=== PATIENT | female | born 1940 | race Caucasian/White ===

== ENCOUNTER 2019-12-18 20:40 | Emergency (ER) | payer MEDICARE, OTHER, SELFPAY ==
[2019-12-18 21:01] VITALS: BP 142/72; PULSE 66; RESP 22; TEMP 36.7; O2SAT 97; BMI 31.3
--- NOTE | 2019-12-18 21:05 | XR_ITS ---
WS: [id number] XR chest 2V* [id number] REASON FOR EXAM: cough, shortness of breath FINDINGS: The heart and mediastinum are normal. 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 The lung cavanaugh are well aerated. No pneumonia, pleural effusion, pulmonary edema, no mass effect. The hilum and apices normal. There is arteriosclerotic changes in the arch of the aorta. No osseous abnormalities. XR/XR chest 2V* [id number] IMPRESSION: Negative chest for active pathology. 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 Arteriosclerotic changes.
[2019-12-18 21:30] LABS: Influenza A by IFA Negative (Negative); Influenza B by IFA Negative (Negative)
[2019-12-18 21:40] LABS: Basophils % 0.2 %; Eosinophils # 0.2 10^3/uL (0.0-0.8); Eosinophils % 5.4 %; Hematocrit 39.5 % (37.0-47.0); Hemoglobin 12.4 g/dL (11.5-15.3); Lymphocytes # 1.5 10^3/uL (0.8-4.8); Lymphocytes % 34.4 %; Mean Corpuscular HGB Conc 31.4 g/dL (30.0-36.0); Mean Corpuscular Hemoglobin 27.1 pg (28.0-34.0); Mean Corpuscular Volume 86.4 fL (81-99); Mean Platelet Volume 10.9 fL (7.4-10.4); Monocytes # 0.7 10^3/uL (0.2-0.9); Monocytes % 16.5 %; Neutrophils # 1.8 10^3/uL (1.8-7.7); Neutrophils % 43.3 %; Nucleated Red Blood Cells % 0 %; Platelet Count 223 10^3/cmm (130-400); Red Blood Count 4.57 10^6/uL (4.1-5.3); Red Cell Distribution Width 14.2 % (12.1-15.1); White Blood Count 4.2 10^3/uL (4.0-10.0)
[2019-12-18 21:54] LABS: Alanine Aminotransferase 10 U/L (0-33); Albumin Level 4.3 g/dL (3.5-5.2); Alkaline Phosphatase 95 IU/L (35-105); Anion Gap 18.8 (5-19); Aspartate Amino Transferase 17 U/L (0-32); Blood Urea Nitrogen 12 mg/dL (8-23); Calcium 9.1 mg/dL (8.5-10.5); Carbon Dioxide 23 mmol/L (22-29); Chloride 94 mmol/L (98-107); Globulin 3.3 g/dL (1.3-4.6); Glucose 123 mg/dL (65-115); Potassium 3.8 mmol/L (3.5-5.1); Sodium 132 mmol/L (136-145); Total Bilirubin 0.2 mg/dL (0.15-1.2); Total Protein 7.6 g/dL (6.6-8.7)
--- NOTE | 2019-12-18 22:58 | ED_ITS ---
Entered by Louise Panchal, acting as scribe for Mason Diana DO Dec 18, 2019 20:40 HPI - URI/Sore Throat General: Chief Complaint: Upper Respiratory Infection Stated Complaint: COUGH/SOB Time Seen by Provider: 12/18/19 23:00 Source: patient Mode of arrival: ambulatory History of Present Illness: HPI Narrative: 79 y/o female presents to the ED with complaint of SOB and cough for 3-4 days. Pt states she has had chills and thick, green sputum. She reports back and chest pain from her coughing fits. She was seen at Urgent Care on 11/24/19 and was put on 10 days of abx for sinus infection. She seemed to get better while she was on the abx but her symptoms worsened after that. MD elicited complaint: cough and other (SOB) Onset (ago): day(s) (3-4) Consistency: progressively worsening Severity: moderate Description of mucous: green Associated symptoms: Reports chills, chest pain (with cough), cough, fever(s) and short of breath; Deny abdominal pain, epistaxis, headache(s), nausea or vomiting Review of Systems Const: Reports: fever and chills Eyes: Denies: change in vision or blurry vision ENMT: Denies: painful swallowing, swelling of lips/tongue, bleeding gums, dental pain, Change in hearing, nose bleeds or post nasal drip Card: Reports: chest pain (with cough) and shortness of breath on exertion; Denies: palpitations, irregular heart rhythm, edema or swelling of feet/ankles Resp: Reports: shortness of breath and productive cough; Denies: non-productive cough or wheezing GI: Denies: abdominal pain, nausea or vomiting : Denies: painful urination, urinary frequency, urinary urgency or blood in urine Musc: Denies: neck pain, back pain, redness or joint warmth Skin/Breast: Denies: rash, itching or redness Neuro: Denies: headache, dizziness, vertigo or confusion Psych: Denies: anxiety PFSH ED PFSH: Social History (Updated 11/22/19 @ 18:05 by Elsi Yen LPN) Smoking and tobacco status: former smoker Alcohol intake: current Physical Exam Const: COMMON NORMALS: alert GENERAL APPEARANCE: well developed ORIENTATION/CONSCIOUSNESS: Yes awake, Yes oriented to person, Yes oriented to place and Yes oriented to time HENMT: COMMON NORMALS: normocephalic, external ears normal, external nose normal and moist oral mucous membranes HEAD & SCALP: normocephalic; no scalp tenderness FACE & SINUS: normal facial exam NOSE: external nose normal and no nasal discharge EXTERNAL EAR: Yes external ears normal MOUTH: tongue normal TEETH & GINGIVA: no abnormal tooth and associated gingiva THROAT: posterior oropharynx normal; no peritonsillar mass Eye: COMMON NORMALS: PERRL, EOMs intact bilaterally and conjunctivae normal EYELID: eyelids normal CONJUNCTIVA: Yes conjunctivae normal PUPIL: Yes PERRL Chest: COMMONS NORMALS: inspection of chest normal CHEST: Yes symmetrical chest wall rise and No tenderness Resp: COMMON NORMALS: clear to auscultation bilaterally EFFORT & INSPECTION: No tachypneic, No respiratory distress, No retractions, No uses accessory muscles and No tracheal deviation AUSCULTATION: clear to auscultation bilaterally, no rhonchi, no wheezes and lung sounds not diminished Cardio: COMMON NORMALS: regular rate and regular rhythm RATE: regular rate RHYTHM: regular rhythm HEART SOUNDS: no murmurs PERIPHERAL PULSES: radial pulses present GI: INSPECTION: No abdominal distension AUSCULTATION: No hyperactive bowel sounds and No hypoactive bowel sounds PALPATION: No tender, No guarding and No rigid PERCUSSION: no dullness to percussion and no tympanic to percussion : COMMON NORMALS: Yes no CVA tenderness BLADDER/KIDNEY EXAM: Yes no CVA tenderness Back/Pelvis: COMMON NORMALS: no CVA tenderness Neuro: SENSORIUM/ORIENTATION: Yes alert, Yes oriented to person, Yes oriented to place and Yes oriented to time Psych: COMMON NORMALS: mental status grossly normal and speech normal SPEECH: Yes normal speech Skin: COMMON NORMALS: no rashes or lesions noted GENERAL SKIN EXAM: no rashes or lesions noted Course Vital Signs: Vital signs: Vital Signs Temperature 98.1 F 12/18/19 21:01 Pulse Rate 58 L 12/19/19 00:05 Respiratory Rate 16 12/19/19 00:05 Blood Pressure 131/64 12/19/19 00:05 Pulse Oximetry 97 12/19/19 00:05 MDM - URI/Sore Throat Lab Data: Labs: Lab Results 12/18/19 12/18/19 12/18/19 Range/Units 21:06 21:23 21:23 WBC 4.2 (4.0-10.0) 10^3/ uL RBC 4.57 (4.1-5.3) 10^6/u L Hgb 12.4 (11.5-15.3) g/dL Hct 39.5 (37.0-47.0) % MCV 86.4 (81-99) fL MCH 27.1 L (28.0-34.0) pg MCHC 31.4 (30.0-36.0) g/dL RDW 14.2 (12.1-15.1) % Plt Count 223 (130-400) 10^3/c mm MPV 10.9 H (7.4-10.4) fL Neut % (Auto) 43.3 % Lymph % (Auto) 34.4 % Deuel % (Auto) 16.5 % Eos % (Auto) 5.4 % Baso % (Auto) 0.2 % Neut # (Auto) 1.8 (1.8-7.7) 10^3/u L Lymph # (Auto) 1.5 (0.8-4.8) 10^3/u L Deuel # (Auto) 0.7 (0.2-0.9) 10^3/u L Eos # (Auto) 0.2 (0.0-0.8) 10^3/u L Baso # (Auto) 0.0 (0.0-0.1) 10^3/u L Nucleated RBC % (a uto) 0 % Nucleated RBCs # 0.0 /100WBC Sodium 132 L (136-145) mmol/L Potassium 3.8 (3.5-5.1) mmol/L Chloride 94 L (98-107) mmol/L Carbon Dioxide 23 (22-29) mmol/L Anion Gap 18.8 (5-19) BUN 12 (8-23) mg/dL Creatinine 1.0 H (0.5-0.9) mg/dL Glucose 123 H (65-115) mg/dL Calcium 9.1 (8.5-10.5) mg/dL Total Bilirubin 0.2 (0.15-1.2) mg/dL AST 17 (0-32) U/L ALT 10 (0-33) U/L Alkaline Phosphata se 95 (35-105) IU/L Total Protein 7.6 (6.6-8.7) g/dL Albumin 4.3 (3.5-5.2) g/dL Globulin 3.3 (1.3-4.6) g/dL Influenza Type A A g Negative (Negative) POC Influenza B Ag Negative (Negative) Discharge Plan Discharge Patient Disposition: Home, Self-Care Clinical Impression: Bronchitis Asthma exacerbation Qualifiers: Asthma severity: moderate Asthma persistence: persistent Qualified Code(s): J45.41 - Moderate persistent asthma with (acute) exacerbation Condition: Stable Prescriptions: New prednisone 10 mg tablet 40 mg PO DAILY Qty: 20 RF: 0 benzonatate 200 mg capsule 200 mg PO TID PRN (Reason: cough) Qty: 30 RF: 0 No Action Zyrtec 10 mg capsule PO ONCE RF: 0 pantoprazole [Protonix] 40 mg tablet,delayed release (DR/EC) 40 mg PO QDAY RF: 0 valsartan 80 mg tablet 80 mg PO QDAY RF: 0 spironolactone 25 mg tablet 25 mg PO QDAY RF: 0 trazodone 50 mg tablet 25 mg PO QDAY RF: 0 hydrocodone-acetaminophen 10-325 mg/15 mL(15 mL) solution 15 ml PO Q6H PRNRF: 0 albuterol sulfate 90 mcg/actuation HFA aerosol inhaler 1 inh INHALATION ONCE RF: 0 fluticasone propionate [Flonase Allergy Relief] 50 mcg/actuation spray ,suspension 1 spray INTRANASAL QDAY PRNRF: 0 fluticasone propion-salmeterol [Advair Diskus] 250-50 mcg/dose blister with device 1 inh INHALATION ONCE RF: 0 PreserVision AREDS [id number] capsule 1 cap PO BID RF: 0 alendronate 10 mg tablet 10 mg PO .weekly RF: 0 gabapentin 300 mg capsule 300 mg PO QDAY RF: 0 Xarelto 10 mg tablet 10 mg PO QDAY RF: 0 Discharge Orders: Discharge Order (Routine); Ordered 12/18/19 Ordered By: Mason Diana Referrals: Pb Nam MD [Family Provider] - 4-7 days Discharge Diet: Advance as tolerated Discharge Activity: Increase activity as tolerated Patient Instructions: Acute Bronchitis (ED) Activity Restrictions/Additional Instructions: Return for worsening cough, shortness of breath, other concerning symptoms despite treatment. Discharge Date/Time: 12/19/19 00:15 Coding Level of Care Code ED Medical Director/Head Team Physician for Chg Fwd Exam Comprehensive The documentation recorded by the Abdulkadir schwarz Ashley, accurately reflects the service I personally performed and the decisions made by Lebron price Jeremy John, DO Dec 18, 2019 20:40
[2019-12-19 00:03] VITALS: RESP 16
[2019-12-19] MEDS: doxycycline 100 mg Tablet PO (00:03)
[2019-12-19] MEDS: oxyCODONE-APAP 5-325 mg Tablet 2 TAB PO (00:03)
[2019-12-19] MEDS: benzonatate 100 mg Capsule PO (00:04)
[2019-12-19] MEDS: predniSONE 20 mg Tablet 60 MG PO (00:04)
[2019-12-19 00:05] VITALS: BP 131/64; PULSE 58; RESP 16; O2SAT 97
== END 2019-12-19 00:15 | disposition home or self-care (01) ==
PROVIDERS: Emergency Provider Emergency Medicine; Family Provider Family Medicine
DX: J40 Bronchitis, not specified as acute or chronic (principal); J45.901 Unspecified asthma with (acute) exacerbation; Z79.51 Long term (current) use of inhaled steroids; Z87.891 Personal history of nicotine dependence
CPT/HCPCS: 71046; 80053; 85025; 87804; 99282; 99283; J7512

== ENCOUNTER 2020-02-15 12:56 | Outpatient (CLI) | payer MEDICARE, OTHER, SELFPAY ==
--- NOTE | 2020-02-15 13:05 | XR_ITS ---
WS: [id number] KNEE LEFT TECHNIQUE: 3 views of the left knee CLINICAL INFORMATION: S/P TKA COMPARISON: None. FINDINGS: Postoperative left TKA. Hardware appears in good position. No evidence of hardware loosening. Mild so ft tissue edema. XR/XR knee LT 3V* [id number] IMPRESSION: Mild soft tissue edema. Otherwise normal left TKA.
== END 2020-02-15 12:57 | disposition home or self-care (01) ==
LOC: RAD 12:58
PROVIDERS: Family Provider Family Medicine; PCP Family Medicine; Visit Provider Orthopaedic Surgery
DX: Z48.89 Encounter for other specified surgical aftercare (principal); Z96.652 Presence of left artificial knee joint
CPT/HCPCS: 73562

== ENCOUNTER → 2020-05-17 14:19 | Outpatient (BNVA) | payer MEDICARE, OTHER, SELFPAY | PROVIDERS: Family Provider Family Medicine; PCP Family Medicine; Referring Provider Dermatology; Visit Provider Dermatology | DX: L71.9 Rosacea, unspecified (principal); L70.8 Other acne; L57.0 Actinic keratosis; L85.3 Xerosis cutis; L73.8 Other specified follicular disorders; Z85.820 Personal history of malignant melanoma of skin | CPT/HCPCS: 99203; 99204 ==

== ENCOUNTER 2020-09-11 11:43 | Outpatient (CLI) | payer MEDICARE, OTHER, SELFPAY ==
--- NOTE | 2020-09-11 11:50 | MM_ITS ---
WS: [id number] BILATERAL SCREENING DIGITAL MAMMOGRAM WITH CAD HISTORY: SCREENING COMPARISON: 08/05/2019 and 07/03/2018 Bilateral CC and MLO views submitted. Computer aided detection analyzed. Breast composition: There are scattered areas of fibroglandular density. No suspicious masses, microc alcifications or architectural distortion. Benign calcifications in each breast. MM/[place] [id number] IMPRESSION: BI-RADS: 2-Benign FOLLOW UP: 1 Year Follow-up
== END 2020-09-11 11:44 | disposition home or self-care (01) ==
LOC: RADSHAW 11:48
PROVIDERS: PCP Family Medicine; Visit Provider Family Medicine
DX: Z12.31 Encounter for screening mammogram for malignant neoplasm of breast (principal)
CPT/HCPCS: 77067

== ENCOUNTER 2020-09-13 06:00 | Outpatient (RCR) | payer MEDICARE, OTHER, SELFPAY | END 2020-09-25 23:59 | disposition home or self-care (01) | LOC: SPT 06:00 | PROVIDERS: PCP Family Medicine; Referring Provider Family Medicine; Visit Provider Family Medicine | DX: M19.071 Primary osteoarthritis, right ankle and foot (principal) | CPT/HCPCS: 97161 ==

== ENCOUNTER 2020-09-26 06:00 | Outpatient (RCR) | payer MEDICARE, OTHER, SELFPAY | END 2020-10-26 23:59 | disposition home or self-care (01) | LOC: SPT 06:00 | PROVIDERS: PCP Family Medicine; Referring Provider Family Medicine; Visit Provider Family Medicine | DX: M19.071 Primary osteoarthritis, right ankle and foot (principal) | CPT/HCPCS: 97113 ==

== ENCOUNTER 2020-10-18 15:16 | Outpatient (CLI) | payer MEDICARE, OTHER, SELFPAY ==
--- NOTE | 2020-10-18 15:28 | XR_ITS ---
WS: [id number] SCREENING DEXA SCAN [facility] CLINICAL INFORMATION: POST MENOPAUSAL OSTEOPOROSIS, OSTEOARTHRITIS, RIGHT ANKL/[place] COMPARISON: 3 018 FINDINGS: The L1-L4 bone mineral density measures 1.095 g/cm2. This corresponds to a T score score of -0.7 and Z score of 0.2. Left femoral neck bone mineral density measures 0.876 g/cm2. This corresponds to a T score of -1.0 an d Z score of 0.4. Right femoral neck bone mineral density measures 0.866 g/cm2. This corresponds to a T score -1.1of an d Z score of 0.3. Mean femoral neck bone mineral density measures 0.871 g/cm2. This corresponds to a T score of -1.1 an d Z score of 0.3. XR/XR DEXA axial skeleton* [id number] IMPRESSION: Osteopenia at the lower end of the range. Patient's FRAX calculated 10 year probability for major osteoporotic fracture i s 25.1 % and osteoporotic hip fracture is 8.1%.
== END 2020-10-18 15:17 | disposition home or self-care (01) ==
LOC: RADWPI 15:19
PROVIDERS: PCP Family Medicine; Visit Provider Family Medicine
DX: M81.0 Age-related osteoporosis without current pathological fracture (principal); M85.88 Other specified disorders of bone density and structure, other site
CPT/HCPCS: 77080

== ENCOUNTER 2020-10-27 06:00 | Outpatient (RCR) | payer MEDICARE, OTHER, SELFPAY | END 2020-11-26 23:59 | disposition home or self-care (01) | LOC: SPT 06:00 | PROVIDERS: PCP Family Medicine; Referring Provider Family Medicine; Visit Provider Family Medicine | DX: M19.071 Primary osteoarthritis, right ankle and foot (principal) | CPT/HCPCS: 97113; 97161; 97164 ==

== ENCOUNTER 2020-11-27 06:00 | Outpatient (RCR) | payer MEDICARE, OTHER, SELFPAY | END 2020-12-24 23:59 | disposition home or self-care (01) | LOC: SPT 06:00 | PROVIDERS: PCP Family Medicine; Referring Provider Family Medicine; Visit Provider Family Medicine | DX: M19.071 Primary osteoarthritis, right ankle and foot (principal) | CPT/HCPCS: 97113 ==

== ENCOUNTER 2020-12-25 06:00 | Outpatient (RCR) | payer MEDICARE, OTHER, SELFPAY | END 2021-01-24 23:59 | disposition home or self-care (01) | LOC: SPT 06:00 | PROVIDERS: PCP Family Medicine; Referring Provider Family Medicine; Visit Provider Family Medicine | DX: Z47.1 Aftercare following joint replacement surgery (principal); Z96.652 Presence of left artificial knee joint | CPT/HCPCS: 97113 ==

== ENCOUNTER 2020-12-27 06:00 | Outpatient (RCR) | payer MEDICARE, OTHER, SELFPAY | END 2021-01-24 23:59 | disposition home or self-care (01) | LOC: SPT 06:00 | PROVIDERS: PCP Family Medicine; Referring Provider Orthopaedic Surgery; Visit Provider Orthopaedic Surgery | DX: Z47.1 Aftercare following joint replacement surgery (principal); Z96.652 Presence of left artificial knee joint | CPT/HCPCS: 97110; 97161 ==

== ENCOUNTER 2021-01-18 14:53 | Outpatient (CLI) | payer MEDICARE, OTHER, SELFPAY ==
--- NOTE | 2021-01-18 14:58 | USCV_ITS ---
Vi Ruffin Age: 80 Gender: F : 1940 Exam Date: 01/18/2021 15:16 Ordering Phys: Pb Nam MD Technologist: Lesley De La Cruz Exam Location: [facility] [place] Indication: LVH BP: / HR: 56 Rhythm: Sinus Technical Quality: Adequate MEASUREMENTS (Male / Female) Normal Values 2D ECHO LV Diastolic Diameter PLAX 3.9 cm 4.2 - 5.9 / 3.9 - 5.3 cm LV Systolic Diameter PLAX 2.4 cm LV Chamber Size 3.1 cm IVS Diastolic Thickness 1.3 cm 0.6 - 1.0 / 0.6 - 0.9 cm IVS Systolic Thickness 1.6 cm LVPW Diastolic Thickness 2.0 cm 0.6 - 1.0 / 0.6 - 0.9 cm LVPW Systolic Thickness 2.2 cm RV Chamber Size 2.8 cm LVOT Diameter 2.0 cm LV Ejection Fraction 2D Teich 69.5 % LV Ejection Fraction MOD 2C 75.8 % LV Ejection Fraction 2C AL 75.4 % LA Diameter 3.7 cm LA Width 3.0 cm LA Height 4.4 cm RA Width 2.9 cm RA Height 3.6 cm Aorta at Sinotubular Diameter 2.6 cm M-MODE LV Diastolic Diameter MM 4.7 cm 4.2 - 5.9 / 3.9 - 5.3 cm LV Systolic Diameter MM 2.6 cm LV Ejection Fraction MM Teich 75.4 % IVS Diastolic Thickness MM 1.5 cm 0.6 - 1.0 / 0.6 - 0.9 cm IVS Systolic Thickness MM 1.7 cm LVPW Diastolic Thickness MM 1.7 cm 0.6 - 1.0 / 0.6 - 0.9 cm LVPW Systolic Thickness MM 1.7 cm Aortic Annulus Diameter 3.0 cm LA Ao Ratio MM 1.3 MV E Point Septal Separation 0.3 cm DOPPLER AV Peak Velocity 204.0 cm/s LVOT Peak Velocity 141.3 cm/s AV Area Cont Eq vti 2.6 cm squared AV Area Cont Eq pk 2.3 cm squared MV Area PHT 2.2 cm squared Mitral E to A Ratio 0.7 MV E' Velocity 48.5 cm/s Mitral E to MV E' Ratio 11.4 Mitral E to LV E' Lateral Ratio 11.6 Mitral E to LV E' Septal Ratio 11.3 TR Peak Velocity 219.5 cm/s TR Peak Gradient 19.3 mmHg TV Peak E Velocity 62.0 cm/s Right Atrial Pressure 3.0 mmHg Pulmonary Artery Systolic Pressu 22.3 mmHg PV Peak Velocity 101.0 cm/s RV Acceleration Time 0.1 s RV Ejection Time 0.4 s RV AcT/ET 0.4 FINDINGS Left Ventricle Normal left ventricular size, systolic function and increased wall thickness, with no regional wall motion abnormalities. Left ventricular ejection fraction is estimated at 65%. Grade I diastolic dysfunction (abnormal relaxation filling pattern), normal to mildly elevated filling pressures. Right Ventricle Normal right ventricular size and systolic function. Right ventricular systolic pressure 22.3 mmHg. Right Atrium Normal right atrial size. Left Atrium Upper normal left atrial size. Mitral Valve Moderate mitral annular calcification. No mitral valve stenosis. No significant mitral valve regurgitation. Aortic Valve Thickened aortic valve. No aortic valve stenosis. No aortic valve regurgitation. Tricuspid Valve Structurally normal tricuspid valve. No tricuspid valve stenosis. Trace to mild tricuspid valve regurgitation. Pulmonic Valve Pulmonic valve not well visualized. Pericardium No pericardial effusion. Aorta Normal size aortic root and proximal ascending aorta. CONCLUSIONS 1. Normal left ventricular size, systolic function and increased wall thickness, with no regional wall motion abnormalities. Left ventricular ejection fraction is estimated at 65%. Grade I diastolic dysfunction (abnormal relaxation filling pattern), normal to mildly elevated filling pressures. 2. No significant valvular abnormality. 3. Normal pulmonary artery pressure. 4. When compared to previous echocardiogram dated 05/25/2019, there may not have been any significant change. Pham Rosales MD (Electronically Signed) Final Date: 21 January 2021 15:00 S
== END 2021-01-18 14:54 | disposition home or self-care (01) ==
LOC: US 14:56
PROVIDERS: PCP Family Medicine; Visit Provider Family Medicine
DX: I11.9 Hypertensive heart disease without heart failure (principal)
CPT/HCPCS: 93306

== ENCOUNTER 2021-01-25 06:00 | Outpatient (RCR) | payer MEDICARE, OTHER, SELFPAY | END 2021-02-23 23:59 | disposition home or self-care (01) | LOC: SPT 06:00 | PROVIDERS: PCP Family Medicine; Referring Provider Orthopaedic Surgery; Visit Provider Orthopaedic Surgery | DX: Z47.1 Aftercare following joint replacement surgery (principal); Z96.652 Presence of left artificial knee joint | CPT/HCPCS: 97110 ==

== ENCOUNTER 2021-09-13 10:56 | Outpatient (CLI) | payer MEDICARE, OTHER, SELFPAY ==
--- NOTE | 2021-09-13 11:02 | MM_ITS ---
WS: [id number] BILATERAL DIGITAL SCREENING MAMMOGRAPHY WITH CAD CLINICAL INFORMATION: SCREENING HISTORY: Screening mammogram. No current complaints. COMPARISON: September 11, 2020 TECHNIQUE: Bilateral CC and MLO views. FINDINGS: Scattered fibroglandular densities bilaterally. A few punctate and lucent centered calcifications. Va scular calcification. No suspicious focal mass, asymmetry, calcifications, or architectural distortio n. No evidence of malignancy. MM/[place] [id number] IMPRESSION: BI-RADS: 2-Benign FOLLOW UP: 1 Year Follow-up Recommend return to annual screening mammography.
== END 2021-09-13 10:57 | disposition home or self-care (01) ==
LOC: RADSHAW 11:01
PROVIDERS: PCP Family Medicine; Visit Provider Family Medicine
DX: Z12.31 Encounter for screening mammogram for malignant neoplasm of breast (principal)
CPT/HCPCS: 77067

== ENCOUNTER 2021-09-14 08:33 | Outpatient (CLI) | payer MEDICARE, OTHER, SELFPAY ==
--- NOTE | 2021-09-14 08:40 | USCV_ITS ---
Vi Ruffin Age: 80 Gender: F : 1940 Exam Date: 09/14/2021 09:33 Ordering Phys: Pb Nam MD Technologist: June Neff Exam Location: [facility] – [place] Indication: DIASTOLIC DYSFUNCTION BP: 140 / 65 HR: 47 Rhythm: Sinus Technical Quality: Adequate MEASUREMENTS (Male / Female) Normal Values 2D ECHO LV Diastolic Diameter PLAX 4.6 cm 4.2 - 5.9 / 3.9 - 5.3 cm LV Systolic Diameter PLAX 2.3 cm IVS Diastolic Thickness 1.3 cm 0.6 - 1.0 / 0.6 - 0.9 cm IVS Systolic Thickness 1.8 cm LVPW Diastolic Thickness 0.7 cm 0.6 - 1.0 / 0.6 - 0.9 cm LVPW Systolic Thickness 1.7 cm LVOT Diameter 2.1 cm LV Ejection Fraction 2D Teich 82.2 % LV Ejection Fraction MOD 2C 67.4 % LV Ejection Fraction 2C AL 68.1 % LA Diameter 3.8 cm LA Width 4.9 cm LA Height 5.2 cm RA Width 3.7 cm RA Height 4.7 cm Aorta at Sinotubular Diameter 2.8 cm DOPPLER AV Peak Velocity 232.3 cm/s LVOT Peak Velocity 111.0 cm/s AV Area Cont Eq vti 2.4 cm squared AV Area Cont Eq pk 1.6 cm squared MV Peak Velocity 124.0 cm/s MV Area PHT 2.3 cm squared Mitral E to A Ratio 0.9 MV E' Velocity 64.5 cm/s Mitral E to MV E' Ratio 12.4 Mitral E to LV E' Lateral Ratio 13.8 Mitral E to LV E' Septal Ratio 11.2 TR Peak Velocity 172.3 cm/s TR Peak Gradient 11.9 mmHg Right Atrial Pressure 3.0 mmHg Pulmonary Artery Systolic Pressu 14.9 mmHg PV Peak Velocity 80.0 cm/s RV Acceleration Time 0.2 s RV Ejection Time 0.4 s RV AcT/ET 0.6 FINDINGS Left Ventricle Normal left ventricular size and systolic function, EF 62 %. No regional wall motion abnormalities. Grade I/IV diastolic dysfunction (abnormal relaxation filling pattern), normal to mildly elevated filling pressures. Right Ventricle The right ventricle is normal in size and function. Right Atrium The right atrium is normal in size. Left Atrium Mildly increased left atrial size. Mitral Valve Moderate mitral annular calcification. Aortic Valve Thickened aortic valve. Tricuspid Valve Mild tricuspid valve regurgitation. Pulmonic Valve No gross abnormalities noted Pericardium Normal pericardium without effusion. Aorta Normal ascending aorta dimension. CONCLUSIONS Normal left ventricular size and systolic function, EF 62 %. No regional wall motion abnormalities. Grade I/IV diastolic dysfunction (abnormal relaxation filling pattern), normal to mildly elevated filling pressures. Mildly increased left atrial size. Moderate mitral annular calcification. Features of aortic valve sclerosis. Mild tricuspid valve regurgitation. Estimated pulmonary artery peak systolic pressure of 15 mmHg There is no pericardial effusion. There are no intracardiac masses. Compared to the study from 01/18/2021, there may not be a significant change Dr Don Mello MD FAC (Electronically Signed) Final Date: 14 September 2021 16:34 S
== END 2021-09-14 08:34 | disposition home or self-care (01) ==
LOC: RAD 08:38
PROVIDERS: PCP Family Medicine; Visit Provider Family Medicine
DX: I08.1 Rheumatic disorders of both mitral and tricuspid valves (principal)
CPT/HCPCS: 93306

== ENCOUNTER → 2022-01-16 11:17 | Outpatient (BNVA) | payer MEDICARE, OTHER, SELFPAY | PROVIDERS: PCP Family Medicine; Referring Provider Family Medicine; Visit Provider Specialist | DX: M25.562 Pain in left knee (principal); M17.12 Unilateral primary osteoarthritis, left knee; Z96.652 Presence of left artificial knee joint | CPT/HCPCS: 73560; 73565 ==

== ENCOUNTER → 2022-02-06 10:02 | Outpatient (BNVA) | payer MEDICARE, OTHER, SELFPAY | PROVIDERS: PCP Family Medicine; Referring Provider Family Medicine; Visit Provider Anesthesiology Pain Medicine | DX: M47.816 Spondylosis without myelopathy or radiculopathy, lumbar region (principal); M51.16 Intervertebral disc disorders with radiculopathy, lumbar region; Z79.891 Long term (current) use of opiate analgesic; Z87.891 Personal history of nicotine dependence; M54.16 Radiculopathy, lumbar region; M81.0 Age-related osteoporosis without current pathological fracture; M41.86 Other forms of scoliosis, lumbar region | CPT/HCPCS: 72110; 99203; 99204 ==

== ENCOUNTER 2022-02-06 12:15 | Outpatient (CLI) | payer MEDICARE, OTHER, SELFPAY ==
--- NOTE | 2022-02-06 12:36 | XR_ITS ---
WS: [id number] Lumbar spine, AP, lateral, L5-S1 spot, both obliques, 02/06/2022 Clinical Data: M54.16 - Radiculopathy, lumbar region Comparison: Lateral lumbar spine, 02/07/2010. Findings: There are no compression fractures. There is loss of normal disc height at L1-L2, L2-L3 and L3-L4. Th ere is a retrolisthesis of 0.3 cm of L2 on L3 and the same distance for L3 on L4. Osteoporosis is pre sent. On the oblique films there is no spondylolysis. The SI joints are not remarkable. There is a slight levoscoliosis. Osteoarthritis is severe L2-L3 and moderate above and below this disc space. XR/XR lumbar spine min 4V [id number] Impression: 1. Degenerative disc narrowing from L1-L2 through L3-L4 with a retrolisthesis o f L2 on L3 and L3 on L4. 2. Osteoarthritis of the upper lumbar vertebral bodies. 3. Osteoporosis and levoscoliosis.
== END 2022-02-06 12:16 | disposition home or self-care (01) ==
LOC: RAD 12:25
PROVIDERS: PCP Family Medicine; Visit Provider Anesthesiology Pain Medicine
DX: M54.16 Radiculopathy, lumbar region (principal); M47.816 Spondylosis without myelopathy or radiculopathy, lumbar region; M81.0 Age-related osteoporosis without current pathological fracture; M41.86 Other forms of scoliosis, lumbar region
CPT/HCPCS: 72110

== ENCOUNTER 2022-02-11 13:32 | Outpatient (CLI) | payer MEDICARE, OTHER, SELFPAY ==
--- NOTE | 2022-02-11 13:46 | CT_ITS ---
WS: [id number] CT LUMBAR SPINE, noncontrast. HISTORY: LUMBAGO W/SCIATICA-LEFT SIDE TECHNIQUE: Contiguous 2.5 mm axial imaging are performed. Sagittal and coronal reformats are submitte d and reviewed. All CT scans at [facility] use at least one of these dose optimization techni ques: automated exposure control; mA and/or kV adjustment per patient size (includes targeted exams w here dose is matched to clinical indication); or iterative reconstruction. IV contrast: None DLP: 2464.14 mGy.cm COMPARISON: 02/06/2022 Mild increase in lumbar lordosis. Advanced degenerative disc space narrowing at L2-3. L2 retrolisthes is by 3.7 mm and L3 retrolisthesis by 4.6 mm. No fractures. Mild degenerative changes in the facet enma ints. L1-2: Mild asymmetric disc bulging. Focal disc protrusion LEFT subarticular recess and extending into the foramen. Mild contact on the traversing LEFT L2 nerve root. No high-grade stenosis. Facet joint arthritis is mild. L2-3: Annular disc bulging with the retrolisthesis of L2. There is mild encroachment upon the ventral thecal sac by disc and osteophyte. Very mild central and subarticular recess narrowing. L3-4: Mild annular disc bulging with ligamentum flavum hypertrophy and facet arthritis. No high-grade stenosis. L4-5: Mild annular disc bulging with ligamentum flavum and facet joint arthritis. There is mild narro wing of the subarticular recesses, LEFT greater than RIGHT. Moderate facet joint arthritis. Moderate central with mild bilateral subarticular recess stenosis. L5-S1: Mild osteophytic ridging and disc bulge. There is a small LEFT foraminal disc protrusion which does not contact any nerve root. Facet joints are narrowed and sclerotic. Mild scattered atherosclerotic plaque within the abdominal aorta. 10 mm LEFT adrenal nodule consistent with a benign adenoma. Mild bilateral SI joint disease. CT/CT lumbar spine wo con* [id number] IMPRESSION: 1. Retrolisthesis of L2 and L3 by 3.7 mm and 4.6 mm, respectively. 2. Advanced degenerative disc disease at L2-3. 3. No fracture. 4. Moderate central with mild bilateral subarticular recess stenosis at L4-5 d ue to combination of factors as above. 5. Focal disc protrusion LEFT subarticular recess extending into the foramen a t L1-2. Mild contact on the traversing L2 nerve root. 6. Very mild central and bilateral subarticular recess narrowing at L2-3.
== END 2022-02-11 13:33 | disposition home or self-care (01) ==
LOC: RAD 13:34
PROVIDERS: PCP Family Medicine; Visit Provider Family Medicine
DX: M54.42 Lumbago with sciatica, left side (principal); M47.896 Other spondylosis, lumbar region; M48.061 Spinal stenosis, lumbar region without neurogenic claudication; M51.26 Other intervertebral disc displacement, lumbar region
CPT/HCPCS: 72131

== ENCOUNTER 2022-03-13 08:55 | Outpatient (CLI) | payer MEDICARE, OTHER, SELFPAY ==
--- NOTE | 2022-03-13 09:30 | MR_ITS ---
WS: [id number] MRI LUMBAR SPINE NONCONTRAST HISTORY: M54.16 - Radiculopathy, lumbar region COMPARISON: CT 02/11/2022, MRI lumbar spine 02/07/2010. TECHNIQUE: Sagittal and axial multisequence imaging is submitted. Moderate cervical spondylitic changes at multiple levels in the cervical spine. L2 retrolisthesis by 3.3 mm and L3 retrolisthesis by 2.3 mm. Disc spaces are narrowed throughout, most significant at L2-3. Conus terminates normally at L1-2 disc level. L1-L2: Mild annular disc bulging. Mild LEFT subarticular disc protrusion without significant stenosis . L2-L3: Diffuse osteophytic ridging and annular disc bulging. Mild ligamentum flavum hypertrophy. Very minimal encroachment upon the thecal sac and subarticular recesses. L3-L4: Mild annular disc bulging and osteophytic ridging. Moderate bilateral facet joint arthritis. M oderate ligamentum flavum hypertrophy. Fluid in the facet joints. Mild bilateral foraminal narrowing, RIGHT greater than LEFT. L4-L5: Mild disc bulging with moderate ligamentum flavum and facet arthritis. Fluid within and mild w idening of the facet joints. No high-grade stenosis. L5-S1: Mild ligamentum flavum hypertrophy and moderate facet arthritis. No high-grade stenosis. Paravertebral soft tissues are normal. MR/MR lumbar spine wo con* [id number] IMPRESSION: 1. No acute fracture or severe central or foraminal stenosis. 2. Mild retrolisthesis of L2 and L3. 3. Moderate degenerative disc disease at L2-3. 4. Very small LEFT subarticular disc protrusion at L1-2 without stenosis. 5. Mild bilateral foraminal stenosis at L2-3 and L3-4. 6. Moderate bilateral facet joint arthritis from L3-4 to L5-S1.
== END 2022-03-13 08:56 | disposition home or self-care (01) ==
LOC: RAD 08:57
PROVIDERS: PCP Family Medicine; Visit Provider Anesthesiology Pain Medicine
DX: M54.16 Radiculopathy, lumbar region (principal)
CPT/HCPCS: 72148

== ENCOUNTER → 2022-03-21 10:55 | Outpatient (BNVA) | payer MEDICARE, OTHER, SELFPAY | PROVIDERS: PCP Family Medicine; Visit Provider Anesthesiology Pain Medicine | DX: M47.816 Spondylosis without myelopathy or radiculopathy, lumbar region (principal); M51.16 Intervertebral disc disorders with radiculopathy, lumbar region; M79.606 Pain in leg, unspecified; Z79.891 Long term (current) use of opiate analgesic; Z87.891 Personal history of nicotine dependence | CPT/HCPCS: 99214 ==

== ENCOUNTER → 2022-04-09 12:02 | Outpatient (BNVA) | payer MEDICARE, OTHER, SELFPAY | PROVIDERS: PCP Family Medicine; Visit Provider Family Medicine | DX: I10 Essential (primary) hypertension (principal) | CPT/HCPCS: 80053; 80061; 85025 ==

== ENCOUNTER → 2022-04-22 13:18 | Outpatient (BNVA) | payer MEDICARE, OTHER, SELFPAY | PROVIDERS: PCP Family Medicine; Visit Provider Anesthesiology Pain Medicine | DX: M54.16 Radiculopathy, lumbar region (principal); Z79.891 Long term (current) use of opiate analgesic; Z87.891 Personal history of nicotine dependence; M47.816 Spondylosis without myelopathy or radiculopathy, lumbar region | CPT/HCPCS: 64493; 64494; 64495; J3490 ==

== ENCOUNTER → 2022-05-06 13:46 | Outpatient (BNVA) | payer MEDICARE, OTHER, SELFPAY | PROVIDERS: PCP Family Medicine | DX: R00.1 Bradycardia, unspecified (principal) | CPT/HCPCS: 93229 ==

== ENCOUNTER → 2022-05-21 14:19 | Outpatient (BNVA) | payer MEDICARE, OTHER, SELFPAY | PROVIDERS: PCP Family Medicine; Visit Provider Anesthesiology Pain Medicine | DX: Z79.891 Long term (current) use of opiate analgesic (principal); Z87.891 Personal history of nicotine dependence; M47.816 Spondylosis without myelopathy or radiculopathy, lumbar region | CPT/HCPCS: 64493; 64494; 64495 ==

== ENCOUNTER 2022-05-27 20:00 | Outpatient (CLI) | payer MEDICARE, OTHER, SELFPAY | END 2022-05-27 20:01 | disposition home or self-care (01) | LOC: SLEEP 05-28 07:56 | PROVIDERS: PCP Family Medicine; Visit Provider Specialist | DX: G47.33 Obstructive sleep apnea (adult) (pediatric) (principal) | CPT/HCPCS: 95810 ==

== ENCOUNTER 2022-05-28 13:53 | Outpatient (CLI) | payer MEDICARE, OTHER, SELFPAY ==
--- NOTE | 2022-05-28 14:04 | XR_ITS ---
WS: [id number] SCREENING DEXA SCAN 3TIER CLINICAL INFORMATION: LUMBAGO W/SCIATICA LEFT SIDE COMPARISON: 2019 FINDINGS: The L1-L4 bone mineral density measures 1.132 g/cm2. This corresponds to a T score score of -0.4 and Z score of 0.6. Left femoral neck bone mineral density measures 0.891 g/cm2. This corresponds to a T score of -0.9 an d Z score of 0.7. Right femoral neck bone mineral density measures 0.877 g/cm2. This corresponds to a T score -1.0of an d Z score of 0.5. Mean femoral neck bone mineral density measures 0.884 g/cm2. This corresponds to a T score of -1.0 an d Z score of 0.6. XR/XR DEXA axial skeleton* [id number] IMPRESSION: Osteopenia femoral necks in the lower end of the range. Normal bone mineralizat ion the lumbar spine. Patient's FRAX calculated 10 year probability for major osteoporotic fracture i s 34.7 % and osteoporotic hip fracture is 24.6%. Bone mineral density lumbar spine has increased 3.4% since 2021. Bone mineral density in the femoral necks has increased 1.5% since 2021.
== END 2022-05-28 13:54 | disposition home or self-care (01) ==
LOC: RAD 13:54
PROVIDERS: PCP Family Medicine; Visit Provider Family Medicine
DX: M54.42 Lumbago with sciatica, left side (principal); M85.80 Other specified disorders of bone density and structure, unspecified site
CPT/HCPCS: 77080

== ENCOUNTER → 2022-05-29 08:45 | Outpatient (BNVA) | payer MEDICARE, OTHER, SELFPAY | PROVIDERS: PCP Family Medicine; Visit Provider Anesthesiology Pain Medicine | DX: Z79.891 Long term (current) use of opiate analgesic (principal); Z87.891 Personal history of nicotine dependence; M47.816 Spondylosis without myelopathy or radiculopathy, lumbar region; M51.16 Intervertebral disc disorders with radiculopathy, lumbar region | CPT/HCPCS: 99214 ==

== ENCOUNTER → 2022-06-20 12:56 | Outpatient (BNVA) | payer MEDICARE, OTHER, SELFPAY | PROVIDERS: PCP Family Medicine; Visit Provider Anesthesiology Pain Medicine | DX: M47.816 Spondylosis without myelopathy or radiculopathy, lumbar region (principal) | CPT/HCPCS: 64635; 64636; J1030 ==

== ENCOUNTER → 2022-06-24 12:13 | Outpatient (BNVA) | payer MEDICARE, OTHER, SELFPAY | PROVIDERS: PCP Family Medicine; Visit Provider Internal Medicine | DX: R00.1 Bradycardia, unspecified (principal); E78.5 Hyperlipidemia, unspecified; G47.33 Obstructive sleep apnea (adult) (pediatric); I10 Essential (primary) hypertension; Z87.891 Personal history of nicotine dependence | CPT/HCPCS: 99204 ==

== ENCOUNTER → 2022-06-28 09:40 | Outpatient (BNVA) | payer MEDICARE, OTHER, SELFPAY | PROVIDERS: PCP Family Medicine; Referring Provider Dermatology; Visit Provider Student in an Organized Health Care Education/Training Program | DX: M18.12 Unilateral primary osteoarthritis of first carpometacarpal joint, left hand (principal) | CPT/HCPCS: 20600; 73130; 99203; 99204; J3301; J3490 ==

== ENCOUNTER → 2022-07-04 13:53 | Outpatient (BNVA) | payer MEDICARE, OTHER, SELFPAY | PROVIDERS: PCP Family Medicine; Visit Provider Anesthesiology Pain Medicine | DX: M47.816 Spondylosis without myelopathy or radiculopathy, lumbar region (principal); Z87.891 Personal history of nicotine dependence | CPT/HCPCS: 64635; 64636; J1030 ==

== ENCOUNTER → 2022-07-17 10:08 | Outpatient (BNVA) | payer MEDICARE, OTHER, SELFPAY | PROVIDERS: PCP Family Medicine; Visit Provider Anesthesiology Pain Medicine | DX: M25.571 Pain in right ankle and joints of right foot (principal); M47.816 Spondylosis without myelopathy or radiculopathy, lumbar region; M51.16 Intervertebral disc disorders with radiculopathy, lumbar region; Z87.891 Personal history of nicotine dependence | CPT/HCPCS: 73610; 99213; 99214 ==

== ENCOUNTER → 2022-08-01 13:39 | Outpatient (BNVA) | payer MEDICARE, OTHER, SELFPAY | PROVIDERS: PCP Family Medicine; Visit Provider Podiatrist Foot & Ankle Surgery | DX: M20.41 Other hammer toe(s) (acquired), right foot (principal); M20.42 Other hammer toe(s) (acquired), left foot; M19.171 Post-traumatic osteoarthritis, right ankle and foot | CPT/HCPCS: 20600; J1100; J3301; J3490 ==

== ENCOUNTER → 2022-08-09 09:06 | Outpatient (BNVA) | payer MEDICARE, OTHER, SELFPAY | PROVIDERS: PCP Family Medicine; Visit Provider Student in an Organized Health Care Education/Training Program | DX: M18.12 Unilateral primary osteoarthritis of first carpometacarpal joint, left hand (principal); Z71.89 Other specified counseling | CPT/HCPCS: 99213 ==

== ENCOUNTER → 2022-08-14 10:48 | Outpatient (BNVA) | payer MEDICARE, OTHER, SELFPAY | PROVIDERS: PCP Family Medicine; Visit Provider Anesthesiology Pain Medicine | DX: M79.18 Myalgia, other site (principal); M47.816 Spondylosis without myelopathy or radiculopathy, lumbar region; M19.171 Post-traumatic osteoarthritis, right ankle and foot; Z87.891 Personal history of nicotine dependence | CPT/HCPCS: 20553; 99214 ==

== ENCOUNTER 2022-08-26 09:16 | Outpatient (CLI) | payer MEDICARE, OTHER, SELFPAY ==
--- NOTE | 2022-08-26 08:45 | USCV_ITS ---
Vi Ruffin Age: 81 Gender: F : 1940 Exam Date: 08/26/2022 09:32 Ordering Phys: Peter Gutierrez M.D ([email or web address]) Technologist: June Neff [place] [facility] [place]: Murmur BP: 126 / 74 HR: 62 Rhythm: Sinus Technical Quality: Good MEASUREMENTS (Male / Female) Normal Values 2D ECHO LV Diastolic Diameter PLAX 2.9 cm 4.2 - 5.9 / 3.9 - 5.3 cm LV Systolic Diameter PLAX 1.3 cm IVS Diastolic Thickness 1.4 cm 0.6 - 1.0 / 0.6 - 0.9 cm IVS Systolic Thickness 1.7 cm LVPW Diastolic Thickness 3.1 cm 0.6 - 1.0 / 0.6 - 0.9 cm LVPW Systolic Thickness 2.5 cm LV Ejection Fraction 2D Teich 93.8 % LV Ejection Fraction MOD 2C 51.2 % LV Ejection Fraction 2C AL 49.6 % LA Diameter 3.9 cm LA Width 2.7 cm LA Height 6.6 cm RA Width 4.3 cm RA Height 5.0 cm Aorta at Sinotubular Diameter 2.8 cm IVC Diameter 0.7 cm DOPPLER AV Peak Velocity 169.0 cm/s LVOT Peak Velocity 176.0 cm/s MV Peak Velocity 140.0 cm/s MV Area PHT 2.4 cm squared Mitral E to A Ratio 0.7 MV E' Velocity 50.5 cm/s Mitral E to MV E' Ratio 12.3 Mitral E to LV E' Lateral Ratio 10.9 Mitral E to LV E' Septal Ratio 14.2 TR Peak Velocity 172.8 cm/s TR Peak Gradient 11.9 mmHg Right Atrial Pressure 3.0 mmHg Pulmonary Artery Systolic Pressu 14.9 mmHg PV Peak Velocity 87.0 cm/s RV Acceleration Time 0.1 s RV Ejection Time 0.3 s RV AcT/ET 0.4 FINDINGS Left Ventricle Normal left ventricular size, systolic function and wall thickness, with no regional wall motion abnormalities. Left ventricular ejection fraction is estimated at 60 %. Grade I diastolic dysfunction (abnormal relaxation filling pattern), normal to mildly elevated filling pressures. Right Ventricle Normal right ventricular size and systolic function. Right ventricular systolic pressure 29 mmHg. Right Atrium Normal right atrial size. Left Atrium Mildly increased left atrial size. Mitral Valve Mild mitral annular calcification. Structurally normal mitral valve. No mitral valve stenosis. No significant mitral valve regurgitation. Aortic Valve Aortic valve not well visualized. No aortic valve stenosis. No aortic valve regurgitation. Tricuspid Valve Structurally normal tricuspid valve. No tricuspid valve stenosis. Trace tricuspid valve regurgitation. Pulmonic Valve Pulmonic valve not well visualized. No pulmonary valve stenosis. No pulmonary valve regurgitation. Pericardium No pericardial effusion. Aorta Normal size aortic root and proximal ascending aorta. IVC Normal IVC dimension with >50% respiratory change of the inferior vena cava. CONCLUSIONS 1. Normal left ventricular size, systolic function and wall thickness, with no regional wall motion abnormalities. Left ventricular ejection fraction is estimated at 60 %. Grade I diastolic dysfunction (abnormal relaxation filling pattern), normal to mildly elevated filling pressures. 2. Normal right ventricular size and systolic function. 3. Trace tricuspid valve regurgitation. 4. When compared to study dated 09/14/2021, there has been no significant change. Pham Rosales MD (Electronically Signed) Final Date: 26 August 2022 17:15 S
== END 2022-08-26 09:17 | disposition home or self-care (01) ==
LOC: RAD 09:17
PROVIDERS: PCP Family Medicine; Visit Provider Internal Medicine
DX: R01.1 Cardiac murmur, unspecified (principal)
CPT/HCPCS: 93306

== ENCOUNTER → 2022-09-11 09:04 | Outpatient (BNVA) | payer MEDICARE, OTHER, SELFPAY | PROVIDERS: PCP Family Medicine; Visit Provider Anesthesiology Pain Medicine | DX: M47.816 Spondylosis without myelopathy or radiculopathy, lumbar region (principal); M51.16 Intervertebral disc disorders with radiculopathy, lumbar region; M19.171 Post-traumatic osteoarthritis, right ankle and foot; Z87.891 Personal history of nicotine dependence; M79.606 Pain in leg, unspecified | CPT/HCPCS: 99212 ==

== ENCOUNTER → 2022-11-18 14:29 | Outpatient (BNVA) | payer MEDICARE, OTHER, SELFPAY | PROVIDERS: PCP Family Medicine; Visit Provider Family Medicine | DX: R42 Dizziness and giddiness (principal); R32 Unspecified urinary incontinence; J30.2 Other seasonal allergic rhinitis | CPT/HCPCS: 81000; 87086 ==

== ENCOUNTER 2022-12-11 09:57 | Outpatient (CLI) | payer MEDICARE, OTHER, SELFPAY ==
--- NOTE | 2022-12-11 10:00 | USCV_ITS ---
AugustinPanchitoa Age: 82 Gender: F : 1940 Exam Date: 12/11/2022 10:17 Ordering Phys: Oxana Lee DO Technologist: CHARLOTTE Exam Location: [facility] – [place] Indication: lightheadedness Risk Factors: Previous Vascular Surgery: Right Brachial BP: / Left Brachial BP: / Right Left Velocity (cm/s) Spectral Plaque Velocity (cm/s) Spectral Plaque Syst/Diast Broadening Syst/Diast Broadening 87.00/ 18.30 Prox CCA 108.30/ 23.30 56.10/ 15.50 Mid CCA 80.00 / 21.30 61.40/ 17.10 Distal CCA 81.00 / 20.20 112.20/31.20 Prox ICA 54.50 / 10.50 96.90/ 30.40 Mid ICA 74.60 / 23.00 94.50/ 26.40 Distal ICA 71.20 / 22.40 55.70 ECA 43.50 1.73 ICA/CCA 0.93 Antegrade Vertebral Antegrade 68.10/ 15.20 cm/s 69.10/ 16.90 cm/s Tri Subclavian Tri 118.3 58.40 0 FINDINGS Comparison: none available. No significant elevation of systolic or diastolic velocities. Carotid arteries are tortuous with scattered plaque. Antegrade vertebral arteries. CONCLUSIONS Bilateral ICA stenosis less than 50%. Mild carotid athersclerosis. Dr. Jody Milian DO (Electronically Signed) Final Date: 11 December 2022 11:37 S
== END 2022-12-11 09:58 | disposition home or self-care (01) ==
LOC: RAD 10:03
PROVIDERS: PCP Family Medicine; Visit Provider Family Medicine
DX: R42 Dizziness and giddiness (principal); I65.23 Occlusion and stenosis of bilateral carotid arteries
CPT/HCPCS: 81000; 87086; 93880

== ENCOUNTER 2022-12-24 13:31 | Emergency (ER) | payer MEDICARE, OTHER, SELFPAY ==
[2022-12-24 13:33] VITALS: BP 134/79; PULSE 120; RESP 17; TEMP 36.5; O2SAT 97; BMI 30.7
[2022-12-24 14:22] LABS: Basophils % 0.5 %; Eosinophils % 0.6 %; Hematocrit 39.4 % (37.0-47.0); Hemoglobin 13.1 g/dL (11.5-15.3); Lymphocytes % 31.2 %; Mean Corpuscular HGB Conc 33.2 g/dL (30.0-36.0); Mean Corpuscular Hemoglobin 27.8 pg (28.0-34.0); Mean Corpuscular Volume 83.5 fl (81-99); Mean Platelet Volume 10.5 fL (7.4-10.4); Monocytes # 1.2 10^3/uL (0.2-0.9); Monocytes % 19.1 %; Neutrophils # 3.06 10^3/uL (1.8-7.7); Neutrophils % 48.4 %; Nucleated Red Blood Cells % 0 %; Platelet Count 274 10^3/cmm (130-400); Red Blood Count 4.72 10^6/uL (4.1-5.3); Red Cell Distribution Width 13.2 % (12.1-15.1); White Blood Count 6.3 10^3/uL (4.0-10.0)
[2022-12-24 14:41] LABS: Alanine Aminotransferase 15 U/L (0-33); Albumin Level 3.5 g/dL (3.5-5.2); Alkaline Phosphatase 64 U/L (35-105); Anion Gap 21.7 (5-19); Aspartate Amino Transferase 23 U/L (0-32); Blood Urea Nitrogen 22 mg/dL (8-23); Calcium 8.1 mg/dL (8.5-10.5); Carbon Dioxide 20 mmol/L (22-29); Chloride 95 mmol/L (98-107); Globulin 2.7 g/dL (1.3-4.6); Glucose 129 mg/dL (65-115); Lipase 50 U/L (13-60); Osmolality Calculated 281 mOsm/kg (285-295); Potassium 3.7 mmol/L (3.5-5.1); Sodium 133 mmol/L (136-145); Total Bilirubin 0.2 mg/dL (0.15-1.2); Total Protein 6.2 g/dL (6.6-8.7)
[2022-12-24] MEDS: sodium chloride 0.9% 1,000 ML 999 ML IV (15:04)
[2022-12-24 15:15] LABS: Urine Appearance Hazy (CLEAR); pH Urine 5 (5-7)
[2022-12-24 15:16] LABS: Add Urine Microscopic? YES; Bilirubin Urine 1+ (Negative); Blood Urine 2+ (Negative); Glucose Urine UA Norm (Normal); Ketones Urine 2+ (Negative); Leukocyte Esterase Urine Trace (Negative); Nitrate Urine Negative (Negative); Protein Urine Trace (Negative); RBC Urine 0-4 /hpf (0-2); Squamous Epithelial Cell Urine 0-4 /hpf (0-5); Urine Color Yellow (Yellow); Urobilinogen Urine 1 mg/dL (Negative); WBC Urine RARE /hpf (0-5)
[2022-12-24 15:17] LABS: Add Urine Culture? No; Amorphous Sediment Urine 2+ /hpf; Bacteria Urine TRACE /hpf; Mucus Urine 2+ /hpf
[2022-12-24] MEDS: ondansetron 2 mg/ML SDV 2 mL 4 MG IVP (15:18)
--- NOTE | 2022-12-24 15:27 | ED_ITS ---
Documented by User: NANY FarfanP-C 12/24/22 16:58 HPI - Nausea/Vomiting/Diarrhea General: Chief complaint: Nausea/Vomiting/Diarrhea Stated complaint: n/v/d Time Seen by Provider: 12/24/22 13:53 History of Present Illness: Patient reports nausea, vomiting, diarrhea since Friday. She reports that she was firing on Friday woke up Friday morning with significant vomiting and diarrhea. She reports as liquid stools and numerous emesis. She reports that her last diarrhea and emesis was this morning prior to coming in. She states that she feels like she is getting extremely dehydrated. She offers that she was unable to come in prior because she did not feel well enough to come in. She denies any recent change in diet or exposure to sick people. She states that she lives alone and does not get out. She denies fever or chills. Associated nausea: Yes Associated symtoms: Reports nausea; Denies change in vision, chest pain, dysuria, headache(s), palpitations or syncope Review of Systems Const: Denies: fever(s), chills or body aches Eyes: Denies: change in vision or blurry vision Card: Denies: chest pain, palpitations, irregular heart rhythm, lightheadedness or syncope Resp: Denies: dyspnea, productive cough or non-productive cough GI: Reports: nausea, vomiting and diarrhea; Denies: abdominal pain : Denies: flank pain, difficulty voiding, dysuria, urinary frequency, urinary urgency or urinary hesitancy Musc: Denies: neck pain or back pain Neuro: Denies: headache(s), numbness in extremities or weakness in extremities PFS ED PFSH: Medical History History of DVT (deep vein thrombosis) Recurrent History of malignant melanoma On right forearm Hypertension Osteoarthritis of carpometacarpal joint of left thumb Osteopenia Seasonal allergies Urinary incontinence Surgical History H/O tubal ligation Status post total left knee replacement using cement Family History Other CAD (coronary artery disease) Cancer Diabetes Social History Smoking and tobacco status: former smoker Alcohol intake: current Alcohol intake frequency: holidays/special occasions only Physical Exam Const: COMMON NORMALS: no acute distress, patient oriented x3 and alert OTHER: Patient appears tired Neck/C-Spine: COMMON NORMALS: no JVD Resp: COMMON NORMALS: normal respiratory effort, No use of accessory muscles and clear to auscultation bilaterally AUSCULTATION: clear to auscultation bilaterally Cardio: COMMON NORMALS: no JVD, regular rate, regular rhythm, S1 normal heart sound present and S2 normal heart sound present RATE: regular rate RHYTHM: regular rhythm HEART SOUNDS: S1 normal heart sound present and S2 normal heart sound present GI: COMMON NORMALS: Normal to inspection, nondistended, normoactive bowel sounds present, Soft to palpation and non-tender AUSCULTATION: Yes Hype ractive bowel sounds present PALPATION: Yes Soft to palpation : COMMON NORMALS: Yes no CVA tenderness BLADDER/KIDNEY EXAM: Yes no CVA tenderness Back/Pelvis: COMMON NORMALS: no CVA tenderness Neuro: COMMON NORMALS: patient oriented x3 SENSORIUM/ORIENTATION: Yes alert Skin: NARRATIVE SKIN EXAM: Tenting skin on the hands consistent with dehydration Course Vital Signs: Vital signs: Vital Signs Temperature 97.7 F 12/24/22 13:33 Pulse Rate 94 12/24/22 16:58 Respiratory Rate 16 12/24/22 16:10 Blood Pressure 134/79 12/24/22 16:58 Pulse Oximetry 97 12/24/22 16:58 Oxygen Delivery Me thod 12/24/22 13:33 MDM - Nausea/Vomiting/Diarrhea Medical Decision Making Patient reports 4-day history of nausea, vomiting, diarrhea. She states that that is actually improving however she is continuing to feel weak and very dehydrated. She offers that she would have been in here sooner however she did not feel well enough to come in. Patient has not been able to keep much down in the way of oral liquids. She was given IV fluids and Zofran and patient reported feeling significantly improved. She was able to keep down half a glass of water and she is requesting discharge to home at this time. Patient is sent home with Zofran to help with staying hydrated. We discussed red flags for worsening condition. Follow-up with your primary care provider. Return to the ER for new or worsening symptoms Lab Data 12/24/22 14:05 02/28/23 14:05 Laboratory Results WBC 6.3 10^3/uL (4.0-10.0) 12/24/22 14:05 RBC 4.72 10^6/uL (4.1-5.3) 12/24/22 14:05 Hgb 13.1 g/dL (11.5-15.3) 12/24/22 14:05 Hct 39.4 % (37.0-47.0) 12/24/22 14:05 MCV 83.5 fl (81-99) 12/24/22 14:05 MCH 27.8 pg (28.0-34.0) L 12/24/22 14:05 MCHC 33.2 g/dL (30.0-36.0) 12/24/22 14:05 RDW 13.2 % (12.1-15.1) 12/24/22 14:05 Plt Count 274 10^3/cmm (130-400) 12/24/22 14:05 MPV 10.5 fL (7.4-10.4) H 12/24/22 14:05 Neut % (Auto) 48.4 % 12/24/22 14:05 Lymph % (Auto) 31.2 % 12/24/22 14:05 Lane % (Auto) 19.1 % 12/24/22 14:05 Eos % (Auto) 0.6 % 12/24/22 14:05 Baso % (Auto) 0.5 % 12/24/22 14:05 Neut # (Auto) 3.06 10^3/uL (1.8-7.7) 12/24/22 14:05 Lymph # (Auto) 2.0 10^3/uL (0.8-4.8) 12/24/22 14:05 Lane # (Auto) 1.2 10^3/uL (0.2-0.9) H 12/24/22 14:05 Eos # (Auto) 0.0 10^3/uL (0.0-0.8) 12/24/22 14:05 Baso # (Auto) 0.0 10^3/uL (0.0-0.1) 12/24/22 14:05 Nucleated RBC % (auto) 0 % 12/24/22 14:05 Nucleated RBCs # 0.0 /100WBC 12/24/22 14:05 Sodium 133 mmol/L (136-145) L 12/24/22 14:05 Potassium 3.7 mmol/L (3.5-5.1) 12/24/22 14:05 Chloride 95 mmol/L (98-107) L 12/24/22 14:05 Carbon Dioxide 20 mmol/L (22-29) L 12/24/22 14:05 Anion Gap 21.7 (5-19) H 12/24/22 14:05 BUN 22 mg/dL (8-23) 12/24/22 14:05 Creatinine 1.0 mg/dL (0.5-0.9) H 12/24/22 14:05 GFR Calculation Not Reportable 12/24/22 14:05 Glucose 129 mg/dL (65-115) H 12/24/22 14:05 Calculated Osmolality 281 mOsm/kg (285-295) L 12/24/22 14:05 Calcium 8.1 mg/dL (8.5-10.5) L 12/24/22 14:05 Total Bilirubin 0.2 mg/dL (0.15-1.2) 12/24/22 14:05 AST 23 U/L (0-32) 12/24/22 14:05 ALT 15 U/L (0-33) 12/24/22 14:05 Alkaline Phosphatase 64 U/L (35-105) 12/24/22 14:05 Total Protein 6.2 g/dL (6.6-8.7) L 12/24/22 14:05 Albumin 3.5 g/dL (3.5-5.2) 12/24/22 14:05 Globulin 2.7 g/dL (1.3-4.6) 12/24/22 14:05 Lipase 50 U/L (13-60) 12/24/22 14:05 Urine Color Yellow (Yellow) 12/24/22 14:55 Urine Appearance Hazy (CLEAR) A 12/24/22 14:55 Urine pH 5 (5-7) 12/24/22 14:55 Ur Specific [place] 1.030 (1.005-1.030) 12/24/22 14:55 Urine Protein Trace (Negative) 12/24/22 14:55 Urine Glucose (UA) Norm (Normal) 12/24/22 14:55 Urine Ketones 2+ (Negative) H 12/24/22 14:55 Urine Blood 2+ (Negative) H 12/24/22 14:55 Urine Nitrate Negative (Negative) 12/24/22 14:55 Urine Bilirubin 1+ (Negative) H 12/24/22 14:55 Urine Urobilinogen 1 mg/dL (Negative) H 12/24/22 14:55 Ur Leukocyte Esterase Trace (Negative) H 12/24/22 14:55 Urine RBC 0-4 /hpf (0-2) H 12/24/22 14:55 Urine WBC Rare /hpf (0-5) 12/24/22 14:55 Ur Squamous Epith Cells 0-4 /hpf (0-5) H 12/24/22 14:55 Amorphous Sediment 2+ /hpf 12/24/22 14:55 Urine Bacteria Trace /hpf (NONE) 12/24/22 14:55 Hyaline Casts 5-10 /lpf H 12/24/22 14:55 Urine Mucus 2+ /hpf 12/24/22 14:55 Discharge Plan Discharge Patient Disposition: Home Clinical Impression: Gastroenteritis, Dehydration Condition: Stable Prescriptions: No Action Zyrtec 10 mg capsule PO ONCE spironolactone 25 mg tablet 25 mg PO QDAY albuterol sulfate 90 mcg/actuation HFA aerosol inhaler 1 inh INHALATION ONCE PreserVision AREDS [id number] capsule 1 cap PO BID alendronate 10 mg tablet 10 mg PO .weekly gabapentin 300 mg capsule 300 mg PO QDAY Xarelto 10 mg tablet 10 mg PO QDAY fluticasone propion-salmeterol [Advair Diskus] 250-50 mcg/dose blister with device 1 inh INHALATION ONCE PRN fluticasone propionate [Flonase Allergy Relief] 50 mcg/actuation spray,suspension 2 spray INTRANASAL QDAY PRN (Reason: allergy symptoms) 90 Days Qty: 16 1RF metronidazole 0.75 % gel 1 applic TOPICAL BID Qty: 45 3RF Rx Instructions: Apply thin film to entire face twice daily. Please dispense 90 day supply triamcinolone acetonide 0.1 % ointment 1 applic topical BID Qty: 80 1RF Rx Instructions: To Neck no more than 2 weeks/month as needed for flares triamcinolone acetonide 0.1 % ointment 1 applic topical BID Qty: 80 0RF Rx Instructions: apply to affected area no more than 2 weeks per month. not for face omeprazole 20 mg capsule,delayed release(DR/EC) 20 mg PO DAILY pravastatin 80 mg tablet 80 mg PO DAILY trazodone 50 mg tablet 50 mg PO DAILY oxybutynin chloride 5 mg tablet 5 mg PO BID montelukast [Singulair] 10 mg tablet 10 mg PO DAILY Qty: 90 3RF Rx Instructions: Please disregard prior rx bupivacaine (PF) 0.25 % (2.5 mg/mL) solution 1 ml intra-articular ONCE Qty: 1 0RF lidocaine (PF) 10 mg/mL (1 %) solution 1 ml Infiltration ONCE Qty: 1 0RF methylprednisolone acetate [Depo-Medrol] 40 mg/mL suspension 40 mg Infiltration ONCE Qty: 1 0RF methylprednisolone acetate [Depo-Medrol] 40 mg/mL suspension 40 mg Infiltration ONCE Qty: 1 0RF irbesartan 300 mg tablet 300 mg PO DAILY hydrocodone-acetaminophen 10-325 mg tablet 1 tab PO BID PRN (Reason: pain) 7 Days Qty: 14 0RF hydrocodone-acetaminophen 10-325 mg tablet 1 tab PO BID PRN (Reason: pain) 30 Days Qty: 60 0RF Rx Instructions: Do not fill until 07/23/2022 amlodipine 10 mg tablet 10 mg PO DAILY Qty: 90 3RF azelastine 137 mcg (0.1 %) aerosol,spray 1 spray INTRANASAL ONCE 90 Days Qty: 90 3RF Rx Instructions: administer into each nostril ondansetron HCl 4 mg tablet 4 mg PO Q8H PRN (Reason: nausea and vomiting) 4 Days Qty: 20 0RF Reglan 10 mg tablet 10 mg PO Q6H PRN (Reason: nausea and vomiting) Qty: 20 0RF Discharge Orders: Discharge ED (Routine); Ordered 12/24/22 Ordered By: Yohana Berman Referrals: Oxana Lee DO [Primary Care Provider] - Discharge Diet: Advance as tolerated Discharge Activity: Increase activity as tolerated Patient Instructions: Dehydration (ED), Gastroenteritis (DC) Activity Restrictions/Additional Instructions: Use Zofran as needed to help with nausea so that you are able to stay well-hydrated. I would recommend a clear liquid diet for the next 24 hours advance diet as tolerated. Follow-up with primary care provider. Return to the ER as needed for any new or worsening symptoms including, but not limited to, worsening vomiting, worsening diarrhea, inability to keep down oral liquids bill pite Zofran, development of fever. Coding Level of Care Code ED [employer]ary [employer] Operator for Chg Fwd Documented by User: Sarwat Arcos DO 12/30/22 06:57 HPI - Nausea/Vomiting/Diarrhea General: Chief complaint: Nausea/Vomiting/Diarrhea Stated complaint: n/v/d Time Seen by Provider: 12/24/22 13:53 PFSH ED PFSH: Medical History History of DVT (deep vein thrombosis) Recurrent History of malignant melanoma On right forearm Hypertension Osteoarthritis of carpometacarpal joint of left thumb Osteopenia Seasonal allergies Urinary incontinence Surgical History H/O tubal ligation Status post total left knee replacement using cement Family History Other CAD (coronary artery disease) Cancer Diabetes Social History Smoking and tobacco status: former smoker Alcohol intake: current Alcohol intake frequency: holidays/special occasions only Course Vital Signs: Vital signs: Vital Signs Temperature 97.7 F 12/24/22 13:33 Pulse Rate 94 12/24/22 16:58 Respiratory Rate 16 12/24/22 16:10 Blood Pressure 134/79 12/24/22 16:58 Pulse Oximetry 97 12/24/22 16:58 Oxygen Delivery Me thod 12/24/22 13:33 MDM - Nausea/Vomiting/Diarrhea Medical Decision Making Patient reports 4-day history of nausea, vomiting, diarrhea. She states that that is actually improving however she is continuing to feel weak and very dehydrated. She offers that she would have been in here sooner however she did not feel well enough to come in. Patient has not been able to keep much down in the way of oral liquids. She was given IV fluids and Zofran and patient reported feeling significantly improved. She was able to keep down half a glass of water and she is requesting discharge to home at this time. Patient is sent home with Zofran to help with staying hydrated. We discussed red flags for wors ening condition. Follow-up with your primary care provider. Return to the ER for new or worsening symptoms Chart reviewed and patient discussed with midlevel. Agree with assessment and plan. Lab Data 12/24/22 14:05 12/24/22 14:05 Laboratory Results WBC 6.3 10^3/uL (4.0-10.0) 12/24/22 14:05 RBC 4.72 10^6/uL (4.1-5.3) 12/24/22 14:05 Hgb 13.1 g/dL (11.5-15.3) 12/24/22 14:05 Hct 39.4 % (37.0-47.0) 12/24/22 14:05 MCV 83.5 fl (81-99) 12/24/22 14:05 MCH 27.8 pg (28.0-34.0) L 12/24/22 14:05 MCHC 33.2 g/dL (30.0-36.0) 12/24/22 14:05 RDW 13.2 % (12.1-15.1) 12/24/22 14:05 Plt Count 274 10^3/cmm (130-400) 12/24/22 14:05 MPV 10.5 fL (7.4-10.4) H 12/24/22 14:05 Neut % (Auto) 48.4 % 12/24/22 14:05 Lymph % (Auto) 31.2 % 12/24/22 14:05 Lane % (Auto) 19.1 % 12/24/22 14:05 Eos % (Auto) 0.6 % 12/24/22 14:05 Baso % (Auto) 0.5 % 12/24/22 14:05 Neut # (Auto) 3.06 10^3/uL (1.8-7.7) 12/24/22 14:05 Lymph # (Auto) 2.0 10^3/uL (0.8-4.8) 12/24/22 14:05 Lane # (Auto) 1.2 10^3/uL (0.2-0.9) H 12/24/22 14:05 Eos # (Auto) 0.0 10^3/uL (0.0-0.8) 12/24/22 14:05 Baso # (Auto) 0.0 10^3/uL (0.0-0.1) 12/24/22 14:05 Nucleated RBC % (auto) 0 % 12/24/22 14:05 Nucleated RBCs # 0.0 /100WBC 12/24/22 14:05 Sodium 133 mmol/L (136-145) L 12/24/22 14:05 Potassium 3.7 mmol/L (3.5-5.1) 12/24/22 14:05 Chloride 95 mmol/L (98-107) L 12/24/22 14:05 Carbon Dioxide 20 mmol/L (22-29) L 12/24/22 14:05 Anion Gap 21.7 (5-19) H 12/24/22 14:05 BUN 22 mg/dL (8-23) 12/24/22 14:05 Creatinine 1.0 mg/dL (0.5-0.9) H 12/24/22 14:05 GFR Calculation Not Reportable 12/24/22 14:05 Glucose 129 mg/dL (65-115) H 12/24/22 14:05 Calculated Osmolality 281 mOsm/kg (285-295) L 12/24/22 14:05 Calcium 8.1 mg/dL (8.5-10.5) L 12/24/22 14:05 Total Bilirubin 0.2 mg/dL (0.15-1.2) 12/24/22 14:05 AST 23 U/L (0-32) 12/24/22 14:05 ALT 15 U/L (0-33) 12/24/22 14:05 Alkaline Phosphatase 64 U/L (35-105) 12/24/22 14:05 Total Protein 6.2 g/dL (6.6-8.7) L 12/24/22 14:05 Albumin 3.5 g/dL (3.5-5.2) 12/24/22 14:05 Globulin 2.7 g/dL (1.3-4.6) 12/24/22 14:05 Lipase 50 U/L (13-60) 12/24/22 14:05 Urine Color Yellow (Yellow) 12/24/22 14:55 Urine Appearance Hazy (CLEAR) A 12/24/22 14:55 Urine pH 5 (5-7) 12/24/22 14:55 Ur Specific [place] 1.030 (1.005-1.030) 12/24/22 14:55 Urine Protein Trace (Negative) 12/24/22 14:55 Urine Glucose (UA) Norm (Normal) 12/24/22 14:55 Urine Ketones 2+ (Negative) H 12/24/22 14:55 Urine Blood 2+ (Negative) H 12/24/22 14:55 Urine Nitrate Negative (Negative) 12/24/22 14:55 Urine Bilirubin 1+ (Negative) H 12/24/22 14:55 Urine Urobilinogen 1 mg/dL (Negative) H 12/24/22 14:55 Ur Leukocyte Esterase Trace (Negative) H 12/24/22 14:55 Urine RBC 0-4 /hpf (0-2) H 12/24/22 14:55 Urine WBC Rare /hpf (0-5) 12/24/22 14:55 Ur Squamous Epith Cells 0-4 /hpf (0-5) H 12/24/22 14:55 Amorphous Sediment 2+ /hpf 12/24/22 14:55 Urine Bacteria Trace /hpf (NONE) 12/24/22 14:55 Hyaline Casts 5-10 /lpf H 12/24/22 14:55 Urine Mucus 2+ /hpf 12/24/22 14:55 Discharge Plan Discharge Patient Disposition: Home Clinical Impression: Gastroenteritis, Dehydration Condition: Stable Prescriptions: No Action Zyrtec 10 mg capsule PO ONCE spironolactone 25 mg tablet 25 mg PO QDAY albuterol sulfate 90 mcg/actuation HFA aerosol inhaler 1 inh INHALATION ONCE PreserVision AREDS [id number] capsule 1 cap PO BID alendronate 10 mg tablet 10 mg PO .weekly gabapentin 300 mg capsule 300 mg PO QDAY Xarelto 10 mg tablet 10 mg PO QDAY fluticasone propion-salmeterol [Advair Diskus] 250-50 mcg/dose blister with device 1 inh INHALATION ONCE PRN fluticasone propionate [Flonase Allergy Relief] 50 mcg/actuation spray,suspension 2 spray INTRANASAL QDAY PRN (Reason: allergy symptoms) 90 Days Qty: 16 1RF metronidazole 0.75 % gel 1 applic TOPICAL BID Qty: 45 3RF Rx Instructions: Apply thin film to entire face twice daily. Please dispense 90 day supply triamcinolone acetonide 0.1 % ointment 1 applic topical BID Qty: 80 1RF Rx Instructions: To Neck no more than 2 weeks/month as needed for flares triamcinolone acetonide 0.1 % ointment 1 applic topical BID Qty: 80 0RF Rx Instructions: apply to affected area no more than 2 weeks per month. not for face omeprazole 20 mg capsule,delayed release(DR/EC) 20 mg PO DAILY pravastatin 80 mg tablet 80 mg PO DAILY trazodone 50 mg tablet 50 mg PO DAILY oxybutynin chloride 5 mg tablet 5 mg PO BID montelukast [Singulair] 10 mg tablet 10 mg PO DAILY Qty: 90 3RF Rx Instructions: Please disregard prior rx bupivacaine (PF) 0.25 % (2.5 mg/mL) solution 1 ml intra-articular ONCE Qty: 1 0RF lidocaine (PF) 10 mg/mL (1 %) solution 1 ml Infiltration ONCE Qty: 1 0RF methylprednisolone acetate [Depo-Medrol] 40 mg/mL suspension 40 mg Infiltration ONCE Qty: 1 0RF methylprednisolone acetate [Depo-Medrol] 40 mg/mL suspension 40 mg Infiltration ONCE Qty: 1 0RF irbesartan 300 mg tablet 300 mg PO DAILY hydrocodone-acetaminophen 10-325 mg tablet 1 tab PO BID PRN (Reason: pain) 7 Days Qty: 14 0RF hydrocodone-acetaminophen 10-325 mg tablet 1 tab PO BID PRN (Reason: pain) 30 Days Qty: 60 0RF Rx Instructions: Do not fill until 07/23/2022 amlodipine 10 mg tablet 10 mg PO DAILY Qty: 90 3RF azelastine 137 mcg (0.1 %) aerosol,spray 1 spray INTRANASAL ONCE 90 Days Qty: 90 3RF Rx Instructions: administer into each nostril ondansetron HCl 4 mg tablet 4 mg PO Q8H PRN (Reason: nausea and vomiting) 4 Days Qty: 20 0RF Reglan 10 mg tablet 10 mg PO Q6H PRN (Reason: nausea and vomiting) Qty: 20 0RF Discharge Orders: Discharge ED (Routine); Ordered 12/24/22 Ordered By: Yohana Berman Referrals: Oxana Lee DO [Primary Care Provider] - Discharge Diet: Advance as tolerated Discharge Activity: Increase activity as tolerated Patient Instructions: Dehydration (ED), Gastroenteritis (DC) Activity Restrictions/Additional Instructions: Use Zofran as needed to help with nausea so that you are able to stay well-hydrated. I would recommend a clear liquid diet for the next 24 hours advance diet as tolerated. Follow-up with primary care provider. Return to the ER as needed for any new or worsening symptoms including, but not limited to, worsening vomiting, worsening diarrhea, inability to keep down oral liquids de spite Zofran, development of fever. Coding Level of Care Code ED [employer] for Nidia López
--- NOTE | 2022-12-24 15:35 | PC.NURSE ---
REPORT GIVEN TO TONY CHO AT [id number]
[2022-12-24 16:10] VITALS: PULSE 94; RESP 16; O2SAT 97
[2022-12-24 16:58] VITALS: BP 134/79; PULSE 94; O2SAT 97
== END 2022-12-24 17:00 | disposition home or self-care (01) ==
PROVIDERS: Emergency Provider Nurse Practitioner Family; PCP Family Medicine
DX: K52.9 Noninfective gastroenteritis and colitis, unspecified (principal); E86.0 Dehydration; I10 Essential (primary) hypertension
CPT/HCPCS: 80053; 81001; 83690; 85025; 96361; 96374; 99284; J2405; J7030

== ENCOUNTER 2022-12-27 12:30 | Emergency (ER) | payer MEDICARE, OTHER, SELFPAY ==
[2022-12-27 12:34] VITALS: BP 143/95; PULSE 74; RESP 18; TEMP 36.6; O2SAT 95
[2022-12-27 13:53] LABS: Basophils # 0.1 10^3/uL (0.0-0.1); Basophils % 0.8 %; Eosinophils % 0.3 %; Hematocrit 41.6 % (37.0-47.0); Hemoglobin 14.1 g/dL (11.5-15.3); Lymphocytes # 1.5 10^3/uL (0.8-4.8); Lymphocytes % 22.9 %; Mean Corpuscular HGB Conc 33.9 g/dL (30.0-36.0); Mean Corpuscular Hemoglobin 27.4 pg (28.0-34.0); Mean Corpuscular Volume 80.8 fl (81-99); Mean Platelet Volume 10.5 fL (7.4-10.4); Monocytes # 1.4 10^3/uL (0.2-0.9); Neutrophils # 3.37 10^3/uL (1.8-7.7); Neutrophils % 53.4 %; Nucleated Red Blood Cells % 0 %; Platelet Count 325 10^3/cmm (130-400); Red Blood Count 5.15 10^6/uL (4.1-5.3); Red Cell Distribution Width 13.2 % (12.1-15.1); White Blood Count 6.3 10^3/uL (4.0-10.0)
[2022-12-27 14:07] VITALS: BP 144/96; PULSE 86; RESP 18; O2SAT 99
[2022-12-27 14:11] LABS: Alanine Aminotransferase 13 U/L (0-33); Albumin Level 2.9 g/dL (3.5-5.2); Alkaline Phosphatase 59 U/L (35-105); Aspartate Amino Transferase 14 U/L (0-32); Blood Urea Nitrogen 17 mg/dL (8-23); Calcium 8.2 mg/dL (8.5-10.5); Carbon Dioxide 22 mmol/L (22-29); Chloride 94 mmol/L (98-107); Globulin 2.7 g/dL (1.3-4.6); Glucose 144 mg/dL (65-115); Osmolality Calculated 276 mOsm/kg (285-295); Sodium 131 mmol/L (136-145); Total Bilirubin 0.2 mg/dL (0.15-1.2); Total Protein 5.6 g/dL (6.6-8.7)
[2022-12-27 14:18] LABS: Anion Gap 18.7 (5-19); Potassium 3.7 mmol/L (3.5-5.1)
[2022-12-27 14:19] LABS: Slide Review Slide Review Perform
[2022-12-27 14:30] VITALS: BP 134/77; PULSE 90; RESP 18; O2SAT 98
--- NOTE | 2022-12-27 14:44 | ED_ITS ---
HPI - Nausea/Vomiting/Diarrhea General: Chief complaint: Nausea/Vomiting/Diarrhea Stated complaint: Throwing up Time Seen by Provider: 12/27/22 14:25 History of Present Illness: Patient is a 82-year-old female who comes to the ED with nausea and vomiting. Patient was seen here in the ED for same complaint back on December 24. She states that her symptoms first started approximately 7 days ago. She had diarrhea, nausea and vomiting at that time. Her diarrhea stopped after the first couple days. She still is having episodes of nausea and emesis. She felt a little better after discharge from the emergency department back on December 24 and was sent with a prescription for Zofran. She states that the Zofran at home has not helped. She has had 2 episodes of emesis today. She states that she is able to keep food and fluids down for just a little bit and then vomits them up an hour or 2 later. Denies any fevers, flank pain, abdominal pain, chest pain, shortness of breath, bladder or bowel symptoms. Associated nausea: Yes Associated symtoms: Reports nausea; Denies change in vision, chest pain, dysuria, fatigue, headache(s) or palpitations Review of Systems Const: Denies: fever(s), chills or fatigue Eyes: Denies: change in vision or eye discomfort ENMT: Denies: throat pain, odynophagia, nasal discharge or nasal congestion Card: Denies: chest pain, palpitations, edema, swelling of feet/ankles, dyspnea on exertion or orthopnea Resp: Denies: dyspnea, productive cough or non-productive cough GI: Reports: nausea and vomiting; Denies: abdominal pain, diarrhea, constipation or hematochezia : Denies: flank pain, dysuria or hematuria Musc: Denies: neck pain, back pain or extremity swelling Skin/Breast: Denies: rash or new lesions Neuro: Denies: headache(s), numbness in extremities or weakness in extremities PFSH ED PFSH: Medical History History of DVT (deep vein thrombosis) Recurrent History of malignant melanoma On right forearm Hypertension Osteoarthritis of carpometacarpal joint of left thumb Osteopenia Seasonal allergies Urinary incontinence Surgical History H/O tubal ligation Status post total left knee replacement using cement Family History Other CAD (coronary artery disease) Cancer Diabetes Social History Smoking and tobacco status: former smoker Alcohol intake: current Alcohol intake frequency: holidays/special occasions only Physical Exam Const: COMMON NORMALS: no acute distress, patient oriented x3 and alert GENERAL APPEARANCE: cooperative and comfortable HENMT: COMMON NORMALS: normocephalic HEAD & SCALP: normocephalic MOUTH: Normal oral and palatal mucosa present THROAT: posterior oropharynx normal and uvula midline Neck/C-Spine: COMMON NORMALS: supple GENERAL: Yes normal visual inspection Resp: COMMON NORMALS: normal respiratory effort, No retractions, No use of accessory muscles and clear to auscultation bilaterally AUSCULTATION: clear to auscultation bilaterally Cardio: COMMON NORMALS: regular rate, regular rhythm, S1 normal heart sound present, S2 normal heart sound present, No gallops present (Cardio), No clicks present (Cardio), No murmurs present (Cardio) and Peripheral pulses 2+ throughout RATE: regular rate RHYTHM: regular rhythm HEART SOUNDS: S1 normal heart sound present and S2 normal heart sound present PERIPHERAL PULSES: Peripheral pulses 2+ throughout GI: COMMON NORMALS: Normal to inspection, nondistended, normoactive bowel sounds present, Soft to palpation, non-tender and no masses PALPATION: Yes Soft to palpation : COMMON NORMALS: Yes no CVA tenderness BLADDER/KIDNEY EXAM: Yes no CVA tenderness Back/Pelvis: COMMON NORMALS: no CVA tenderness Extremity: COMMON NORMALS: normal to inspection Neuro: COMMON NORMALS: patient oriented x3 SENSORIUM/ORIENTATION: Yes alert GAIT: Yes Normal gait present Skin: GENERAL SKIN EXAM: dry skin Course Vital Signs: Vital signs: Vital Signs Temperature 97.9 F 12/27/22 12:34 Pulse Rate 70 12/27/22 16:52 Respiratory Rate 16 12/27/22 16:52 Blood Pressure 134/77 12/27/22 14:30 Pulse Oximetry 98 12/27/22 16:52 Oxygen Delivery Me thod 12/27/22 15:30 MDM - Nausea/Vomiting/Diarrhea Medical Decision Making Patient is a 82-year-old female who comes to the ED with nausea and vomiting. Patient was seen here in the ED for same complaint back on December 24. She states that her symptoms first started approximately 7 days ago. She had diarrhea, nausea and vomiting at that time. Her diarrhea stopped after the first couple days. She still is having episodes of nausea and emesis. She felt a little better after discharge from the emergency department back on December 24 and was sent with a prescription for Zofran. She states that the Zofran at home has not helped. She has had 2 episodes of emesis today. Denies any fever, abdominal pain, dysuria, hematuria. Vitals are stable. Patient is a healthy nontoxic-appearing 82-year-old female that is in no acute distress. CBC unremarkable, sodium of 131 and creatinine of 1 which is the same level as it was back on December 24. Given patient's symptoms still going on it is CT of the abdomen was not done at previous ED visit, CT of abdomen was ordered to rule out any acute abdominal findings. CT abdomen showed some left lower quadrant bowel wall thickening which may represent a very mild case of ileitis but rest of CT was unremarkable. Patient was given 1 L of IV fluids, Zofran and Reglan here in the ED and her symptoms improved. She was able to tolerate p.o. fluids. She seems to have a mild case of gastroenteritis and still having some episodes of nausea and vomiting which we will switch her to Reglan to see if that better controls her nausea. She was told to follow-up with her PCP in the next week for reevaluation. Return to ED precautions given. Patient understood and agreed with plan. Lab Data I reviewed the patient's lab results. 12/27/22 13:42 12/27/22 13:42 Radiology Impressions Abdomen/Pelvis CT 12/27/22 14:48 IMPRESSION: 1. Very minimal LEFT lower quadrant small bowel wall thickening with adjacent v asa recta prominence. May represent a very mild case of ileitis. 2. Normal appendix. 3. Numerous sigmoid diverticula without acute diverticulitis. 4. Small hiatal hernia. 5. No free air or ascites. 6. LEFT adrenal nodule. With no history of malignancy statistically this is benign. Laboratory Results WBC 6.3 10^3/uL (4.0-10.0) 12/27/22 13:42 RBC 5.15 10^6/uL (4.1-5.3) 12/27/22 13:42 Hgb 14.1 g/dL (11.5-15.3) 12/27/22 13:42 Hct 41.6 % (37.0-47.0) 12/27/22 13:42 MCV 80.8 fl (81-99) L 12/27/22 13:42 MCH 27.4 pg (28.0-34.0) L 12/27/22 13:42 MCHC 33.9 g/dL (30.0-36.0) 12/27/22 13:42 RDW 13.2 % (12.1-15.1) 12/27/22 13:42 Plt Count 325 10^3/cmm (130-400) 12/27/22 13:42 MPV 10.5 fL (7.4-10.4) H 12/27/22 13:42 Neut % (Auto) 53.4 % 12/27/22 13:42 Lymph % (Auto) 22.9 % 12/27/22 13:42 [place] % (Auto) 22.0 % 12/27/22 13:42 Eos % (Auto) 0.3 % 12/27/22 13:42 Baso % (Auto) 0.8 % 12/27/22 13:42 Neut # (Auto) 3.37 10^3/uL (1.8-7.7) 12/27/22 13:42 Lymph # (Auto) 1.5 10^3/uL (0.8-4.8) 12/27/22 13:42 [place] # (Auto) 1.4 10^3/uL (0.2-0.9) H 12/27/22 13:42 Eos # (Auto) 0.0 10^3/uL (0.0-0.8) 12/27/22 13:42 Baso # (Auto) 0.1 10^3/uL (0.0-0.1) 12/27/22 13:42 Nucleated RBC % (auto) 0 % 12/27/22 13:42 Nucleated RBCs # 0.0 /100WBC 12/27/22 13:42 Sodium 131 mmol/L (136-145) L 12/27/22 13:42 Potassium 3.7 mmol/L (3.5-5.1) 12/27/22 13:42 Chloride 94 mmol/L (98-107) L 12/27/22 13:42 Carbon Dioxide 22 mmol/L (22-29) 12/27/22 13:42 Anion Gap 18.7 (5-19) 12/27/22 13:42 BUN 17 mg/dL (8-23) 12/27/22 13:42 Creatinine 1.0 mg/dL (0.5-0.9) H 12/27/22 13:42 GFR Calculation Not Reportable 12/27/22 13:42 Glucose 144 mg/dL (65-115) H 12/27/22 13:42 Calculated Osmolality 276 mOsm/kg (285-295) L 12/27/22 13:42 Calcium 8.2 mg/dL (8.5-10.5) L 12/27/22 13:42 Total Bilirubin 0.2 mg/dL (0.15-1.2) 12/27/22 13:42 AST 14 U/L (0-32) 12/27/22 13:42 ALT 13 U/L (0-33) 12/27/22 13:42 Alkaline Phosphatase 59 U/L (35-105) 12/27/22 13:42 Total Protein 5.6 g/dL (6.6-8.7) L 12/27/22 13:42 Albumin 2.9 g/dL (3.5-5.2) L 12/27/22 13:42 Globulin 2.7 g/dL (1.3-4.6) 12/27/22 13:42 Discharge Plan Discharge Patient Disposition: Home Clinical Impression: Gastroenteritis Condition: Stable Prescriptions: New Reglan 10 mg tablet 10 mg PO Q6H PRN (Reason: nausea and vomiting) Qty: 20 0RF No Action Zyrtec 10 mg capsule PO ONCE spironolactone 25 mg tablet 25 mg PO QDAY albuterol sulfate 90 mcg/actuation HFA aerosol inhaler 1 inh INHALATION ONCE PreserVision AREDS [id number] capsule 1 cap PO BID alendronate 10 mg tablet 10 mg PO .weekly gabapentin 300 mg capsule 300 mg PO QDAY Xarelto 10 mg tablet 10 mg PO QDAY fluticasone propion-salmeterol [Advair Diskus] 250-50 mcg/dose blister with device 1 inh INHALATION ONCE PRN fluticasone propionate [Flonase Allergy Relief] 50 mcg/actuation spray,suspension 2 spray INTRANASAL QDAY PRN (Reason: allergy symptoms) 90 Days Qty: 16 1RF metronidazole 0.75 % gel 1 applic TOPICAL BID Qty: 45 3RF Rx Instructions: Apply thin film to entire face twice daily. Please dispense 90 day supply triamcinolone acetonide 0.1 % ointment 1 applic topical BID Qty: 80 1RF Rx Instructions: To Neck no more than 2 weeks/month as needed for flares triamcinolone acetonide 0.1 % ointment 1 applic topical BID Qty: 80 0RF Rx Instructions: apply to affected area no more than 2 weeks per month. not for face omeprazole 20 mg capsule,delayed release(DR/EC) 20 mg PO DAILY pravastatin 80 mg tablet 80 mg PO DAILY trazodone 50 mg tablet 50 mg PO DAILY oxybutynin chloride 5 mg tablet 5 mg PO BID montelukast [Singulair] 10 mg tablet 10 mg PO DAILY Qty: 90 3RF Rx Instructions: Please disregard prior rx bupivacaine (PF) 0.25 % (2.5 mg/mL) solution 1 ml intra-articular ONCE Qty: 1 0RF lidocaine (PF) 10 mg/mL (1 %) solution 1 ml Infiltration ONCE Qty: 1 0RF methylprednisolone acetate [Depo-Medrol] 40 mg/mL suspension 40 mg Infiltration ONCE Qty: 1 0RF methylprednisolone acetate [Depo-Medrol] 40 mg/mL suspension 40 mg Infiltration ONCE Qty: 1 0RF irbesartan 300 mg tablet 300 mg PO DAILY hydrocodone-acetaminophen 10-325 mg tablet 1 tab PO BID PRN (Reason: pain) 7 Days Qty: 14 0RF hydrocodone-acetaminophen 10-325 mg tablet 1 tab PO BID PRN (Reason: pain) 30 Days Qty: 60 0RF Rx Instructions: Do not fill until 07/23/2022 amlodipine 10 mg tablet 10 mg PO DAILY Qty: 90 3RF azelastine 137 mcg (0.1 %) aerosol,spray 1 spray INTRANASAL ONCE 90 Days Qty: 90 3RF Rx Instructions: administer into each nostril ondansetron HCl 4 mg tablet 4 mg PO Q8H PRN (Reason: nausea and vomiting) 4 Days Qty: 20 0RF Discharge Orders: Discharge ED (Routine); Ordered 12/27/22 Ordered By: Michael Earl Referrals: Oxana Lee DO [Primary Care Provider] - Discharge Diet: Advance as tolerated Discharge Activity: Resume usual activity Patient Instructions: Gastroenteritis (ED), Acute Nausea and Vomiting (ED) Activity Restrictions/Additional Instructions: Follow-up with medical provider as directed in the next 5 to 7 days for reevaluation. Take medications as prescribed. Return to the ER or your medical provider if condition worsens. Please read and understand discharge instructions. Thank you for choosing [facility] for your healthcare needs today. Please realize this is an emergency room and that we are providing you with a medical screening exam and this may not be complete and all inclusive of all the testing and or work up that you may need to determine your ailment or severity of your illness. It is very important that you follow up as instructed or that you return to the Emergency Department should you have concerns or if your condition changes or worsens in any way. Coding Level of Care Code ED Receptionist [employer] for Nidia López
--- NOTE | 2022-12-27 14:48 | CT_ITS ---
WS: [id number] CT ABDOMEN AND PELVIS WITH CONTRAST HISTORY: N/V TECHNIQUE: Imaging performed of the abdomen and pelvis with IV contrast. Single phase imaging of the abdomen. Coronal and sagittal reformats are submitted. All CT scans at [facility] use at [address] one of these dose optimization techniques: automated exposure control; mA and/or kV adjustment per patient size (includes targeted exams where dose is matched to clinical indication); or iterative re construction. IV CONTRAST: Omnipaque 350; 100 mL IV. Oral contrast: No DLP: 799.75 mGy.cm COMPARISON: None available. Lower thorax: Mild hyperexpansion of the lung bases. Heart is normal size. Small hiatal hernia. Liver/biliary system: Normal size with no intrahepatic dilatation. Gallbladder: Normal. No gallstones or wall thickening. No pericholecystic fluid. Pancreas: Normal size pancreas and pancreatic duct. No adjacent inflammation. Spleen: Normal size spleen. No mass or infarct. Adrenal glands: 13 x 9 mm LEFT adrenal nodule. Normal RIGHT adrenal gland. Right kidney: Normal size with no obstruction or solid mass. Cortical hypodensities are too small to characterize. Left kidney: Normal size with no obstruction or solid mass. Numerous cortical hypodensities are too s mall to characterize. Aorta: Mild atherosclerosis with no aneurysm. Mild stenosis involving the celiac axis. Lymphadenopathy: Small central mesenteric lymph nodes. Free fluid: None. GI tract: Nondistended stomach. No small bowel obstruction. There is very minimal small bowel wall th ickening and adjacent enhancement within the vasa recta LEFT lower abdomen. There is no obstruction. There are a few adjacent small mesenteric lymph nodes which may be reactive. No obstruction. The appe ndix is normal. Mild constipation. Numerous diverticula in the sigmoid colon. No acute diverticulitis . Abdominal wall: Unremarkable abdominal wall. No hernia. Pelvis: Atrophic uterus. No pelvic mass. No free fluid. Bones: 4 mm retrolisthesis of L2 and L3. CT/CT abdomen pelvis w con* [id number] IMPRESSION: 1. Very minimal LEFT lower quadrant small bowel wall thickening with adjacent vasa recta prominence. May represent a very mild case of ileitis. 2. Normal appendix. 3. Numerous sigmoid diverticula without acute diverticulitis. 4. Small hiatal hernia. 5. No free air or ascites. 6. LEFT adrenal nodule. With no history of malignancy statistically this is be nign.
[2022-12-27] MEDS: ondansetron 2 mg/ML SDV 2 mL 4 MG IVP (14:50)
[2022-12-27] MEDS: sodium chloride 0.9% 1,000 ML 999 ML IV (14:51)
[2022-12-27] MEDS: iohexol 350 mg/mL 500 mL Btl (per mL) IV (15:01)
[2022-12-27 15:30] VITALS: PULSE 70; RESP 16; O2SAT 98
[2022-12-27] MEDS: metoclopramide 5 mg/mL SDV 2 mL IVP (16:36)
[2022-12-27 16:52] VITALS: PULSE 70; RESP 16; O2SAT 98
== END 2022-12-27 16:53 | disposition home or self-care (01) ==
PROVIDERS: Emergency Medicine; Emergency Provider Physician Assistant; PCP Family Medicine
DX: K52.9 Noninfective gastroenteritis and colitis, unspecified (principal); K44.9 Diaphragmatic hernia without obstruction or gangrene
CPT/HCPCS: 36415; 74177; 80053; 85025; 96361; 96374; 96375; 99285; J2405; J2765; J7030; Q9967

== ENCOUNTER → 2023-01-07 15:35 | Outpatient (BNVA) | payer MEDICARE, OTHER, SELFPAY | PROVIDERS: PCP Family Medicine; Visit Provider Family Medicine | DX: D50.9 Iron deficiency anemia, unspecified (principal); R42 Dizziness and giddiness | CPT/HCPCS: 80053; 82728; 83550; 85025 ==

== ENCOUNTER 2023-01-20 14:59 | Emergency (ER) | payer MEDICARE, OTHER, SELFPAY ==
[2023-01-20 15:10] VITALS: BP 117/76; PULSE 116; RESP 16; TEMP 36.7; O2SAT 98
[2023-01-20 16:18] LABS: Basophils # 0.1 10^3/uL (0.0-0.1); Basophils % 0.6 %; Eosinophils # 0.1 10^3/uL (0.0-0.8); Eosinophils % 1.7 %; Hematocrit 36.5 % (37.0-47.0); Hemoglobin 11.9 g/dL (11.5-15.3); Lymphocytes # 1.5 10^3/uL (0.8-4.8); Lymphocytes % 19.6 %; Mean Corpuscular HGB Conc 32.6 g/dL (30.0-36.0); Mean Corpuscular Hemoglobin 27.9 pg (28.0-34.0); Mean Corpuscular Volume 85.7 fl (81-99); Mean Platelet Volume 9.7 fL (7.4-10.4); Monocytes # 0.7 10^3/uL (0.2-0.9); Monocytes % 9.3 %; Neutrophils # 5.29 10^3/uL (1.8-7.7); Neutrophils % 68.3 %; Nucleated Red Blood Cells % 0 %; Platelet Count 383 10^3/cmm (130-400); Red Blood Count 4.26 10^6/uL (4.1-5.3); White Blood Count 7.8 10^3/uL (4.0-10.0)
--- NOTE | 2023-01-20 16:46 | USR_ITS ---
PROCEDURE INFORMATION: Exam: US Duplex Left Lower Extremity Veins, Limited Exam date and time: 01/20/2023 5:39 PM Age: 82 years old Clinical indication: Pain; Leg, upper; Left; Additional info: Erythematous swollen lump left medial thigh, HX of dvt x 2 TECHNIQUE: Imaging protocol: Real-time duplex ultrasound of the left extremity with 2-D mar scale, color Doppler flow and spectral waveform analysis including responses to compression and other maneuvers (when performed) with image documentation. Limited exam focused on the left lower extremity veins. COMPARISON: CT abdomen pelvis w con* [id number] 12/27/2022 2:56 PM FINDINGS: Left deep veins: Hypoechoic, nonocclusive thrombus in the common femoral, proximal profunda femoral and femoral veins. The popliteal, posterior tibial and peroneal veins are patent without thrombus. Left superficial veins: Hypoechoic, nonocclusive thrombus in the greater saphenous vein. Soft tissues: Unremarkable. US/CV venous duplex [facility] [id number] IMPRESSION: Left lower extremity deep vein thrombosis, as described above.
--- NOTE | 2023-01-20 16:47 | ED_ITS ---
HPI - General Adult General: Chief complaint: General Medical Stated complaint: left leg pain Time Seen by Provider: 01/20/23 16:42 History of Present Illness: Patient presents to the ER with complaint of hard red not on the inside of the left thigh. Redness started approximately 4 days ago, swelling started today. Patient has a history of DVTs x2, should be on Eliquis, but only restarted Eliquis 2 days ago prior to being off it for the last month due to GI issues Onset (ago): day(s) (Redness 4 days ago swelling 1 day) Location: lower extremity (Left medial thigh) Radiation: non-radiation Severity: mild Quality: burning and aching Pain Consistency: constant Exacerbating factors: movement Associated symptoms: Reports no associated symptoms; Deny chest pain, dyspnea, headache(s), nausea, rash, palpitations or vomiting Treatments prior to arrival: none Review of Systems General: Reports: 10 or more systems reviewed and unremarkable except in HPI and below Const: Denies: fever(s) or chills Eyes: Denies: change in vision ENMT: Denies: throat pain Card: Denies: chest pain, palpitations or irregular heart rhythm Resp: Denies: dyspnea, productive cough or non-productive cough GI: Denies: abdominal pain, nausea or vomiting : Denies: flank pain or difficulty voiding Musc: Denies: neck pain or back pain Skin/Breast: Reports: erythema; Denies: rash or pruritus Neuro: Denies: headache(s) or numbness in extremities Psych: Denies: anxiety or depression Endo: Denies: polyuria or polydipsia PFSH ED PFSH: Medical History History of DVT (deep vein thrombosis) Recurrent History of malignant melanoma On right forearm Hypertension Osteoarthritis of carpometacarpal joint of left thumb Osteopenia Seasonal allergies Urinary incontinence Surgical History H/O tubal ligation Status post total left knee replacement using cement Family History Other CAD (coronary artery disease) Cancer Diabetes Social History Smoking and tobacco status: former smoker Alcohol intake: current Alcohol intake frequency: holidays/special occasions only Physical Exam Const: COMMON NORMALS: no acute distress, average body habitus, patient oriented x3, no limitations, healthy appearing, alert and well nourished Eye: COMMON NORMALS: Equal, round and reactive pupils present, EOMs intact bilaterally, conjunctivae normal and no scleral icterus CONJUNCTIVA: Yes conjunctivae normal PUPIL: Yes Equal, round and reactive pupils present Neck/C-Spine: COMMON NORMALS: no JVD Lymph: LYMPHATIC: no lymphadenopathy noted Chest: COMMONS NORMALS: normal inspection of the chest and normal palpation of entire chest wall Resp: COMMON NORMALS: normal respiratory effort, No retractions, No use of accessory muscles and clear to auscultation bilaterally AUSCULTATION: clear to auscultation bilaterally Cardio: COMMON NORMALS: no JVD, regular rate, regular rhythm, S1 normal heart sound present and S2 normal heart sound present RATE: regular rate RHYTHM: regular rhythm HEART SOUNDS: S1 normal heart sound present and S2 normal heart sound present GI: COMMON NORMALS: Normal to inspection, nondistended, normoactive bowel sounds present, Soft to palpation, non-tender, No hepatosplenomegaly present and no masses PALPATION: Yes Soft to palpation and Yes No hepatosplenomegaly present Extremity: NARRATIVE EXTREMITY EXAM: Erythematous swollen area on left medial thigh painful to touch Neuro: COMMON NORMALS: patient oriented x3 SENSORIUM/ORIENTATION: Yes alert Psych: COMMON NORMALS: mental status grossly normal, Normal thought process present, cooperative, normal affect, speech normal and activity/motor behavior normal SPEECH: Yes normal speech THOUGHT PROCESS: Normal thought process present Course Vital Signs: Vital signs: Vital Signs Temperature 98.0 F 01/20/23 15:10 Pulse Rate 106 H 01/20/23 17:44 Respiratory Rate 16 01/20/23 15:10 Blood Pressure 125/70 01/20/23 17:44 Pulse Oximetry 96 01/20/23 17:44 Oxygen Delivery Me thod 01/20/23 17:44 MDM - General Adult Medical Decision Making Patient presents to the ER with complaints of left medial thigh lump with redness that is tender to touch. Patient has history of DVTs. Patient has been off her Eliquis for approximately last month which is restarting for the last 2 days. Patient was fairly sure she had another blood clot. After review of lab work and ultrasound which showed new DVT and discussion with the patient it is felt that she can be discharged home on adequate dose of her Eliquis. Patient should follow-up with her primary care physician in approximately 1 week. Differential Diagnosis Cellulitis, DVT Medical Records I reviewed the patient's medical records. Lab Data I reviewed the patient's lab results. 01/20/23 16:04 01/20/23 16:04 Radiology Impressions Venous Duplex 01/20/23 16:46 IMPRESSION: Left lower extremity deep vein thrombosis, as described above. ADDENDUM: 01/20/23 [id number] ADDENDUM: THIS REPORT CONTAINS FINDINGS THAT MAY BE CRITICAL TO PATIENT CARE. As of 6:45 PM CDT on 01/20/2023, Jt Peters confirmed receipt of the exam report, is aware of the critical finding and indicated no conference call was necessary to discussed the exam findings. Laboratory Results WBC 7.8 10^3/uL (4.0-10.0) 01/20/23 16:04 RBC 4.26 10^6/uL (4.1-5.3) 01/20/23 16:04 Hgb 11.9 g/dL (11.5-15.3) 01/20/23 16:04 Hct 36.5 % (37.0-47.0) L 01/20/23 16:04 MCV 85.7 fl (81-99) 01/20/23 16:04 MCH 27.9 pg (28.0-34.0) L 01/20/23 16:04 MCHC 32.6 g/dL (30.0-36.0) 01/20/23 16:04 RDW 14.0 % (12.1-15.1) 01/20/23 16:04 Plt Count 383 10^3/cmm (130-400) 01/20/23 16:04 MPV 9.7 fL (7.4-10.4) 01/20/23 16:04 Neut % (Auto) 68.3 % 01/20/23 16:04 Lymph % (Auto) 19.6 % 01/20/23 16:04 [place] % (Auto) 9.3 % 01/20/23 16:04 Eos % (Auto) 1.7 % 01/20/23 16:04 Baso % (Auto) 0.6 % 01/20/23 16:04 Neut # (Auto) 5.29 10^3/uL (1.8-7.7) 01/20/23 16:04 Lymph # (Auto) 1.5 10^3/uL (0.8-4.8) 01/20/23 16:04 [place] # (Auto) 0.7 10^3/uL (0.2-0.9) 01/20/23 16:04 Eos # (Auto) 0.1 10^3/uL (0.0-0.8) 01/20/23 16:04 Baso # (Auto) 0.1 10^3/uL (0.0-0.1) 01/20/23 16:04 Nucleated RBC % (auto) 0 % 01/20/23 16:04 Nucleated RBCs # 0.0 /100WBC 01/20/23 16:04 Sodium 133 mmol/L (136-145) L 01/20/23 16:04 Potassium 3.8 mmol/L (3.5-5.1) 01/20/23 16:04 Chloride 95 mmol/L (98-107) L 01/20/23 16:04 Carbon Dioxide 25 mmol/L (22-29) 01/20/23 16:04 Anion Gap 16.8 (5-19) 01/20/23 16:04 BUN 10 mg/dL (8-23) 01/20/23 16:04 Creatinine 0.8 mg/dL (0.5-0.9) 01/20/23 16:04 GFR Calculation Not Reportable 01/20/23 16:04 Glucose 119 mg/dL (65-115) H 01/20/23 16:04 Calculated Osmolality 276 mOsm/kg (285-295) L 01/20/23 16:04 Calcium 8.5 mg/dL (8.5-10.5) 01/20/23 16:04 Total Bilirubin 0.3 mg/dL (0.15-1.2) 01/20/23 16:04 AST 13 U/L (0-32) 01/20/23 16:04 ALT 9 U/L (0-33) 01/20/23 16:04 Alkaline Phosphatase 80 U/L (35-105) 01/20/23 16:04 Total Protein 6.9 g/dL (6.6-8.7) 01/20/23 16:04 Albumin 3.3 g/dL (3.5-5.2) L 01/20/23 16:04 Globulin 3.6 g/dL (1.3-4.6) 01/20/23 16:04 Discharge Plan Discharge Patient Disposition: Home Clinical Impression: Left leg DVT Qualifiers: Affected thrombotic vein of extremity: unspecified lower extremity distal vein Chronicity: acute Qualified Code(s): I82.4Z2 - Acute embolism and thrombosis of unspecified deep veins of left distal lower extremity Condition: Stable Prescriptions: No Action Zyrtec 10 mg capsule PO ONCE spironolactone 25 mg tablet 25 mg PO QDAY albuterol sulfate 90 mcg/actuation HFA aerosol inhaler 1 inh INHALATION ONCE PreserVision AREDS [phone] [id number] capsule 1 cap PO BID alendronate 10 mg tablet 10 mg PO .weekly gabapentin 300 mg capsule 300 mg PO QDAY Xarelto 10 mg tablet 10 mg PO QDAY fluticasone propion-salmeterol [Advair Diskus] 250-50 mcg/dose blister with device 1 inh INHALATION ONCE PRN fluticasone propionate [Flonase Allergy Relief] 50 mcg/actuation spray,suspension 2 spray INTRANASAL QDAY PRN (Reason: allergy symptoms) 90 Days Qty: 16 1RF metronidazole 0.75 % gel 1 applic TOPICAL BID Qty: 45 3RF Rx Instructions: Apply thin film to entire face twice daily. Please dispense 90 day supply triamcinolone acetonide 0.1 % ointment 1 applic topical BID Qty: 80 1RF Rx Instructions: To Neck no more than 2 weeks/month as needed for flares triamcinolone acetonide 0.1 % ointment 1 applic topical BID Qty: 80 0RF Rx Instructions: apply to affected area no more than 2 weeks per month. not for face omeprazole 20 mg capsule,delayed release(DR/EC) 20 mg PO DAILY pravastatin 80 mg tablet 80 mg PO DAILY trazodone 50 mg tablet 50 mg PO DAILY oxybutynin chloride 5 mg tablet 5 mg PO BID montelukast [Singulair] 10 mg tablet 10 mg PO DAILY Qty: 90 3RF Rx Instructions: Please disregard prior rx bupivacaine (PF) 0.25 % (2.5 mg/mL) solution 1 ml intra-articular ONCE Qty: 1 0RF lidocaine (PF) 10 mg/mL (1 %) solution 1 ml Infiltration ONCE Qty: 1 0RF methylprednisolone acetate [Depo-Medrol] 40 mg/mL suspension 40 mg Infiltration ONCE Qty: 1 0RF methylprednisolone acetate [Depo-Medrol] 40 mg/mL suspension 40 mg Infiltration ONCE Qty: 1 0RF irbesartan 300 mg tablet 300 mg PO DAILY hydrocodone-acetaminophen 10-325 mg tablet 1 tab PO BID PRN (Reason: pain) 7 Days Qty: 14 0RF hydrocodone-acetaminophen 10-325 mg tablet 1 tab PO BID PRN (Reason: pain) 30 Days Qty: 60 0RF Rx Instructions: Do not fill until 07/23/2022 ondansetron HCl 4 mg tablet 4 mg PO Q8H PRN (Reason: nausea and vomiting) 4 Days Qty: 20 0RF amlodipine 10 mg tablet 10 mg PO DAILY Qty: 90 3RF azelastine 137 mcg (0.1 %) aerosol,spray 1 spray INTRANASAL ONCE 90 Days Qty: 90 3RF Rx Instructions: administer into each nostril Reglan 10 mg tablet 10 mg PO Q6H PRN (Reason: nausea and vomiting) Qty: 20 0RF Discharge Orders: Discharge ED (Routine); Ordered 01/20/23 Ordered By: Jt Peters Referrals: Oxana Lee DO [Primary Care Provider] - 1 week Discharge Activity: Resume usual activity Patient Instructions: Deep Vein Thrombosis (ED) Activity Restrictions/Additional Instructions: Please start your Eliquis at 10 mg twice a day for the next 7 days. Then you may reduce it to 5 mg twice a day. Please follow-up with your primary care physician within the next 1 week to discuss these changes along with your new DVT. Coding Level of Care Code ED [employer] Tech for Nidia López
[2023-01-20 16:52] LABS: Alanine Aminotransferase 9 U/L (0-33); Albumin Level 3.3 g/dL (3.5-5.2); Alkaline Phosphatase 80 U/L (35-105); Anion Gap 16.8 (5-19); Aspartate Amino Transferase 13 U/L (0-32); Blood Urea Nitrogen 10 mg/dL (8-23); Calcium 8.5 mg/dL (8.5-10.5); Carbon Dioxide 25 mmol/L (22-29); Chloride 95 mmol/L (98-107); Globulin 3.6 g/dL (1.3-4.6); Glucose 119 mg/dL (65-115); Osmolality Calculated 276 mOsm/kg (285-295); Potassium 3.8 mmol/L (3.5-5.1); Sodium 133 mmol/L (136-145); Total Bilirubin 0.3 mg/dL (0.15-1.2); Total Protein 6.9 g/dL (6.6-8.7)
[2023-01-20 17:44] VITALS: BP 125/70; PULSE 106; O2SAT 96
== END 2023-01-20 19:08 | disposition home or self-care (01) ==
PROVIDERS: Physician Assistant; Emergency Provider Emergency Medicine; PCP Family Medicine
DX: I82.4Z2 Acute embolism and thrombosis of unspecified deep veins of left distal lower extremity (principal); I10 Essential (primary) hypertension; Z87.891 Personal history of nicotine dependence
CPT/HCPCS: 36415; 80053; 85025; 93971; 99284

== ENCOUNTER → 2023-04-02 09:48 | Outpatient (BNVA) | payer MEDICARE, OTHER, SELFPAY | PROVIDERS: PCP Family Medicine; Visit Provider Anesthesiology Pain Medicine | DX: M47.816 Spondylosis without myelopathy or radiculopathy, lumbar region (principal); M51.16 Intervertebral disc disorders with radiculopathy, lumbar region; M19.171 Post-traumatic osteoarthritis, right ankle and foot | CPT/HCPCS: 99214 ==

== ENCOUNTER → 2023-04-21 14:46 | Outpatient (BNVA) | payer MEDICARE, OTHER, SELFPAY | PROVIDERS: PCP Family Medicine; Visit Provider Anesthesiology Pain Medicine | DX: M54.16 Radiculopathy, lumbar region (principal) | CPT/HCPCS: 64483; 64484; J1100; J3490 ==

== ENCOUNTER → 2023-05-05 12:54 | Outpatient (BNVA) | payer MEDICARE, OTHER, SELFPAY | PROVIDERS: PCP Family Medicine; Visit Provider Anesthesiology Pain Medicine | DX: M54.16 Radiculopathy, lumbar region (principal) | CPT/HCPCS: 64483; 64484; J1100; J3490 ==

== ENCOUNTER → 2023-05-19 14:26 | Outpatient (BNVA) | payer MEDICARE, OTHER, SELFPAY | PROVIDERS: PCP Family Medicine; Visit Provider Nurse Practitioner Family | DX: L85.3 Xerosis cutis (principal); D22.5 Melanocytic nevi of trunk; L81.4 Other melanin hyperpigmentation; L82.1 Other seborrheic keratosis; L57.8 Other skin changes due to chronic exposure to nonionizing radiation; S80.921A Unspecified superficial injury of right lower leg, initial encounter; X58.XXXA Exposure to other specified factors, initial encounter; L57.0 Actinic keratosis; L71.8 Other rosacea | CPT/HCPCS: 17000; 17003; 99214 ==

== ENCOUNTER → 2023-05-20 08:21 | Outpatient (BNVA) | payer MEDICARE, OTHER, SELFPAY | PROVIDERS: PCP Family Medicine; Visit Provider Anesthesiology Pain Medicine | DX: M47.816 Spondylosis without myelopathy or radiculopathy, lumbar region (principal); M51.16 Intervertebral disc disorders with radiculopathy, lumbar region; M19.171 Post-traumatic osteoarthritis, right ankle and foot | CPT/HCPCS: 99214 ==

== ENCOUNTER → 2023-06-09 13:10 | Outpatient (BNVA) | payer MEDICARE, OTHER, SELFPAY | PROVIDERS: PCP Family Medicine; Visit Provider Podiatrist Foot & Ankle Surgery | DX: M19.171 Post-traumatic osteoarthritis, right ankle and foot (principal); M20.41 Other hammer toe(s) (acquired), right foot; M20.42 Other hammer toe(s) (acquired), left foot | CPT/HCPCS: 20600; J1100; J3301 ==

== ENCOUNTER → 2023-08-20 08:50 | Outpatient (BNVA) | payer MEDICARE, OTHER, SELFPAY | PROVIDERS: PCP Family Medicine; Visit Provider Anesthesiology Pain Medicine | DX: M47.816 Spondylosis without myelopathy or radiculopathy, lumbar region; M51.16 Intervertebral disc disorders with radiculopathy, lumbar region; M19.171 Post-traumatic osteoarthritis, right ankle and foot | CPT/HCPCS: 99214 ==

== ENCOUNTER → 2023-08-26 07:37 | Outpatient (BNVA) | payer MEDICARE, OTHER, SELFPAY | PROVIDERS: PCP Family Medicine; Visit Provider Podiatrist Foot & Ankle Surgery | DX: M20.41 Other hammer toe(s) (acquired), right foot (principal); M20.42 Other hammer toe(s) (acquired), left foot; M19.171 Post-traumatic osteoarthritis, right ankle and foot | CPT/HCPCS: 20605; J1100; J3301; J3490 ==

== ENCOUNTER → 2023-09-04 14:16 | Outpatient (BNVA) | payer MEDICARE, OTHER, SELFPAY | PROVIDERS: PCP Family Medicine; Visit Provider Anesthesiology Pain Medicine | DX: M47.816 Spondylosis without myelopathy or radiculopathy, lumbar region (principal) | CPT/HCPCS: 64635; 64636; J1030 ==

== ENCOUNTER → 2023-09-25 12:51 | Outpatient (BNVA) | payer MEDICARE, OTHER, SELFPAY | PROVIDERS: PCP Family Medicine; Visit Provider Anesthesiology Pain Medicine | DX: M47.816 Spondylosis without myelopathy or radiculopathy, lumbar region (principal) | CPT/HCPCS: 64635; 64636; J1030 ==

== ENCOUNTER → 2023-10-02 09:13 | Outpatient (BNVA) | payer MEDICARE, OTHER, SELFPAY | PROVIDERS: PCP Family Medicine; Visit Provider Anesthesiology Pain Medicine | DX: M47.816 Spondylosis without myelopathy or radiculopathy, lumbar region; M51.16 Intervertebral disc disorders with radiculopathy, lumbar region; M19.171 Post-traumatic osteoarthritis, right ankle and foot | CPT/HCPCS: 99213 ==

== ENCOUNTER → 2023-11-24 13:30 | Outpatient (BNVA) | payer MEDICARE, OTHER, SELFPAY | PROVIDERS: PCP Family Medicine; Visit Provider Nurse Practitioner Family | DX: Z85.820 Personal history of malignant melanoma of skin (principal); D22.5 Melanocytic nevi of trunk; L81.4 Other melanin hyperpigmentation; L82.1 Other seborrheic keratosis; L57.8 Other skin changes due to chronic exposure to nonionizing radiation; L71.8 Other rosacea; L57.0 Actinic keratosis; L82.0 Inflamed seborrheic keratosis; L91.8 Other hypertrophic disorders of the skin; B00.1 Herpesviral vesicular dermatitis | CPT/HCPCS: 11200; 17000; 17110; 99213 ==

== ENCOUNTER → 2023-11-26 07:59 | Outpatient (BNVA) | payer MEDICARE, OTHER, SELFPAY | PROVIDERS: PCP Family Medicine; Visit Provider Podiatrist Foot & Ankle Surgery | DX: M19.171 Post-traumatic osteoarthritis, right ankle and foot (principal); M20.41 Other hammer toe(s) (acquired), right foot; M20.42 Other hammer toe(s) (acquired), left foot; M72.2 Plantar fascial fibromatosis | CPT/HCPCS: 20605; 99213; J1100; J3301; J3490 ==

== ENCOUNTER 2024-01-06 16:29 | Outpatient (CLI) | payer MEDICARE, OTHER, SELFPAY | END 2024-01-06 16:30 | disposition home or self-care (01) | LOC: SPT 16:30 | PROVIDERS: PCP Family Medicine; Visit Provider Podiatrist Foot & Ankle Surgery | DX: Z46.89 Encounter for fitting and adjustment of other specified devices (principal); M20.41 Other hammer toe(s) (acquired), right foot; M20.42 Other hammer toe(s) (acquired), left foot; M19.171 Post-traumatic osteoarthritis, right ankle and foot; M25.571 Pain in right ankle and joints of right foot; G89.29 Other chronic pain; M72.2 Plantar fascial fibromatosis | CPT/HCPCS: L3030 ==

== ENCOUNTER → 2024-01-16 12:18 | Outpatient (BNVA) | payer MEDICARE, OTHER, SELFPAY | PROVIDERS: PCP Family Medicine; Visit Provider Family Medicine | DX: Z13.6 Encounter for screening for cardiovascular disorders (principal); I10 Essential (primary) hypertension; R73.9 Hyperglycemia, unspecified | CPT/HCPCS: 80053; 80061; 83036; 85025 ==

== ENCOUNTER → 2024-01-27 15:10 | Outpatient (BNVA) | payer MEDICARE, OTHER, SELFPAY | PROVIDERS: PCP Family Medicine; Visit Provider Podiatrist Foot & Ankle Surgery | DX: M20.41 Other hammer toe(s) (acquired), right foot (principal); M20.42 Other hammer toe(s) (acquired), left foot; M19.171 Post-traumatic osteoarthritis, right ankle and foot; M72.2 Plantar fascial fibromatosis | CPT/HCPCS: 99213 ==

== ENCOUNTER → 2024-01-28 09:12 | Outpatient (BNVA) | payer MEDICARE, OTHER, SELFPAY | PROVIDERS: PCP Family Medicine; Referring Provider Family Medicine; Visit Provider Surgery | DX: R11.2 Nausea with vomiting, unspecified (principal) | CPT/HCPCS: 99203 ==

== ENCOUNTER 2024-02-16 09:39 | Inpatient (IN) | payer MEDICARE, OTHER, SELFPAY ==
[2024-02-16] VITALS (15 sets, daily range): BP systolic 120–178; BP diastolic 59–127; PULSE 78–125; RESP 15–21; TEMP 36.7–36.8; O2SAT 94–98; BMI 31.3
[2024-02-16] MEDS: dilTIAZem 5 mg/mL SDV 5 mL 20 MG IVP (10:17)
--- NOTE | 2024-02-16 10:19 | ECG_ITS ---
[facility] Test Date: 2024-02-16 Pat Name: Wandy Ruffin Department: Room: Gender: Female Patent Law Specialist: : 1940 Requested By: Sarwat Magallanes Order Number: [id number] Ankit MD: Israel Ward M.D. Measurements Intervals [place] Rate: 152 P: 0 [place]: 0 QRS: 65 QRSD: 80 T: 0 QT: 217 QTc: 346 Interpretive Statements ATRIAL FIBRILLATION WITH RAPID VENTRICULAR RESPONSE MARKED ST DEPRESSION, CONSIDER SUBENDOCARDIAL INJURY [0.2+ mV ST DEPRESSION] ACUTE UT INTERPRETATION BASED ON A DEFAULT AGE OF 40 YEARS Compared to ECG 09/10/2017 20:10:10 ST (T wave) deviation now present Sinus rhythm no longer present T-wave abnormality no longer present Electronically Signed On 02-16-2024 15:03:21 CDT by Israel Ward M.D. [id number]
--- NOTE | 2024-02-16 10:19 | XRR_ITS ---
PROCEDURE INFORMATION: Exam: XR Chest Exam date and time: 02/16/2024 10:36 AM Age: 83 years old Clinical indication: Cough and dyspnea; Additional info: Dyspnea/cough TECHNIQUE: Imaging protocol: Radiologic exam of the chest. Views: 1 view. COMPARISON: CR XR chest 2V* [id number] 12/18/2019 10:09 PM FINDINGS: Lungs: Unremarkable. No consolidation. Pleural spaces: Unremarkable. No pleural effusion. No pneumothorax. Heart/Mediastinum: Unremarkable. No cardiomegaly. Bones/joints: Unremarkable. XR/XR chest 1V portable [id number] IMPRESSION: No acute findings.
--- NOTE | 2024-02-16 10:23 | ED_ITS ---
HPI - Arrhythmia/Palpitations 2 General: Chief Complaint: Nausea/Vomiting/Diarrhea Stated Complaint: n,v, abd pain Time Seen by Provider: 02/16/24 09:58 Source: patient Mode of arrival: ambulatory History of Present Illness: 83-year-old female presents emergency ro om with rapid heart rate nausea vomiting diarrhea abdominal cramping has been going on for the last 2 days. She notices any activity she is extremely weak and somewhat short of breath. She has a history of DVTs she is on anticoagulants has not taken her anticoagulants for the last couple of days because she has not been feeling well. She does not have any known history of coronary artery disease or atrial fibrillation. MD complaint: rapid heart beat Duration: constant Associated symptoms: Deny anxiety, cough, diaphoresis, muscle cramps, nausea, paresthesias, pre-syncope, sense of impending doom, short of breath, syncope or vomiting Review of Systems 2 Const: Denies: fever(s), chills or diaphoresis Card: Reports: palpitations and irregular heart rhythm; Denies: chest pain, syncope or pre-syncope Resp: Reports: dyspnea GI: Denies: abdominal pain, nausea or vomiting : Denies: dysuria, urinary frequency or urinary urgency Musc: Denies: muscle cramps Skin/Breast: Denies: rash Psych: Denies: anxiety PFSH ED 2 PFSH: Medical History Osteoarthritis of carpometacarpal joint of left thumb Osteopenia Seasonal allergies History of DVT (deep vein thrombosis) Recurrent Urinary incontinence Hypertension History of malignant melanoma On right forearm Surgical History H/O tubal ligation Status post total left knee replacement using cement Family History Mother Cancer Breast Other CAD (coronary artery disease) Diabetes Social History Smoking and tobacco/nicotine status: former use of tobacco/nicotine Alcohol intake: current Alcohol intake frequency: holidays/special occasions only Substance/Drug Use: never Physical Exam 2 Const: GENERAL APPEARANCE: cooperative ORIENTATION/CONSCIOUSNESS: Yes awake, Yes oriented to person, Yes oriented to place and Yes oriented to time HENMT: COMMON NORMALS: normocephalic, atraumatic and hearing grossly normal bilaterally HEAD & SCALP: normocephalic and atraumatic Resp: COMMON NORMALS: normal respiratory effort, No retractions, No use of accessory muscles and clear to auscultation bilaterally AUSCULTATION: clear to auscultation bilaterally Cardio: COMMON NORMALS: No murmurs present (Cardio) RATE: tachycardic R HYTHM: abnormal rhythm irregularly irregular GI: COMMON NORMALS: Soft to palpation and No hepatosplenomegaly present A USCULTATION: Yes normoactive bowel sounds PALPATION: Yes Soft to palpation, No Tenderness to palpation present (GI), No Guarding due to palpation present (GI) and Yes No hepatosplenomegaly present Extremity: COMMON NORMALS: normal to inspection, capillary refill normal, no clubbing, cyanosis or edema, no calf tenderness and no pedal edema Neuro: SENSORIUM/ORIENTATION: Yes oriented to person, Yes oriented to place and Yes oriented to time Skin: COMMON NORMALS: no rashes or lesions noted GENERAL SKIN EXAM: no rashes or lesions noted Course 2 Vital Signs: Vital signs: Vital Signs Pulse Rate 88 02/16/24 13:39 Respiratory Rate 18 02/16/24 09:55 Blood Pressure 124/88 02/16/24 13:39 Pulse Oximetry 97 02/16/24 13:39 Oxygen Delivery Me thod Room Air 02/16/24 13:39 MDM - Arrhythmia/Palpitations Medical Decision Making New onset A-fib with RVR controlled with Cardizem. White count significantly elevated no direct findings of focus of infection. Did not give the sepsis bolus because it felt she was at very high risk for fluid overload with her A- fib with RVR. Her blood pressure has been adequate. Prophylactically started on vancomycin and Zosyn cultures done discussed with hospitalist orders written Medical Records I reviewed the patient's medical records. Lab Data I reviewed the patient's lab results. 02/16/24 10:20 02/16/24 10:20 Radiology Impressions Chest X-Ray 02/16/24 10:19 IMPRESSION: No acute findings. Laboratory Results WBC 34.87 10^3/uL (3.29-11.43) H* 02/16/24 10:20 RBC 5.41 10^6/uL (3.85-5.65) 02/16/24 10:20 Hgb 14.60 g/dL (11.27-16.99) 02/16/24 10:20 Hct 43.7 % (36-47) 02/16/24 10:20 MCV 80.8 fl (85-98) L 02/16/24 10:20 MCH 27.0 pg (27-33) 02/16/24 10:20 MCHC 33.4 g/dL (30-55) 02/16/24 10:20 RDW 14.2 % (12.1-15.1) 02/16/24 10:20 Plt Count 325 10^3/cmm (157-399) 02/16/24 10:20 MPV 11.2 fL (7.4-10.4) H 02/16/24 10:20 Neut % (Auto) 83.5 % 02/16/24 10:20 Lymph % (Auto) 5.6 % 02/16/24 10:20 [place] % (Auto) 8.5 % 02/16/24 10:20 Eos % (Auto) 0.0 % 02/16/24 10:20 Baso % (Auto) 0.3 % 02/16/24 10:20 Neut # (Auto) 29.11 10^3/uL (1.8-7.7) H 02/16/24 10:20 Lymph # (Auto) 2.0 10^3/uL (0.8-4.8) 02/16/24 10:20 [place] # (Auto) 3.0 10^3/uL (0.2-0.9) H 02/16/24 10:20 Eos # (Auto) 0.0 10^3/uL (0.0-0.8) 02/16/24 10:20 Baso # (Auto) 0.1 10^3/uL (0.0-0.1) 02/16/24 10:20 Nucleated RBC % (auto) 0 % 02/16/24 10:20 Nucleated RBCs # 0.0 /100WBC 02/16/24 10:20 Sodium 127 mmol/L (136-145) L 02/16/24 10:20 Potassium 3.7 mmol/L (3.5-5.1) 02/16/24 10:20 Chloride 89 mmol/L (98-107) L 02/16/24 10:20 Carbon Dioxide 16 mmol/L (22-29) L 02/16/24 10:20 Anion Gap 25.7 (5-19) H 02/16/24 10:20 BUN 17 mg/dL (8-23) 02/16/24 10:20 Creatinine 1.0 mg/dL (0.5-0.9) H 02/16/24 10:20 GFR Calculation Not Reportable 02/16/24 10:20 Glucose 246 mg/dL (65-115) H 02/16/24 10:20 Calculated Osmolality 274 mOsm/kg (285-295) L 02/16/24 10:20 Lactic Acid 5.0 mmol/L (0.5-2.2) H* 02/16/24 10:20 Calcium 8.9 mg/dL (8.5-10.5) 02/16/24 10:20 Magnesium 1.6 mg/dL (1.7-2.3) L 02/16/24 10:20 Total Bilirubin 0.5 mg/dL (0.15-1.2) 02/16/24 10:20 AST 22 U/L (0-32) 02/16/24 10:20 ALT 12 U/L (0-33) 02/16/24 10:20 Alkaline Phosphatase 112 U/L (35-105) H 02/16/24 10:20 Creatine Kinase 65 U/L (26-192) 02/16/24 10:30 Troponin T Baseline 60 ng/L (0-10) H 02/16/24 10:20 Troponin T 120 Minute 47.18 ng/L (0-10) H 02/16/24 12:38 Delta Troponin T -12.82 ABS# (0-10) L 02/16/24 12:38 C-Reactive Protein 291.7 mg/L (0.0-4.9) H 02/16/24 10:30 NT-Pro-B Natriuret Pep 36193 pg/mL (0-450) H 02/16/24 10:20 Total Protein 7.8 g/dL (6.6-8.7) 02/16/24 10:20 Albumin 3.6 g/dL (3.5-5.2) 02/16/24 10:20 Globulin 4.2 g/dL (1.3-4.6) 02/16/24 10:20 Lipase 22 U/L (13-60) 02/16/24 10:20 Procalcitonin Cancelled 02/16/24 10:30 TSH 1.08 uIU/mL (0.27-4.20) 02/16/24 10:20 All radiology interpretation(s) finalized by discharge Discharge Plan Discharge Patient Disposition: Admitted As Inpatient Admit Provider: Cristian Plascencia Clinical Impression: Atrial fibrillation with RVR, Acidosis, lactic, Leukocytosis, Sepsis Condition: Stable Discharge Diet: Usual diet Discharge Activity: Resume usual activity Coding Level of Care Code ED Design Studio Consultant for Nidia López
[2024-02-16] MEDS: dilTIAZem 100 MG in sodium chloride 0.9% (add-van) 100 ML IV (10:26)
[2024-02-16 10:31] LABS: Basophils # 0.1 10^3/uL (0.0-0.1); Basophils % 0.3 %; Hematocrit 43.7 % (36-47); Lymphocytes % 5.6 %; Mean Corpuscular HGB Conc 33.4 g/dL (30-55); Mean Corpuscular Volume 80.8 fl (85-98); Mean Platelet Volume 11.2 fL (7.4-10.4); Monocytes % 8.5 %; Neutrophils # 29.11 10^3/uL (1.8-7.7); Neutrophils % 83.5 %; Nucleated Red Blood Cells % 0 %; Platelet Count 325 10^3/cmm (157-399); Red Blood Count 5.41 10^6/uL (3.85-5.65); Red Cell Distribution Width 14.2 % (12.1-15.1)
[2024-02-16 10:40] LABS: White Blood Count 34.87 10^3/uL (3.29-11.43)
--- NOTE | 2024-02-16 10:42 | CT_ITS ---
WS: [id number] CT ABDOMEN AND PELVIS NONCONTRAST HISTORY: Abdominal pain TECHNIQUE: Imaging performed through the abdomen and pelvis. Coronal and sagittal reformats are submi tted. All CT scans at [facility] use at least one of these dose optimization techniques: auto mated exposure control; mA and/or kV adjustment per patient size (includes targeted exams where dose is matched to clinical indication); or iterative reconstruction. DLP: 809.73 mGy.cm COMPARISON: 12/27/2022 Lower thorax: Lung bases are clear. Mild pericardial thickening. Small hiatal hernia. Liver: Normal size liver. No mass or bile duct dilatation. Gallbladder: Normal gallbladder. No pericholecystic fluid or cholelithiasis. No gallbladder wall thic kening. Pancreas: Normal size and attenuation. Normal pancreatic duct. No pancreatitis or mass. Spleen: Normal. Adrenal glands: Normal RIGHT adrenal gland. Reidentified LEFT adrenal nodule measuring 13 x 9 mm. No increase in size. Right kidney: Normal size kidney. No hydronephrosis. Mild perinephric stranding along the lower pole is new. Left kidney: Very slight perinephric stranding. Previously described hypodensities in the cortex are not visualized. Aorta: Mild atherosclerosis abdominal aorta with no aneurysm. No free fluid, intraperitoneal air or significant lymphadenopathy. GI tract: Normal noncontrast imaging of the stomach, small bowel and colon. No obstruction or wall th ickening. Normal appendix. Moderate distal colon diverticula. No acute diverticulitis. Abdominal wall: Negative. No hernia. Pelvis: Mildly atrophic uterus. No pelvic mass. No free fluid or adenopathy. Osseous structures: Advanced degenerative disc disease at L2-3 with bone upon bone. There is also a s abhi stimulator noted with the electrodes terminating deep within the LEFT pelvis. IMPRESSION: 1. No GI tract obstruction. No submucosal thickening or significant pericolonic stranding. 2. No free air or ascites. 3. Mild increased stranding and haziness around the LEFT kidney. Similar findings to a lesser extent lower pole RIGHT kidney. Correlate for possible UTI. 4. Sigmoid diverticulosis without acute diverticulitis.
[2024-02-16 10:53] LABS: Troponin(5th) Baseline 60 ng/L (0-10)
[2024-02-16 11:03] LABS: Alanine Aminotransferase 12 U/L (0-33); Albumin Level 3.6 g/dL (3.5-5.2); Alkaline Phosphatase 112 U/L (35-105); Blood Urea Nitrogen 17 mg/dL (8-23); Calcium 8.9 mg/dL (8.5-10.5); Carbon Dioxide 16 mmol/L (22-29); Chloride 89 mmol/L (98-107); Creatinine Clr Calc Pharmacy 47.5598; Globulin 4.2 g/dL (1.3-4.6); Glucose 246 mg/dL (65-115); Lipase 22 U/L (13-60); Magnesium 1.6 mg/dL (1.7-2.3); Osmolality Calculated 274 mOsm/kg (285-295); Sodium 127 mmol/L (136-145); Total Bilirubin 0.5 mg/dL (0.15-1.2); Total Protein 7.8 g/dL (6.6-8.7)
[2024-02-16 11:06] LABS: Anion Gap 25.7 (5-19); Aspartate Amino Transferase 22 U/L (0-32); Potassium 3.7 mmol/L (3.5-5.1)
[2024-02-16 11:10] LABS: NT Pro B Type Natriuretic Pept 17881 pg/mL (0-450); Thyroid Stimulating Hormone 1.08 uIU/mL (0.27-4.20)
[2024-02-16 11:40] LABS: Procalcitonin 1.02 ng/mL (0-0.5)
--- NOTE | 2024-02-16 12:01 | PC.NURSE ---
PER VERBAL ORDER FROM DR HYDE. TITRATE CARDIZEM TO 10MG.
--- NOTE | 2024-02-16 12:19 | ECG_ITS ---
[facility] Test Date: 2024-02-16 Pat Name: Wandy Ruffin Department: Room: Gender: Female Self Pay Representative: : 1940 Requested By: Sarwat Magallanes Order Number: [id number] Ankit MD: Israel Ward M.D. Measurements Intervals [place] Rate: 94 P: 0 AR: 0 QRS: 40 QRSD: 86 T: -22 QT: 349 QTc: 438 Interpretive Statements ATRIAL FIBRILLATION WITH ABERRANT CONDUCTION OR VENTRICULAR PREMATURE COMPLEXES NONSPECIFIC ST & T-WAVE ABNORMALITY Compared to ECG 02/16/2024 10:03:31 Ventricular premature complex(es) now present Aberrant conduction of supraventricular beat(s) now present T-wave abnormality now present ST (T wave) deviation no longer present Electronically Signed On 02-16-2024 15:07:53 CDT by Israel Ward M.D. [id number]
[2024-02-16 12:36] LABS: Reflex Lactate Order REFLEX LACTIC ORDERD
[2024-02-16] MEDS: piperacillin-tazobactam 3.375 GM in sodium chloride 0.9% (plus) 50 ML IV ×2 (12:36→23:29)
[2024-02-16] MEDS: ondansetron 2 mg/ML SDV 2 mL 4 MG IVP (12:42)
--- NOTE | 2024-02-16 12:47 | PC.NURSE ---
PER DR HYDE VERBAL ORDER INCREASE CARDIZEM DOSE TO 12.5 MG
[2024-02-16 13:03] LABS: Troponin 5 2HR 47.18 ng/L (0-10)
[2024-02-16 13:05] LABS: Troponin 5 2HR Delta -12.82 ABS# (0-10)
[2024-02-16] MEDS: vancomycin 1,000 MG in sodium chloride 0.9% 250 ML 250 MG IV (13:07)
--- NOTE | 2024-02-16 13:30 | P.HP_ITS ---
Providers/Chief Complaint 2 Admitting Physician: Cristian Plascencia MD Primary Care Provider: Oxana Lee DO Chief Complaint: n,v, abd pain History of Present Illness T Francoise Ruffin is a 83 year old female with a past medical history of DVT on Xarelto, hyperlipidemia hypertension, who presents to [facility] due to abdominal pain, feeling nauseous, diarrhea. Patient tells me that on Friday night she either will be Friday, she had a steak, 6 a baked potato and sour cream, as soon as she got home she started having profuse diarrhea she had profuse diarrhea throughout the night, stopped at about 4 AM on Friday since then she has been in bed feeling unwell fatigue, malaise, chills, her nausea also started on Friday night stopped at about 4 AM on Friday, she has not had any diarrhea since then is passing gas, does report diffuse abdominal pain, still has her gallbladder, does report lightheadedness, does report chest palpitations does report shortness of breath intermittently, no documented fevers, no cough, no shortness of breath, denies any bloody or black stools, denies any hematemesis, denies any calf pain, denies any calf swelling, Review of Systems 2 Const: Reports: chills, fatigue and malaise; Denies: fever(s) Eyes: Denies: change in vision Card: Reports: palpitations and lightheadedness; Denies: chest pain Resp: Reports: dyspnea GI: Reports: abdominal pain : Denies: flank pain or dysuria Skin/Breast: Denies: rash Neuro: Denies: headache(s) Endo: Denies: polyuria Medications/Allergies Home Medications Medication Instructions Recorded Confirmed Last Taken Type albuterol sulfate 90 mcg/actuation 1 inh inhalation Q4H PRN Shortness 11/22/19 02/16/24 Unknown History aerosol inhaler Of Breath Or Wheezing alendronate 10 mg tablet 10 mg PO Q7D 11/22/19 02/16/24 02/08/24 History vitamins A,C,C-ypeg-emrdfo 4,296 1 cap PO BID 11/22/19 02/16/24 Unknown History mcg-226 mg-90 mg capsule (PreserVision AREDS) fluticasone 250 mcg-salmeterol 50 1 inh inhalation DAILY 05/17/20 02/16/24 Unknown History mcg/dose blistr powdr for inhalation (Advair Diskus) pravastatin 80 mg tablet 80 mg PO DAILY 03/21/22 02/16/24 Unknown History trazodone 50 mg tablet 50 mg PO QPM 03/21/22 02/16/24 Unknown History irbesartan 300 mg tablet 300 mg PO DAILY #90 tabs 02/17/23 02/16/24 Unknown Rx montelukast 10 mg tablet 10 mg PO DAILY #90 tabs 02/17/23 02/16/24 Unknown Rx (Singulair) spironolactone 25 mg tablet 25 mg PO QDAY #90 tabs 02/17/23 02/16/24 Unknown Rx ondansetron HCl 4 mg tablet 4 mg PO Q8H PRN nausea and 05/15/23 02/16/24 Unknown Rx vomiting 4 days #30 tabs fluticasone propionate 50 2 spray intranasal QDAY PRN 10/16/23 02/16/24 Unknown Rx mcg/actuation nasal allergy symptoms 90 days #16 grams spray,suspension (Flonase Allergy Relief) rivaroxaban 10 mg tablet 10 mg PO QDAY #90 tabs 10/16/23 02/16/24 Unknown Rx gabapentin 300 mg capsule 300 mg PO BID 90 days #180 caps 11/26/23 02/16/24 Unknown Rx hydrocodone 10 mg-acetaminophen 1 tab PO BID PRN pain 30 days #60 01/16/24 02/16/24 Unknown Rx 325 mg tablet tabs omeprazole 20 mg capsule,delayed 20 mg PO DAILY #90 caps 01/16/24 02/16/24 Unknown Rx release orlistat 120 mg capsule (Xenical) 120 mg PO TID #270 caps 01/16/24 02/16/24 Unknown Rx oxybutynin chloride 5 mg tablet 5 mg PO BID #180 tabs 01/16/24 02/16/24 Unknown Rx Custom molded Orthotics #1 ea 01/27/24 02/16/24 Unknown Rx azelastine 137 mcg (0.1 %) nasal 1 spray intranasal DAILY 02/16/24 02/16/24 Unknown History spray aerosol cetirizine 10 mg capsule (Zyrtec) 10 mg PO DAILY PRN Allergy Symptoms 02/16/24 02/16/24 Unknown History Allergies Allergy/AdvReac Type Severity Reaction Status Date / Time dog dander Allergy cough Verified 01/27/24 15:44 house dust Allergy ALGY-Sneezi Verified 01/27/24 15:44 ng Mold Allergy ALGY-Sneezi Uncoded 01/27/24 15:44 ng PFSH Acute 2 PFSH: Medical History Osteoarthritis of carpometacarpal joint of left thumb Osteopenia Seasonal allergies History of DVT (deep vein thrombosis) Recurrent Urinary incontinence Hypertension History of malignant melanoma On right forearm Surgical History H/O tubal ligation Status post total left knee replacement using cement Family History Mother Cancer Breast Other CAD (coronary artery disease) Diabetes Social History Smoking and tobacco/nicotine status: former use of tobacco/nicotine Alcohol intake: current Alcohol intake frequency: holidays/special occasions only Substance/Drug Use: never Vitals/I&O/Wt Last Vital Signs Pulse 92 02/16/24 12:50 Resp 18 02/16/24 09:55 BP 175/86 02/16/24 12:50 Pulse Ox 97 02/16/24 12:50 O2 Del Method Room Air 02/16/24 12:50 02/15/24 02/16/24 02/16/24 22:59 06:59 14:59 Intake Total 17.083 / 17.083 Balance 17.083 / 17.083 Weight last 48 hrs Weight 90.718 kg Physical Exam 2 Const: COMMON NORMALS: no acute distress and patient oriented x3 HENMT: COMMON NORMALS: normocephalic HEAD & SCALP: normocephalic Eye: COMMON NORMALS: Equal, round and reactive pupils present Neck/C-Spine: COMMON NORMALS: no JVD Lymph: LYMPHATIC: no lymphadenopathy noted Resp: COMMON NORMALS: normal respiratory effort, No retractions, No use of accessory muscles and clear to auscultation bilaterally AUSCULTATION: clear to auscultation bilaterally Cardio: COMMON NORMALS: regular rate, regular rhythm, S1 normal heart sound present and S2 normal heart sound present RATE: regular rate RHYTHM: a bnormal rhythm irregularly irregular HEART SOUNDS: S1 normal heart sound present and S2 normal heart sound present GI: INSPECTION: Yes abdominal distension AUSCULTATION: Yes normoactive bowel sounds PALPATION: Yes Soft to palpation, Yes Tenderness to palpation present (GI) Details: RLQ and RUQ, No Guarding due to palpation present (GI) and No Rigid due to palpation Extremity: COMMON NORMALS: no calf tenderness and no pedal edema Neuro: COMMON NORMALS: patient oriented x3, CN's II-XII intact bilaterally and moves all extremities Psych: COMMON NORMALS: mental status grossly normal Data 02/16/24 10:20 02/16/24 10:20 Micro: Microbiology 02/16/24 11:00 Blood Culture - Preliminary Blood SPECIMEN COLLECTED 02/16/24 10:54 Blood Culture - Preliminary Blood SPECIMEN COLLECTED A&P Assessment and plan (1) Atrial fibrillation with RVR: (2) History of DVT (deep vein thrombosis): (3) Hyperglycemia: (4) Obesity (BMI 30.0-34.9): (5) Nausea and vomiting: Qualifiers: Vomiting type: unspecified Qualified Code(s): R11.2 - Nausea with vomiting, unspecified (6) Leukocytosis: (7) Metabolic acidosis: (8) Elevated lactic acid level: (9) Hyponatremia: (10) Diarrhea: (11) Hypomagnesemia: (12) NSTEMI (non-ST elevated myocardial infarction): (13) Sepsis: (14) Food poisoning: (15) Pyelonephritis: (16) UTI (urinary tract infection): Plan A-fib with RVR ? New onset, ? Continue Cardizem drip ? Continue Xarelto ? Replace magnesium [place]onatremia, ? [place] [address] ? Gentle IV hydration ? Will continue to monitor Hypomagnesemia, replaced IV Sepsis Leukocytosis, elevated Pro-Nehemiah, CRP, elevated lactic acid Source, likely UTI, pyelonephritis, Monitor hemodynamics closely ? Monitor lactic acid UTI, pyelonephritis ? CT scan shows 3. Mild increased stranding and haziness around the LEFT kidney. Similar findings to a lesser extent lower pole RIGHT kidney. Correlate for possible UTI. ? Plan ? Obtain a UA, ? Continue vancomycin, Continue Zosyn Follow blood cultures Follow cultures Increased anion gap metabolic acidosis ? Likely secondary to dehydration ? Elevated lactic acid, 1 amp of bicarb Elevated lactic acid ? Secondary to sepsis, UTI, pyelonephritis NSTEMI ? No chest pain ? Type I versus type II ? Serial EKGs. Telemetry monitoring, ? Continue Xarelto Food poisoning ? Stool studies History of DVT, ? Continue Xarelto Right upper quadrant ultrasound ? Cardiac echo Full code Xarelto for DVT prophylaxis Attestations 2 Medical Necessity Statement*: Patient requires hospitalization, inpatient, greater than 2 minutes, for sepsis, elevated lactic acid metabolic acidosis, secondary UTI, pyelonephritis, food poisoning, A-fib with RVR, NSTEMI Coding Level of Care Code Acute Code for Chg Fwd Diagnoses Atrial fibrillation with RVR I48.91 History of DVT (deep vein thrombosis) Z86.718 Hyperglycemia R73.9 Obesity (BMI 30.0-34.9) E66.9 Nausea and vomiting, unspecified vomiting type R11.2 Vomiting type: unspecified Leukocytosis D72.829 Metabolic acidosis E87.20 Elevated lactic acid level R79.89 Hyponatremia E87.1 Diarrhea R19.7 Hypomagnesemia E83.42 NSTEMI (non-ST elevated myocardial infarction) I21.4 Sepsis A41.9 Food poisoning A05.9 Pyelonephritis N12 UTI (urinary tract infection) N39.0
[2024-02-16 13:38] LABS: C Reactive Protein 291.7 mg/L (0.0-4.9); Creatine Phosphokinase 65 U/L (26-192)
--- NOTE | 2024-02-16 13:38 | PC.NURSE ---
attempted report to CSU at [phone]
[2024-02-16 13:48] LABS: D Dimer 3.73 ug/mLFEU (0-0.59)
--- NOTE | 2024-02-16 13:53 | ECG_ITS ---
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 Measurements Intervals [place] Rate: 95 P: 0 [place]: 0 QRS: 39 QRSD: 81 T: 2 QT: 293 QTc: 369 Interpretive Statements ATRIAL FIBRILLATION WITH ABERRANT CONDUCTION OR VENTRICULAR PREMATURE COMPLEXES NONSPECIFIC ST & T-WAVE ABNORMALITY ABNORMAL RHYTHM ECG Compared to ECG 02/16/2024 12:19:03 No significant changes Electronically Signed On 02-16-2024 15:05:08 CDT by Israel Ward M.D. [id number]
[2024-02-16 13:55] LABS: Erythrocyte Sedimentation Rate 79 mm/hr (0-15)
[2024-02-16 14:24] LABS: Lactic Acid level (Lactate) 1.6 mmol/L (0.5-2.2)
--- NOTE | 2024-02-16 14:46 | US_ITS ---
WS: [id number] Complete ABDOMINAL ULTRASOUND HISTORY: RUQ abdominal pain and RLQ pain COMPARISON: CT 02/16/2024 Liver: 15.9 cm in length. Mild coarse echogenicity. No mass or bile duct dilatation. Portal Vein: Normal hepatopetal flow with monophasic waveform. Gallbladder: Normally distended gallbladder with no stones or wall thickening. CBD: 0.4 cm Pancreas: Limited visualization. Right kidney: 10.8 cm x 5.1 x 5.3 cm. Cortex:1.1 cm. Normal size kidney with mild cortical thinning. No mass or inflammation. No obstruction. Left kidney: 11.0 cm x 4.5 cm x 5.0 cm. Cortex: 1.2 cm. Normal size kidney with mild cortical thinning. No mass or inflammation. No obstruction. Spleen: 8.7 cm. Normal size and echogenicity. Aorta and IVC: Unremarkable abdominal aorta and IVC. Impression: 1. Negative gallbladder. 2. Mild coarse echogenicity throughout the liver. Consider hepatocellular disease/cirrhosis. 3. Mild renal cortical thinning. No obstruction.
--- NOTE | 2024-02-16 14:46 | USCV_ITS ---
Wandy Ruffin Age: 83 Gender: F : 1940 Exam Date: 02/16/2024 18:48 Ordering Phys: Cristian Plascencia MD Technologist: FATOU [place] [facility] [place] afib BP: 156 / 91 HR: 86 Rhythm: Atrial fibrillation Technical Quality: Adequate MEASUREMENTS (Male / Female) Normal Values 2D ECHO LV Diastolic Diameter PLAX 4.5 cm 4.2 - 5.9 / 3.9 - 5.3 cm IVS Diastolic Thickness 1.8 cm 0.6 - 1.0 / 0.6 - 0.9 cm IVS Systolic Thickness 2.2 cm LVPW Diastolic Thickness 1.8 cm 0.6 - 1.0 / 0.6 - 0.9 cm LVPW Systolic Thickness 3.0 cm LVOT Diameter 2.0 cm LV Ejection Fraction 2D Teich 64.7 % LV Ejection Fraction MOD 2C 57.3 % LV Ejection Fraction 2C AL 59.2 % LA Diameter 5.0 cm LA Sys Volume AL 76.1 cm cubed LA Sys Volume Index AL 27.9 cm cubed/m squared Aorta at Sinotubular Diameter 2.4 cm IVC Diameter 1.2 cm M-MODE LA Ao Ratio MM 1.6 AV Cusp Separation MM 1.7 cm DOPPLER AV Peak Velocity 198.0 cm/s LVOT Peak Velocity 110.0 cm/s AV Area Cont Eq vti 1.7 cm squared AV Area Cont Eq pk 1.7 cm squared MV Peak Velocity 133.0 cm/s MV Area PHT 2.4 cm squared Mitral E to A Ratio 121.0 TR Peak Velocity 286.0 cm/s TR Peak Gradient 32.7 mmHg TV Peak E Velocity 42.0 cm/s Right Atrial Pressure 10.0 mmHg Pulmonary Artery Systolic Pressu 42.7 mmHg PV Peak Velocity 113.0 cm/s FINDINGS Left Ventricle Normal left ventricular size and systolic function, EF 59%.mild left ventricular hypertrophy. Right Ventricle The right ventricle is normal in size and function. Right Atrium Mildly increased right atrial size. Left Atrium Mildly increased left atrial size. Mitral Valve Thickened mitral valve. Mild mitral annular calcification. Moderate mitral valve regurgitation. Aortic Valve Thickened aortic valve. Aortic valve sclerosis. Trace aortic valve regurgitation. Tricuspid Valve Trace to mild tricuspid valve regurgitation. Pulmonic Valve Notable abnormalities noted Pericardium Normal pericardium without effusion. Aorta Normal ascending aorta dimension. IVC Normal inferior vena cava. CONCLUSIONS Normal left ventricular size and systolic function, EF 59%. mild left ventricular hypertrophy. Mild biatrial enlargement. Thickened mitral valve. Mild mitral annular calcification. Moderate mitral valve regurgitation. Aortic valve sclerosis. Trace aortic valve regurgitation. Trace to mild tricuspid valve regurgitation. Compared to the study from 08/26/2022, there may not be a significant change Dr Don Mello MD [facility] (Electronically Signed) Final Date: 17 February 2024 10:09 S
[2024-02-16] MEDS: sodium bicarbonate 8.4% 1 mEq/mL 50mL Syr 50 MEQ IVP (15:53)
[2024-02-16] MEDS: magnesium sulfate premix 2 GM/50 ML PIGGYBACK IV (15:53)
[2024-02-16] MEDS: pantoprazole 40 mg SDV IVP (15:54)
--- NOTE | 2024-02-16 16:19 | ECG_ITS ---
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 Measurements Intervals [place] Rate: 82 P: 0 ID: 0 QRS: 35 QRSD: 82 T: 29 QT: 319 QTc: 374 Interpretive Statements ATRIAL FIBRILLATION WITH ABERRANT CONDUCTION OR VENTRICULAR PREMATURE COMPLEXES NONSPECIFIC ST & T-WAVE ABNORMALITY ABNORMAL RHYTHM ECG Compared to ECG 02/16/2024 13:53:49 No significant changes Electronically Signed On 02-17-2024 21:43:03 CDT by Don Mello M.D. [id number]
[2024-02-16] MEDS: HYDROcodone-acetaminophen 10-325 mg Tablet 1 TAB PO (16:44)
[2024-02-16] MEDS: gabapentin 300 mg Capsule PO (16:44)
[2024-02-16] MEDS: sodium chloride 0.9% 1,000 ML 30 ML IV (16:52)
[2024-02-16 17:52] LABS: Urine Color Yellow (Yellow)
[2024-02-16 17:53] LABS: Add Urine Culture? Yes; Add Urine Microscopic? YES; Bacteria Urine 2+ /hpf; Bilirubin Urine Neg (Negative); Blood Urine 2+ (Negative); Coarse Granular Casts Urine 15-25 /lpf; Glucose Urine UA Norm (Normal); Ketones Urine 1+ (Negative); Leukocyte Esterase Urine Trace (Negative); Mucus Urine TRACE /hpf; Nitrate Urine Positive (Negative); Protein Urine 3+ (Negative); Squamous Epithelial Cell Urine 0-4 /hpf (0-5); Urobilinogen Urine Norm (Negative); pH Urine 5 (5-7)
[2024-02-16 17:59] LABS: Glucose Point of Care 137 mg/dL (70-110)
[2024-02-16 18:15] LABS: Troponin 5 6HR 43.81 ng/L (0-10)
[2024-02-16 18:21] LABS: Troponin 5 6HR Delta -16.19 ng/L (0-12)
[2024-02-16] MEDS: dilTIAZem 100 MG in sodium chloride 0.9% (add-van) 100 ML 12.5 MG IV (19:47)
[2024-02-16] MEDS: trazodone 50 mg Tablet PO (20:34)
[2024-02-16 20:55] LABS: Glucose Point of Care 194 mg/dL (70-110)
[2024-02-17] VITALS (11 sets, daily range): BP systolic 104–140; BP diastolic 58–75; PULSE 68–105; RESP 17–20; TEMP 36.6–37.1; O2SAT 94–96
[2024-02-17] MEDS: pantoprazole 40 mg SDV IVP ×2 (02:59→13:29)
[2024-02-17] MEDS: dilTIAZem 100 MG in sodium chloride 0.9% (add-van) 100 ML 12.5 MG IV (03:00)
[2024-02-17 05:36] LABS: Basophils # 0.1 10^3/uL (0.0-0.1); Basophils % 0.4 %; Hematocrit 38.1 % (36-47); Lymphocytes # 1.2 10^3/uL (0.8-4.8); Lymphocytes % 3.8 %; Mean Corpuscular HGB Conc 33.9 g/dL (30-55); Mean Corpuscular Hemoglobin 27.3 pg (27-33); Mean Corpuscular Volume 80.5 fl (85-98); Mean Platelet Volume 10.1 fL (7.4-10.4); Monocytes # 2.7 10^3/uL (0.2-0.9); Neutrophils # 26.32 10^3/uL (1.8-7.7); Nucleated Red Blood Cells % 0 %; Platelet Count 303 10^3/cmm (157-399); Positive M 1; Red Blood Count 4.73 10^6/uL (3.85-5.65); Red Cell Distribution Width 14.3 % (12.1-15.1)
[2024-02-17 05:43] LABS: White Blood Count 30.56 10^3/uL (3.29-11.43)
[2024-02-17 05:49] LABS: Anion Gap 17.4 (5-19); Blood Urea Nitrogen 23 mg/dL (8-23); Calcium 8.1 mg/dL (8.5-10.5); Carbon Dioxide 22 mmol/L (22-29); Chloride 90 mmol/L (98-107); Creatinine Clr Calc Pharmacy 48.1709; Glucose 167 mg/dL (65-115); Lactic Sepsis W/Reflex 1.7 mmol/L (0.5-2.2); Osmolality Calculated 269 mOsm/kg (285-295); Potassium 3.4 mmol/L (3.5-5.1); Sodium 126 mmol/L (136-145)
[2024-02-17] MEDS: piperacillin-tazobactam 3.375 GM in sodium chloride 0.9% (plus) 50 ML IV ×3 (06:14→23:46)
[2024-02-17 06:38] LABS: Glucose Point of Care 158 mg/dL (70-110)
[2024-02-17] MEDS: insulin lispro 100 unit/1 mL SUBCUT ×2 (09:00→18:56)
[2024-02-17] MEDS: HYDROcodone-acetaminophen 10-325 mg Tablet 1 TAB PO (09:00)
[2024-02-17] MEDS: gabapentin 300 mg Capsule PO ×2 (09:05→18:57)
[2024-02-17] MEDS: rivaroxaban 10 mg Tablet PO (09:05)
[2024-02-17] MEDS: atorvastatin 40 mg Tablet 20 MG PO (09:05)
--- NOTE | 2024-02-17 09:56 | PC.CHAP ---
Pastoral Care Encounter/Spiritual Assessment Type of Contact [] Declined yield improvement engineer visit [] Patient/Family/Request visit [] Outpatient visit [] Follow-up visit [] Physician referral [] Code/Alert [X] Routine visit [] Staff referral [] Actively dying [] Patient sleeping [] Family support [] [] Out of room [] Palliative care [] [] Receiving care in room [] Pre-surgical visit [] Trauma [] Long length of stay [] ICU visit [] Other: Relational/Emotional Strength [X] Patient feels connected with others/family/visitors/staff [] Distress [] Loneliness/isolation [] Abandonment Spirituality of Patient [] Person of Shana [] Attends Orthodox of their Shana [] Believes in Prayer [] Reads Bible or Orthodox materials [X] There are Spiritual issues to be addressed 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 [] Prayer [X] Active listening [X] Non-anxious presence [] Spiritual/emotional support [] Crisis/trauma care [] Spiritual counseling [] Bereavement support [] Provided bereavement packet [] Provided Bible/devotional materials [] Provided toy/stuffed animal, coloring book to patient or family member [] Provided Communion [] Anointing/[place] [] Salvation [X] Completed spiritual assessment [] Other: Impact on Illness or Injury [] Angry [] Fearful [] Anxious [] Often cries [] Exhaustion [] Unable to work [] Unable to attend baptist [] Unable to walk/stand [] Unable to read [] Unable to drive [] Unable to eat/drink [] Unable to sleep [] Unable to be with family [] Patient intubated [] Other: Summary Time spent with patient 5 MIN
[2024-02-17 10:00] LABS: NT Pro B Type Natriuretic Pept 6839 pg/mL (0-450)
[2024-02-17] MEDS: potassium chloride ER 20 mEq Tablet PO (10:13)
[2024-02-17] MEDS: dilTIAZem 30 mg Tablet PO (10:13)
[2024-02-17] MEDS: FUROsemide 10 mg/mL SDV 4mL 40 MG IVP (10:13)
[2024-02-17] MEDS: lidocaine 1% 5 ML in potassium chloride premix 100 ML 52.5 ML IV (10:13)
[2024-02-17 11:10] LABS: Glucose Point of Care 150 mg/dL (70-110)
--- NOTE | 2024-02-17 12:38 | P.PN_ITS ---
Subjective 2 Subjective: Patient was seen this morning, currently she is alert oriented x 3, following all commands, on room air, currently in A-fib heart rates are well-controlled in the 80s, remains on Cardizem drip at 10, denies any fevers, no chills, no cough, Vitals/I&O/Wt Last Vital Signs Temp 97.8 F 02/17/24 11:49 Pulse 69 02/17/24 11:49 Resp 18 02/17/24 11:49 BP 104/58 02/17/24 11:49 Pulse Ox 95 02/17/24 11:49 O2 Del Method Room Air 02/17/24 11:49 02/16/24 02/17/24 02/17/24 22:59 06:59 14:59 Intake Total 166.459 / 483.542 105.833 / 589.375 150 / 150 Balance 166.459 / 483.542 105.833 / 589.375 150 / 150 Weight last 48 hrs Weight 93.071 kg Weight 90.718 kg Weight 90.718 kg Physical Exam 2 Const: COMMON NORMALS: no acute distress and patient oriented x3 Resp: COMMON NORMALS: normal respiratory effort, No retractions, No use of accessory muscles and clear to auscultation bilaterally AUSCULTATION: clear to auscultation bilaterally Cardio: COMMON NORMALS: regular rate, regular rhythm, S1 normal heart sound present and S2 normal heart sound present RATE: regular rate RHYTHM: r egular rhythm HEART SOUNDS: S1 normal heart sound present and S2 normal heart sound present GI: COMMON NORMALS: Normal to inspection, nondistended, normoactive bowel sounds present and non-tender Extremity: COMMON NORMALS: no pedal edema Neuro: COMMON NORMALS: patient oriented x3 Psych: COMMON NORMALS: mental status grossly normal Data 02/17/24 05:19 02/17/24 05:19 Micro: Microbiology 02/16/24 10:54 Blood Culture - Preliminary Blood NEGATIVE TO DATE 02/16/24 11:00 Blood Culture - Preliminary Blood Staphylococcus epidermidis A&P Assessment and plan (1) Atrial fibrillation with RVR: (2) History of DVT (deep vein thrombosis): (3) Hyperglycemia: (4) Obesity (BMI 30.0-34.9): (5) Nausea and vomiting: Qualifiers: Vomiting type: unspecified Qualified Code(s): R11.2 - Nausea with vomiting, unspecified (6) Leukocytosis: (7) Metabolic acidosis: (8) Elevated lactic acid level: (9) Hyponatremia: (10) Diarrhea: (11) Hypomagnesemia: (12) NSTEMI (non-ST elevated myocardial infarction): (13) Sepsis: (14) Food poisoning: (15) Pyelonephritis: (16) UTI (urinary tract infection): (17) Bacteremia due to Staphylococcus epidermidis: Plan A-fib with RVR ? New onset, ? Continue Cardizem drip, transition to p.o. Cardizem, 60 every 6 ? Continue Xarelto ? Replace magnesium Hyponatremia, 126 ? [place] [address] ? Potential related to CHF, 1 dose IV Lasix for fluid overload ? Will continue to monitor Hypomagnesemia, replaced IV Sepsis Leukocytosis, elevated Pro-Nehemiah, CRP, elevated lactic acid Source, likely UTI, pyelonephritis, Monitor hemodynamics closely ? Monitor lactic acid UTI, pyelonephritis ? CT scan shows 3. Mild increased stranding and haziness around the LEFT kidney. Similar findings to a lesser extent lower pole RIGHT kidney. Correlate for possible UTI. ? Plan ? UA with evidence of UTI ? Continue vancomycin, Continue Zosyn Follow blood cultures Follow cultures Staph epidermidis bacteremia ? 1 out of 4 blood cultures positive for Staph epidermidis ? Repeat blood cultures, ? Continue vancomycin Increased anion gap metabolic acidosis ? Likely secondary to dehydration ? Resolved Elevated lactic acid ? Secondary to sepsis, UTI, pyelonephritis NSTEMI ? No chest pain ? Type I versus type II ? Serial EKGs. Telemetry monitoring, ? Continue Xarelto Food poisoning ? Stool studies History of DVT, ? Continue Xarelto Full code Xarelto for DVT prophylaxis Plan for today monitor serum sodiums, currently 126 1 dose IV Lasix, Staph epidermidis bacteremia continue vancomycin, for UTI, and pyelonephritis continue Zosyn Attestations 2 Medical Necessity Statement*: Patient requires hospitalization for A-fib with RVR, sepsis secondary to UTI, pyelonephritis, Staph epidermidis bacteremia, hyponatremia Diagnoses Atrial fibrillation with RVR I48.91 History of DVT (deep vein thrombosis) Z86.718 Hyperglycemia R73.9 Obesity (BMI 30.0-34.9) E66.9 Nausea and vomiting, unspecified vomiting type R11.2 Vomiting type: unspecified Leukocytosis D72.829 Metabolic acidosis E87.20 Elevated lactic acid level R79.89 Hyponatremia E87.1 Diarrhea R19.7 Hypomagnesemia E83.42 NSTEMI (non-ST elevated myocardial infarction) I21.4 Sepsis A41.9 Food poisoning A05.9 Pyelonephritis N12 UTI (urinary tract infection) N39.0 Bacteremia due to Staphylococcus epidermidis R78.81; B95.7
[2024-02-17] MEDS: dilTIAZem 30 mg Tablet 60 MG PO ×2 (13:27→18:59)
[2024-02-17] MEDS: vancomycin 1,500 MG/300 ML PIGGYBACK 200 MG IV (13:27)
[2024-02-17 15:02] LABS: Anion Gap 16.9 (5-19); Blood Urea Nitrogen 27 mg/dL (8-23); Calcium 8.2 mg/dL (8.5-10.5); Carbon Dioxide 24 mmol/L (22-29); Chloride 89 mmol/L (98-107); Glucose 134 mg/dL (65-115); Osmolality Calculated 269 mOsm/kg (285-295); Potassium 3.9 mmol/L (3.5-5.1); Sodium 126 mmol/L (136-145)
[2024-02-17 17:23] LABS: Glucose Point of Care 160 mg/dL (70-110)
[2024-02-17] MEDS: trazodone 50 mg Tablet PO (18:57)
--- NOTE | 2024-02-17 19:01 | PC.NURSE ---
Gave report and transferred care to TONY Braun.
[2024-02-17 20:17] LABS: Glucose Point of Care 133 mg/dL (70-110)
[2024-02-17] MEDS: OLANZapine 10 mg VIAL IM (21:42)
[2024-02-17] MEDS: water for injection-sterile 10 ML (21:46)
--- NOTE | 2024-02-17 21:51 | PC.NURSE ---
pt recieve olanzapine mixed with sterile water and gave IM injection scan the order from 2132 for the olanzapine but with no place to scan the sterile water, sterile water was scanned with the 2136 order and non admin the second dose of olanzapine due to a double order
[2024-02-18] VITALS (8 sets, daily range): BP systolic 111–125; BP diastolic 54–70; PULSE 75–95; RESP 15–21; TEMP 36.4–37; O2SAT 94–99; BMI 32.1
[2024-02-18] MEDS: pantoprazole 40 mg SDV IVP ×2 (03:37→15:06)
[2024-02-18 03:40] LABS: Basophils # 0.1 10^3/uL (0.0-0.1); Basophils % 0.3 %; Eosinophils # 0.1 10^3/uL (0.0-0.8); Eosinophils % 0.3 %; Hematocrit 38.8 % (36-47); Lymphocytes # 1.5 10^3/uL (0.8-4.8); Lymphocytes % 4.7 %; Mean Corpuscular Hemoglobin 27.1 pg (27-33); Mean Corpuscular Volume 82.2 fl (85-98); Monocytes # 2.6 10^3/uL (0.2-0.9); Monocytes % 8.2 %; Neutrophils # 27.18 10^3/uL (1.8-7.7); Neutrophils % 85.5 %; Nucleated Red Blood Cells % 0 %; Platelet Count 273 10^3/cmm (157-399); Red Blood Count 4.72 10^6/uL (3.85-5.65); Red Cell Distribution Width 14.4 % (12.1-15.1)
[2024-02-18 04:19] LABS: Blood Urea Nitrogen 33 mg/dL (8-23); Carbon Dioxide 23 mmol/L (22-29); Chloride 86 mmol/L (98-107); Creatinine Clr Calc Pharmacy 26.7616; Glucose 125 mg/dL (65-115); NT Pro B Type Natriuretic Pept 2524 pg/mL (0-450); Osmolality Calculated 265 mOsm/kg (285-295); Slide Review Slide Review Perform; Sodium 123 mmol/L (136-145); White Blood Count 31.75 10^3/uL (3.29-11.43)
[2024-02-18] MEDS: piperacillin-tazobactam 3.375 GM in sodium chloride 0.9% (plus) 50 ML IV (06:04)
[2024-02-18 07:40] LABS: Glucose Point of Care 161 mg/dL (70-110)
[2024-02-18] MEDS: insulin lispro 100 unit/1 mL SUBCUT (08:10)
[2024-02-18] MEDS: heparin drip 25,000 UNIT/500 ML PREMIX 2422.07999999999993 UNIT IV (09:01)
[2024-02-18] MEDS: sodium chloride 0.9% 1,000 ML 50 ML IV (09:09)
[2024-02-18] MEDS: meropenem 1,000 MG in sodium chloride 0.9% (plus) 50 ML 100 MG IV ×2 (09:09→21:30)
--- NOTE | 2024-02-18 09:22 | CT_ITS ---
WS: [id number] CT HEAD TECHNIQUE: Noncontrast CT of the head obtained from the skullbase to the vertex. CLINICAL INFORMATION: ams COMPARISON: MRI 2008 DLP: 989.[address] scans at [facility] use at least one of these dose optimization techniques: automated e xposure control; mA and/or kV adjustment per patient size (includes targeted exams where dose is matc hed to clinical indication); or iterative reconstruction. FINDINGS: No evidence of intracranial hemorrhage or mass effect. Ventricular system and basal cisterns are penaloza nt. Mild small vessel changes with moderate parenchymal volume loss. No extra-axial fluid collections . No evidence of mass or mass effect. Mild mucosal thickening in the paranasal sinuses. Mastoid air cells are well aerated. Intracranial va scular calcification. IMPRESSION: 1. No evidence of intracranial hemorrhage or mass effect. 2. No acute intracranial findings.
[2024-02-18 10:08] LABS: ABG PCO2 31.8 mmHg (35-45); ABG PH Result 7.45 (7.35-7.45); Arterial Blood Gas Hematocrit 38.2 % (37-47); Base Excess ABG -1.1 mmol/L (-2.0-2.0); Blood Gas Allen Test Pos; Blood Gas Operator Identificat BROMA; Blood Gas Sample Site Radial, right; Blood Gas Sample Type Arterial; HCO3 ABG 22.1 mmol/L (22-26); PO2 ABG 60.9 mmHg (80.0-100.0); PO2 FiO2 Ratio Arterial Blood 0
[2024-02-18 10:51] LABS: Ammonia 40 umol/L (11-51); Sodium 124 mmol/L (136-145)
[2024-02-18 10:58] LABS: Erythrocyte Sedimentation Rate 64 mm/hr (0-15)
[2024-02-18 10:59] LABS: Procalcitonin 6.67 ng/mL (0-0.5)
[2024-02-18 11:03] LABS: C Reactive Protein 438.5 mg/L (0.0-4.9)
--- NOTE | 2024-02-18 12:02 | CT_ITS ---
[id number] HISTORY: ams TECHNIQUE: Contiguous 2.0 mm axial images are reviewed to thoracic spine. Images are reformatted in s agittal and coronal planes. All CT scans at [facility] use at least one of these dose optimiz ation techniques: automated exposure control; mA and/or kV adjustment per patient size (includes targ eted exams where dose is matched to clinical indication); or iterative reconstruction. DLP: 2349.36 mGy.cm COMPARISON: None available. Normal thoracic alignment. No destructive bone lesions. No lytic or sclerotic changes. No fracture. M ild osteopenia. Mild dependent changes at the lung bases. No paravertebral hematoma or abscess. IMPRESSION: Negative thoracic spine. No fractures. No destructive lesions.
--- NOTE | 2024-02-18 12:02 | CT_ITS ---
WS: [id number] CT LUMBAR SPINE, noncontrast. HISTORY: ams TECHNIQUE: Contiguous 2.0 mm axial imaging are performed. Sagittal and coronal reformats are submitte d and reviewed. All CT scans at [facility] use at least one of these dose optimization techni ques: automated exposure control; mA and/or kV adjustment per patient size (includes targeted exams w here dose is matched to clinical indication); or iterative reconstruction. IV contrast: None DLP: 2349.36 mGy.cm COMPARISON: 02/11/2022 Severe disc space narrowing at L2-3. Retrolisthesis of L2 by 3 mm. Vacuum disc phenomenon at L1-2. No fractures. L1-2: Mild disc bulging and facet arthritis. L2-3: Mild osteophytic ridging. Mild encroachment upon the ventral thecal sac by retrolisthesis of L2 . No stenosis. L3-4: Mild annular disc bulge and osteophytic ridging. Moderate size RIGHT foraminal disc protrusion. Mild central and bilateral subarticular recess encroachment. L4-5: Ligamentum flavum and facet arthritis. Mild central stenosis. L5-S1: Normal. Moderate atherosclerosis abdominal aorta. IMPRESSION: 1. No high-grade central or foraminal stenosis. 2. Severe degenerative disc disease at L2-3. Note: Small bowel dilatation up to 4.3 cm seen on the localizer image. The bowel dilatation has progr essed since 02/16/2024. Suspect developing moderate to high-grade small bowel obstruction.
--- NOTE | 2024-02-18 12:02 | CT_ITS ---
WS: [id number] CT chest wo con [id number] HISTORY: sepsis TECHNIQUE: Axial imaging performed through the thorax. Coronal and sagittal reformats are submitted. All CT scans at [facility] use at least one of these dose optimization techniques: automated exposure control; mA and/or kV adjustment per patient size (includes targeted exams where dose is mat ched to clinical indication); or iterative reconstruction. CONTRAST: None DLP: 2349.36 mGy.cm COMPARISON: None available. Lungs and central airway: Dependent changes at the lung bases. No pneumonia. Mild bilateral lower lob e bronchiectasis. Pleura: Normal. No pleural effusion. Heart and pericardium: Marked cardiac enlargement. Small pericardial effusion. Mediastinum and linda: No mediastinum or hilar adenopathy. Vessels: Markedly ectatic thoracic aorta and dilated pulmonary artery. Chest wall and lower neck: No soft tissue masses. Upper abdomen: Small hiatal hernia. Otherwise negative. Osseous structures: No destructive process. IMPRESSION: 1. No pneumonia. 2. No pleural effusion. 3. Enlarged heart and atherosclerosis aorta.
--- NOTE | 2024-02-18 12:02 | CT_ITS ---
WS: [id number] CT CERVICAL SPINE HISTORY: ams TECHNIQUE: Contiguous 2.0 mm axial imaging performed through the entire cervical spine. Sagittal and coronal reformats also performed. All CT scans at [facility] use at least one of these dose o ptimization techniques: automated exposure control; mA and/or kV adjustment per patient size (include s targeted exams where dose is matched to clinical indication); or iterative reconstruction. DLP: 177.46 mGy.cm COMPARISON: 02/07/2010 Severe degenerative disc disease and osteophytosis throughout the cervical spine Straightening of the normal cervical lordosis. Dextroscoliosis. Facet joints are all narrowed. No fra ctures are identified. Lateral masses of C1 and C2 are aligned. The odontoid is intact. C2-C3: Osteophytic ridging and facet arthritis. Mild LEFT foraminal narrowing. C3-C4: Osteophytic ridging with mild central and foraminal narrowing. C4-C5: Mild osteophytic ridging and facet arthritis. Mild central and foraminal stenosis. C5-C6: Osteophytic ridging and facet arthritis. Moderate central and RIGHT foraminal narrowing. Mild LEFT foraminal narrowing. C6-C7: Mild osteophytic ridging and facet arthritis. C7-T1: Normal. Soft tissues are normal. Lung apices are clear. IMPRESSION: 1. Advanced degenerative cervical spondylosis. Severe disc space narrowing throughout the cervical s pine. 2. No fractures. 3. No destructive bone lesion.
[2024-02-18] MEDS: gabapentin 300 mg Capsule PO ×2 (12:09→17:59)
[2024-02-18] MEDS: atorvastatin 40 mg Tablet 20 MG PO (12:09)
[2024-02-18] MEDS: sodium chloride 1 gm Tablet PO ×2 (12:10→17:59)
[2024-02-18] MEDS: dilTIAZem 30 mg Tablet 60 MG PO ×3 (12:10→21:26)
[2024-02-18 12:29] LABS: Glucose Point of Care 104 mg/dL (70-110)
[2024-02-18 12:38] LABS: Vancomycin Trough 14.3 ug/mL (10-15)
--- NOTE | 2024-02-18 12:42 | PC.SOCIAL ---
Pg 2 IMM Explained to pt Pg 2 IMM. No questions voiced. Provided pt a copy. Initialed, dated, & timed a copy & placed in chart.
[2024-02-18] MEDS: vancomycin 750 MG in sodium chloride 0.9% 250 ML 250 MG IV (13:02)
[2024-02-18 15:43] LABS: Anion Gap 18.4 (5-19); Blood Urea Nitrogen 34 mg/dL (8-23); Calcium 7.2 mg/dL (8.5-10.5); Carbon Dioxide 20 mmol/L (22-29); Chloride 91 mmol/L (98-107); Creatinine Clr Calc Pharmacy 30.1208; Glucose 104 mg/dL (65-115); Osmolality Calculated 270 mOsm/kg (285-295); Potassium 3.4 mmol/L (3.5-5.1); Sodium 126 mmol/L (136-145)
[2024-02-18 15:49] LABS: Partial Thromboplastin Time 90.5 SECONDS (23.9-36.7)
--- NOTE | 2024-02-18 16:13 | CTR_ITS ---
PROCEDURE INFORMATION: Exam: CT Abdomen And Pelvis Without Contrast Exam date and time: 02/18/2024 8:45 PM Age: 83 years old Clinical indication: Other: Sepsis, AMS; Additional info: Bowel obstruction TECHNIQUE: Imaging protocol: Computed tomography of the abdomen and pelvis without contrast. Radiation optimization: All CT scans at this facility use at least one of these dose optimization techniques: automated exposure control; mA and/or kV adjustment per patient size (includes targeted exams where dose is matched to clinical indication); or iterative reconstruction. COMPARISON: CT abdomen pelvis wo con [id number] 02/16/2024 11:31 AM RADIATION DOSE METRICS: Total DLP (mGy-cm): 955.26 FINDINGS: Lungs: Subsegmental bibasilar atelectasis. The visualized lung bases are otherwise clear. Diaphragm: No evidence of diaphragmatic defect. Liver: No evidence of focal hepatic lesion within limitation of a noncontrast exam. Gallbladder and bile ducts: Gallbladder is unremarkable. No evidence of intra-hepatic or extra-hepatic biliary dilatation. Pancreas: Mildly atrophic. Otherwise grossly unremarkable. Spleen: Grossly unremarkable. Adrenal glands: 1.4 cm lipid rich adenoma on the left. Adrenal glands are otherwise unremarkable. Kidneys and ureters: No gross renal parenchymal abnormality. No evidence of hydronephrosis or ureteral stone. Stomach and bowel: Multiple loops of dilated small bowel measuring up to 3.8 cm with air-fluid levels and relative nondistention of the distal ileum. There is gradual change in caliber in the right lower quadrant with the majority of the oral contrast proximal to this point, favored to represent partial small bowel obstruction. Consider serial KUBs to evaluate for progression of contrast. Colonic diverticulosis without evidence of acute diverticulitis. Appendix: The appendix is not visualized, however there are no findings to suggest appendicitis. Intraperitoneal space: No evidence of free air or fluid collection. Vasculature: Moderate atherosclerosis without evidence of aneurysmal dilitation of abdominal aorta. Lymph nodes: No evidence of adenopathy. Urinary bladder: The bladder is decompressed by a Alcantara catheter in expected position. Reproductive: Grossly unremarkable. Bones/joints: No evidence of acute fracture or aggresive osseous lesion. Mild degenerative retrolisthesis of L3 on L4. Stimulator type device in place with lead terminating in the left hemipelvis. Soft tissues: No evidence of fluid collection or hematoma in the superficial soft tissues. CT/CT abdomen pelvis wo con [id number] IMPRESSION: 1. Small bowel obstruction, favored to be partial. Oral contrast has not reached the region of tapering of the small bowel in the right lower quadrant at the time of the exam. Consider serial KUBs to evaluate for progression of contrast.
--- NOTE | 2024-02-18 16:35 | PC.OT ---
OT EVALUATION ORDERS RECEIVED. PATIENT IS BEING TAKEN TO CT SCAN AT THIS TIME. WILL ATTEMPT AGAIN TOMORROW.
--- NOTE | 2024-02-18 16:49 | P.PN_ITS ---
Subjective 2 Subjective: Patient was seen this morning, and seen multiple times throughout the morning and into the afternoon ? Overnight patient had episodes of confusion, received Zyprexa this morning she is alert to person, not to place not to time she is able to awaken but falls asleep ? Reviewed morning labs white blood cell count 31,000 CRP over 500 Pro-Nehemiah 6, sed rate 62, afebrile, normotensive on room air, urine output 800 creatinine up to 1.8 ? She was started on fluids at 50 cc ? Serum sodium is 123, check sodiums every 4 hours ? Repeat sodiums are improving to 124 continue IV fluids at 75 cc ? Given elevated inflammatory markers white blood cell count still 31,000 repeat blood cultures so far negative, 1 out of 4 blood cultures positive for Staph epidermidis urine cultures have been lackluster, given that she has a spinal stimulator she has received several epidural back injections I would order CT scan of her spine to rule out any discitis or vertebral osteomyelitis, currently Kernig sign negative Brudzinski sign negative no significant neck stiffness ? She was reexamined, she is much more alert awake she awakens, she can follow commands, easily falls back asleep she tells me she wants to be left alone as she did not sleep last night, she has good strength in the upper extremities equal good movement in her bilateral extremities equal, although generalized diminished, CT scan no acute evidence of stroke ? Check vancomycin trough ? Antibiotic coverage broadened to include meropenem, continue vancomycin ? Seaman CT scan of the spine does not show any radiographic evidence of discitis or epidural abscess or vertebral osteomyelitis, ? Spoke to Dr. Milian, patient has spinal stimulator, no evidence of infection no evidence of spinal infection, will continue to monitor ? However CT scan does show evidence of high-grade bowel obstruction on the lumbar CT however it was an incomplete study ? I have ordered a CT scan abdomen pelvis with oral contrast, ? Patient was reexamined this afternoon, she is alert to person, to place not to time she is able to awaken, follows commands, falls back asleep she denies any abdominal pain no nausea she has not had a bowel movement, on examination abdomen is slightly distended, no guarding, no rebound, no rigidity, scattered bowel sounds I spoke to Dr. Ben Echevarria will consult for concerns for high-grade bowel obstruction, keep n.p.o. she has been n.p.o. since the morning due to my concerns for aspiration, will see with the CT scan abdomen pelvis with oral contrast shows, might need to put an NG tube based on clinical progress -I spoke to patient's daughter this even ing, discussed with daughter all the testing as above, discussed that more acutely what I am concerned about is her bowel obstruction, plans on CT scan surgery consultation possible NG tube placement keep n.p.o., she might require surgery, morbidity and mortality discussed, echocardiogram shows that she has good heart function her kidney function improving she has had good urine output, CT of the chest does not show any evidence of lung disease, surgery if she did need it would be a moderate risk but moderate does not mean no risk, most cases above obstructions resolve on their own but she might need surgery nonetheless with her persistent leukocytosis elevated CRP Pro-Nehemiah I am still worried about her spinal stimulator, being a potential source of infection 1 out of 4 blood cultures are positive for Staph epidermidis, so certainly this could be infected and if it is infected it needs to be removed, I would follow her blood cultures, repeat blood cultures to see if indeed this is a concern for infection if it is then she is going to need to have an MRI and consultation with orthopedic surgery for removal of spinal stimulator, had a detailed discussion with daughter, currently status is stable, prognosis is guarded, she is on room air normotensive heart rates are well-controlled she is alert she can follow commands falls back asleep, abdominal exam no guarding no rebound or rigidity, but nonetheless I will have surgery evaluate her, patient's daughter does tell me that for the last few months she has been having intractable nausea vomiting without a clear etiology Vitals/I&O/Wt Last Vital Signs Temp 97.6 F 02/18/24 07:06 Pulse 95 02/18/24 12:44 Resp 15 02/18/24 12:44 BP 125/70 02/18/24 12:44 Pulse Ox 97 02/18/24 12:44 O2 Del Method Room Air 02/18/24 09:49 02/18/24 02/18/24 02/18/24 06:59 14:59 22:59 Intake Total 50 / 1431 300 / 300 Output Total 200 / 200 Balance 50 / 831 100 / 100 Weight last 48 hrs Weight 93.157 kg Weight 93.071 kg Physical Exam 2 Const: COMMON NORMALS: no acute distress ORIENTATION/CONSCIOUSNESS: Yes awake, Yes oriented to person, Yes oriented to place and Yes confused; not oriented to time Resp: COMMON NORMALS: normal respiratory effort, No retractions, No use of accessory muscles and clear to auscultation bilaterally AUSCULTATION: clear to auscultation bilaterally Cardio: COMMON NORMALS: regular rate, regular rhythm, S1 normal heart sound present and S2 normal heart sound present RATE: regular rate RHYTHM: r egular rhythm HEART SOUNDS: S1 normal heart sound present and S2 normal heart sound present GI: OTHER: Abdomen soft, slightly distended, no guarding, no rebound, rigidity, abdomen is soft, scattered bowel sounds, no tenderness, I reexamined her in the evening and asked her if she had any belly pain she denied this I palpated her abdomen, she really did not have any abdominal tenderness to palpation Extremity: COMMON NORMALS: no pedal edema Neuro: SENSORIUM/ORIENTATION: Yes oriented to person, Yes oriented to place and No oriented to time Data 02/18/24 02:59 02/18/24 15:15 Micro: Microbiology 02/17/24 13:55 Blood Culture - Preliminary Blood NEGATIVE TO DATE 02/17/24 13:40 Blood Culture - Preliminary Blood NEGATIVE TO DATE 02/16/24 15:56 Urine Culture - Final Urine,Clean Catch A&P Assessment and plan (1) Atrial fibrillation with RVR: (2) History of DVT (deep vein thrombosis): (3) Hyperglycemia: (4) Obesity (BMI 30.0-34.9): (5) Nausea and vomiting: Qualifiers: Vomiting type: unspecified Qualified Code(s): R11.2 - Nausea with vomiting, unspecified (6) Leukocytosis: (7) Metabolic acidosis: (8) Elevated lactic acid level: (9) Hyponatremia: (10) Diarrhea: (11) Hypomagnesemia: (12) NSTEMI (non-ST elevated myocardial infarction): (13) Sepsis: (14) Food poisoning: (15) Pyelonephritis: (16) UTI (urinary tract infection): (17) Bacteremia due to Staphylococcus epidermidis: (18) Acute encephalopathy: Plan Staph epidermidis bacteremia ? 1 out of 4 blood cultures positive for Staph epidermidis, question is is this a contamination versus a real infection, ? Patient has a spinal stimulator in place ? She does receive epidural spinal injections ? With her leukocytosis persistent at 31,000 CRP over 500, Pro-Nehemiah over 6, sed rate over 60 the concern is this could be a potential real infection ? CT cervical/thoracic/lumbar spine does not show any significant radiographic evidence of vertebral osteomyelitis, discitis or epidural abscess ? Will continue to monitor inflammatory markers repeat blood cultures ? Will speak to Dr. Davis ? The question is is that is there a possibility that patient has an infection, does her spinal stimulator need to be removed, does she need to have surgical interventions ? Will consider MRI of the lumbar spine, speak to Dr. Davis ? Currently on vancomycin High-grade bowel obstruction Is currently abdominal exam no guarding, no rebound, rigidity, is soft, scattered bowel sounds ? Keep n.p.o. ? Will consider NG tube ? IV fluids, replace potassium - CT scan abdomen pelvis with oral contrast -General surgery consulted A-fib with RVR ? New onset, ? p.o. Cardizem, 60 every 6 ?Switch to heparin drip ? Replace magnesium Hyponatremia, 123-->126 ? BNP over 1999 ?Neurochecks, aspiration precautions, seizure precautions ? Monitor serum sodium every 4 hours ago ? Fluids every 75 cc an hour ? Will continue to monitor acute encephalopathy -hyponatremia, sepsis, bactremia, uti, pyelonephritis -neurocheck, aspiration precautions, NIH, seizure precautions Hypomagnesemia, replaced IV Sepsis Leukocytosis, elevated Pro-Nehemiah, CRP, elevated lactic acid Source, likely UTI, pyelonephritis, Staph epidermidis bacteremia, concerns for source spinal stimulator/receives epidural steroid injections Monitor hemodynamics closely ? Monitor lactic acid UTI, pyelonephritis ? CT scan shows 3. Mild increased stranding and haziness around the LEFT kidney. Similar findings to a lesser extent lower pole RIGHT kidney. Correlate for possible UTI. ? Plan ? UA with evidence of UTI ? urine cultures within normal limits ? Continue vancomycin, Continue meropenem Follow blood cultures Follow cultures Staph epidermidis bacteremia ? 1 out of 4 blood cultures positive for Staph epidermidis ? Repeat blood cultures, ? Continue vancomycin Increased anion gap metabolic acidosis, resolved ? Likely secondary to dehydration ? Resolved Elevated lactic acid, recheck lactic acid ? Secondary to sepsis, UTI, pyelonephritis NSTEMI ? No chest pain ? Type I versus type II ? Serial EKGs. Telemetry monitoring, ? Continue heparin drip Food poisoning ? Stool studies History of DVT, ? Continue heparin drip Full code Heparin drip for DVT prophylaxis Patient was seen this morning, and seen multiple times throughout the morning and into the afternoon ? Overnight patient had episodes of confusion, received Zyprexa this morning she is alert to person, not to place not to time she is able to awaken but falls asleep ? Reviewed morning labs white blood cell count 31,000 CRP over 500 Pro-Nehemiah 6, sed rate 62, afebrile, normotensive on room air, urine output 800 creatinine up to 1.8 ? She was started on fluids at 50 cc ? Serum sodium is 123, check sodiums every 4 hours ? Repeat sodiums are improving to 124 continue IV fluids at 75 cc ? Given elevated inflammatory markers white blood cell count still 31,000 repeat blood cultures so far negative, 1 out of 4 blood cultures positive for Staph epidermidis urine cultures have been lackluster, given that she has a spinal stimulator she has received several epidural back injections I would order CT scan of her spine to rule out any discitis or vertebral osteomyelitis, currently Kernig sign negative Brudzinski sign negative no significant neck stiffness ? She was reexamined, she is much more alert awake she awakens, she can follow commands, easily falls back asleep she tells me she wants to be left alone as she did not sleep last night, she has good strength in the upper extremities equal good movement in her bilateral extremities equal, although generalized diminished, CT scan no acute evidence of stroke ? Check vancomycin trough ? Antibiotic coverage broadened to include meropenem, continue vancomycin ? Seaman CT scan of the spine does not show any radiographic evidence of discitis or epidural abscess or vertebral osteomyelitis, ? Spoke to Dr. Milian, patient has spinal stimulator, no evidence of infection no evidence of spinal infection, will continue to monitor ? However CT scan does show evidence of high-grade bowel obstruction on the lumbar CT however it was an incomplete study ? I have ordered a CT scan abdomen pelvis with oral contrast, ? Patient was reexamined this afternoon, she is alert to person, to place not to time she is able to awaken, follows commands, falls back asleep she denies any abdominal pain no nausea she has not had a bowel movement, on examination abdomen is slightly distended, no guarding, no rebound, no rigidity, scattered bowel sounds I spoke to Dr. Ben Echevarria will consult for concerns for high-grade bowel obstruction, keep n.p.o. she has been n.p.o. since the morning due to my concerns for aspiration, will see with the CT scan abdomen pelvis with oral contrast shows, might need to put an NG tube based on clinical progress -I spoke to patient's daughter this evening, discussed with daughter all the testing as above, discussed that more acutely what I am concerned about is her bowel obstruction, plans on CT scan surgery consultation possible NG tube placement keep n.p.o., she might require surgery, morbidity and mortality discussed, echocardiogram shows that she has good heart function her kidney function improving she has had good urine output, CT of the chest does not show any evidence of lung disease, surgery if she did need it would be a moderate risk but moderate does not mean no risk, most cases above obstructions resolve on their own but she might need surgery nonetheless with her persistent leukocytosis elevated CRP Pro-Nehemiah I am still worried about her spinal stimulator, being a potential source of infection 1 out of 4 blood cultures are positive for Staph epidermidis, so certainly this could be infected and if it is infected it needs to be removed, I would follow her blood cultures, repeat blood cultures to see if indeed this is a concern for infection if it is then she is going to need to have an MRI and consultation with orthopedic surgery for removal of spinal stimulator, had a detailed discussion with daughter, currently status is stable, prognosis is guarded, she is on room air normotensive heart rates are well-controlled she is alert she can follow commands falls back asleep, abdominal exam no guarding no rebound or rigidity, but nonetheless I will have surgery evaluate her, patient's daughter does tell me that for the last few months she has been having intractable nausea vomiting without a clear etiology Attestations 2 Medical Necessity Statement*: Patient requires hospitalization, for Staph epidermidis bacteremia, source unclear, possible infection of spinal stimulator, concerns for back infection, with UTI, pyelonephritis with hyponatremia, with ELLA, with a bowel obstruction, encephalopathy Diagnoses Atrial fibrillation with RVR I48.91 History of DVT (deep vein thrombosis) Z86.718 Hyperglycemia R73.9 Obesity (BMI 30.0-34.9) E66.9 Nausea and vomiting, unspecified vomiting type R11.2 Vomiting type: unspecified Leukocytosis D72.829 Metabolic acidosis E87.20 Elevated lactic acid level R79.89 Hyponatremia E87.1 Diarrhea R19.7 Hypomagnesemia E83.42 NSTEMI (non-ST elevated myocardial infarction) I21.4 Sepsis A41.9 Food poisoning A05.9 Pyelonephritis N12 UTI (urinary tract infection) N39.0 Bacteremia due to Staphylococcus epidermidis R78.81; B95.7 Acute encephalopathy G93.40
[2024-02-18] MEDS: lidocaine 1% 5 ML in potassium chloride premix 100 ML 52.5 ML IV (16:52)
[2024-02-18 17:00] LABS: Glucose Point of Care 130 mg/dL (70-110)
[2024-02-18] MEDS: iohexol 350 mg/mL 500 mL Btl (per mL) PO (17:01)
--- NOTE | 2024-02-18 17:05 | P.CONIM_ITS ---
Providers/Reason For Consult 2 Consulting Physician/Specialty*: General surgery Reason for Consult*: Evaluation for SBO Attending Physician: Cristian Plascencia MD Primary Care Provider: Oxana Lee DO History of Present Illness History of Present Illness Wandy Ruffin is a 83 year old female who was admitted to the hospital recently complaining of some abdominal cramping nausea vomiting then diarrhea upon presentation to the emergency department she was noted to have A-fib with RVR lactic acidosis and sepsis and she was noted to have a very elevated white count to 34. CT scan done upon admission was negative for evidence of small bowel obstruction, over the last 48 hours patient shows some improvement but overnight yesterday she appeared to be encephalopathic and Due to history of spinal stimulator decision was made to get some spine CT scans to ensure that there is no evidence of deep tissue infection. During lumbar spine CT scan there was an incidental finding of possible small bowel obstruction I was consulted for this finding. Patient does not report abdominal pain, has not had a bowel movement for several days and is not passing gas, denies nausea or vomiting Review of Systems 2 General: Reports: ROS unobtainable due to mental status Medications/Allergies Home Medications Medication Instructions Recorded Confirmed Last Taken Type albuterol sulfate 90 mcg/actuation 1 inh inhalation Q4H PRN Shortness 11/22/19 02/16/24 Unknown History aerosol inhaler Of Breath Or Wheezing alendronate 10 mg tablet 10 mg PO Q7D 11/22/19 02/16/24 02/08/24 History vitamins A,C,F-xsfe-mahwvf 4,296 1 cap PO BID 11/22/19 02/16/24 Unknown History mcg-226 mg-90 mg capsule (PreserVision AREDS) fluticasone 250 mcg-salmeterol 50 1 inh inhalation DAILY 05/17/20 02/16/24 Unknown History mcg/dose blistr powdr for inhalation (Advair Diskus) pravastatin 80 mg tablet 80 mg PO DAILY 03/21/22 02/16/24 Unknown History trazodone 50 mg tablet 50 mg PO QPM 03/21/22 02/16/24 Unknown History irbesartan 300 mg tablet 300 mg PO DAILY #90 tabs 02/17/23 02/16/24 Unknown Rx montelukast 10 mg tablet 10 mg PO DAILY #90 tabs 02/17/23 02/16/24 Unknown Rx (Singulair) spironolactone 25 mg tablet 25 mg PO QDAY #90 tabs 02/17/23 02/16/24 Unknown Rx ondansetron HCl 4 mg tablet 4 mg PO Q8H PRN nausea and 05/15/23 02/16/24 Unknown Rx vomiting 4 days #30 tabs fluticasone propionate 50 2 spray intranasal QDAY PRN 10/16/23 02/16/24 Unknown Rx mcg/actuation nasal allergy symptoms 90 days #16 grams spray,suspension (Flonase Allergy Relief) rivaroxaban 10 mg tablet 10 mg PO QDAY #90 tabs 10/16/23 02/16/24 Unknown Rx gabapentin 300 mg capsule 300 mg PO BID 90 days #180 caps 11/26/23 02/16/24 Unknown Rx hydrocodone 10 mg-acetaminophen 1 tab PO BID PRN pain 30 days #60 01/16/24 02/16/24 Unknown Rx 325 mg tablet tabs omeprazole 20 mg capsule,delayed 20 mg PO DAILY #90 caps 01/16/24 02/16/24 Unknown Rx release orlistat 120 mg capsule (Xenical) 120 mg PO TID #270 caps 01/16/24 02/16/24 Unknown Rx oxybutynin chloride 5 mg tablet 5 mg PO BID #180 tabs 01/16/24 02/16/24 Unknown Rx Custom molded Orthotics #1 ea 01/27/24 02/16/24 Unknown Rx azelastine 137 mcg (0.1 %) nasal 1 spray intranasal DAILY 02/16/24 02/16/24 Unknown History spray aerosol cetirizine 10 mg capsule (Zyrtec) 10 mg PO DAILY PRN Allergy Symptoms 02/16/24 02/16/24 Unknown History Allergies Allergy/AdvReac Type Severity Reaction Status Date / Time dog dander Allergy cough Verified 01/27/24 15:44 house dust Allergy ALGY-Sneezi Verified 01/27/24 15:44 ng Mold Allergy ALGY-Sneezi Uncoded 01/27/24 15:44 ng Current Medications Generic Name Dose Route Start Last Admin Trade Name Freq PRN Reason Stop Dose Admin Hydrocodone Bitart/Acetaminophen 1 tab 02/16/24 16:38 02/17/24 09:00 Hydrocodone-Acetaminophen 10-325 Mg Tablet PO 1 tab BID PRN Administration MODERATE PAIN Atorvastatin Calcium 20 mg 02/17/24 09:00 02/18/24 12:09 Atorvastatin 40 Mg Tablet PO 20 mg DAILY GERALDO Administration Diltiazem HCl 60 mg 02/17/24 14:00 02/18/24 15:07 Diltiazem 30 Mg Tablet PO 60 mg Q6H GERALDO Administration Gabapentin 300 mg 02/16/24 18:00 02/18/24 12:09 Gabapentin 300 Mg Capsule PO 300 mg BID GERALDO Administration Diltiazem HCl 100 mg/ Sodium 100 mls @ 0 mls/hr 02/16/24 10:15 02/17/24 11:19 Chloride IV Infused .Q0M GERALDO Titration Protocol Per Protocol Vancomycin HCl 750 mg/ Sodium 250 mls @ 250 mls/hr 02/18/24 13:00 02/18/24 14:05 Chloride IV Infused Q24H GERALDO Infusion Meropenem 1,000 mg/ Sodium 50 mls @ 100 mls/hr 02/18/24 09:00 02/18/24 10:00 Chloride IV Infused Q12H GERALDO Infusion Protocol Sodium Chloride 1,000 mls @ 75 mls/hr 02/18/24 08:45 02/18/24 09:09 Sodium Chloride 0.9% IV 50 mls/hr .[id number] GERALDO Administration Heparin Sodium/Sodium Chloride 25,000 unit in 500 mls @ 0 mls/hr 02/18/24 08:45 02/18/24 09:01 Heparin Drip IV 1,300 unit/kg/hr .Q0M GERALDO 2,422.08 mls/hr Administration Protocol Per Protocol Lidocaine HCl 5 ml/ Potassium 105 mls @ 52.5 mls/hr 02/18/24 16:25 02/18/24 16:52 Chloride IV 02/18/24 18:24 52.5 mls/hr ONCE ONE Administration Insulin Human Lispro 0 unit 02/16/24 18:00 02/18/24 12:46 Insulin Lispro 100 Unit/1 Ml SUBCUT Not Given TIDWM GERALDO Protocol Pantoprazole Sodium 40 mg 02/16/24 14:46 02/18/24 15:06 Pantoprazole 40 Mg Sdv IVP 40 mg Q12H GERALDO Administration Sodium Chloride 1 gm 02/18/24 09:00 02/18/24 12:10 Sodium Chloride 1 Gm Tablet PO 1 gm BID GERALDO Administration Trazodone HCl 50 mg 02/16/24 18:00 02/17/24 18:57 Trazodone 50 Mg Tablet PO 50 mg QPM GERALDO Administration PFSH Acute 2 PFSH: Medical History Osteoarthritis of carpometacarpal joint of left thumb Osteopenia Seasonal allergies History of DVT (deep vein thrombosis) Recurrent Urinary incontinence Hypertension History of malignant melanoma On right forearm Surgical History H/O tubal ligation Status post total left knee replacement using cement Family History Mother Cancer Breast Other CAD (coronary artery disease) Diabetes Social History Smoking and tobacco/nicotine status: former use of tobacco/nicotine Alcohol intake: current Alcohol intake frequency: holidays/special occasions only Substance/Drug Use: never Vitals/I&O/Wt Last Vital Signs Temp 98.6 F 02/18/24 16:00 Pulse 87 02/18/24 16:00 Resp 15 02/18/24 16:00 BP 123/66 02/18/24 16:00 Pulse Ox 98 02/18/24 16:00 O2 Del Method Nasal Cannula 02/18/24 16:00 02/18/24 02/18/24 02/18/24 06:59 14:59 22:59 Intake Total 50 / 1431 300 / 300 Output Total 200 / 200 Balance 50 / 831 100 / 100 Weight last 48 hrs Weight 205 lb 6 oz Weight 205 lb 3 oz Physical Exam 2 Narrative: Patient responds to questions but appears to be mildly confused. ? Denies any significant abdominal pain, abdominal exam is pretty benign abdomen is soft, not tender to palpation except on the right hemiabdomen where there is mild tenderness to the palpation. Bowel sounds are decreased Data 02/18/24 02:59 02/18/24 15:15 Micro: Microbiology 02/17/24 13:55 Blood Culture - Preliminary Blood NEGATIVE TO DATE 02/17/24 13:40 Blood Culture - Preliminary Blood NEGATIVE TO DATE 02/16/24 15:56 Urine Culture - Final Urine,Clean Catch A&P Assessment and plan (1) Acidosis, lactic: (2) Metabolic acidosis: (3) Sepsis: Plan After complete history, physical examination and review all available clinical data the following is my assessment. Further workup will be needed to determine the possibility of a small bowel obstruction as well as to determine the cause of these condition. On my current clinical review I think most likely this represents an ileus rather than a small bowel obstruction as patient does not have any nausea or vomit, no significant abdominal pain and the bowel sounds are very decreased as opposed of what we usually see in the small bowel obstruction with very high pitch sounds. I agree with proceeding with a CT scan of the abdomen and pelvis with p.o. contrast, patient cannot receive IV contrast as she has acute kidney injury. Once we have the results of the CT scan we will decide on further management. I have explained to the patient that in the case of nausea or vomit or if the CT scan shows significant proximal distention NG tube will be indicated. We will then proceed with decompression and conservative management for 48 to 72 hours before proceeding with a Gastrografin trial. Patient shows understanding. In the interim we will increase hydration, correct electrolyte imbalances and trend lactic acid. Coding Level of Care Code 72550 Diagnoses Acidosis, lactic E87.20 Metabolic acidosis E87.20 Sepsis A41.9
[2024-02-18 18:39] LABS: Lactic Sepsis W/Reflex 2.9 mmol/L (0.5-2.2); Sodium 123 mmol/L (136-145)
[2024-02-18 18:43] LABS: Erythrocyte Sedimentation Rate 73 mm/hr (0-15)
--- NOTE | 2024-02-18 19:15 | XRR_ITS ---
PROCEDURE INFORMATION: Exam: XR Chest Exam date and time: 02/18/2024 7:44 PM Age: 83 years old Clinical indication: Device placement; Picc; Additional info: Post picc insertion, kerline placing on [facility] room 103. Should be ready at 1940 for TECHNIQUE: Imaging protocol: Radiologic exam of the chest. Views: 1 view. COMPARISON: CT chest wo con [id number] 02/18/2024 1:47 PM FINDINGS: Lungs: No focal consolidation. Pleural spaces: No evidence of pneumothorax. No evidence of pleural effusion. Heart/Mediastinum: Right-sided PICC line in place with tip in the region of the cavoatrial junction. Cardiomediastinal silhouette is within normal limits. Bones/joints: No evidence of acute osseous abnormality. XR/XR chest 1V portable [id number] IMPRESSION: 1. Right-sided PICC line in place with tip in the region of the cavoatrial junction.
[2024-02-18 20:02] LABS: Reflex Lactate Order REFLEX LACTIC ORDERD
--- NOTE | 2024-02-18 20:36 | PICC.NOTE ---
Triple lumen PICC placed to right basilic vein. Referred to vascular access nurse for PICC placement due to poor access and need for IV meds including heparin. Risks and benefits discussed and informed consent obtained from patient daughter from nursing staff prior to vascular access nurse arrival. Right arm assessed with right basilic vein measuring 3.5 mm, straight, and apparent best choice for placement. Using sterile technique and MST, right basilic vein accessed x 1 stick. Mid-arm circumference measured 10 cm from right AC 35 cm. Trimmed cath 41 cm with 1 cm external length noted. CXR shows tip appearing to be in the distal SVC, awaiting read by radiologist. Line secured with stat-lock. Insertion site covered with Biopatch and TSM. Report given to bedside nurseAparna.
[2024-02-18 20:40] LABS: Glucose Point of Care 120 mg/dL (70-110)
[2024-02-18] MEDS: trazodone 50 mg Tablet PO (21:26)
[2024-02-18 21:45] LABS: Lactic Acid level (Lactate) 1.1 mmol/L (0.5-2.2); Sodium 125 mmol/L (136-145)
[2024-02-18 21:51] LABS: Partial Thromboplastin Time 59.8 SECONDS (23.9-36.7)
--- NOTE | 2024-02-18 22:16 | PC.NURSE ---
corrected the heparin in DEC previous shift nurse put in wrong mls per hour, this nurse and confirmed with Val RN on current rate and fixed in DEC to 22ml/hr
[2024-02-19] VITALS (13 sets, daily range): BP systolic 113–167; BP diastolic 55–89; PULSE 76–109; RESP 15–22; TEMP 36.4–36.8; O2SAT 93–100
[2024-02-19] MEDS: heparin drip 25,000 UNIT/500 ML PREMIX 22 UNIT IV (01:51)
[2024-02-19] MEDS: pantoprazole 40 mg SDV IVP ×2 (01:52→15:28)
[2024-02-19] MEDS: dilTIAZem 30 mg Tablet 60 MG PO ×4 (01:54→19:51)
[2024-02-19] MEDS: sodium chloride 0.9% 1,000 ML 75 ML IV (02:28)
[2024-02-19 03:25] LABS: Basophils # 0.1 10^3/uL (0.0-0.1); Basophils % 0.4 %; Eosinophils # 0.1 10^3/uL (0.0-0.8); Eosinophils % 0.4 %; Hematocrit 33.5 % (36-47); Lymphocytes # 1.1 10^3/uL (0.8-4.8); Lymphocytes % 3.1 %; Mean Corpuscular HGB Conc 34.6 g/dL (30-55); Mean Corpuscular Hemoglobin 27.6 pg (27-33); Mean Corpuscular Volume 79.8 fl (85-98); Mean Platelet Volume 10.7 fL (7.4-10.4); Monocytes # 2.3 10^3/uL (0.2-0.9); Monocytes % 6.8 %; Neutrophils # 30.53 10^3/uL (1.8-7.7); Neutrophils % 88.2 %; Nucleated Red Blood Cells % 0 %; Platelet Count 206 10^3/cmm (157-399); Red Cell Distribution Width 14.5 % (12.1-15.1)
[2024-02-19 03:43] LABS: INR 1.72 (0.8-1.2); Partial Thromboplastin Time 44.6 SECONDS (23.9-36.7)
[2024-02-19 03:49] LABS: White Blood Count 34.61 10^3/uL (3.29-11.43)
[2024-02-19 03:54] LABS: Alanine Aminotransferase 23 U/L (0-33); Albumin Level 2.3 g/dL (3.5-5.2); Alkaline Phosphatase 100 U/L (35-105); Blood Urea Nitrogen 35 mg/dL (8-23); Calcium 7.5 mg/dL (8.5-10.5); Carbon Dioxide 20 mmol/L (22-29); Chloride 89 mmol/L (98-107); Creatinine Clr Calc Pharmacy 40.1611; Globulin 3.6 g/dL (1.3-4.6); Glucose 103 mg/dL (65-115); Osmolality Calculated 264 mOsm/kg (285-295); Sodium 123 mmol/L (136-145); Total Bilirubin 0.4 mg/dL (0.15-1.2); Total Protein 5.9 g/dL (6.6-8.7)
[2024-02-19 03:56] LABS: Anion Gap 18.6 (5-19); Aspartate Amino Transferase 30 U/L (0-32); Potassium 4.6 mmol/L (3.5-5.1)
[2024-02-19] MEDS: heparin 5,000 unit/mL INJ 1 mL IV (03:58)
[2024-02-19 04:11] LABS: C Reactive Protein 476.9 mg/L (0.0-4.9); NT Pro B Type Natriuretic Pept 680 pg/mL (0-450); Procalcitonin 6.24 ng/mL (0-0.5)
[2024-02-19 04:12] LABS: Creatine Phosphokinase 457 U/L (26-192)
--- NOTE | 2024-02-19 05:50 | XRR_ITS ---
PROCEDURE INFORMATION: Exam: XR Abdomen Exam date and time: 02/19/2024 6:07 AM Age: 83 years old Clinical indication: Other: Sbo; Additional info: Sbo f/u TECHNIQUE: Imaging protocol: Radiologic exam of the abdomen. Views: Frontal supine view of the abdomen. 1 View. COMPARISON: CT abdomen pelvis con [id number] 02/18/2024 8:45 PM FINDINGS: Tubes, catheters and devices: Sacral neurostimulator noted. Gastrointestinal tract: Persistent dilated loops of small bowel indicating persistent small bowel obstruction. Bones/joints: Unremarkable. XR/XR abdomen 1V* [id number] IMPRESSION: Persistent small bowel obstruction.
[2024-02-19 06:23] LABS: Glucose Point of Care 119 mg/dL (70-110)
--- NOTE | 2024-02-19 08:11 | P.PN_ITS ---
Subjective 2 Subjective: This is a 83-year-old female who I am following up for possible small bowel obstruction. Patient has been stable overnight, continues to be confused, does not complain of any abdominal pain endorses not having a bowel movement yet she has not had any nausea or vomit. Vitals/I&O/Wt Last Vital Signs Temp 97.5 F L 02/19/24 07:28 Pulse 97 02/19/24 08:09 Resp 16 02/19/24 08:09 BP 133/71 02/19/24 07:28 Pulse Ox 98 02/19/24 08:09 O2 Del Method Nasal Cannula 02/19/24 08:09 O2 Flow Rate 3 02/19/24 08:09 02/18/24 02/19/24 02/19/24 22:59 06:59 14:59 Intake Total 1170 / 1470 562.600 / 2032.600 Output Total 300 / 500 350 / 850 Balance 870 / 970 212.600 / 1182.600 Weight last 48 hrs Weight 208 lb 4.8 oz Weight 205 lb 6 oz Physical Exam 2 GI: OTHER: Abdominal examination is benign, abdomen is soft, minimal tenderness in right lower quadrant but other than that no other significant findings. Data 02/19/24 03:15 02/19/24 03:15 Micro: Microbiology 02/17/24 13:55 Blood Culture - Preliminary Blood NEGATIVE TO DATE 02/17/24 13:40 Blood Culture - Preliminary Blood NEGATIVE TO DATE 02/16/24 15:56 Urine Culture - Final Urine,Clean Catch A&P Assessment and plan (1) Small bowel obstruction: Plan This is a 83-year-old female who has been admitted to the hospital with leukocytosis sepsis altered mental status and who was incidentally found to have a possible small bowel obstruction on imaging. Will obtain a repeat CT scan of the abdomen pelvis with p.o. contrast yesterday, there is evidence of a possible partial small bowel obstruction with transit of the contrast up to the mid jejunum but no contrast passing to the terminal ileum, there is not really a transition point but there is a described tapering of the small bowel at this level. Care abdominal exam is complete benign. Imaging findings also do not show any secondary findings subjective for the possibility of bowel ischemia or bowel compromise, there is no significant free fluid no significant bowel wall edema and no evidence of free fluid or anything like that. It is not clear what is a main source of patient infection, and I suspect that the small bowel pathology found on during this scan is likely a consequence of the metabolic disturbance rather than the primary cause. Further workup will be continued by medical team. I will continue to follow-up on a daily basis. The patient develops nausea or vomiting NG tube insertion is recommended. Otherwise I will recommend to keep the patient n.p.o., attempt mobilization and ambulation. No surgical intervention is recommended at this time. Attestations 2 Medical Necessity Statement*: Per medical team Coding Level of Care Code Acute Code for Chg Fwd Diagnoses Small bowel obstruction K56.609
[2024-02-19 09:22] LABS: Ferritin 225 ng/mL (15-150); Phosphorus 3.4 mg/dL (2.5-4.5)
[2024-02-19 09:31] LABS: LAB Peripheral Smear Sent for Review
[2024-02-19] MEDS: meropenem 1,000 MG in sodium chloride 0.9% (plus) 50 ML 100 MG IV ×2 (09:47→21:05)
[2024-02-19] MEDS: gabapentin 300 mg Capsule PO ×2 (09:49→17:50)
[2024-02-19] MEDS: sodium chloride 1 gm Tablet PO ×2 (09:49→17:50)
[2024-02-19] MEDS: vancomycin 125 mg Capsule PO ×4 (09:49→22:11)
[2024-02-19] MEDS: atorvastatin 40 mg Tablet 20 MG PO (09:49)
[2024-02-19 10:13] LABS: Lactate Dehydrogenase 495 U/L (135-214)
[2024-02-19 10:42] LABS: Sodium 126 mmol/L (136-145)
[2024-02-19 10:57] LABS: Hepatitis A Antibody IgM Non-Reactive (Nonreactive); Hepatitis B Core IgM Non-Reactive (Nonreactive); Hepatitis B Surface Antigen Non-Reactive (Nonreactive); Hepatitis C Virus Antibody Non-Reactive (Nonreactive)
[2024-02-19] MEDS: albumin 25 G/100 ML BAG 60 G IV (10:59)
[2024-02-19 11:12] LABS: HIV 1 & 2 Antibody Non-Reactive (Non-Reactiv); HIV 1 & 2 Antigen Non-Reactive (Non-Reactiv)
[2024-02-19 11:22] LABS: Glucose Point of Care 101 mg/dL (70-110)
--- NOTE | 2024-02-19 11:42 | XRR_ITS ---
PROCEDURE INFORMATION: Exam: XR Chest Exam date and time: 02/19/2024 12:03 PM Age: 83 years old Clinical indication: Shortness of breath; Additional info: SOB TECHNIQUE: Imaging protocol: Radiologic exam of the chest. Views: 1 view. COMPARISON: CR (CHEST, ) 02/18/2024 7:44 PM FINDINGS: Tubes, catheters and devices: PICC line enters from the right and terminates in the SVC. Lungs: Unremarkable. No consolidation. Pleural spaces: Unremarkable. No pleural effusion. No pneumothorax. Heart/Mediastinum: Unremarkable. No cardiomegaly. Bones/joints: Unremarkable. XR/XR chest 1V portable [id number] IMPRESSION: No acute findings.
[2024-02-19] MEDS: dexamethasone 10 mg/mL INJ 6 MG IVP (11:58)
[2024-02-19] MEDS: diphenhydrAMINE 50 mg/mL SDV 1mL 25 MG IVP (12:00)
[2024-02-19] MEDS: FUROsemide 10 mg/mL SDV 4mL 40 MG IVP (12:01)
[2024-02-19 12:11] LABS: Urine Random Sodium < 10 mmol/L
[2024-02-19 12:16] LABS: ABG PCO2 34.6 mmHg (35-45); ABG PH Result 7.32 (7.35-7.45); Arterial Blood Gas Hematocrit 37.8 % (37-47); Base Excess ABG -7.3 mmol/L (-2.0-2.0); Blood Gas Allen Test Pos; Blood Gas Operator Identificat WALCI; Blood Gas Sample Site Radial, left; Blood Gas Sample Type Arterial; HCO3 ABG 17.9 mmol/L (22-26); Oxygen Device NC
[2024-02-19 12:26] LABS: NT Pro B Type Natriuretic Pept 539 pg/mL (0-450)
--- NOTE | 2024-02-19 12:35 | PC.NURSE ---
at approx 1135...pt notified staff that she felt very sob,and voiced feeling of i think i'm dying .pt was diaphoretic.bp 142/51.o2 sat 92% on room air.diminished breath sounds in bases bilaterally.albumin had been started on pt at approx 11:00.this was stopped,along with the ivf's.o2 placed on pt at [address] l per [address]c and dr saleh notified.he ordered stat pcxr,benadryl,steroid,and 40 mg lasix iv push,all which was given as ordered.pt quickly began to improve...no longer feeling sob.
[2024-02-19] MEDS: vancomycin 750 MG in sodium chloride 0.9% 250 ML 250 MG IV (13:11)
[2024-02-19] MEDS: albuterol 2.5 mg/3 mL Neb INHALATION (14:08)
[2024-02-19 15:11] LABS: Sodium 126 mmol/L (136-145)
--- NOTE | 2024-02-19 15:12 | P.CONIM_ITS ---
Providers/Reason For Consult 2 Consulting Physician/Specialty*: kommana/nephrology Reason for Consult*: Hyponatremia Attending Physician: Cristian Plascencia MD Primary Care Provider: Oxana Lee DO History of Present Illness History of Present Illness Wandy Ruffin is a 83 year old female Patient is 83-year-old female with past medical history of DVT, dyslipidemia hypertension presented to the emergency department on 02/16/2024 due to abdominal pain nausea and diarrhea. Further workup in the emergency department showed that patient is in A-fib with RVR also possible sepsis and UTI/pyelonephritis. Also was noted to have possible NSTEMI. Also has hyponatremia and ELLA. She was started on IV fluids, Creatinine on presentation was 1.2 worsened to 1.8 but has improved to 1.2 currently. Prior baseline creatinine was 0.7 about a month ago. Sodium level on presentation was 127 worsened to 123 currently. Urine sodium and urine osmolality are pending Review of Systems 2 Narrative: negative Medications/Allergies Home Medications Medication Instructions Recorded Confirmed Last Taken Type albuterol sulfate 90 mcg/actuation 1 inh inhalation Q4H PRN Shortness 11/22/19 02/16/24 Unknown History aerosol inhaler Of Breath Or Wheezing alendronate 10 mg tablet 10 mg PO Q7D 11/22/19 02/16/24 02/08/24 History vitamins A,C,M-bsbn-lhpqxw 4,296 1 cap PO BID 11/22/19 02/16/24 Unknown History mcg-226 mg-90 mg capsule (PreserVision AREDS) fluticasone 250 mcg-salmeterol 50 1 inh inhalation DAILY 05/17/20 02/16/24 Unknown History mcg/dose blistr powdr for inhalation (Advair Diskus) pravastatin 80 mg tablet 80 mg PO DAILY 03/21/22 02/16/24 Unknown History trazodone 50 mg tablet 50 mg PO QPM 03/21/22 02/16/24 Unknown History irbesartan 300 mg tablet 300 mg PO DAILY #90 tabs 02/17/23 02/16/24 Unknown Rx montelukast 10 mg tablet 10 mg PO DAILY #90 tabs 02/17/23 02/16/24 Unknown Rx (Singulair) spironolactone 25 mg tablet 25 mg PO QDAY #90 tabs 02/17/23 02/16/24 Unknown Rx ondansetron HCl 4 mg tablet 4 mg PO Q8H PRN nausea and 05/15/23 02/16/24 Unknown Rx vomiting 4 days #30 tabs fluticasone propionate 50 2 spray intranasal QDAY PRN 10/16/23 02/16/24 Unknown Rx mcg/actuation nasal allergy symptoms 90 days #16 grams spray,suspension (Flonase Allergy Relief) rivaroxaban 10 mg tablet 10 mg PO QDAY #90 tabs 10/16/23 02/16/24 Unknown Rx gabapentin 300 mg capsule 300 mg PO BID 90 days #180 caps 11/26/23 02/16/24 Unknown Rx hydrocodone 10 mg-acetaminophen 1 tab PO BID PRN pain 30 days #60 01/16/24 02/16/24 Unknown Rx 325 mg tablet tabs omeprazole 20 mg capsule,delayed 20 mg PO DAILY #90 caps 01/16/24 02/16/24 Unknown Rx release orlistat 120 mg capsule (Xenical) 120 mg PO TID #270 caps 01/16/24 02/16/24 Unknown Rx oxybutynin chloride 5 mg tablet 5 mg PO BID #180 tabs 01/16/24 02/16/24 Unknown Rx Custom molded Orthotics #1 ea 01/27/24 02/16/24 Unknown Rx azelastine 137 mcg (0.1 %) nasal 1 spray intranasal DAILY 02/16/24 02/16/24 Unknown History spray aerosol cetirizine 10 mg capsule (Zyrtec) 10 mg PO DAILY PRN Allergy Symptoms 02/16/24 02/16/24 Unknown History Allergies Allergy/AdvReac Type Severity Reaction Status Date / Time dog dander Allergy cough Verified 01/27/24 15:44 house dust Allergy ALGY-Sneezi Verified 01/27/24 15:44 ng Mold Allergy ALGY-Sneezi Uncoded 01/27/24 15:44 ng Current Medications Generic Name Dose Route Start Last Admin Trade Name Freq PRN Reason Stop Dose Admin Hydrocodone Bitart/Acetaminophen 1 tab 02/16/24 16:38 02/17/24 09:00 Hydrocodone-Acetaminophen 10-325 Mg Tablet PO 1 tab BID PRN Administration MODERATE PAIN Albuterol Sulfate 2.5 mg 02/16/24 15:40 02/19/24 14:08 Albuterol 2.5 Mg/3 Ml Neb INHALATION 2.5 mg Q6H.RESP PRN Administration WHEEZING Atorvastatin Calcium 20 mg 02/17/24 09:00 02/19/24 09:49 Atorvastatin 40 Mg Tablet PO 20 mg DAILY GERALDO Administration Diltiazem HCl 60 mg 02/17/24 14:00 02/19/24 13:12 Diltiazem 30 Mg Tablet PO 60 mg Q6H GERALDO Administration Diphenhydramine HCl 25 mg 02/19/24 11:42 02/19/24 12:00 Diphenhydramine 50 Mg/Ml Sdv 1ml IVP 25 mg Q4H PRN Administration ITCHING Gabapentin 300 mg 02/16/24 18:00 02/19/24 09:49 Gabapentin 300 Mg Capsule PO 300 mg BID GERALDO Administration Heparin Sodium (Porcine) 0 unit 02/18/24 08:33 02/19/24 03:58 Heparin 5,000 Unit/Ml Inj 1 Ml IV 3,700 unit PRN PRN Administration Heparin weight-base protocol Protocol Diltiazem HCl 100 mg/ Sodium 100 mls @ 0 mls/hr 02/16/24 10:15 02/17/24 11:19 Chloride IV Infused .Q0M GERALDO Titration Protocol Per Protocol Vancomycin HCl 750 mg/ Sodium 250 mls @ 250 mls/hr 02/18/24 13:00 02/19/24 13:11 Chloride IV 250 mls/hr Q24H GERALDO Administration Meropenem 1,000 mg/ Sodium 50 mls @ 100 mls/hr 02/18/24 09:00 02/19/24 10:20 Chloride IV Infused Q12H GERALDO Infusion Protocol Heparin Sodium/Sodium Chloride 25,000 unit in 500 mls @ 0 mls/hr 02/18/24 08:45 02/19/24 11:13 Heparin Drip IV 15.03 unit/kg/hr .Q0M GERALDO 28 mls/hr Titration Protocol Per Protocol Insulin Human Lispro 0 unit 02/16/24 18:00 02/19/24 11:25 Insulin Lispro 100 Unit/1 Ml SUBCUT Not Given TIDWM GERALDO Protocol Pantoprazole Sodium 40 mg 02/16/24 14:46 02/19/24 01:52 Pantoprazole 40 Mg Sdv IVP 40 mg Q12H GERALDO Administration Sodium Chloride 1 gm 02/18/24 09:00 02/19/24 09:49 Sodium Chloride 1 Gm Tablet PO 1 gm BID GERALDO Administration Trazodone HCl 50 mg 02/18/24 21:00 02/18/24 21:26 Trazodone 50 Mg Tablet PO 50 mg BEDTIME GERALDO Administration Vancomycin HCl 125 mg 02/19/24 09:00 02/19/24 13:12 Vancomycin 125 Mg Capsule PO 125 mg QID GERALDO Administration PFSH Acute 2 PFSH: Medical History Osteoarthritis of carpometacarpal joint of left thumb Osteopenia Seasonal allergies History of DVT (deep vein thrombosis) Recurrent Urinary incontinence Hypertension History of malignant melanoma On right forearm Surgical History H/O tubal ligation Status post total left knee replacement using cement Family History Mother Cancer Breast Other CAD (coronary artery disease) Diabetes Social History Smoking and tobacco/nicotine status: former use of tobacco/nicotine Alcohol intake: current Alcohol intake frequency: holidays/special occasions only Substance/Drug Use: never Vitals/I&O/Wt Last Vital Signs Temp 97.6 F 02/19/24 12:00 Pulse 90 02/19/24 14:12 Resp 16 02/19/24 14:08 BP 149/89 02/19/24 12:00 Pulse Ox 97 02/19/24 14:08 O2 Del Method Nasal Cannula 02/19/24 14:08 O2 Flow Rate 2 02/19/24 14:08 02/19/24 02/19/24 02/19/24 06:59 14:59 22:59 Intake Total 562.600 / 2032.600 337.2 / 337.2 Output Total 350 / 850 Balance 212.600 / 1182.600 337.2 / 337.2 Weight last 48 hrs Weight 94.483 kg Weight 93.157 kg Physical Exam 2 Narrative: awake , alert no distress S1S2 RRR PER REPORT lUNGS CLEAR PER REPORT NO EDEMA Data 02/19/24 03:15 02/19/24 10:12 Micro: Microbiology 02/17/24 13:55 Blood Culture - Preliminary Blood NEGATIVE TO DATE 02/17/24 13:40 Blood Culture - Preliminary Blood NEGATIVE TO DATE A&P Assessment and plan (1) Hyponatremia: Plan 1. Hyponatremia: Sodium 127 on presentation worsened to 123 this morning, added IV albumin, check TSH and cortisol levels. Check urine sodium and urine osmolality. Change on the mixing solutions for IV fluids and trips to normal saline instead of D5W. On salt tablets as well. Continue to monitor 2. Acute kidney injury: Improved to 1.2, creatinine on presentation was 1.8. Likely hypovolemia in the setting of sepsis, pyelonephritis and question small bowel obstruction. 3. High anion gap metabolic acidosis: Bicarb 16 on presentation, likely lactic acidosis in the setting of ELLA, improved to 20 today,Will consider adding Bicitra if no improvement. 4. Question small bowel obstruction, management per general surgery 5. Pyelonephritis, on meropenem 6. A-fib with RVR Patient evaluated using audiovisual cart. Time spent 40 minutes. Patient evaluated using audiovisual cart. Time spent 40 minutes. Consult Attestations 2 Medical Necessity Statement: per sushma Coding Level of Care Code Acute Code for Chg Fwd Diagnoses Hyponatremia E87.1
--- NOTE | 2024-02-19 15:40 | P.PN_ITS ---
Subjective 2 Subjective: - Patient was seen this morning ? Overnight no episodes of confusion, she is alert oriented x 3, following all commands, family friend at bedside ? Afebrile overnight ? She confirms that she has a bladder stimulator in place, for urinary incontinence that was placed, she never has had any issues with it That she does confirm that she has had spinal injections, ? She does have hardware in her left knee her left knee is now bothering her on examination is not red hot or swollen ? She does confirm that her right ankle has received steroid injections currently not red hot or warm ? I did a thorough skin exam, spinal stimulator in place it does not look, skin overlying does not look erythematous, nontender to palpation, ? She denies any neck pain, no neck stiffness Kernig sign negative Brudzinski sign negative pupil equal round reactive to light ? She does report she had a passage of gas, but not a bowel movement she is n.p.o. we had a detailed discussion about bowel obstruction she tells that it does not bother her currently only when she moves, no nausea, no vomiting, ? Currently medically managing bowel obstruction, on examination abdomen slightly distended, no guarding, no rebound, no rigidity, no tenderness to palpation, scattered bowel sounds ? She has had good urine output creatinine has improved, sodium 126 ? I had a detailed discussion with patient about her hospitalization, currently she has a bowel obstruction General surgery has been consulted more medically managing ? I do not have a good explanation for her leukocytosis currently, initially there was concerns for a UTI and pyelonephritis and I definitely believe that she has a UTI and pyelonephritis, but her white blood cell count should have responded ? One of her blood cultures are positive for Staph epidermidis, this could be contamination versus real infection the concern is is that if this is a real infection it might be coming from artificial hardware such as her knee replacement or her injections or her bladder stimulator ? For now her repeat blood cultures are negative she is afebrile, ? We discussed doing a tagged white blood cell scan tomorrow to see if there is a source of her leukocytosis missing ? There is also the thought of C. difficile as she has been on broad-spectrum antibiotics that she came in, her white count is over 30,000, I have started her on p.o. vancomycin ? She does not have any risk factors for antifungal infections, no immunocompromise state, but will consider antifungal based on clinical progress ? Meningitis also unlikely as she has no neck pain, no neck stiffness, she is currently alert and awake, afebrile and she has been on broad-spectrum antibiotic therapy ? CT scan abdomen pelvis did not show any evidence of microperforation, no significant evidence of abscess ? We discussed continuing medical management continuing broad-spectrum antibiotic therapy following her cultures, following her clinical status following her mentations, keeping her n.p.o. following her creatinine her sodium with consult nephrology ? The next course of action would be to do the tagged white blood cell scan hoping by tomorrow her white blood cell count improves, if it does not we will see what the tagged white blood cell scan shows ? There is a possibility that if her bladder stimulator is infected, specifically the leads, it might have to be removed ? Patient is currently receiving IV fluids, she received albumin for hypoalbuminemia, 15 minutes into the fusion she complained of shortness of breath, with concerns for crackles on exam, fluid stopped albumin stopped, given 40mg ? In terms of her hyponatremia, concerns for possible SIADH, have consulted nephrology Vitals/I&O/Wt Last Vital Signs Temp 97.6 F 02/19/24 12:00 Pulse 90 02/19/24 14:12 Resp 16 02/19/24 14:08 BP 149/89 02/19/24 12:00 Pulse Ox 97 02/19/24 14:08 O2 Del Method Nasal Cannula 02/19/24 14:08 O2 Flow Rate 2 02/19/24 14:08 02/19/24 02/19/24 02/19/24 06:59 14:59 22:59 Intake Total 562.600 / 2032.600 337.2 / 337.2 Output Total 350 / 850 Balance 212.600 / 1182.600 337.2 / 337.2 Weight last 48 hrs Weight 94.483 kg Weight 93.157 kg Physical Exam 2 Const: COMMON NORMALS: no acute distress and patient oriented x3 O RIENTATION/CONSCIOUSNESS: Yes awake, Yes oriented to person and Yes oriented to place Resp: COMMON NORMALS: normal respiratory effort, No retractions, No use of accessory muscles and clear to auscultation bilaterally AUSCULTATION: clear to auscultation bilaterally Cardio: COMMON NORMALS: regular rate, regular rhythm, S1 normal heart sound present and S2 normal heart sound present RATE: regular rate RHYTHM: r egular rhythm HEART SOUNDS: S1 normal heart sound present and S2 normal heart sound present GI: COMMON NORMALS: Normal to inspection, nondistended, normoactive bowel sounds present and non-tender Extremity: COMMON NORMALS: no pedal edema Neuro: COMMON NORMALS: patient oriented x3, CN's II-XII intact bilaterally and moves all extremities SENSORIUM/ORIENTATION: Yes oriented to person and Yes oriented to place Psych: COMMON NORMALS: mental status grossly normal Data 02/19/24 03:15 02/19/24 14:34 Micro: Microbiology 02/17/24 13:55 Blood Culture - Preliminary Blood NEGATIVE TO DATE 02/17/24 13:40 Blood Culture - Preliminary Blood NEGATIVE TO DATE A&P Assessment and plan (1) Hyponatremia: (2) Atrial fibrillation with RVR: (3) History of DVT (deep vein thrombosis): (4) Hyperglycemia: (5) Obesity (BMI 30.0-34.9): (6) Nausea and vomiting: Qualifiers: Vomiting type: unspecified Qualified Code(s): R11.2 - Nausea with vomiting, unspecified (7) Leukocytosis: (8) Metabolic acidosis: (9) Elevated lactic acid level: (10) Diarrhea: (11) Hypomagnesemia: (12) NSTEMI (non-ST elevated myocardial infarction): (13) Sepsis: (14) Food poisoning: (15) Pyelonephritis: (16) UTI (urinary tract infection): (17) Bacteremia due to Staphylococcus epidermidis: (18) Acute encephalopathy: Plan Staph epidermidis bacteremia ? 1 out of 4 blood cultures positive for Staph epidermidis, question is is this a contamination versus a real infection, -MEC a gene detected, highly concerning for MRSA ? Patient has a bladder stimulator in place, placed in July 2023, [email or web address], examination of bladder stimulator does not show any overlying erythema, any pocket of infection or any tenderness ? She does receive epidural spinal injections, thorough back exam does not show any significant point tenderness no erythema ? Has a left knee replacement, no significant erythema, swelling or tenderness ? Right ankle no significant erythema, swelling, tenderness, she has received steroid injections in the past ? Thorough skin exam does not show any evidence of skin breakdown ? On admission had concerns for a UTI, with positive nitrates in the urine, urine cultures were negative so far ? Repeat urine cultures negative so far ? With her leukocytosis persistent at 34,000 CRP over 500, Pro-Nehemiah over 6, sed rate over 60 the concern is this could be a potential real infection ? CT cervical/thoracic/lumbar spine does not show any significant radiographic evidence of vertebral osteomyelitis, discitis or epidural abscess ? CT of the chest no pneumonia ? CT abdomen pelvis no underlying abscess, or evidence of infection ? Will continue to monitor inflammatory markers -Follow repeat cultures ? Tick panel, hep C, HIV ? Tagged white blood cell scan tomorrow ? Currently on vancomycin bowel obstruction Is currently abdominal exam no guarding, no rebound, rigidity, is soft, scattered bowel sounds ? Keep n.p.o. ? IV fluids, replace potassium - CT scan abdomen pelvis with oral contrast -General surgery consulted Fluid overload, shortness of breath ? Fluids have been held, ? Albumin has been held, ? 1 dose IV Lasix A-fib with RVR ? New onset, ? p.o. Cardizem, 60 every 6 ?Switch to heparin drip ? Replace magnesium Hyponatremia, 123-->126 ? BNP over 1999 ?Neurochecks, aspiration precautions, seizure precautions ? Monitor serum sodium every 4 hours ago ? Fluids on hold ? Will continue to monitor acute encephalopathy, resolved -hyponatremia, sepsis, bactremia, uti, pyelonephritis -neurocheck, aspiration precautions, NIH, seizure precautions Hypomagnesemia, replaced IV Sepsis Leukocytosis, elevated Pro-Nehemiah, CRP, elevated lactic acid Source, likely UTI, pyelonephritis, Staph epidermidis bacteremia, concerns for source spinal stimulator/receives epidural steroid injections Monitor hemodynamics closely ? Monitor lactic acid UTI, pyelonephritis ? CT scan shows 3. Mild increased stranding and haziness around the LEFT kidney. Similar findings to a lesser extent lower pole RIGHT kidney. Correlate for possible UTI. ? Plan ? UA with evidence of UTI ? urine cultures within normal limits ? Continue vancomycin, Continue meropenem Follow blood cultures Follow cultures Increased anion gap metabolic acidosis, ? Likely secondary to dehydration ? Resolved Elevated lactic acid, recheck lactic acid ? Secondary to sepsis, UTI, pyelonephritis NSTEMI ? No chest pain ? Type I versus type II ? Serial EKGs. Telemetry monitoring, ? Continue heparin drip Food poisoning ? Stool studies History of DVT, ? Continue heparin drip Full code Heparin drip for DVT prophylaxis - Patient was seen this morning ? Overnight no episodes of confusion, she is alert oriented x 3, following all commands, family friend at bedside ? Afebrile overnight ? She confirms that she has a bladder stimulator in place, for urinary incontinence that was placed, she never has had any issues with it That she does confirm that she has had spinal injections, ? She does have hardware in her left knee her left knee is now bothering her on examination is not red hot or swollen ? She does confirm that her right ankle has received steroid injections currently not red hot or warm ? I did a thorough skin exam, spinal stimulator in place it does not look, skin overlying does not look erythematous, nontender to palpation, ? She denies any neck pain, no neck stiffness Kernig sign negative Brudzinski sign negative pupil equal round reactive to light ? She does report she had a passage of gas, but not a bowel movement she is n.p.o. we had a detailed discussion about bowel obstruction she tells that it does not bother her currently only when she moves, no nausea, no vomiting, ? Currently medically managing bowel obstruction, on examination abdomen slightly distended, no guarding, no rebound, no rigidity, no tenderness to palpation, scattered bowel sounds ? She has had good urine output creatinine has improved, sodium 126 ? I had a detailed discussion with patient about her hospitalization, currently she has a bowel obstruction General surgery has been consulted more medically managing ? I do not have a good explanation for her leukocytosis currently, initially there was concerns for a UTI and pyelonephritis and I definitely believe that she has a UTI and pyelonephritis, but her white blood cell count should have responded ? One of her blood cultures are positive for Staph epidermidis, this could be contamination versus real infection the concern is is that if this is a real infection it might be coming from artificial hardware such as her knee replacement or her injections or her bladder stimulator ? For now her repeat blood cultures are negative she is afebrile, ? We discussed doing a tagged white blood cell scan tomorrow to see if there is a source of her leukocytosis missing ? There is also the thought of C. difficile as she has been on broad-spectrum antibiotics that she came in, her white count is over 30,000, I have started her on p.o. vancomycin ? She does not have any risk factors for antifungal infections, no immunocompromise state, but will consider antifungal based on clinical progress ? Meningitis also unlikely as she has no neck pain, no neck stiffness, she is currently alert and awake, afebrile and she has been on broad-spectrum antibiotic therapy ? CT scan abdomen pelvis did not show any evidence of microperforation, no significant evidence of abscess ? We discussed continuing medical management continuing broad-spectrum antibiotic therapy following her cultures, following her clinical status following her mentations, keeping her n.p.o. following her creatinine her sodium with consult nephrology ? The next course of action would be to do the tagged white blood cell scan hoping by tomorrow her white blood cell count improves, if it does not we will see what the tagged white blood cell scan shows ? There is a possibility that if her bladder stimulator is infected, specifically the leads, it might have to be removed ? Patient is currently receiving IV fluids, she received albumin for hypoalbuminemia, 15 minutes into the fusion she complained of shortness of breath, with concerns for crackles on exam, fluid stopped albumin stopped, given 40mg ? In terms of her hyponatremia, concerns for possible SIADH, have consulted nephrology Attestations 2 Medical Necessity Statement*: Patient requires hospitalization for Staph epidermidis bacteremia persistent leukocytosis, fluid overload, ELLA, hyponatremia, bowel obstruction Diagnoses Hyponatremia E87.1 Atrial fibrillation with RVR I48.91 History of DVT (deep vein thrombosis) Z86.718 Hyperglycemia R73.9 Obesity (BMI 30.0-34.9) E66.9 Nausea and vomiting, unspecified vomiting type R11.2 Vomiting type: unspecified Leukocytosis D72.829 Metabolic acidosis E87.20 Elevated lactic acid level R79.89 Diarrhea R19.7 Hypomagnesemia E83.42 NSTEMI (non-ST elevated myocardial infarction) I21.4 Sepsis A41.9 Food poisoning A05.9 Pyelonephritis N12 UTI (urinary tract infection) N39.0 Bacteremia due to Staphylococcus epidermidis R78.81; B95.7 Acute encephalopathy G93.40
[2024-02-19 16:55] LABS: Glucose Point of Care 133 mg/dL (70-110)
[2024-02-19 17:08] LABS: Erythrocyte Sedimentation Rate 68 mm/hr (0-15)
[2024-02-19 17:19] LABS: Partial Thromboplastin Time 44.2 SECONDS (23.9-36.7)
[2024-02-19 17:23] LABS: Sodium 128 mmol/L (136-145)
[2024-02-19] MEDS: morphine 4 mg/mL SDV 1 mL 2 MG IVP (18:00)
[2024-02-19] MEDS: heparin drip 25,000 UNIT/500 ML PREMIX 32 UNIT IV (19:49)
[2024-02-19] MEDS: ondansetron 2 mg/ML SDV 2 mL 4 MG IVP (21:05)
[2024-02-19 21:06] LABS: Glucose Point of Care 129 mg/dL (70-110)
[2024-02-19] MEDS: trazodone 50 mg Tablet PO (22:11)
[2024-02-19 23:30] LABS: Sodium 127 mmol/L (136-145)
[2024-02-20] VITALS (11 sets, daily range): BP systolic 109–152; BP diastolic 47–75; PULSE 74–91; RESP 14–19; TEMP 36.4–37.1; O2SAT 92–99
[2024-02-20 00:16] LABS: Partial Thromboplastin Time 83.8 SECONDS (23.9-36.7)
[2024-02-20] MEDS: pantoprazole 40 mg SDV IVP ×2 (01:47→14:23)
[2024-02-20] MEDS: ondansetron 2 mg/ML SDV 2 mL 4 MG IVP ×2 (01:47→10:51)
[2024-02-20] MEDS: dilTIAZem 30 mg Tablet 60 MG PO ×4 (01:49→22:23)
--- NOTE | 2024-02-20 06:10 | XRR_ITS ---
PROCEDURE INFORMATION: Exam: XR Abdomen Exam date and time: 02/20/2024 7:21 AM Age: 83 years old Clinical indication: Condition or disease; Intestinal condition; Obstruction; Additional info: Follow up sbo TECHNIQUE: Imaging protocol: Radiologic exam of the abdomen. Views: Frontal supine view of the abdomen. 1 View. COMPARISON: CR (ABDOMEN, ) 02/19/2024 6:07 AM FINDINGS: Tubes, catheters and devices: Implanted stimulator device within the pelvis redemonstrated. Gastrointestinal tract: Abnormally dilated small bowel redemonstrated. Negative for pneumatosis intestinalis. Bones/joints: Unremarkable. XR/XR abdomen 1V* [id number] IMPRESSION: No significant change. Abnormally dilated small bowel which may represent obstruction.
[2024-02-20 06:37] LABS: Glucose Point of Care 136 mg/dL (70-110)
[2024-02-20 06:41] LABS: Basophils % 0.1 %; Eosinophils % 0.1 %; Hematocrit 32.3 % (36-47); Lymphocytes # 0.5 10^3/uL (0.8-4.8); Lymphocytes % 1.4 %; Mean Corpuscular HGB Conc 32.8 g/dL (30-55); Mean Corpuscular Volume 82.2 fl (85-98); Mean Platelet Volume 11.1 fL (7.4-10.4); Monocytes # 1.5 10^3/uL (0.2-0.9); Monocytes % 4.4 %; Neutrophils # 31.53 10^3/uL (1.8-7.7); Neutrophils % 90.6 %; Nucleated Red Blood Cells % 0 %; Platelet Count 232 10^3/cmm (157-399); Red Blood Count 3.93 10^6/uL (3.85-5.65); Red Cell Distribution Width 14.7 % (12.1-15.1)
[2024-02-20 06:55] LABS: Erythrocyte Sedimentation Rate 73 mm/hr (0-15)
[2024-02-20 07:02] LABS: Lactate (Lactic Acid level) 0.9 mmol/L (0.5-2.2); Partial Thromboplastin Time 69.7 SECONDS (23.9-36.7)
[2024-02-20 07:04] LABS: Creatine Phosphokinase 127 U/L (26-192)
[2024-02-20 07:05] LABS: Alanine Aminotransferase 23 U/L (0-33); Albumin Level 2.5 g/dL (3.5-5.2); Alkaline Phosphatase 98 U/L (35-105); Blood Urea Nitrogen 31 mg/dL (8-23); Calcium 7.9 mg/dL (8.5-10.5); Carbon Dioxide 21 mmol/L (22-29); Chloride 93 mmol/L (98-107); Creatinine Clr Calc Pharmacy 48.5377; Globulin 3.4 g/dL (1.3-4.6); Glucose 116 mg/dL (65-115); Osmolality Calculated 276 mOsm/kg (285-295); Sodium 129 mmol/L (136-145); Total Bilirubin 0.3 mg/dL (0.15-1.2); Total Protein 5.9 g/dL (6.6-8.7)
[2024-02-20 07:06] LABS: Anion Gap 19.3 (5-19); Aspartate Amino Transferase 26 U/L (0-32); Potassium 4.3 mmol/L (3.5-5.1)
[2024-02-20 07:12] LABS: NT Pro B Type Natriuretic Pept 1475 pg/mL (0-450); Procalcitonin 3.52 ng/mL (0-0.5)
[2024-02-20 07:15] LABS: INR 1.14 (0.8-1.2)
[2024-02-20 07:16] LABS: C Reactive Protein 388.5 mg/L (0.0-4.9)
[2024-02-20] MEDS: meropenem 1,000 MG in sodium chloride 0.9% (plus) 50 ML 100 MG IV ×2 (09:31→22:25)
--- NOTE | 2024-02-20 09:32 | P.PN_ITS ---
Subjective 2 Subjective: This is a 83-year-old female who is admitted to the hospital with sepsis, leukocytosis and during hospital stay was noted to have a small bowel obstruction. Patient has noted to be improving in her mental status, now she is alert and oriented, complains of mild pain in the belly whenever she moves denies passing gas or having bowel movements since she is in the hospital. Additional workup is being done by the medical team to identify the source of her white count. Vitals/I&O/Wt Last Vital Signs Temp 97.9 F 02/20/24 07:42 Pulse 74 02/20/24 07:42 Resp 17 02/20/24 07:42 BP 146/68 02/20/24 07:42 Pulse Ox 99 02/20/24 07:42 O2 Del Method Nasal Cannula 02/20/24 07:37 O2 Flow Rate 1 02/20/24 07:37 02/19/24 02/20/24 02/20/24 22:59 06:59 14:59 Intake Total 1548.734 / 1885.934 148.8 / 2034.734 Output Total 850 / 850 1200 / 2050 Balance 698.734 / 1035.934 -1051.2 / -15.266 Weight last 48 hrs Weight 208 lb 4.8 oz Weight 208 lb 4.8 oz Physical Exam 2 GI: OTHER: Abdomen is soft, minimally tender especially in the right lower quadrant, minimally distended, there is slightly improved bowel sounds when compared to yesterday. Data 02/20/24 06:19 02/20/24 06:19 A&P Assessment and plan (1) Small bowel obstruction: Plan 83-year-old female that is known to my service for evaluation for possible SBO. Patient has not seen any significant progression since initial evaluation. While she has not had any nausea or vomit she does explained that yesterday she had 1 episode of severe reflux overnight. She is planned to undergo tagged RBC scan today to evaluate for possible source of infection. She has not been out of bed or to the chair in the last 24 hours. From the general surgery standpoint there is no current indication to proceed with surgery. An elevation of the white count to more than 30,000 is very unlikely with any kind of small bowel obstruction, I still believe that probably her abdominal process secondary to the metabolic disturbances caused by her infection. My recommendation is aggressive mobilization, patient should be out of bed to chair and ambulating as possible. Since there has been no progression of her small bowel obstruction I think we should consider proceeding with NG tube decompression today and after 48 to 72 hours of NG tube decompression we can proceed with a Gastrografin trial. ? Tach RBC-Scan today ? Will consider NG tube decompression today due to lack of progression ? No surgical indication presented at this time. Attestations 2 Medical Necessity Statement*: Per medical team Coding Level of Care Code Acute Code for Chg Fwd Diagnoses Small bowel obstruction K56.609
[2024-02-20] MEDS: gabapentin 300 mg Capsule PO ×2 (09:33→18:50)
[2024-02-20] MEDS: atorvastatin 40 mg Tablet 20 MG PO (09:33)
[2024-02-20] MEDS: vancomycin 125 mg Capsule PO ×4 (09:33→22:23)
[2024-02-20] MEDS: sodium chloride 1 gm Tablet PO ×2 (09:33→18:50)
[2024-02-20] MEDS: lanolin oint 7 gm 1 APPLIC TOPICAL (10:52)
[2024-02-20 11:38] LABS: Glucose Point of Care 128 mg/dL (70-110)
--- NOTE | 2024-02-20 12:06 | PICC.NOTE ---
IMM Updated Updated pt on IMM. No questions voiced. Provided pt a copy. Initialed, dated, & timed copy in chart.
[2024-02-20] MEDS: heparin drip 25,000 UNIT/500 ML PREMIX 30 UNIT IV (12:20)
[2024-02-20] MEDS: vancomycin 750 MG in sodium chloride 0.9% 250 ML 250 MG IV (12:21)
[2024-02-20 12:45] LABS: Partial Thromboplastin Time 48.4 SECONDS (23.9-36.7)
[2024-02-20 12:49] LABS: Vancomycin Trough 10.9 ug/mL (10-15)
--- NOTE | 2024-02-20 12:59 | P.PN_ITS ---
Subjective 2 Subjective: feels tired Medications: Reviewed: Yes Vitals/I&O/Wt Last Vital Signs Temp 97.6 F 02/20/24 11:59 Pulse 88 02/20/24 11:59 Resp 15 02/20/24 11:59 BP 109/74 02/20/24 11:59 Pulse Ox 99 02/20/24 07:42 O2 Del Method Nasal Cannula 02/20/24 07:37 O2 Flow Rate 1 02/20/24 07:37 02/19/24 02/20/24 02/20/24 22:59 06:59 14:59 Intake Total 1548.734 / 1885.934 148.8 / 2034.734 401.2 / 401.2 Output Total 850 / 850 1200 / 2050 Balance 698.734 / 1035.934 -1051.2 / -15.266 401.2 / 401.2 Weight last 48 hrs Weight 94.483 kg Weight 94.483 kg Physical Exam 2 Narrative: awake , alert no distress S1S2 RRR PER REPORT lUNGS CLEAR PER REPORT NO EDEMA Data 02/20/24 06:19 02/20/24 06:19 Micro: Microbiology 02/16/24 11:00 Blood Culture - Final Blood Staphylococcus epidermidis A&P Assessment and plan (1) Hyponatremia: Plan 1. Hyponatremia: Sodium 127 on presentation worsened to 123 , added IV albumin, check TSH and cortisol levels. Check urine sodium and urine osmolality. Change on the mixing solutions for IV fluids and drips to normal saline instead of D5W. On salt tablets as well. Continue to monitor Na improved to 129 2. Acute kidney injury: Improved to 1.2, creatinine on presentation was 1.8. Likely hypovolemia in the setting of sepsis, pyelonephritis and question small bowel obstruction. 3. High anion gap metabolic acidosis: Bicarb 16 on presentation, likely lactic acidosis in the setting of ELLA, improved to 21 today,Will consider adding Bicitra if no improvement. 4. Question small bowel obstruction, management per general surgery 5. Pyelonephritis, on meropenem 6. A-fib with RVR . Patient evaluated using audiovisual cart. Time spent 40 minutes. Attestations 2 Medical Necessity Statement*: [email or web address] Coding Level of Care Code Acute Code for Chg Fwd Diagnoses Hyponatremia E87.1
[2024-02-20 13:15] LABS: Lyme AB Screen <0.90 index
--- NOTE | 2024-02-20 13:23 | NMR_ITS ---
PROCEDURE INFORMATION: Exam: NM Radiopharmaceutical Localization Of Tumor or Distribution; Whole Body, Single Day Imaging Exam date and time: 02/20/2024 1:23 PM Age: 83 years old Clinical indication: Symptoms: Elevated wbc; Prior surgery; Surgery date: 6+ months; Surgery type: Bladder stimulator right lower back, left knee replacement, left ankle steroid injections recently; Patient HX: One positive staph blood culture three negative blood cultures (infection vs contamination), UTI, small bowel obstruction, left lower extremity dvt; Additional info: Tagged wbc TECHNIQUE: Imaging protocol: Radiopharmaceutical localization of tumor or distribution of radiopharmaceutical agent. Whole body. Single day imaging. Views: Whole body Radiopharmaceutical: RadiopharmaceuticalAndDose; 20.4 mCi Tc-99m HMPAO WBC (Ceretec, Exametazime), IV. Time of imaging post radiopharmaceutical administration: Per my phone conversation with carissa Gallardo licensed nuclear control room operator, these images are obtained at approximately 4 hours after injection. This is consistent with facility protocol. COMPARISON: 1. CR XR abdomen 1V* [id number] 02/20/2024 7:[address] abdomen pelvis wo con [id number] 02/18/2024 8:[address] chest wo con [id number] 02/18/2024 1:47 PM FINDINGS: Procedure summary: There is moderate uptake noted diffusely throughout the lungs. Activity present prominently within the liver and spleen, as well as within the marrow distribution, and blood pool. No specific localization to the site of the posterior right abdominopelvic stimulator device, or to the site of the left knee prosthesis.] Mild uptake in the left midfoot. NM/NM CERETEC WBC scan* [id number] IMPRESSION: 1. No localization to the stimulator device in the pelvis, or elsewhere within the abdominopelvic cavity.. 2. Moderate diffuse pulmonary activity which at this time point is consistent with physiologic uptake. 3. Mild uptake in the left midfoot and medial hindfoot. Correlation with clinical findings is recommended, radiographs may be useful.
--- NOTE | 2024-02-20 14:45 | P.PN_ITS ---
Subjective 2 Subjective: Patient was seen this morning, patient's sisters are at bedside, she was afebrile overnight, normotensive, sodium has improved to 129 creatinine up to 1, leukocytosis persists at 34,000, plans on tagged white blood cell scan today, will follow with tagged white blood cell scan CRP remains 388 Pro-Nehemiah 3.52 she is afebrile, blood cultures show Staph epidermidis 1 out of 4 blood cultures positive, Meca positive, she denies any ankle pain she is to has ankle hardware in her right ankle, no left knee pain, no back pain, she tells me that her spinal stimulator was placed somewhere in [facility], Vitals/I&O/Wt Last Vital Signs Temp 97.6 F 02/20/24 11:59 Pulse 88 02/20/24 11:59 Resp 15 02/20/24 11:59 BP 109/74 02/20/24 11:59 Pulse Ox 99 02/20/24 07:42 O2 Del Method Nasal Cannula 02/20/24 07:37 O2 Flow Rate 1 02/20/24 07:37 02/19/24 02/20/24 02/20/24 22:59 06:59 14:59 Intake Total 1548.734 / 1885.934 148.8 / 2034.734 710.7 / 710.7 Output Total 850 / 850 1200 / 2050 600 / 600 Balance 698.734 / 1035.934 -1051.2 / -15.266 110.7 / 110.7 Weight last 48 hrs Weight 94.483 kg Weight 94.483 kg Physical Exam 2 Const: COMMON NORMALS: no acute distress and patient oriented x3 Resp: COMMON NORMALS: normal respiratory effort, No retractions, No use of accessory muscles and clear to auscultation bilaterally AUSCULTATION: clear to auscultation bilaterally Cardio: COMMON NORMALS: regular rate, regular rhythm, S1 normal heart sound present and S2 normal heart sound present RATE: regular rate RHYTHM: r egular rhythm HEART SOUNDS: S1 normal heart sound present and S2 normal heart sound present GI: COMMON NORMALS: Normal to inspection, nondistended, normoactive bowel sounds present and non-tender Extremity: COMMON NORMALS: no pedal edema Neuro: COMMON NORMALS: patient oriented x3 Psych: COMMON NORMALS: mental status grossly normal Data 02/20/24 06:19 02/20/24 06:19 Micro: Microbiology 02/16/24 11:00 Blood Culture - Final Blood Staphylococcus epidermidis A&P Assessment and plan (1) Hyponatremia: (2) Atrial fibrillation with RVR: (3) History of DVT (deep vein thrombosis): (4) Hyperglycemia: (5) Obesity (BMI 30.0-34.9): (6) Nausea and vomiting: Qualifiers: Vomiting type: unspecified Qualified Code(s): R11.2 - Nausea with vomiting, unspecified (7) Leukocytosis: (8) Metabolic acidosis: (9) Elevated lactic acid level: (10) Diarrhea: (11) Hypomagnesemia: (12) NSTEMI (non-ST elevated myocardial infarction): (13) Sepsis: (14) Food poisoning: (15) Pyelonephritis: (16) UTI (urinary tract infection): (17) Bacteremia due to Staphylococcus epidermidis: (18) Acute encephalopathy: Plan Staph epidermidis bacteremia ? 1 out of 4 blood cultures positive for Staph epidermidis, question is is this a contamination versus a real infection, -MEC a gene detected, highly concerning for MRSA, sensitive to vancomycin ? Patient has a bladder stimulator in place, placed in July 2023, [employer], examination of bladder stimulator does not show any overlying erythema, any pocket of infection or any tenderness ? She does receive epidural spinal injections, thorough back exam does not show any significant point tenderness no erythema ? Has a left knee replacement, no significant erythema, swelling or tenderness ? Right ankle no significant erythema, swelling, tenderness, she has received steroid injections in the past ? Thorough skin exam does not show any evidence of skin breakdown ? On admission had concerns for a UTI, with positive nitrates in the urine, urine cultures were negative so far ? Repeat urine cultures negative so far ? With her leukocytosis persistent at 34,000 CRP over 500, Pro-Nehemiah over 6, sed rate over 60 ? CT cervical/thoracic/lumbar spine does not show any significant radiographic evidence of vertebral osteomyelitis, discitis or epidural abscess ? CT of the chest no pneumonia ? CT abdomen pelvis no underlying abscess, or evidence of infection ? Will continue to monitor inflammatory markers -Follow repeat cultures ? hep C, HIV ? Tick panel, ? Tagged white blood cell scan today ? Currently on vancomycin bowel obstruction Is currently abdominal exam no guarding, no rebound, rigidity, is soft, scattered bowel sounds ? Keep n.p.o. ? IV fluids, replace potassium - CT scan abdomen pelvis with oral contrast -General surgery consulted Fluid overload, shortness of breath ? Fluids have been held, ? Albumin has been held, A-fib with RVR ? New onset, ? p.o. Cardizem, 60 every 6 ?Switch to heparin drip ? Replace magnesium Hyponatremia, 123-->129 ? BNP over 1999 ?Neurochecks, aspiration precautions, seizure precautions ? Monitor serum sodium every 4 hours ago ? Fluids on hold ? Will continue to monitor acute encephalopathy, resolved -hyponatremia, sepsis, bactremia, uti, pyelonephritis -neurocheck, aspiration precautions, NIH, seizure precautions Hypomagnesemia, replaced IV Sepsis Leukocytosis, elevated Pro-Nehemiah, CRP, elevated lactic acid Source, likely UTI, pyelonephritis, Staph epidermidis bacteremia, concerns for source spinal stimulator/receives epidural steroid injections Monitor hemodynamics closely ? Monitor lactic acid UTI, pyelonephritis ? CT scan shows 3. Mild increased stranding and haziness around the LEFT kidney. Similar findings to a lesser extent lower pole RIGHT kidney. Correlate for possible UTI. ? Plan ? UA with evidence of UTI ? urine cultures within normal limits ? Continue vancomycin, Continue meropenem Follow blood cultures Follow cultures Increased anion gap metabolic acidosis, ? Likely secondary to dehydration ? Resolved Elevated lactic acid, recheck lactic acid ? Secondary to sepsis, UTI, pyelonephritis NSTEMI ? No chest pain ? Type I versus type II ? Serial EKGs. Telemetry monitoring, ? Continue heparin drip Food poisoning ? Stool studies History of DVT, ? Continue heparin drip Full code Heparin drip for DVT prophylaxis Patient was seen this morning, Staph epidermidis bacteremia, tagged white blood cell scan today Attestations 2 Medical Necessity Statement*: Patient requires hospitalization for Staph epidermidis bacteremia, requiring tagged white blood cell scan Diagnoses Hyponatremia E87.1 Atrial fibrillation with RVR I48.91 History of DVT (deep vein thrombosis) Z86.718 Hyperglycemia R73.9 Obesity (BMI 30.0-34.9) E66.9 Nausea and vomiting, unspecified vomiting type R11.2 Vomiting type: unspecified Leukocytosis D72.829 Metabolic acidosis E87.20 Elevated lactic acid level R79.89 Diarrhea R19.7 Hypomagnesemia E83.42 NSTEMI (non-ST elevated myocardial infarction) I21.4 Sepsis A41.9 Food poisoning A05.9 Pyelonephritis N12 UTI (urinary tract infection) N39.0 Bacteremia due to Staphylococcus epidermidis R78.81; B95.7 Acute encephalopathy G93.40
--- NOTE | 2024-02-20 15:02 | PC.OT ---
OT treatment attempted with pt declining. Pt states I'm so tired I'm ready to . Will attempt treatment at later time.
[2024-02-20 15:09] LABS: Osmolality Urine 501 mOsm/kg (50-1200)
[2024-02-20 15:49] LABS: Methicillin-Resist S.aureu PCR NOT DETECTED (NOT DETECTED)
[2024-02-20 17:53] LABS: Glucose Point of Care 130 mg/dL (70-110)
--- NOTE | 2024-02-20 18:19 | XRR_ITS ---
PROCEDURE INFORMATION: Exam: XR Abdomen Exam date and time: 02/20/2024 6:39 PM Age: 83 years old Clinical indication: Device placement; Gi device; Nasogastric tube; Additional info: Ng placement TECHNIQUE: Imaging protocol: Radiologic exam of the abdomen. Views: Frontal supine view of the abdomen. 1 View. COMPARISON: CR XR abdomen 1V* [id number] 02/20/2024 7:21 AM FINDINGS: Tubes, catheters and devices: An NG tube has been advanced into the stomach. Gastrointestinal tract: It appears to be folded back on itself in the distal gastric antrum. Gaseous distension of small bowel is noted in the left upper quadrant similar to previous.The abdomen is not imaged in its entirety on this study performed for tube placement, the pelvis is essentially nonvisualized. Bones/joints: No acute abnormality identified. XR/XR abdomen 1V* [id number] IMPRESSION: 1. NG tube terminates in the distal stomach. It is folded back on itself at the side hole. Withdrawal could be considered if clinically desired. 2. Persistent upper abdominal gaseous distension of small bowel..
--- NOTE | 2024-02-20 18:23 | PM.MISC ---
Miscellaneous Note Purpose of Documentation: Patient care update Note: I examined the patient this afternoon, abdominal exam remains benign and her mental status is pretty good. Patient endorses that she has passed some flatus but still complains of abdominal distention and has had significant belching during the day. After lengthy discussion we have decided to proceed with NG tube decompression to allow for bowel rest for the next 24 to 48 hours. Of that during this time I will plan to do a Gastrografin trial to evaluate for progression of the contrast into the small bowel. Overall clinically she appears to be improving imaging still showed evidence of obstruction as of this morning. I have that with NG tube decompression her symptoms resolve earlier and allow advancement of diet.
[2024-02-20] MEDS: morphine 4 mg/mL SDV 1 mL 2 MG IVP (19:44)
[2024-02-20 20:29] LABS: Glucose Point of Care 120 mg/dL (70-110)
[2024-02-20] MEDS: cetylpyridinium Lozenge 1 EACH MUCOUS MEM (20:35)
[2024-02-20 21:16] LABS: Partial Thromboplastin Time 66.4 SECONDS (23.9-36.7)
[2024-02-20] MEDS: trazodone 50 mg Tablet PO (22:23)
[2024-02-21] VITALS (11 sets, daily range): BP systolic 111–159; BP diastolic 46–85; PULSE 68–96; RESP 13–20; TEMP 36.8–36.9; O2SAT 92–98
[2024-02-21] MEDS: pantoprazole 40 mg SDV IVP ×2 (01:55→13:02)
[2024-02-21 02:19] LABS: Adenovirus Not Detected (NOT DETECT); Chlamydia Pneumoniae Not Detected (NOT DETECT); Coronavirus 229E,HKU1,NL63,OC4 Not Detected (NOT DETECT); Human Metapneumovirus Not Detected (NOT DETECT); Human Rhinovirus/Enterovirus Not Detected (NOT DETECT); Influenza A Not Detected (NOT DETECT); Influenza A H1 Not Detected (NOT DETECT); Influenza A H1-2009 Not Detected (NOT DETECT); Influenza A H3 Not Detected (NOT DETECT); Influenza B Not Detected (NOT DETECT); Mycoplasma Pneumoniae Not Detected (NOT DETECT); Parainfluenza Virus Type 1 Not Detected (NOT DETECT); Parainfluenza Virus Type 2 Not Detected (NOT DETECT); Parainfluenza Virus Type 3 Not Detected (NOT DETECT); Parainfluenza Virus Type 4 Not Detected (NOT DETECT); Respiratory Syncytial Virus A Not Detected (NOT DETECT); Respiratory Syncytial Virus B Not Detected (NOT DETECT); SARS-COV-2 Not Detected (NOT DETECT)
[2024-02-21 03:12] LABS: INR 1.17 (0.8-1.2)
[2024-02-21 03:19] LABS: Basophils # 0.1 10^3/uL (0.0-0.1); Basophils % 0.4 %; Eosinophils % 0.1 %; Hematocrit 29.1 % (36-47); Lymphocytes # 0.7 10^3/uL (0.8-4.8); Lymphocytes % 2.1 %; Mean Corpuscular HGB Conc 33.3 g/dL (30-55); Mean Corpuscular Hemoglobin 26.9 pg (27-33); Mean Corpuscular Volume 80.8 fl (85-98); Monocytes # 1.9 10^3/uL (0.2-0.9); Monocytes % 5.9 %; Neutrophils % 88.2 %; Nucleated Red Blood Cells % 0 %; Platelet Count 284 10^3/cmm (157-399); Red Cell Distribution Width 14.8 % (12.1-15.1)
[2024-02-21 03:21] LABS: Partial Thromboplastin Time 116.9 SECONDS (23.9-36.7)
[2024-02-21 03:37] LABS: Lactate (Lactic Acid level) 0.7 mmol/L (0.5-2.2)
[2024-02-21 03:43] LABS: Alanine Aminotransferase 25 U/L (0-33); Alkaline Phosphatase 92 U/L (35-105); Aspartate Amino Transferase 29 U/L (0-32); Creatinine Clr Calc Pharmacy 60.6721; Globulin 3.2 g/dL (1.3-4.6); Glucose 108 mg/dL (65-115); Total Bilirubin 0.2 mg/dL (0.15-1.2)
[2024-02-21 03:43] LABS: C Reactive Protein 206.9 mg/L (0.0-4.9); Creatine Phosphokinase 69 U/L (26-192)
[2024-02-21 03:44] LABS: Albumin Level 2.2 g/dL (3.5-5.2); Blood Urea Nitrogen 25 mg/dL (8-23); Calcium 7.9 mg/dL (8.5-10.5); Carbon Dioxide 21 mmol/L (22-29); Total Protein 5.4 g/dL (6.6-8.7)
[2024-02-21 03:45] LABS: Anion Gap 16.8 (5-19); Chloride 97 mmol/L (98-107); Osmolality Calculated 277 mOsm/kg (285-295); Potassium 3.8 mmol/L (3.5-5.1); Sodium 131 mmol/L (136-145)
[2024-02-21 03:47] LABS: Procalcitonin 1.61 ng/mL (0-0.5)
[2024-02-21 03:54] LABS: NT Pro B Type Natriuretic Pept 2555 pg/mL (0-450)
[2024-02-21] MEDS: heparin drip 25,000 UNIT/500 ML PREMIX 26 UNIT IV (04:02)
[2024-02-21 06:23] LABS: Glucose Point of Care 106 mg/dL (70-110)
[2024-02-21] MEDS: dilTIAZem 30 mg Tablet 60 MG PO ×3 (07:29→20:46)
[2024-02-21] MEDS: gabapentin 300 mg Capsule PO ×2 (07:30→17:29)
[2024-02-21] MEDS: vancomycin 125 mg Capsule PO ×4 (07:31→20:46)
[2024-02-21] MEDS: atorvastatin 40 mg Tablet 20 MG PO (07:31)
[2024-02-21] MEDS: sodium chloride 1 gm Tablet PO ×2 (07:31→17:29)
[2024-02-21] MEDS: meropenem 1,000 MG in sodium chloride 0.9% (plus) 50 ML 100 MG IV ×2 (07:32→20:49)
--- NOTE | 2024-02-21 07:52 | XRR_ITS ---
PROCEDURE INFORMATION: Exam: XR Left Foot Exam date and time: 02/21/2024 8:34 AM Age: 83 years old Clinical indication: Abnormal findings; Abnormal imaging study; Nuclear medicine; Additional info: Positive tagged wbc scan TECHNIQUE: Imaging protocol: Radiologic exam of the left foot. Views: 3 or more views. COMPARISON: [facility] WBC scan* [id number] 02/20/2024 1:23 PM FINDINGS: Bones/joints: Normal. No radiographic abnormality to account for the increased uptake in the left foot. Soft tissues: Normal. XR/XR foot LT min 3V* [id number] IMPRESSION: No acute findings.
--- NOTE | 2024-02-21 08:27 | P.PN_ITS ---
Subjective 2 Subjective: doing well Medications: Reviewed: Yes Vitals/I&O/Wt Last Vital Signs Temp 98.3 F 02/21/24 04:00 Pulse 92 02/21/24 08:00 Resp 20 H 02/21/24 08:00 BP 135/77 02/21/24 08:00 Pulse Ox 95 02/21/24 08:00 O2 Del Method Room Air 02/21/24 08:00 O2 Flow Rate 1 02/20/24 07:37 02/20/24 02/21/24 02/21/24 22:59 06:59 14:59 Intake Total 835.933 / 1546.633 50 / 50 Output Total 250 / 850 1500 / 2350 Balance -250 / -139.3 -664.067 / -803.367 50 / 50 Weight last 48 hrs Weight 95.878 kg Weight 94.483 kg Physical Exam 2 Narrative: awake , alert no distress S1S2 RRR PER REPORT lUNGS CLEAR PER REPORT NO EDEMA Data 02/21/24 03:10 02/21/24 02:50 Micro: Microbiology 02/16/24 11:00 Blood Culture - Final Blood Staphylococcus epidermidis A&P Assessment and plan (1) Hyponatremia: Plan 1. Hyponatremia: Sodium 127 on presentation worsened to 123 , added IV albumin, check TSH and cortisol levels. Check urine sodium and urine osmolality. Change on the mixing solutions for IV fluids and drips to normal saline instead of D5W. On salt tablets as well. Continue to monitor Na improved to 131 2. Acute kidney injury: Improved to 1.2, creatinine on presentation was 1.8. Likely hypovolemia in the setting of sepsis, pyelonephritis and question small bowel obstruction. 3. High anion gap metabolic acidosis: Bicarb 16 on presentation, likely lactic acidosis in the setting of ELLA, improved to 21 today,Will consider adding Bicitra if no improvement. 4. Question small bowel obstruction, management per general surgery 5. Pyelonephritis, on meropenem 6. A-fib with RVR . Patient evaluated using audiovisual cart. Time spent 20 minutes. Attestations 2 Medical Necessity Statement*: per medicine Coding Level of Care Code Acute Code for Chg Fwd Diagnoses Hyponatremia E87.1
--- NOTE | 2024-02-21 09:39 | XRR_ITS ---
PROCEDURE INFORMATION: Exam: XR Abdomen Exam date and time: 02/21/2024 10:41 AM Age: 83 years old Clinical indication: Other: Ng placement TECHNIQUE: Imaging protocol: Radiologic exam of the abdomen. Views: Frontal supine view of the abdomen. 1 View. COMPARISON: CR (ABDOMEN, ) 02/20/2024 6:39 PM FINDINGS: Tubes, catheters and devices: Nasogastric tube kinked within the stomach. Gastrointestinal tract: Dilated loops of small bowel consistent with obstruction. Bones/joints: Unremarkable. XR/XR abdomen 1V* [id number] IMPRESSION: 1. Nasogastric tube kinked within the stomach. 2. Dilated loops of small bowel consistent with obstruction
--- NOTE | 2024-02-21 10:03 | P.PN_ITS ---
Subjective 2 Subjective: Yesterday afternoon we proceeded with NG tube placement, initial output was about 400 cc of bilious fluid, overnight it has been a total of 1 L of bilious fluid. Patient states feeling much better, no significant abdominal pain, has been feeling the urge to pass gas and had a bowel movement but has not had 1 yet. No other significant changes in clinical status. Vitals/I&O/Wt Last Vital Signs Temp 98.3 F 02/21/24 04:00 Pulse 81 02/21/24 08:37 Resp 18 02/21/24 08:37 BP 135/77 02/21/24 08:00 Pulse Ox 97 02/21/24 08:37 O2 Del Method Room Air 02/21/24 08:37 O2 Flow Rate 1 02/20/24 07:37 02/20/24 02/21/24 02/21/24 22:59 06:59 14:59 Intake Total 835.933 / 1546.633 50 / 50 Output Total 250 / 850 1500 / 2350 Balance -250 / -139.3 -664.067 / -803.367 50 / 50 Weight last 48 hrs Weight 211 lb 6 oz Weight 208 lb 4.8 oz Physical Exam 2 GI: OTHER: Abdomen is soft, nontender, no distended. Data 02/21/24 03:10 02/21/24 02:50 Micro: Microbiology 02/16/24 11:00 Blood Culture - Final Blood Staphylococcus epidermidis A&P Assessment and plan (1) Nausea and vomiting: Qualifiers: Vomiting type: unspecified Qualified Code(s): R11.2 - Nausea with vomiting, unspecified (2) Diarrhea: (3) Small bowel obstruction: Plan Patient continues to slowly improve. White count has minimally trended down, inflammatory markers including CRP procalcitonin are trending down for the last 48 hours. After NG tube decompression patient feels much better from the GI standpoint, endorses passing some gas and having the urge to go to have a bowel movement but has not had a bowel movement yet. I explained to the patient that if she is able to have a bowel movement we can discontinue the NG tube and advance to clear liquid diet in case that she is unable to have a bowel movement or pass gas today we will plan to proceed with a Gastrografin trial tomorrow. In the interim please continue maximal medical management please replace electrolytes to potassium of 4 magnesium of 2 and phosphorus of 3 to ensure best possible condition for GI motility. -Continue NG tube decompression -Ambulate is much as possible, I have discussed with the nurses regarding ambulation that we will proceed ambulating the patient today -I have retracted the NG tube 5 cm we will obtain a new abdominal x-ray -Please continue to replace electrolytes and continue maximal medical management Attestations 2 Medical Necessity Statement*: Patient will require 24 to 4 hours oral hospital stay for management of small bowel obstruction. Coding Level of Care Code 10750 Diagnoses Nausea and vomiting, unspecified vomiting type R11.2 Vomiting type: unspecified Diarrhea R19.7 Small bowel obstruction K56.609
[2024-02-21 10:56] LABS: Partial Thromboplastin Time 40.5 SECONDS (23.9-36.7)
--- NOTE | 2024-02-21 11:21 | PC.NURSE ---
Patient up to chair x2 standby assist. Patient tolerated well.
[2024-02-21 11:39] LABS: Glucose Point of Care 102 mg/dL (70-110)
[2024-02-21] MEDS: heparin 5,000 unit/mL INJ 1 mL IV (11:43)
[2024-02-21] MEDS: vancomycin 750 MG in sodium chloride 0.9% 250 ML 250 MG IV (13:05)
--- NOTE | 2024-02-21 13:10 | PC.NURSE ---
patient requesting to have her allergy medicines to prevent her runny nose . Informed Dr Plascencia and received orders to continue Patient Zyrtec and Singular home dosing. RBVO
--- NOTE | 2024-02-21 13:21 | PC.NURSE ---
IV tubing fell out of heparin. Lost approximately 100ml before reattaching.
[2024-02-21] MEDS: montelukast sodium 10 mg Tablet PO (13:34)
[2024-02-21] MEDS: cetirizine 10 mg Tablet PO (13:34)
--- NOTE | 2024-02-21 14:13 | PM.MISC ---
Miscellaneous Note Purpose of Documentation: Update on patient care Note: Patient was evaluated this afternoon, abdomen is soft, nontender, remain clamped for the majority of the day as patient has been out of bed to the chair. Has not been able to ambulate yet. Plan is to unclamp the tube and connected back to the suction once the patient goes back to the bed. Tomorrow we will proceed with a Gastrografin trial. I have encouraged the patient to ambulate tomorrow with physical therapy. She agrees.
--- NOTE | 2024-02-21 16:00 | PC.NURSE ---
Assisted patient back to bed. Suction re-initiated to NG tube per Dr Flaherty. Patient tolerating all well. Will continue to monitor.
[2024-02-21 17:03] LABS: Glucose Point of Care 123 mg/dL (70-110)
[2024-02-21] MEDS: heparin drip 25,000 UNIT/500 ML PREMIX 30 UNIT IV (17:29)
--- NOTE | 2024-02-21 17:31 | PM.PN ---
Subjective Subjective: patient was seen this the [facility], she denies lightheadedness, no dizzyness, NG tube in, discussed results of tagged wbc, mild left foot uptake, she denies any pain, no swelling, no erythema Vitals/I&O/Wt Last Vital Signs Temp 98.3 F 02/21/24 16:00 Pulse 84 02/21/24 16:00 Resp 20 H 02/21/24 16:00 BP 127/65 02/21/24 16:00 Pulse Ox 98 02/21/24 11:20 O2 Del Method Room Air 02/21/24 11:20 O2 Flow Rate 1 02/20/24 07:37 02/21/24 02/21/24 02/21/24 06:59 14:59 22:59 Intake Total 835.933 / 1546.633 548.267 / 548.267 Output Total 1500 / 2350 300 / 300 Balance -664.067 / -803.367 248.267 / 248.267 Weight last 48 hrs Weight 95.878 kg Weight 94.483 kg Physical Exam Const: COMMON NORMALS: no acute distress and patient oriented x3 Resp: COMMON NORMALS: normal respiratory effort, No retractions, No use of accessory muscles and clear to auscultation bilaterally AUSCULTATION: clear to auscultation bilaterally Cardio: COMMON NORMALS: regular rate, regular rhythm, S1 normal heart sound present and S2 normal heart sound present RATE: regular rate RHYTHM: regular rhythm HEART SOUNDS: S1 normal heart sound present and S2 normal heart sound present GI: COMMON NORMALS: non-tender INSPECTION: Yes normal to inspection and Yes abdominal distension AUSCULTATION: Yes Hypoactive bowel sounds present OTHER: nontender abdomen Extremity: COMMON NORMALS: no calf tenderness and no pedal edema Neuro: COMMON NORMALS: patient oriented x3 Psych: COMMON NORMALS: mental status grossly normal Data 02/21/24 03:10 02/21/24 02:50 Micro: Microbiology 02/16/24 10:54 Blood Culture - Final Blood NO GROWTH AFTER 5 DAYS A&P Assessment and plan (1) Hyponatremia: (2) Atrial fibrillation with RVR: (3) History of DVT (deep vein thrombosis): (4) Hyperglycemia: (5) Obesity (BMI 30.0-34.9): (6) Nausea and vomiting: Qualifiers: Vomiting type: unspecified Qualified Code(s): R11.2 - Nausea with vomiting, unspecified (7) Leukocytosis: (8) Metabolic acidosis: (9) Elevated lactic acid level: (10) Diarrhea: (11) Hypomagnesemia: (12) NSTEMI (non-ST elevated myocardial infarction): (13) Sepsis: (14) Food poisoning: (15) Pyelonephritis: (16) UTI (urinary tract infection): (17) Bacteremia due to Staphylococcus epidermidis: (18) Acute encephalopathy: Plan Staph epidermidis bacteremia ? 1 out of 4 blood cultures positive for Staph epidermidis, question is is this a contamination versus a real infection, -MEC a gene detected, highly concerning for MRSA, sensitive to vancomycin ? Patient has a bladder stimulator in place, placed in July 2023, [employer], examination of bladder stimulator does not show any overlying erythema, any pocket of infection or any tenderness ? She does receive epidural spinal injections, thorough back exam does not show any significant point tenderness no erythema ? Has a left knee replacement, no significant erythema, swelling or tenderness ? Right ankle no significant erythema, swelling, tenderness, she has received steroid injections in the past ? Thorough skin exam does not show any evidence of skin breakdown ? On admission had concerns for a UTI, with positive nitrates in the urine, urine cultures were negative so far ? Repeat urine cultures negative so far ? With her leukocytosis persistent at 34,000 CRP over 500, Pro-Nehemiah over 6, sed rate over 60 ? CT cervical/thoracic/lumbar spine does not show any significant radiographic evidence of vertebral osteomyelitis, discitis or epidural abscess ? CT of the chest no pneumonia ? CT abdomen pelvis no underlying abscess, or evidence of infection ? Will continue to monitor inflammatory markers -Follow repeat cultures ? hep C, HIV ? Tick panel, ? Tagged white blood cell scan mild left ankle uptake, will do xray ? Currently on vancomycin bowel obstruction Is currently abdominal exam no guarding, no rebound, rigidity, is soft, scattered bowel sounds ? Keep n.p.o. ? IV fluids, replace potassium - CT scan abdomen pelvis with oral contrast -General surgery consulted Fluid overload, shortness of breath ? Fluids have been held, ? Albumin has been held, A-fib with RVR ? New onset, ? p.o. Cardizem, 60 every 6 ?Switch to heparin drip ? Replace magnesium Hyponatremia, 123-->129 ? BNP over 1999 ?Neurochecks, aspiration precautions, seizure precautions ? Monitor serum sodium every 4 hours ago ? Fluids on hold ? Will continue to monitor acute encephalopathy, resolved -hyponatremia, sepsis, bactremia, uti, pyelonephritis -neurocheck, aspiration precautions, NIH, seizure precautions Hypomagnesemia, replaced IV Sepsis Leukocytosis, elevated Pro-Nehemiah, CRP, elevated lactic acid Source, likely UTI, pyelonephritis, Staph epidermidis bacteremia, concerns for source spinal stimulator/receives epidural steroid injections Monitor hemodynamics closely ? Monitor lactic acid UTI, pyelonephritis ? CT scan shows 3. Mild increased stranding and haziness around the LEFT kidney. Similar findings to a lesser extent lower pole RIGHT kidney. Correlate for possible UTI. ? Plan ? UA with evidence of UTI ? urine cultures within normal limits ? Continue vancomycin, Continue meropenem Follow blood cultures Follow cultures Increased anion gap metabolic acidosis, ? Likely secondary to dehydration ? Resolved Elevated lactic acid, recheck lactic acid ? Secondary to sepsis, UTI, pyelonephritis NSTEMI ? No chest pain ? Type I versus type II ? Serial EKGs. Telemetry monitoring, ? Continue heparin drip Food poisoning ? Stool studies History of DVT, ? Continue heparin drip Full code Heparin drip for DVT prophylaxis Patient was seen this morning, Staph epidermidis bacteremia, bowel obstruction Attestations Medical Necessity Statement*: patient requires hospitalization for sbo, bacteremia Diagnoses Hyponatremia E87.1 Atrial fibrillation with RVR I48.91 History of DVT (deep vein thrombosis) Z86.718 Hyperglycemia R73.9 Obesity (BMI 30.0-34.9) E66.9 Nausea and vomiting, unspecified vomiting type R11.2 Vomiting type: unspecified Leukocytosis D72.829 Metabolic acidosis E87.20 Elevated lactic acid level R79.89 Diarrhea R19.7 Hypomagnesemia E83.42 NSTEMI (non-ST elevated myocardial infarction) I21.4 Sepsis A41.9 Food poisoning A05.9 Pyelonephritis N12 UTI (urinary tract infection) N39.0 Bacteremia due to Staphylococcus epidermidis R78.81; B95.7 Acute encephalopathy G93.40
[2024-02-21 19:23] LABS: Partial Thromboplastin Time 113.2 SECONDS (23.9-36.7)
[2024-02-21] MEDS: trazodone 50 mg Tablet PO (20:46)
[2024-02-21] MEDS: morphine 4 mg/mL SDV 1 mL 2 MG IVP (20:49)
[2024-02-21 21:04] LABS: Glucose Point of Care 88 mg/dL (70-110)
[2024-02-21 21:20] LABS: Alanine Aminotransferase 23 U/L (0-33); Albumin Level 2.5 g/dL (3.5-5.2); Alkaline Phosphatase 97 U/L (35-105); Blood Urea Nitrogen 22 mg/dL (8-23); Calcium 7.7 mg/dL (8.5-10.5); Carbon Dioxide 23 mmol/L (22-29); Chloride 100 mmol/L (98-107); Globulin 2.9 g/dL (1.3-4.6); Glucose 90 mg/dL (65-115); Osmolality Calculated 279 mOsm/kg (285-295); Sodium 133 mmol/L (136-145); Total Bilirubin 0.2 mg/dL (0.15-1.2); Total Protein 5.4 g/dL (6.6-8.7)
[2024-02-21 21:22] LABS: Anion Gap 14.1 (5-19); Aspartate Amino Transferase 26 U/L (0-32); Potassium 4.1 mmol/L (3.5-5.1)
[2024-02-22] VITALS (10 sets, daily range): BP systolic 139–168; BP diastolic 68–87; PULSE 75–113; RESP 14–20; TEMP 36.6–37.1; O2SAT 94–95
[2024-02-22] MEDS: dilTIAZem 30 mg Tablet 60 MG PO (01:58)
[2024-02-22] MEDS: cetylpyridinium Lozenge 1 EACH MUCOUS MEM (01:58)
[2024-02-22] MEDS: pantoprazole 40 mg SDV IVP ×2 (01:59→15:06)
[2024-02-22 02:25] LABS: Basophils # 0.1 10^3/uL (0.0-0.1); Basophils % 0.4 %; Hematocrit 30.1 % (36-47); Lymphocytes # 1.4 10^3/uL (0.8-4.8); Lymphocytes % 5.7 %; Mean Corpuscular HGB Conc 33.6 g/dL (30-55); Mean Corpuscular Hemoglobin 26.9 pg (27-33); Mean Corpuscular Volume 80.3 fl (85-98); Mean Platelet Volume 10.2 fL (7.4-10.4); Monocytes # 1.9 10^3/uL (0.2-0.9); Monocytes % 7.7 %; Neutrophils # 19.78 10^3/uL (1.8-7.7); Neutrophils % 80.7 %; Nucleated Red Blood Cells % 0 %; Platelet Count 302 10^3/cmm (157-399); Red Blood Count 3.75 10^6/uL (3.85-5.65); White Blood Count 24.51 10^3/uL (3.29-11.43)
[2024-02-22 02:44] LABS: C Reactive Protein 148.4 mg/L (0.0-4.9); Magnesium 2.1 mg/dL (1.7-2.3); Phosphorus 2.4 mg/dL (2.5-4.5)
[2024-02-22 02:45] LABS: Alanine Aminotransferase 22 U/L (0-33); Albumin Level 2.3 g/dL (3.5-5.2); Alkaline Phosphatase 93 U/L (35-105); Aspartate Amino Transferase 23 U/L (0-32); Blood Urea Nitrogen 22 mg/dL (8-23); Calcium 7.9 mg/dL (8.5-10.5); Carbon Dioxide 24 mmol/L (22-29); Chloride 98 mmol/L (98-107); Globulin 2.5 g/dL (1.3-4.6); Glucose 84 mg/dL (65-115); Osmolality Calculated 281 mOsm/kg (285-295); Partial Thromboplastin Time 69.6 SECONDS (23.9-36.7); Sodium 134 mmol/L (136-145); Total Bilirubin 0.3 mg/dL (0.15-1.2); Total Protein 4.8 g/dL (6.6-8.7)
[2024-02-22 02:46] LABS: Anion Gap 16.1 (5-19); Potassium 4.1 mmol/L (3.5-5.1)
[2024-02-22 02:56] LABS: NT Pro B Type Natriuretic Pept 2632 pg/mL (0-450); Procalcitonin 0.88 ng/mL (0-0.5)
[2024-02-22 07:05] LABS: Glucose Point of Care 90 mg/dL (70-110)
--- NOTE | 2024-02-22 07:18 | P.PN_ITS ---
Subjective 2 Subjective: doing well Medications: Reviewed: Yes Vitals/I&O/Wt Last Vital Signs Temp 98.7 F 02/22/24 07:04 Pulse 85 02/22/24 07:04 Resp 20 H 02/22/24 07:04 BP 166/78 02/22/24 07:04 Pulse Ox 95 02/22/24 04:00 O2 Del Method Room Air 02/22/24 04:00 O2 Flow Rate 1 02/20/24 07:37 02/21/24 02/22/24 02/22/24 22:59 06:59 14:59 Intake Total 641.5 / 1189.767 Output Total 1150 / 1450 750 / 2200 Balance -508.5 / -260.233 -750 / -1010.233 Weight last 48 hrs Weight 89.494 kg Weight 95.878 kg Physical Exam 2 Narrative: awake , alert no distress S1S2 RRR PER REPORT lUNGS CLEAR PER REPORT NO EDEMA Data 02/23/24 06:15 02/23/24 06:15 Micro: Microbiology 02/16/24 10:54 Blood Culture - Final Blood NO GROWTH AFTER 5 DAYS A&P Assessment and plan (1) Hyponatremia: Plan 1. Hyponatremia: Sodium 127 on presentation worsened to 123 , added IV albumin, check TSH and cortisol levels. Check urine sodium and urine osmolality. Change on the mixing solutions for IV fluids and drips to normal saline instead of D5W. On salt tablets as well. Continue to monitor Na improved to 134 2. Acute kidney injury: Improved to 1.2, creatinine on presentation was 1.8. Likely hypovolemia in the setting of sepsis, pyelonephritis and question small bowel obstruction. 3. High anion gap metabolic acidosis: Bicarb 16 on presentation, likely lactic acidosis in the setting of ELLA, improved to 24 today, 4. Question small bowel obstruction, management per general surgery 5. Pyelonephritis, on meropenem 6. A-fib with RVR . Patient evaluated using audiovisual cart. Time spent 20 minutes. Attestations 2 Medical Necessity Statement*: per sushma Coding Level of Care Code Acute Code for Chg Fwd Diagnoses Hyponatremia E87.1
[2024-02-22] MEDS: meropenem 1,000 MG in sodium chloride 0.9% (plus) 50 ML 100 MG IV ×2 (10:10→20:42)
--- NOTE | 2024-02-22 10:21 | P.PN_ITS ---
Subjective 2 Subjective: This is an 83-year-old female who is admitted with sepsis and was found to have small bowel obstruction in a recent CT scan of the abdomen pelvis. Patient has been stable over the last 24 hours but complains that he feels a little bit more bloated. NG tube has continued to be in place, but remains with moderately high output of bilious fluid. She has had about 400 cc over the last 12 hours. Vitals/I&O/Wt Last Vital Signs Temp 98.7 F 02/22/24 07:04 Pulse 78 02/22/24 08:34 Resp 18 02/22/24 08:34 BP 166/78 02/22/24 07:04 Pulse Ox 95 02/22/24 08:34 O2 Del Method Room Air 02/22/24 08:34 O2 Flow Rate 1 02/20/24 07:37 02/21/24 02/22/24 02/22/24 22:59 06:59 14:59 Intake Total 641.5 / 1189.767 Output Total 1150 / 1450 750 / 2200 Balance -508.5 / -260.233 -750 / -1010.233 Weight last 48 hrs Weight 197 lb 4.8 oz Weight 211 lb 6 oz Physical Exam 2 GI: OTHER: Abdomen is soft, minimally tender in the right lower quadrant, minimally distended, there are some bowel sounds hypoactive but present. Data 02/22/24 02:15 02/22/24 02:15 Micro: Microbiology 02/16/24 10:54 Blood Culture - Final Blood NO GROWTH AFTER 5 DAYS A&P Assessment and plan (1) Small bowel obstruction: Plan After complete history, physical examination and review of all available clinical data the following is my assessment. Patient appears to be improving from the metabolic standpoint. Her white count has trended down all the way down to 22, her acute kidney injury has resolved and electrolytes are being replaced by medical team. From the GI standpoint she continues to complain of abdominal distention NG tube output has been around 1 L over the last 24 hours. Abdominal exam remains benign, bowel sounds in anything improved from the last examination. Patient has not been ambulating or moving around too much, has not moving out out of bed other than to the chair. I proceeded to administer Gastrografin through the NG tube and NG tube was clamped and we will obtain an x-ray of the abdomen at 4 PM and from there the next 1 tomorrow morning. I have talked to the patient regarding need for ambulation, nursing staff will get the patient out of bed and they will try to ambulate her today. If there is failure to progress of contrast over the last 24 hours I will have to take the patient to the OR for possible exploratory laparoscopy versus [place] laparotomy. Have discussed with the patient that the most likely result of this operation will be progression to exploratory laparotomy and a 60 to 70% chance of requiring bowel resection with ostomy creation, I have explained to the patient that most likely this ostomy will be a definitive procedure due to her age. Patient shows understanding is agreeable to proceed with surgery if the Gastrografin trial fails. All other management per primary team Attestations 2 Medical Necessity Statement*: Patient will require 48 to 72 hours of hospital stay for management of a small bowel obstruction Coding Level of Care Code Acute Code for Chg Fwd Diagnoses Small bowel obstruction K56.609
--- NOTE | 2024-02-22 10:50 | PC.NURSE ---
Addendum entered by Alicia Rodgers RN 02/22/24 11:55: Dr Plascencia was also notifed at 1015. Original Note: Patient not given [address] Bridges. He does not want anything else in her stomach during the gastrgrafin trail.
[2024-02-22 11:38] LABS: Glucose Point of Care 86 mg/dL (70-110)
[2024-02-22 12:56] LABS: Glucose Point of Care 91 mg/dL (70-110)
[2024-02-22] MEDS: vancomycin 750 MG in sodium chloride 0.9% 250 ML 250 MG IV (13:11)
[2024-02-22] MEDS: heparin drip 25,000 UNIT/500 ML PREMIX 24 UNIT IV (15:07)
--- NOTE | 2024-02-22 15:43 | PM.MISC ---
Miscellaneous Note Purpose of Documentation: Patient care evaluate Note: I came to visit the patient is afternoon, she was sleeping, NG tube remains clamped. I discussed with the family members, they stated the patient was able to get to the chair but has not been able to ambulate as she is feeling very Dizzy. Will follow-up with x-rays of the abdomen. No other changes in clinical status as of now
[2024-02-22] MEDS: morphine 4 mg/mL SDV 1 mL 2 MG IVP (15:59)
--- NOTE | 2024-02-22 16:00 | XRR_ITS ---
PROCEDURE INFORMATION: Exam: XR Abdomen Exam date and time: 02/22/2024 4:10 PM Age: 83 years old Clinical indication: Abdominal tenderness and bloating; Prior surgery; Surgery date: 6+ months; Surgery type: Bladder stimulator; Patient HX: Gastrograffin trial for sbo; 100cc gastro through ng-6hr films; Additional info: Gastrografin trial for sbo TECHNIQUE: Imaging protocol: Radiologic exam of the abdomen. Views: 3 or more views. COMPARISON: CR (ABDOMEN, ) 02/21/2024 10:41 AM FINDINGS: Tubes, catheters and devices: A PICC line is seen on the right with tip of the catheter overlying the expected level of the superior vena cava above the right atrium, appearing in good position. A nasogastric tube is seen with tip of the catheter at the expected level of the proximal duodenum within the right abdomen. There is coiling of the distal aspect of the NG tube. A neurostimulator apparatus is seen overlying the pelvis, with history of urinary bladder stimulator. Lungs: No infiltrate or consolidation. Pleural spaces: No pleural effusion or pneumothorax. Heart/Mediastinum: Cardiac size is within normal limits. Gastrointestinal tract: There is some dilution of the Gastrografin contrast has been administered through the NG tube. Gastrografin is seen within dilated small bowel loops along with suggestion of Gastrografin in the right colon. There is presence of mild gas within the rectum distally without Gastrografin within the rectum. Intraperitoneal space: No indication of free air. Bones/joints: Visualized osseous structures show no acute abnormality. XR/XR abdomen 3V [id number] IMPRESSION: 1. Dilution of Gastrografin is seen, along with presence of Gastrografin within multiple dilated small bowel loops and suggestion presence of Gastrografin in the right colon. Findings and appearance suggest incomplete small bowel obstruction. Continued follow-up.
--- NOTE | 2024-02-22 16:01 | P.PN_ITS ---
Subjective 2 Subjective: Patient was seen this morning, afebrile overnight, normotensive, NG tube in place, output is about 200 mL of bilious output, she does report weakness her abdomen is more distended, slight abdominal pain, not passing gas, no fevers, no chills, we discussed her white blood cell count trending downward, both her CRP Pro-Nehemiah is trending downwards Vitals/I&O/Wt Last Vital Signs Temp 97.9 F 02/22/24 11:04 Pulse 103 H 02/22/24 11:04 Resp 20 H 02/22/24 15:59 BP 163/75 02/22/24 11:04 Pulse Ox 95 02/22/24 15:59 O2 Del Method Room Air 02/22/24 08:34 O2 Flow Rate 1 02/20/24 07:37 02/22/24 02/22/24 02/22/24 06:59 14:59 22:59 Intake Total 483 / 483 Output Total 750 / 2200 Balance -750 / -1010.233 483 / 483 Weight last 48 hrs Weight 89.494 kg Weight 95.878 kg Physical Exam 2 Const: COMMON NORMALS: no acute distress and patient oriented x3 Resp: COMMON NORMALS: normal respiratory effort, No retractions, No use of accessory muscles and clear to auscultation bilaterally AUSCULTATION: clear to auscultation bilaterally Cardio: COMMON NORMALS: regular rhythm, S1 normal heart sound present and S2 normal heart sound present RATE: tachycardic RHYTHM: regular rhythm H EART SOUNDS: S1 normal heart sound present and S2 normal heart sound present GI: OTHER: Abdomen soft, distended, scattered bowel sounds, no guarding, no rebound, rigidity Extremity: COMMON NORMALS: no pedal edema Neuro: COMMON NORMALS: patient oriented x3 Psych: COMMON NORMALS: mental status grossly normal Data 02/22/24 02:15 02/22/24 02:15 Micro: Microbiology 02/17/24 13:55 Blood Culture - Final Blood NO GROWTH AFTER 5 DAYS 02/17/24 13:40 Blood Culture - Final Blood NO GROWTH AFTER 5 DAYS 02/16/24 10:54 Blood Culture - Final Blood NO GROWTH AFTER 5 DAYS A&P Assessment and plan (1) Hyponatremia: (2) Atrial fibrillation with RVR: (3) History of DVT (deep vein thrombosis): (4) Hyperglycemia: (5) Obesity (BMI 30.0-34.9): (6) Nausea and vomiting: Qualifiers: Vomiting type: unspecified Qualified Code(s): R11.2 - Nausea with vomiting, unspecified (7) Leukocytosis: (8) Metabolic acidosis: (9) Elevated lactic acid level: (10) Diarrhea: (11) Hypomagnesemia: (12) NSTEMI (non-ST elevated myocardial infarction): (13) Sepsis: (14) Food poisoning: (15) Pyelonephritis: (16) UTI (urinary tract infection): (17) Bacteremia due to Staphylococcus epidermidis: (18) Acute encephalopathy: Plan Staph epidermidis bacteremia, source unclear ? 1 out of 4 blood cultures positive for Staph epidermidis, question is is this a contamination versus a real infection, -MEC a gene detected, highly concerning for MRSA, sensitive to vancomycin -Repeat blood cultures negative so far ? Patient has a bladder stimulator in place, placed in July 2023, ICAgen, examination of bladder stimulator does not show any overlying erythema, any pocket of infection or any tenderness ? She does receive epidural spinal injections, thorough back exam does not show any significant point tenderness no erythema ? Has a left knee replacement, no significant erythema, swelling or tenderness ? Right ankle no significant erythema, swelling, tenderness, she has received steroid injections in the past ? Thorough skin exam does not show any evidence of skin breakdown ? On admission had concerns for a UTI, with positive nitrates in the urine, urine cultures were negative so far ? Repeat urine cultures negative so far ? CT cervical/thoracic/lumbar spine does not show any significant radiographic evidence of vertebral osteomyelitis, discitis or epidural abscess ? CT of the chest no pneumonia ? CT abdomen pelvis no underlying abscess, or evidence of infection ? hep C, HIV negative ? Tick panel, pending ? Tagged white blood cell scan mild left ankle uptake, will do xray, nothing acute, nothing acute on physical exam ? Discussed with infectious disease at [facility], about the case, they recommended that antibiotic should be stopped after about 7 days, based on clinical progress, track of white blood cell count/CRP/procalcitonin. I had extensive discussion with patient, given that she has artificial hardware, there is always a risk of seeding infection if indeed this was a real infection although it seems like it is a contamination. I gave her the offer of 1 week versus an extended course of antibiotics such as 6 weeks, she prefers more an extended course of antibiotics such as 6 weeks. I discussed the risks and benefits, she voiced understanding, all questions answered, agreed to proceed, PICC line is already in place, will have to arrange IV antibiotics on discharge ? Currently on IV vancomycin ? Is on p.o. vancomycin for possible Cdiff, will continue until stool culture negative -Currently on day 6 of 7 of IV meropenem for UTI/ Pyelonephritis, stop antibiotics tomorrow small bowel obstruction CT/CT abdomen pelvis wo con [id number] IMPRESSION: 1. Small bowel obstruction, favored to be partial. Oral contrast has not reached the region of tapering of the small bowel in the right lower quadrant at the time of the exam. Consider serial KUBs to evaluate for progression of contrast. Is currently abdominal exam no guarding, no rebound, rigidity, is soft, scattered bowel sounds ? Keep n.p.o. ? IV fluids tonight - NG tube in -General surgery consulted -possible surgery tommorow Fluid overload, shortness of breath ? Fluids have been held, ? Albumin has been held, A-fib with RVR ? New onset, ? p.o. Cardizem, 60 every 6 ? heparin drip ? Replace magnesium Hyponatremia, 123-->129 ? BNP over 1999 ?Neurochecks, aspiration precautions, seizure precautions ? Monitor serum sodium every 4 hours ago ? Fluids on hold ? Will continue to monitor acute encephalopathy, resolved -hyponatremia, sepsis, bactremia, uti, pyelonephritis -neurocheck, aspiration precautions, NIH, seizure precautions Hypomagnesemia, replaced IV Sepsis Leukocytosis, elevated Pro-Nehemiah, CRP, elevated lactic acid Source, likely UTI, pyelonephritis, Staph epidermidis bacteremia, concerns for source spinal stimulator/receives epidural steroid injections Monitor hemodynamics closely ? Monitor lactic acid UTI, pyelonephritis ? CT scan shows 3. Mild increased stranding and haziness around the LEFT kidney. Similar findings to a lesser extent lower pole RIGHT kidney. ? Plan ? UA with evidence of UTI ? urine cultures within normal limits ? Continue vancomycin, Continue meropenem day 6/7 Follow blood cultures Follow cultures Increased anion gap metabolic acidosis, ? Likely secondary to dehydration ? Resolved Elevated lactic acid, recheck lactic acid ? Secondary to sepsis, UTI, pyelonephritis NSTEMI ? No chest pain ? Type I versus type II ? Serial EKGs. Telemetry monitoring, ? Continue heparin drip Food poisoning ? Stool studies History of DVT, ? Continue heparin drip Full code Heparin drip for DVT prophylaxis Plan for today serial abdominal exams, general surgery consultation will consider surgery based on clinical progress for persistent bowel obstruction, start IV fluids tonight, monitor heart rates, Gastrografin study, Staph epidermidis bacteremia continue vancomycin, meropenem for UTI Attestations 2 Medical Necessity Statement*: Patient requires hospitalization for Staph epidermidis bacteremia, leukocytosis, A-fib, bowel obstruction Diagnoses Hyponatremia E87.1 Atrial fibrillation with RVR I48.91 History of DVT (deep vein thrombosis) Z86.718 Hyperglycemia R73.9 Obesity (BMI 30.0-34.9) E66.9 Nausea and vomiting, unspecified vomiting type R11.2 Vomiting type: unspecified Leukocytosis D72.829 Metabolic acidosis E87.20 Elevated lactic acid level R79.89 Diarrhea R19.7 Hypomagnesemia E83.42 NSTEMI (non-ST elevated myocardial infarction) I21.4 Sepsis A41.9 Food poisoning A05.9 Pyelonephritis N12 UTI (urinary tract infection) N39.0 Bacteremia due to Staphylococcus epidermidis R78.81; B95.7 Acute encephalopathy G93.40
[2024-02-22 16:15] LABS: Partial Thromboplastin Time 49.7 SECONDS (23.9-36.7)
[2024-02-22 17:09] LABS: Glucose Point of Care 86 mg/dL (70-110)
--- NOTE | 2024-02-22 18:17 | XRR_ITS ---
PROCEDURE INFORMATION: Exam: XR Abdomen Exam date and time: 02/22/2024 6:30 PM Age: 83 years old Clinical indication: Device placement; Gi device; Nasogastric tube; Patient HX: Ng tube adjustment TECHNIQUE: Imaging protocol: Radiologic exam of the abdomen. Views: Frontal supine view of the abdomen. 1 View. COMPARISON: CR (ABDOMEN, ) 02/22/2024 4:10 PM FINDINGS: Tubes, catheters and devices: Nasogastric tube has been adjusted since previous exam, with tip of the catheter at the expected level of the mid to distal stomach, just to the right of midline at the L1-L2 level. No coiling or kinking of the catheter as seen with previous exam. Gastrointestinal tract: Visualized mid to upper abdomen demonstrates dilated small bowel with component of Gastrografin opacification, along with suggestion of Gastrografin opacification laterally at the expected level of the right colon. Intraperitoneal space: No indication of free air. Bones/joints: Unremarkable. Soft tissues: Lower chest shows no acute findings. The pelvis was not included with this exam, which was for NG tube adjustment. XR/XR abdomen 1V* [id number] IMPRESSION: NG tube appears in good position at the expected level of the mid to distal stomach without coiling or kinking.
--- NOTE | 2024-02-22 18:18 | PC.NURSE ---
Provider moved NG tube and ordered an abdominal x ray for placement.
--- NOTE | 2024-02-22 18:30 | PC.NURSE ---
Provider ordered to restart her PO medications, patient can have a small amount of ice chips, keep the NG tube clamped until about 10 p.m. and then intermit. suction.
--- NOTE | 2024-02-22 18:31 | P.MISC_ITS ---
Miscellaneous Note Purpose of Documentation: Update on patient care Note: Evaluated patient this afternoon, she continues to feel very weak and dizzy, Gastrografin trial was done and first x-ray was done at 4 PM. This x-ray showed evidence of progression of the Gastrografin to the distal small bowel and a suggestion of possible contrast in the right colon. The loops of bowel remain distended. The NG tube was noted in the duodenum. I discussed this findings with the patient and family members at the bedside, the NG tube was retracted to 20 cm and the new x-rays show evidence of the tip of the NG tube at the level of the stomach. I have explained to the patient that we will obtain another x-ray in the morning. If indeed there is progression of the contrast to the level of the colon we will remove NG tube and proceed with clear liquid diet and adva ncement as tolerated. If there is no progression of the contrast next step will be to offer the patient surgery. She shows understanding.
--- NOTE | 2024-02-22 18:44 | PC.NURSE ---
Provider ordered Cardizem 60mg PO and then again at bedtime, now that she can have PO meds.
[2024-02-22] MEDS: gabapentin 300 mg Capsule PO (19:06)
[2024-02-22] MEDS: sodium chloride 1 gm Tablet PO (19:07)
[2024-02-22] MEDS: dilTIAZem 60 mg Tablet PO (19:07)
[2024-02-22] MEDS: vancomycin 125 mg Capsule PO (19:07)
[2024-02-22] MEDS: sodium chloride 0.9% 1,000 ML 50 ML IV (19:08)
[2024-02-22 20:27] LABS: Glucose Point of Care 94 mg/dL (70-110)
[2024-02-22] MEDS: trazodone 50 mg Tablet PO (20:41)
[2024-02-22 23:46] LABS: Partial Thromboplastin Time 50.5 SECONDS (23.9-36.7)
[2024-02-22 23:56] LABS: C.Diff PCR (Lab) NEGATIVE (Negative)
[2024-02-23] VITALS (12 sets, daily range): BP systolic 117–169; BP diastolic 61–108; PULSE 71–101; RESP 13–22; TEMP 36.3–37.3; O2SAT 92–95
[2024-02-23] MEDS: dilTIAZem 30 mg Tablet 60 MG PO ×4 (00:07→18:15)
[2024-02-23] MEDS: heparin 5,000 unit/mL INJ 1 mL IV (00:08)
[2024-02-23] MEDS: pantoprazole 40 mg SDV IVP ×2 (02:26→15:55)
[2024-02-23 06:29] LABS: Hematocrit 32.4 % (36-47); Mean Corpuscular HGB Conc 32.7 g/dL (30-55); Mean Corpuscular Hemoglobin 26.5 pg (27-33); Mean Platelet Volume 9.7 fL (7.4-10.4); Platelet Count 349 10^3/cmm (157-399); Red Cell Distribution Width 15.2 % (12.1-15.1); White Blood Count 22.71 10^3/uL (3.29-11.43)
--- NOTE | 2024-02-23 06:42 | XR_ITS ---
WS: [id number] XR abdomen 1V* [id number] REASON FOR EXAM: Follow up gastrografin FINDINGS: Moderate gastric distention. Multiple dilated loops of small bowel. No free air or retroperitoneal air. There is contrast opacification of the rectum with the previously administered Gastrografin. IMPRESSION: The multiple dilated small bowel loops indicate distal small bowel obstruction which is incomplete as orally administered contrast has reached the rectum.
[2024-02-23 06:46] LABS: Glucose Point of Care 101 mg/dL (70-110)
[2024-02-23 06:47] LABS: Partial Thromboplastin Time 88.6 SECONDS (23.9-36.7)
[2024-02-23 06:52] LABS: NT Pro B Type Natriuretic Pept 1827 pg/mL (0-450); Procalcitonin 0.48 ng/mL (0-0.5)
--- NOTE | 2024-02-23 06:52 | P.PN_ITS ---
Subjective 2 Subjective: 83-year-old female who is known to my se rvice for a partial small bowel obstruction. Over the last 24 hours patient has shown very good progression. She had 4-5 bowel movements overnight and is feeling much better. Vitals/I&O/Wt Last Vital Signs Temp 97.5 F L 02/23/24 04:00 Pulse 100 02/23/24 05:40 Resp 15 02/23/24 04:00 BP 138/61 02/23/24 04:00 Pulse Ox 94 02/22/24 20:59 O2 Del Method Room Air 02/22/24 20:59 O2 Flow Rate 1 02/20/24 07:37 02/22/24 02/22/24 02/23/24 14:59 22:59 06:59 Intake Total 483 / 483 352.8 / 835.8 178.533 / 1014.333 Output Total 1000 / 1000 500 / 1500 Balance 483 / 483 -647.2 / -164.2 -321.467 / -485.667 Weight last 48 hrs Weight 200 lb Weight 197 lb 4.8 oz Physical Exam 2 GI: OTHER: Abdomen is soft, nontender, minimally distended. Data 02/22/24 02:15 02/22/24 02:15 Micro: Microbiology 02/22/24 20:45 Stool Lactoferrin - Final Stool Occult Blood (FIT) - Final 02/17/24 13:55 Blood Culture - Final Blood NO GROWTH AFTER 5 DAYS 02/17/24 13:40 Blood Culture - Final Blood NO GROWTH AFTER 5 DAYS A&P Assessment and plan (1) Small bowel obstruction: Plan Patient has had multiple bowel movements after Gastrografin trial, indicating resolution of possible small bowel obstruction. An x-ray will be obtained this morning to verify complete passage of the contrast from the GI tract. NG tube was removed this morning. Patient Can be initiated on clear liquid diet and advance to low residue GI diet as tolerated. Patient should be on a very aggressive bowel regimen with MiraLAX twice a day. Patient will require aggressive physical therapy ambulation and mobilization as appears to be very deconditioned. In the case of recurrent symptoms consider a CT scan of the abdomen and pelvis with contrast for better delineation of the anatomy. -Resolving partial SBO, patient has had multiple bowel movements ? X-ray this morning, ? NG tube removed ? Clear liquid diet and advance to GI soft as tolerated ? Aggressive bowel movement regimen with MiraLAX twice a day ? Aggressive physical therapy, patient is very deconditioned. Attestations 2 Medical Necessity Statement*: Per medical team Coding Level of Care Code Acute Code for Chg Fwd Diagnoses Small bowel obstruction K56.609
[2024-02-23 06:54] LABS: C Reactive Protein 156.9 mg/L (0.0-4.9); Magnesium 1.9 mg/dL (1.7-2.3); Phosphorus 2.5 mg/dL (2.5-4.5)
[2024-02-23 07:02] LABS: Anion Gap 17.6 (5-19); Blood Urea Nitrogen 22 mg/dL (8-23); Calcium 8.3 mg/dL (8.5-10.5); Carbon Dioxide 21 mmol/L (22-29); Chloride 101 mmol/L (98-107); Creatinine Clr Calc Pharmacy 59.4498; Glucose 89 mg/dL (65-115); Osmolality Calculated 285 mOsm/kg (285-295); Potassium 3.6 mmol/L (3.5-5.1); Sodium 136 mmol/L (136-145)
[2024-02-23 07:16] LABS: Slide Review Slide Review Perform
[2024-02-23 07:19] LABS: Absolute Neutrophil 19.1 10^3/cmm (1.4-6.5); Absolute Segmented Neutrophil 16.4 10/cmm (1.6-7.1); Band Neutrophils Absolute 2.7 10^3/cmm (0.0-1.2); Hypochromasia 1+; Lymphocytes 8 %; Monocytes Absolute 0.7 10^3/cmm (0.1-0.6); Platelet Estimate Normal (Normal); Segmented Neutrophils 72 %; Total Cells Counted 100 (0-100)
[2024-02-23 07:20] LABS: Eosinophils 0 %; Lymphocytes Absolute 1.8 10^3/cmm (1.2-3.4)
[2024-02-23] MEDS: gabapentin 300 mg Capsule PO ×2 (08:50→18:15)
[2024-02-23] MEDS: sodium chloride 1 gm Tablet PO (08:50)
[2024-02-23] MEDS: montelukast sodium 10 mg Tablet PO (08:51)
[2024-02-23] MEDS: meropenem 1,000 MG in sodium chloride 0.9% (plus) 50 ML 100 MG IV (08:51)
[2024-02-23] MEDS: vancomycin 125 mg Capsule PO (08:51)
[2024-02-23] MEDS: atorvastatin 40 mg Tablet 20 MG PO (08:51)
--- NOTE | 2024-02-23 08:59 | P.PN_ITS ---
Subjective 2 Subjective: as nausea Medications: Reviewed: Yes Vitals/I&O/Wt Last Vital Signs Temp 97.7 F 02/23/24 08:40 Pulse 97 02/23/24 08:40 Resp 17 02/23/24 08:40 BP 140/64 02/23/24 08:40 Pulse Ox 94 02/23/24 08:30 O2 Del Method Room Air 02/23/24 08:30 O2 Flow Rate 1 02/20/24 07:37 02/22/24 02/23/24 02/23/24 22:59 06:59 14:59 Intake Total 352.8 / 835.8 178.533 / 1014.333 198.333 / 198.333 Output Total 1000 / 1000 500 / 1500 Balance -647.2 / -164.2 -321.467 / -485.667 198.333 / 198.333 Weight last 48 hrs Weight 90.718 kg Weight 89.494 kg Physical Exam 2 Narrative: awake , alert no distress S1S2 RRR PER REPORT lUNGS CLEAR PER REPORT NO EDEMA Data 02/24/24 03:00 02/24/24 03:00 Micro: Microbiology 02/22/24 20:45 Stool Lactoferrin - Final Stool Occult Blood (FIT) - Final 02/17/24 13:55 Blood Culture - Final Blood NO GROWTH AFTER 5 DAYS 02/17/24 13:40 Blood Culture - Final Blood NO GROWTH AFTER 5 DAYS A&P Assessment and plan (1) Hyponatremia: Plan 1. Hyponatremia: Sodium 127 on presentation worsened to 123 , added IV albumin, check TSH and cortisol levels. Check urine sodium and urine osmolality. Change on the mixing solutions for IV fluids and drips to normal saline instead of D5W. On salt tablets as well. Continue to monitor Na improved to 136 2. Acute kidney injury: Improved to 1.2, creatinine on presentation was 1.8. Likely hypovolemia in the setting of sepsis, pyelonephritis and question small bowel obstruction. 3. High anion gap metabolic acidosis: Bicarb 16 on presentation, likely lactic acidosis in the setting of ELLA, improved to 24 today, 4. Question small bowel obstruction, management per general surgery 5. Pyelonephritis, on meropenem 6. A-fib with RVR . Patient evaluated using audiovisual cart. Time spent 20 minutes. Attestations 2 Medical Necessity Statement*: per medicine Coding Level of Care Code Acute Code for Chg Fwd Diagnoses Hyponatremia E87.1
--- NOTE | 2024-02-23 10:14 | PC.SOCIAL ---
IMM Update pg 2 of IMM updated and reviewed w/ patient. Copy provided and copy dated, initialed and placed in chart.
[2024-02-23] MEDS: morphine 4 mg/mL SDV 1 mL 2 MG IVP (10:25)
[2024-02-23] MEDS: heparin drip 25,000 UNIT/500 ML PREMIX 26 UNIT IV (10:27)
--- NOTE | 2024-02-23 11:14 | PM.PN ---
Subjective Subjective: NG tube has been removed, general surgery recommended x-rays of the abdomen,Contrast has reached the rectum, incomplete bowel obstruction Patient is in complaint of abdominal pain 06/05, abdominal distention she has had multiple bowel movements overnight I have asked nurse to remove Alcantara catheter Vitals/I&O/Wt Last Vital Signs Temp 97.7 F 02/23/24 08:40 Pulse 97 02/23/24 08:40 Resp 18 02/23/24 10:25 BP 140/64 02/23/24 08:40 Pulse Ox 94 02/23/24 10:25 O2 Del Method Room Air 02/23/24 08:30 O2 Flow Rate 1 02/20/24 07:37 02/22/24 02/23/24 02/23/24 22:59 06:59 14:59 Intake Total 352.8 / 835.8 178.533 / 1014.333 318.667 / 318.667 Output Total 1000 / 1000 500 / 1500 Balance -647.2 / -164.2 -321.467 / -485.667 318.667 / 318.667 Weight last 48 hrs Weight 90.718 kg Weight 89.494 kg Physical Exam Narrative: Patient is laying supine Abdomen distended, tender on deep palpation Bowel sounds are sluggish Clinically does not look extremely dehydrated Pleasant cooperative Nonfocal neuroexam GCS 15 S1, S2 variable A-fib without RVR Data 02/23/24 06:15 02/23/24 06:15 Micro: Microbiology 02/22/24 20:45 Stool Lactoferrin - Final Stool Occult Blood (FIT) - Final 02/17/24 13:55 Blood Culture - Final Blood NO GROWTH AFTER 5 DAYS 02/17/24 13:40 Blood Culture - Final Blood NO GROWTH AFTER 5 DAYS A&P Assessment and plan (1) Hyponatremia: (2) Atrial fibrillation with RVR: (3) Nausea and vomiting: Qualifiers: Vomiting type: unspecified Qualified Code(s): R11.2 - Nausea with vomiting, unspecified (4) Small bowel obstruction: (5) Pyelonephritis: (6) Bacteremia due to Staphylococcus epidermidis: (7) Acute encephalopathy: (8) JORDEN (obstructive sleep apnea): (9) Metabolic acidosis: Plan Staph epidermidis bacterial contamination Leukocytosis trending down with vancomycin White count scan did not show any hardware infection Plan to continue 6 weeks of IV antibiotics Will do 5 more weeks of antibiotics after discharge Patient will need senior living placement, PICC line has been placed Small bowel obstruction: Gastrografin study showed diet in the rectum, incomplete bowel obstruction, patient's inguinal pain, distention, will follow with general surgery recommendations No plan of surgery as of yet A-fib without RVR Continue Cardizem New onset I will keep patient on heparin drip until we are sure that there is no indication for laparotomy Metabolic encephalopathy related to pyelonephritis/UTI: Resolved Sepsis: Resolved Hyponatremia: Resolved it was related to hypovolemia appreciate nephro recommendations UTI/pyelonephritis: Discontinue meropenem today finish 7 days Cultures negative Pyelonephritis signs improved Lactic acidemia related to sepsis metabolic acidosis: Improved Non-STEMI: Type II FL Nausea vomiting on admission likely gastroenteritis Full code Disposition: intermediate placement likely when she is able to eat and bowel obstruction signs improved Case management notified to look for senior living Family meeting conducted today as well Attestations Medical Necessity Statement*: Continue medical management Diagnoses Hyponatremia E87.1 Atrial fibrillation with RVR I48.91 Nausea and vomiting, unspecified vomiting type R11.2 Vomiting type: unspecified Small bowel obstruction K56.609 Pyelonephritis N12 Bacteremia due to Staphylococcus epidermidis R78.81; B95.7 Acute encephalopathy G93.40 JORDEN (obstructive sleep apnea) G47.33 Metabolic acidosis E87.20
--- NOTE | 2024-02-23 11:30 | PC.NURSE ---
Provider is notified that patient is requested something for her chronic dry eyes. Provider gave order. Order entered.
[2024-02-23] MEDS: artificial tears Op Soln 15 mL Btl 1 DROP EYE-BOTH ×2 (11:41→18:14)
[2024-02-23 12:22] LABS: Vancomycin Trough 7.3 ug/mL (10-15)
[2024-02-23 12:30] LABS: Glucose Point of Care 179 mg/dL (70-110)
[2024-02-23] MEDS: vancomycin 1,000 MG in sodium chloride 0.9% 250 ML 250 MG IV (13:16)
[2024-02-23 17:27] LABS: Glucose Point of Care 158 mg/dL (70-110)
[2024-02-23 18:15] LABS: Fungitell 1-3-B Glucan Assay 151 pg/mL; Interpretation POSITIVE
[2024-02-23 21:05] LABS: Glucose Point of Care 186 mg/dL (70-110)
[2024-02-23] MEDS: enoxaparin 100 mg/mL Syringe 90 MG SUBCUT (21:29)
[2024-02-23] MEDS: trazodone 50 mg Tablet PO (21:29)
[2024-02-24] VITALS (9 sets, daily range): BP systolic 101–125; BP diastolic 48–84; PULSE 74–87; RESP 15–20; TEMP 36.6–37.2; O2SAT 93–100
[2024-02-24] MEDS: dilTIAZem 30 mg Tablet 60 MG PO ×4 (01:32→18:03)
[2024-02-24] MEDS: pantoprazole 40 mg SDV IVP ×2 (01:32→16:07)
[2024-02-24 03:38] LABS: Basophils # 0.1 10^3/uL (0.0-0.1); Basophils % 0.5 %; Eosinophils # 0.1 10^3/uL (0.0-0.8); Eosinophils % 0.8 %; Hematocrit 32.2 % (36-47); Lymphocytes # 1.7 10^3/uL (0.8-4.8); Lymphocytes % 9.7 %; Mean Corpuscular HGB Conc 32.6 g/dL (30-55); Mean Corpuscular Hemoglobin 26.7 pg (27-33); Mean Corpuscular Volume 81.9 fl (85-98); Mean Platelet Volume 9.9 fL (7.4-10.4); Monocytes # 1.1 10^3/uL (0.2-0.9); Monocytes % 6.6 %; Neutrophils # 12.41 10^3/uL (1.8-7.7); Nucleated Red Blood Cells % 0 %; Platelet Count 380 10^3/cmm (157-399); Red Blood Count 3.93 10^6/uL (3.85-5.65); Red Cell Distribution Width 15.3 % (12.1-15.1); White Blood Count 17.24 10^3/uL (3.29-11.43)
[2024-02-24 04:01] LABS: C Reactive Protein 129.5 mg/L (0.0-4.9); Magnesium 1.8 mg/dL (1.7-2.3); Phosphorus 2.5 mg/dL (2.5-4.5)
[2024-02-24 04:03] LABS: Anion Gap 11.2 (5-19); Blood Urea Nitrogen 16 mg/dL (8-23); Carbon Dioxide 26 mmol/L (22-29); Chloride 101 mmol/L (98-107); Creatinine Clr Calc Pharmacy 59.4498; Glucose 114 mg/dL (65-115); Osmolality Calculated 282 mOsm/kg (285-295); Potassium 3.2 mmol/L (3.5-5.1); Sodium 135 mmol/L (136-145)
[2024-02-24 04:07] LABS: NT Pro B Type Natriuretic Pept 1214 pg/mL (0-450); Procalcitonin 0.42 ng/mL (0-0.5)
[2024-02-24 04:28] LABS: Slide Review Slide Review Perform
[2024-02-24 06:27] LABS: Glucose Point of Care 104 mg/dL (70-110)
--- NOTE | 2024-02-24 08:26 | P.PN_ITS ---
Subjective 2 Subjective: no new complaints Medications: Reviewed: Yes Vitals/I&O/Wt Last Vital Signs Temp 98.9 F 02/24/24 07:13 Pulse 84 02/24/24 07:13 Resp 16 02/24/24 07:13 BP 125/84 02/24/24 07:13 Pulse Ox 99 02/24/24 07:13 O2 Del Method Room Air 02/24/24 07:13 O2 Flow Rate 1 02/20/24 07:37 02/23/24 02/24/24 02/24/24 22:59 06:59 14:59 Intake Total 480 / 1575.900 240 / 1815.900 Output Total 400 / 400 Balance 480 / 1575.900 -160 / 1415.900 Weight last 48 hrs Weight 96.661 kg Weight 90.718 kg Physical Exam 2 Narrative: awake , alert no distress S1S2 RRR PER REPORT lUNGS CLEAR PER REPORT NO EDEMA Data 02/24/24 03:00 02/24/24 03:00 A&P Assessment and plan (1) Hyponatremia: Plan 1. Hyponatremia: Sodium 127 on presentation worsened to 123 , added IV albumin, check TSH and cortisol levels. Check urine sodium and urine osmolality. Change on the mixing solutions for IV fluids and drips to normal saline instead of D5W. On salt tablets as well. Continue to monitor Na improved to 135 2. Acute kidney injury: Improved to 1.2, creatinine on presentation was 1.8. Likely hypovolemia in the setting of sepsis, pyelonephritis and question small bowel obstruction. 3. High anion gap metabolic acidosis: Bicarb 16 on presentation, likely lactic acidosis in the setting of ELLA, improved 4. small bowel obstruction, management per general surgery 5. Pyelonephritis, on meropenem 6. A-fib with RVR 7. hypokalemia , replete . Patient evaluated using audiovisual cart. Time spent 20 minutes. Attestations 2 Medical Necessity Statement*: per sushma Coding Level of Care Code Acute Code for Chg Fwd Diagnoses Hyponatremia E87.1
[2024-02-24] MEDS: enoxaparin 100 mg/mL Syringe 90 MG SUBCUT ×2 (09:42→20:34)
[2024-02-24] MEDS: atorvastatin 40 mg Tablet 20 MG PO (09:42)
[2024-02-24] MEDS: gabapentin 300 mg Capsule PO ×2 (09:43→18:03)
[2024-02-24] MEDS: artificial tears Op Soln 15 mL Btl 1 DROP EYE-BOTH ×2 (09:43→18:00)
[2024-02-24] MEDS: montelukast sodium 10 mg Tablet PO (09:43)
--- NOTE | 2024-02-24 09:45 | PM.PN ---
Subjective Subjective: No fever Patient has had multiple bowel movements Urine output has improved as well after removing Alcantara catheter Patient is still complaining abdominal pain however 04/05 No active nausea vomiting White count trending down Plan to discharge her by tomorrow Likely her diet will be advanced waiting for general surgery recommendation Vitals/I&O/Wt Last Vital Signs Temp 98.9 F 02/24/24 07:13 Pulse 81 02/24/24 08:00 Resp 20 H 02/24/24 08:00 BP 125/84 02/24/24 07:13 Pulse Ox 93 02/24/24 08:00 O2 Del Method Room Air 02/24/24 08:00 O2 Flow Rate 1 02/20/24 07:37 02/23/24 02/24/24 02/24/24 22:59 06:59 14:59 Intake Total 480 / 1575.900 240 / 1815.900 480 / 480 Output Total 400 / 400 Balance 480 / 1575.900 -160 / 1415.900 480 / 480 Weight last 48 hrs Weight 96.661 kg Weight 90.718 kg Physical Exam Narrative: Bowel sound present right lower quadrant Awake and alert Sign of dehydration improving Currently on room air Pleasant cooperative GCS 15 Afebrile Hemodynamic stable Nonfocal neuroexam Lower extremity no swelling Data 02/24/24 03:00 02/24/24 03:00 A&P Assessment and plan (1) NSTEMI (non-ST elevated myocardial infarction): (2) Bradycardia: (3) Atrial fibrillation with RVR: (4) History of DVT (deep vein thrombosis): (5) Hyponatremia: (6) Small bowel obstruction: (7) UTI (urinary tract infection): (8) History of malignant melanoma: (9) Pyelonephritis: (10) Bacteremia due to Staphylococcus epidermidis: (11) Acute encephalopathy: Plan Leukocytosis trending down Staph epidermidis bacterial contamination Repeat cultures negative to date Considering presence of hardware we have decided to pursue 5 more weeks of IV antibiotics 1 g of vancomycin daily at the care home PICC line has been placed Small bowel obstruction: Improved tolerating diet, diet will be advanced up to general surgery recommendations Gastrografin noted in the rectum on repeat x-ray A-fib without RVR There is no plan for surgery I will go ahead and start patient on Eliquis along AV alivia blocking agent New onset A-fib Metabolic encephalopathy related to UTI and sepsis: Improved Sepsis: Improved resolved Hyponatremia: Metabolic acidosis: Resolved UTI: Finished 7 days of meropenem Full code Disposition: care home placement tomorrow Alcantara catheter has been removed Patient extremely weak and lethargic maximal assist with physical therapy Attestations Medical Necessity Statement*: Discharge to care home tomorrow Diagnoses NSTEMI (non-ST elevated myocardial infarction) I21.4 Bradycardia R00.1 Atrial fibrillation with RVR I48.91 History of DVT (deep vein thrombosis) Z86.718 Hyponatremia E87.1 Small bowel obstruction K56.609 UTI (urinary tract infection) N39.0 History of malignant melanoma Z85.820 Pyelonephritis N12 Bacteremia due to Staphylococcus epidermidis R78.81; B95.7 Acute encephalopathy G93.40
[2024-02-24 10:49] LABS: Magnesium 1.8 mg/dL (1.7-2.3)
[2024-02-24] MEDS: potassium chloride oral liq 20 mEq/15 mL UDC 40 MEQ PO (11:12)
[2024-02-24 11:39] LABS: Glucose Point of Care 151 mg/dL (70-110)
[2024-02-24] MEDS: vancomycin 1,000 MG in sodium chloride 0.9% 250 ML 250 MG IV (13:24)
[2024-02-24 17:03] LABS: Glucose Point of Care 121 mg/dL (70-110)
[2024-02-24] MEDS: morphine 4 mg/mL SDV 1 mL 2 MG IVP (19:36)
[2024-02-24] MEDS: trazodone 50 mg Tablet PO (20:34)
[2024-02-25] VITALS (9 sets, daily range): BP systolic 106–126; BP diastolic 60–71; PULSE 75–90; RESP 16–22; TEMP 36.6–37.9; O2SAT 96–99
[2024-02-25] MEDS: dilTIAZem 30 mg Tablet 60 MG PO ×3 (00:04→12:50)
[2024-02-25 03:37] LABS: Basophils # 0.1 10^3/uL (0.0-0.1); Basophils % 0.4 %; Eosinophils # 0.1 10^3/uL (0.0-0.8); Eosinophils % 0.5 %; Hematocrit 28.7 % (36-47); Lymphocytes % 11.6 %; Mean Corpuscular HGB Conc 33.1 g/dL (30-55); Mean Corpuscular Volume 81.5 fl (85-98); Mean Platelet Volume 9.6 fL (7.4-10.4); Monocytes # 1.3 10^3/uL (0.2-0.9); Monocytes % 7.3 %; Neutrophils # 12.68 10^3/uL (1.8-7.7); Neutrophils % 72.6 %; Nucleated Red Blood Cells % 0 %; Platelet Count 402 10^3/cmm (157-399); Red Blood Count 3.52 10^6/uL (3.85-5.65); Red Cell Distribution Width 15.6 % (12.1-15.1); White Blood Count 17.48 10^3/uL (3.29-11.43)
[2024-02-25] MEDS: pantoprazole 40 mg SDV IVP (03:45)
[2024-02-25 03:55] LABS: Anion Gap 14.4 (5-19); Blood Urea Nitrogen 12 mg/dL (8-23); Calcium 7.7 mg/dL (8.5-10.5); Carbon Dioxide 21 mmol/L (22-29); Chloride 100 mmol/L (98-107); Creatinine Clr Calc Pharmacy 62.2772; Glucose 109 mg/dL (65-115); Osmolality Calculated 274 mOsm/kg (285-295); Potassium 3.4 mmol/L (3.5-5.1); Sodium 132 mmol/L (136-145)
[2024-02-25 04:05] LABS: Slide Review Slide Review Perform
[2024-02-25 06:16] LABS: Glucose Point of Care 110 mg/dL (70-110)
--- NOTE | 2024-02-25 06:54 | P.PN_ITS ---
Subjective 2 Subjective: This 83-year-old female who is admitted to the hospital with sepsis, initially presenting with a white count up to 34,000. I was consulted after the patient developed a partial small bowel obstruction while in-house. A Gastrografin trial was done and show evidence of contrast passage into the large bowel and patient has been having several bowel movements daily since the Gastrografin trial was completed. Still complains of mild abdominal distention, main complaint is weakness and difficulty ambulating. Vitals/I&O/Wt Last Vital Signs Temp 98.0 F 02/25/24 06:00 Pulse 90 02/25/24 05:19 Resp 22 H 02/25/24 03:49 BP 106/60 02/25/24 03:49 Pulse Ox 97 02/25/24 03:49 O2 Del Method Room Air 02/25/24 03:49 O2 Flow Rate 1 02/20/24 07:37 02/24/24 02/24/24 02/25/24 14:59 22:59 06:59 Intake Total 1959 790 / 2750 200 / 2950 Balance 1959 790 / 2750 200 / 2950 Weight last 48 hrs Weight 219 lb 4.8 oz Weight 219 lb 3.2 oz Weight 213 lb 1.6 oz Physical Exam 2 GI: OTHER: Abdomen is soft, nontender, minimally distended, hypoactive bowel sounds Data 02/25/24 03:06 02/25/24 03:06 A&P Assessment and plan (1) Small bowel obstruction: Plan 83-year-old female with partial small bowel obstruction, Gastrografin trial was successful and show evidence of full contrast passes into the large bowel, patient has been having several bowel movements daily. Still having difficulty ambulating. I agree with advancement of diet. We will advance to full liquid diet today and patient then can be advanced to GI soft diet and she should be discharged on GI soft diet. She should continue with aggressive bowel regimen. Patient is to work with physical therapy is much as possible, ambulation is the main goal. Likely patient will benefit from discharge to a [facility] due to significant physical deconditioning. -For liquid diet today and advance as tolerated to soft GI diet -Continue aggressive physical therapy -Continue aggressive bowel regimen Attestations 2 Medical Necessity Statement*: Per medical team Coding Level of Care Code Acute Code for Chg Fwd Diagnoses Small bowel obstruction K56.609
[2024-02-25] MEDS: enoxaparin 100 mg/mL Syringe 90 MG SUBCUT (09:05)
[2024-02-25] MEDS: atorvastatin 40 mg Tablet 20 MG PO (09:06)
[2024-02-25] MEDS: montelukast sodium 10 mg Tablet PO (09:06)
[2024-02-25] MEDS: gabapentin 300 mg Capsule PO (09:06)
--- NOTE | 2024-02-25 09:56 | PC.SOCIAL ---
IMM Update pg 2 of IMM updated and reviewed w/ patient. Copy provided and copy dated, initialed and placed in chart.
[2024-02-25] MEDS: metoclopramide 5 mg/mL SDV 2 mL IVP (10:02)
--- NOTE | 2024-02-25 11:12 | P.DS_ITS ---
Discharge Providers Date of Admission: 02/16/24 12:46 Date of Discharge: February 25, 2024 Attending Provider at Admission: Cristian Plascencia MD Attending Provider at Discharge: Nico Van MD Primary Care Provider: Oxana Lee DO Diagnoses at Discharge Discharge Diagnosis (1) Small bowel obstruction: Status: Acute Reason for Visit Reason for Visit: n,v, abd pain Hospital Course Hospital Course 83-year-old female who presented to the hospital for diarrhea abdominal pain and fatigue, her diarrhea started after eating and will be Friday 24 hours before her evaluation in the ER, she was diagnosed with A-fib RVR with concerns related to pyelonephritis and UTI. She was put on amiodarone drip and then transition to p.o. amiodarone, for her UTI and pyelonephritis she was given meropenem, blood and urine cultures remain negative. Patient suffered from metabolic encephalopathy related to ELLA and hyponatremia. Sodium dropped 223 creatinine 1.8. Nephrology was consulted, patient was given salt tablets which improved her sodium and mentation. ELLA improved as well. Patient remained persistently high on her leukocytosis procalcitonin CRP were elevated as well there were no clear source of infection, blood culture showed epidermidis which was likely contamination, considering the fact she had a hardware she was given vancomycin after addition of vancomycin her white count started coming down she remained afebrile white blood cell scan did not show any source of infection. Most likely her infection cleared up by the time we did white blood cell scan. PICC line was placed, she will receive 5 more weeks of 1 g vancomycin. Her hospitalization was complicated with a bowel obstruction, which was managed medically conservatively with NG tube which was removed when she started having bowel movement, there was no plan for surgery by general surgery, she is tolerating diet, diet has been advanced, Gastrografin studies have been done which is showing dye in her rectum, patient is extremely fatigued and lethargic and requiring 2 person assist, she will go [facility]. Patient is very happy with her progress, family updated on daily basis. She is full code. She will receive Eliquis at the time of discharge for her A-fib along Cardizem 240 mg White count at the time of discharge around 17,000, it peaked at 34,000. Physical Exam Narrative: Pleasant cooperative Tolerating diet Currently on room air Nonfocal neuroexam Abdomen soft Bowel sound present GCS 15 Generalized fatigue and malaise Discharge Data Studies Completed and Pending Completed Studies During Hospitalization Category Date Time Status CT abdomen pelvis wo con [id number] Stat Cat Scan 02/16/24 10:[address] abdomen pelvis wo con [id number] Stat Cat Scan 02/18/24 16:[address] cervical spin wo con* [id number] Routine Cat Scan 02/18/24 12:[address] chest wo con [id number] Routine Cat Scan 02/18/24 12:[address] head wo con* [id number] Routine Cat Scan 02/18/24 09:[address] lumbar spine wo con* [id number] Routine Cat Scan 02/18/24 12:[address] thoracic spin wo con* [id number] Routine Cat Scan 02/18/24 12:02 Completed CXRP [XR chest 1V portable 12099] Routine Exams 02/18/24 19:15 Completed XR abdomen 1V* [id number] Routine Exams 02/20/24 18:19 Completed XR abdomen 1V* [id number] Routine Exams 02/21/24 09:39 Completed XR abdomen 1V* 21645 Stat Exams 02/19/24 05:50 Completed XR abdomen 1V* 46014 Stat Exams 02/20/24 06:10 Completed XR abdomen 1V* 86130 Stat Exams 02/22/24 18:17 Completed XR abdomen 1V* [id number] Stat Exams 02/23/24 06:42 Completed XR abdomen 3V 41712 Routine Exams 02/22/24 16:00 Completed XR chest 1V portable [id number] Stat Exams 02/16/24 10:19 Completed XR chest 1V portable 05107 Stat Exams 02/19/24 11:42 Completed XR foot LT min 3V* [id number] Stat Exams 02/21/24 07:52 Completed NM CERETEC WBC scan* [id number] Routine Nuc Med 02/20/24 13:23 Completed CV. echo complete* [id number] Routine Ultrasound 02/16/24 14:46 Completed US abdomen complete* [id number] Routine Ultrasound 02/16/24 14:46 Completed Pending at discharge Category Date Time Status OVA and Parasites, Conc and PE Routine Lab 02/16/24 14:46 Received Salmonella / Shigella / Campy Routine Lab 02/16/24 14:46 Received Tick Panel Stat Lab 02/19/24 10:12 Results Vancomycin Trough Timed Lab 02/25/24 12:00 Ordered Radiology Impressions Abdomen/Pelvis CT 02/18/24 16:13 IMPRESSION: 1. Small bowel obstruction, favored to be partial. Oral contrast has not reached the region of tapering of the small bowel in the right lower quadrant at the time of the exam. Consider serial KUBs to evaluate for progression of contrast. Chest X-Ray 02/19/24 11:42 IMPRESSION: No acute findings. WBC Scan Nuclear Medicine 02/20/24 13:23 IMPRESSION: 1. No localization to the stimulator device in the pelvis, or elsewhere within the abdominopelvic cavity.. 2. Moderate diffuse pulmonary activity which at this time point is consistent with physiologic uptake. 3. Mild uptake in the left midfoot and medial hindfoot. Correlation with clinical findings is recommended, radiographs may be useful. Foot X-Ray 02/21/24 07:52 IMPRESSION: No acute findings. Laboratory Results WBC 17.48 10^3/uL (3.29-11.43) H 02/25/24 03:06 RBC 3.52 10^6/uL (3.85-5.65) L 02/25/24 03:06 Hgb 9.50 g/dL (11.27-16.99) L 02/25/24 03:06 Hct 28.7 % (36-47) L 02/25/24 03:06 MCV 81.5 fl (85-98) L 02/25/24 03:06 MCH 27.0 pg (27-33) 02/25/24 03:06 MCHC 33.1 g/dL (30-55) 02/25/24 03:06 RDW 15.6 % (12.1-15.1) H 02/25/24 03:06 Plt Count 402 10^3/cmm (157-399) H 02/25/24 03:06 MPV 9.6 fL (7.4-10.4) 02/25/24 03:06 Neut % (Auto) 72.6 % 02/25/24 03:06 Lymph % (Auto) 11.6 % 02/25/24 03:06 [place] % (Auto) 7.3 % 02/25/24 03:06 Eos % (Auto) 0.5 % 02/25/24 03:06 Baso % (Auto) 0.4 % 02/25/24 03:06 Neut # (Auto) 12.68 10^3/uL (1.8-7.7) H 02/25/24 03:06 Lymph # (Auto) 2.0 10^3/uL (0.8-4.8) 02/25/24 03:06 [place] # (Auto) 1.3 10^3/uL (0.2-0.9) H 02/25/24 03:06 Eos # (Auto) 0.1 10^3/uL (0.0-0.8) 02/25/24 03:06 Baso # (Auto) 0.1 10^3/uL (0.0-0.1) 02/25/24 03:06 Nucleated RBC % (auto) 0 % 02/25/24 03:06 Total Counted 100 (0-100) 02/23/24 06:15 Atypical Lymphs % 0.0 % (0-5) 02/23/24 06:15 Absolute Neutrophils 19.1 10^3/cmm (1.4-6.5) H 02/23/24 06:15 Segmented Neutrophils 72 % 02/23/24 06:15 Abs Segm Neuts (Man) 16.4 10/cmm (1.6-7.1) H 02/23/24 06:15 Band Neutrophils 12.0 % 02/23/24 06:15 Abs Band Neuts (Man) 2.7 10^3/cmm (0.0-1.2) H 02/23/24 06:15 Absolute Lymphocytes 1.8 10^3/cmm (1.2-3.4) 02/23/24 06:15 Lymphocytes (Manual) 8 % 02/23/24 06:15 Monocytes (Manual) 3.0 % 02/23/24 06:15 Absolute Monocytes 0.7 10^3/cmm (0.1-0.6) H 02/23/24 06:15 Eosinophils (Manual) 0 % 02/23/24 06:15 Absolute Eosinophils 0.0 10^3/cmm (0.0-0.7) 02/23/24 06:15 Basophils (Manual) 0.0 % 02/23/24 06:15 Absolute Basophils 0.0 10^3/cmm (0.0-0.2) 02/23/24 06:15 Metamyelocytes 3.0 % 02/23/24 06:15 Myelocytes 2.0 % 02/23/24 06:15 Nucleated RBCs # 0.0 /100WBC 02/25/24 03:06 Platelet Estimate Normal (Normal) 02/23/24 06:15 Hypochromasia 1+ H 02/23/24 06:15 Peripher Smr Path Cons Sent for review 02/19/24 03:15 ESR 73 mm/hr (0-15) H 02/20/24 06:19 Haptoglobin 469.0 mg/L (30-200) H 02/19/24 03:15 PT 15.30 SECONDS (12.1-14.9) H 02/21/24 02:50 INR 1.17 (0.8-1.2) 02/21/24 02:50 APTT 88.6 SECONDS (23.9-36.7) H D 02/23/24 06:15 D-Dimer 3.73 ug/mLFEU (0-0.59) H 02/16/24 10:20 Specimen Type Arterial 02/19/24 12:05 Sample Site Radial, left 02/19/24 12:05 ABG pH 7.32 (7.35-7.45) L 02/19/24 12:05 ABG pCO2 34.6 mmHg (35-45) L 02/19/24 12:05 ABG pO2 113.0 mmHg (80.0-100.0) H 02/19/24 12:05 ABG PO2/FiO2 Ratio 0 02/18/24 10:00 ABG HCO3 17.9 mmol/L (22-26) L 02/19/24 12:05 ABG Base Excess -7.3 mmol/L (-2.0-2.0) L 02/19/24 12:05 Sacha Test Pos 02/19/24 12:05 Hematocrit 37.8 % (37-47) 02/19/24 12:05 O2 Delivery Device Nc 02/19/24 12:05 O2 Liters/Min 3.0 % 02/19/24 12:05 FiO2 21.0 % 02/18/24 10:00 Attendance Secretary ID [place] 02/19/24 12:05 Sodium 132 mmol/L (136-145) L 02/25/24 03:06 Potassium 3.4 mmol/L (3.5-5.1) L 02/25/24 03:06 Chloride 100 mmol/L (98-107) 02/25/24 03:06 Carbon Dioxide 21 mmol/L (22-29) L 02/25/24 03:06 Anion Gap 14.4 (5-19) 02/25/24 03:06 BUN 12 mg/dL (8-23) 02/25/24 03:06 Creatinine 0.8 mg/dL (0.5-0.9) 02/25/24 03:06 GFR Calculation Not Reportable 02/25/24 03:06 Glucose 109 mg/dL (65-115) 02/25/24 03:06 POC Glucose 110 mg/dL (70-110) 02/25/24 06:09 Calculated Osmolality 274 mOsm/kg (285-295) L 02/25/24 03:06 Lactic Acid 2.9 mmol/L (0.5-2.2) H 02/18/24 17:55 Lactic Acid (Sepsis) 1.1 mmol/L (0.5-2.2) 02/18/24 21:20 Lactate 0.7 mmol/L (0.5-2.2) 02/21/24 03:10 Calcium 7.7 mg/dL (8.5-10.5) L 02/25/24 03:06 Phosphorus 2.5 mg/dL (2.5-4.5) 02/24/24 03:00 Magnesium 1.8 mg/dL (1.7-2.3) 02/24/24 03:00 Magnesium 1.8 mg/dL (1.7-2.3) 02/24/24 03:00 Ferritin 225 ng/mL (15-150) H 02/19/24 03:15 Total Bilirubin 0.3 mg/dL (0.15-1.2) 02/22/24 02:15 AST 23 U/L (0-32) 02/22/24 02:15 ALT 22 U/L (0-33) 02/22/24 02:15 Alkaline Phosphatase 93 U/L (35-105) 02/22/24 02:15 Ammonia 40 umol/L (11-51) 02/18/24 10:28 Lactate Dehydrogenase 495 U/L (135-214) H 02/19/24 03:15 Creatine Kinase 69 U/L (26-192) 02/21/24 03:10 Troponin T Baseline 60 ng/L (0-10) H 02/16/24 10:20 Troponin T 120 Minute 47.18 ng/L (0-10) H 02/16/24 12:38 Delta Troponin T -12.82 ABS# (0-10) L 02/16/24 12:38 Troponin T Hi Sens 6Hr 43.81 ng/L (0-10) H 02/16/24 17:29 Troponin T Hi Sens 6Hr Delta -16.19 ng/L (0-12) L 02/16/24 17:29 C-Reactive Protein 129.5 mg/L (0.0-4.9) H 02/24/24 03:00 NT-Pro-B Natriuret Pep 1214 pg/mL (0-450) H 02/24/24 03:00 Total Protein 4.8 g/dL (6.6-8.7) L 02/22/24 02:15 Albumin 2.3 g/dL (3.5-5.2) L 02/22/24 02:15 Globulin 2.5 g/dL (1.3-4.6) 02/22/24 02:15 Lipase 22 U/L (13-60) 02/16/24 10:20 Procalcitonin 0.42 ng/mL (0-0.5) 02/24/24 03:00 TSH 1.08 uIU/mL (0.27-4.20) 02/16/24 10:20 Urine Color Cancelled 02/16/24 15:56 Urine Color Yellow (Yellow) 02/16/24 15:56 Urine Appearance Cancelled 02/16/24 15:56 Urine Appearance Sl cloudy (CLEAR) A 02/16/24 15:56 Urine pH 5 (5-7) 02/16/24 15:56 Urine pH Cancelled 02/16/24 15:56 Ur Specific [place] 1.020 (1.005-1.030) 02/16/24 15:56 Ur Specific [place] Cancelled 02/16/24 15:56 Urine Protein 3+ (Negative) H 02/16/24 15:56 Urine Protein Cancelled 02/16/24 15:56 Urine Glucose (UA) Cancelled 02/16/24 15:56 Urine Glucose (UA) Norm (Normal) 02/16/24 15:56 Urine Ketones 1+ (Negative) H 02/16/24 15:56 Urine Ketones Cancelled 02/16/24 15:56 Urine Blood 2+ (Negative) H 02/16/24 15:56 Urine Blood Cancelled 02/16/24 15:56 Urine Nitrate Cancelled 02/16/24 15:56 Urine Nitrate Positive (Negative) H 02/16/24 15:56 Urine Bilirubin Cancelled 02/16/24 15:56 Urine Bilirubin Neg (Negative) 02/16/24 15:56 Prot Sulfosalicylic Acd Cancelled 02/16/24 15:56 Urine Urobilinogen Cancelled 02/16/24 15:56 Urine Urobilinogen Norm mg/dL (Negative) 02/16/24 15:56 Ur Leukocyte Esterase Cancelled 02/16/24 15:56 Ur Leukocyte Esterase Trace (Negative) H 02/16/24 15:56 Urine RBC 5-10 /hpf (0-2) H 02/16/24 15:56 Urine WBC 10-15 /hpf (0-5) H 02/16/24 15:56 Ur Squamous Epith Cells 0-4 /hpf (0-5) H 02/16/24 15:56 Amorphous Sediment Not Reportable 02/16/24 15:56 Urine Bacteria 2+ /hpf (NONE) H 02/16/24 15:56 Coarse Granular Casts 15-25 /lpf H 02/16/24 15:56 Urine Mucus Trace /hpf 02/16/24 15:56 Urine Osmolality 501 mOsm/kg (50-1200) 02/19/24 10:50 Ur Random Sodium < 10 mmol/L 02/19/24 10:50 Vancomycin Trough 7.3 ug/mL (10-15) L 02/23/24 12:00 Adenovirus (PCR) Not detected (NOT DETECT) 02/20/24 23:15 Lyme Ab (Western Blot) <0.90 index 02/19/24 10:12 C. pneumoniae DNA (PCR) Not detected (NOT DETECT) 02/20/24 23:15 C. difficile (PCR) Negative (Negative) 02/22/24 20:45 Coronavirus 229E (PCR) Not detected (NOT DETECT) 02/20/24 23:15 Hepatitis A IgM Ab Non-reactive (Nonreactive) 02/19/24 10:12 Hep Bs Antigen Non-reactive (Nonreactive) 02/19/24 10:12 Hep B Core IgM Ab Non-reactive (Nonreactive) 02/19/24 10:12 Hepatitis C Antibody Non-reactive (Nonreactive) 02/19/24 10:12 HIV 1&2 Ab & HIV 1 Ag Non-reactive (Non-Reactiv) 02/19/24 10:12 HIV 1&2 Antibody Non-reactive (Non-Reactiv) 02/19/24 10:12 Human Metapneumovir PCR Not detected (NOT DETECT) 02/20/24 23:15 Influenza A (H1) PCR Not detected (NOT DETECT) 02/20/24 23:15 Influ A (H1/09) PCR Not detected (NOT DETECT) 02/20/24 23:15 Influenza A (H3) PCR Not detected (NOT DETECT) 02/20/24 23:15 Influenza Type A (PCR) Not detected (NOT DETECT) 02/20/24 23:15 Influenza Type B (PCR) Not detected (NOT DETECT) 02/20/24 23:15 M. pneumoniae (PCR) Not detected (NOT DETECT) 02/20/24 23:15 Parainfluenza 1 (PCR) Not detected (NOT DETECT) 02/20/24 23:15 Parainfluenza 2 (PCR) Not detected (NOT DETECT) 02/20/24 23:15 Parainfluenza 3 (PCR) Not detected (NOT DETECT) 02/20/24 23:15 Parainfluenza 4 (PCR) Not detected (NOT DETECT) 02/20/24 23:15 RSV Type A (PCR) Not detected (NOT DETECT) 02/20/24 23:15 RSV Type B (PCR) Not detected (NOT DETECT) 02/20/24 23:15 Entero/Rhino (PCR) Not detected (NOT DETECT) 02/20/24 23:15 SARS-CoV-2 (PCR) Not detected (NOT DETECT) 02/20/24 23:15 MRSA (PCR) Not detected (NOT DETECTED) 02/19/24 16:30 Beta-(1,3)-D-Glucan 151 pg/mL H 02/19/24 16:46 B-(1,3)-D-Glucan Intrp Positive A 02/19/24 16:46 Vitals Last Vital Signs Temp 98.2 F 02/25/24 07:06 Pulse 75 02/25/24 09:56 Resp 16 02/25/24 09:56 BP 110/67 02/25/24 07:06 Pulse Ox 99 02/25/24 09:56 O2 Del Method Room Air 02/25/24 09:56 O2 Flow Rate 1 02/20/24 07:37 Discharge Plan Discharge Patient Disposition: Xfer SNF Condition: Stable Prescriptions: New diltiazem HCl [Cardizem LA] 240 mg tablet extended release 24 hr 240 mg PO DAILY Qty: 60 3RF vancomycin 1,000 mg recon soln 995 mg IV ONCE 35 Days Qty: 10 0RF sennosides-docusate sodium [Stool Softener-Laxative] 8.6-50 mg Tablet 1 tab PO DAILY Qty: 30 0RF polyethylene glycol 3350 [Miralax] 17 gram/dose powder 4 g PO DAILY Qty: 119 0RF Continued albuterol sulfate 90 mcg/actuation HFA aerosol inhaler 1 inh INHALATION Q4H PRN (Reason: Shortness Of Breath Or Wheezing) PreserVision AREDS 14,320-226-200 [id number] capsule 1 cap PO BID alendronate 10 mg tablet 10 mg PO Q7D Rx Instructions: ON FRIDAY fluticasone propion-salmeterol [Advair Diskus] 250-50 mcg/dose blister with device 1 inh INHALATION DAILY pravastatin 80 mg tablet 80 mg PO DAILY trazodone 50 mg tablet 50 mg PO QPM gabapentin 300 mg capsule 300 mg PO BID 90 Days Qty: 180 0RF hydrocodone-acetaminophen 10-325 mg tablet 1 tab PO BID PRN (Reason: pain) 30 Days Qty: 60 0RF oxybutynin chloride 5 mg tablet 5 mg PO BID Qty: 180 3RF omeprazole 20 mg capsule,delayed release(DR/EC) 20 mg PO DAILY Qty: 90 3RF ondansetron HCl 4 mg tablet 4 mg PO Q8H PRN (Reason: nausea and vomiting) 4 Days Qty: 30 0RF fluticasone propionate [Flonase Allergy Relief] 50 mcg/actuation spray,suspension 2 spray INTRANASAL QDAY PRN (Reason: allergy symptoms) 90 Days Qty: 16 3RF (DME) Custom molded Orthotics See Rx Instructions .Route .MEDSUPPLY Qty: 1 0RF Rx Instructions: As directed by [facility] *Please work with patient with her needs* montelukast [Singulair] 10 mg tablet 10 mg PO DAILY Qty: 90 3RF azelastine 137 mcg (0.1 %) aerosol,spray 1 spray INTRANASAL DAILY Rx Instructions: administer into each nostril Zyrtec 10 mg capsule 10 mg PO DAILY PRN (Reason: Allergy Symptoms) Discontinued orlistat [Xenical] 120 mg capsule 120 mg PO TID Qty: 270 1RF irbesartan 300 mg tablet 300 mg PO DAILY Qty: 90 3RF spironolactone 25 mg tablet 25 mg PO QDAY Qty: 90 3RF Discharge Orders: Discharge Order (Routine); Ordered 02/25/24 Ordered By: Nico aVn Referrals: [facility] [Outside] Oxana Lee DO [Primary Care Provider] - Discharge Diet: GI Soft Discharge Activity: Increase activity as tolerated and As per PT/OT instructions Patient Instructions: Pain Management, Post Heart Attack Stoplight Discharge Attestations Time Spent in Discharge Care*: greater than 30 min Quality Metrics Clinical Quality Measures [ No reported AMI, CVA or VTE this stay] Coding Level of Care Code Acute Code for Chg Fwd Diagnoses Small bowel obstruction K56.609
[2024-02-25] MEDS: potassium chloride ER 20 mEq Tablet 40 MEQ PO (12:19)
[2024-02-25 12:29] LABS: Vancomycin Trough 9.7 ug/mL (10-15)
[2024-02-25] MEDS: vancomycin 1,250 MG/250 ML PIGGYBACK 250 MG IV (12:49)
--- NOTE | 2024-02-25 13:31 | PC.NURSE ---
report phoned to [facility].discharged via [facility] transportation to transport pt
[2024-02-25 17:33] LABS: E. Chaffeensis AB IGG <1:64; E. Chaffeensis AB IGM <1:20
[2024-02-26 20:05] LABS: RMSF IGG NOT DETECTED; RMSF IGM NOT DETECTED
== END 2024-02-25 13:33 | disposition skilled nursing facility (03) | DRG 871 ==
LOC: ER 12:05 → CSU 12:47
PROVIDERS: Hospitalist; Admitting Provider Family Medicine; Emergency Provider Family Medicine; PCP Family Medicine; Visit Provider Internal Medicine
DX: A41.9 Sepsis, unspecified organism (principal); G93.41 Metabolic encephalopathy; I21.A1 Myocardial infarction type 2; E87.20 Acidosis, unspecified; E87.1 Hypo-osmolality and hyponatremia; N12 Tubulo-interstitial nephritis, not specified as acute or chronic; N39.0 Urinary tract infection, site not specified; N17.9 Acute kidney failure, unspecified; K56.609 Unspecified intestinal obstruction, unspecified as to partial versus complete obstruction; I48.91 Unspecified atrial fibrillation; E78.5 Hyperlipidemia, unspecified; I10 Essential (primary) hypertension; M85.80 Other specified disorders of bone density and structure, unspecified site; R73.9 Hyperglycemia, unspecified; E66.9 Obesity, unspecified; E83.42 Hypomagnesemia; R32 Unspecified urinary incontinence; B95.8 Unspecified staphylococcus as the cause of diseases classified elsewhere; Z79.01 Long term (current) use of anticoagulants; Z68.34 Body mass index [BMI] 34.0-34.9, adult; Z86.718 Personal history of other venous thrombosis and embolism; Z85.820 Personal history of malignant melanoma of skin; Z87.891 Personal history of nicotine dependence
CPT/HCPCS: 36415; 36416; 36573; 36592; 36600; 70450; 71045; 71250; 72125; 72128; 72131; 73630; 74018; 74021; 74176; 76700; 78802; 80048; 80053; 80074; 80202; 80503; 81001; 82140; 82274; 82550; 82728; 82803; 82962; 83010; 83605; 83615; 83630; 83690; 83735; 83880; 83935; 84100; 84145; 84295; 84300; 84443; 84484; 85007; 85025; 85378; 85610; 85651; 85730; 86140; 86618; 86666; 86757; 87040; 87045; 87077; 87086; 87150; 87177; 87186; 87205; 87209; 87427; 87449; 87486; 87493; 87581; 87633; 87641; 87806; 93005; 93306; 94640; 94664; 96365; 96366; 96367; 96372; 96375; 96376; 97110; 97116; 97161; 97167; 97530; 97535; 99285; A9270; A9569; C1751; C9113; J1100; J1200; J1644; J1650; J1815; J1940; J2185; J2270; J2405; J2543; J2765; J3370; J3475; J3480; J3490; J7030; J7050; J7613; P9046; Q3014; Q9967

== ENCOUNTER 2024-02-26 15:12 | Inpatient (IN) | payer MEDICARE, OTHER, SELFPAY ==
[2024-02-26] VITALS (14 sets, daily range): BP systolic 85–149; BP diastolic 57–113; PULSE 84–126; RESP 15–17; TEMP 36.2–37.8; O2SAT 91–100; BMI 31.3
--- NOTE | 2024-02-26 15:24 | CTR_ITS ---
PROCEDURE INFORMATION: Exam: CT Abdomen And Pelvis Without Contrast Exam date and time: 02/26/2024 3:36 PM Age: 83 years old Clinical indication: Abdominal pain; Prior surgery; Surgery date: 6+ months; Surgery type: Bladder TECHNIQUE: Imaging protocol: Computed tomography of the abdomen and pelvis without contrast. Radiation optimization: All CT scans at this facility use at least one of these dose optimization techniques: automated exposure control; mA and/or kV adjustment per patient size (includes targeted exams where dose is matched to clinical indication); or iterative reconstruction. COMPARISON: CT abdomen pelvis wo con [id number] 02/18/2024 8:45 PM RADIATION DOSE METRICS: Total DLP (mGy-cm): 928.07 FINDINGS: Lungs: Subsegmental bibasilar atelectasis. Trace right-sided pleural effusion. The visualized lung bases are otherwise clear. Diaphragm: No evidence of diaphragmatic defect. Liver: No evidence of focal hepatic lesion within limitation of a noncontrast exam. Gallbladder and bile ducts: Gallbladder is unremarkable. No evidence of intra-hepatic or extra-hepatic biliary dilatation. Pancreas: Grossly unremarkable. Spleen: Multiple indeterminate hypodense regions concerning for splenic infarcts. Adrenal glands: 1.8 cm lipid rich adenoma on the left. Adrenal glands are otherwise unremarkable. Kidneys and ureters: No gross renal parenchymal abnormality. No evidence of hydronephrosis or ureteral stone. Stomach and bowel: Small bowel obstruction with multiple loops of dilated bowel measuring up to 5.5 cm with air-fluid levels and nondistention of the terminal ileum and colon concerning for high-grade obstruction. There is change in caliber in the right lower quadrant, though without a discrete transition point. There is a loop of bowel in the right lower quadrant near the transition point demonstrating bowel pneumatosis and extraluminal air suggestive of bowel ischemia (for example, images 53-62 of series 3). Additional pneumatosis is noted of a loop of decompressed bowel in the right lower quadrant (for example, image 75 of series 3). There is trace free fluid. No discrete fluid collection or abscess. Colonic diverticulosis without evidence of acute diverticulitis. Appendix: Normal appendix. Vasculature: Atherosclerosis without evidence of aneurysmal dilitation of abdominal aorta. Lymph nodes: No evidence of adenopathy. Urinary bladder: There is a small amount of air within the bladder. Consider correlation with urinalysis to exclude cystitis with a gas-forming organism. Reproductive: Grossly unremarkable. Bones/joints: No evidence of acute fracture or aggresive osseous lesion. Stimulator device in place with lead terminating in the left hemipelvis. Soft tissues: No evidence of fluid collection or hematoma in the superficial soft tissues. CT/CT abdomen pelvis wo con [id number] IMPRESSION: 1. Small bowel obstruction with evidence of bowel ischemia and perforation in the right lower quadrant. Urgent surgical evaluation is recommended. 2. Multiple indeterminate splenic hypodensities concerning for splenic infarcts. The findings were verbally communicated by telephone with Dr. HYDE at 4:00 PM CDT on 02/26/2024.
[2024-02-26 16:07] LABS: Basophils # 0.1 10^3/uL (0.0-0.1); Basophils % 0.3 %; Hematocrit 33.1 % (36-47); Lymphocytes # 1.6 10^3/uL (0.8-4.8); Lymphocytes % 5.9 %; Mean Corpuscular HGB Conc 32.6 g/dL (30-55); Mean Corpuscular Hemoglobin 26.7 pg (27-33); Mean Corpuscular Volume 81.7 fl (85-98); Mean Platelet Volume 9.6 fL (7.4-10.4); Monocytes # 1.4 10^3/uL (0.2-0.9); Monocytes % 5.2 %; Neutrophils # 23.28 10^3/uL (1.8-7.7); Neutrophils % 87.4 %; Nucleated Red Blood Cells % 0 %; Platelet Count 440 10^3/cmm (157-399); Red Blood Count 4.05 10^6/uL (3.85-5.65); Red Cell Distribution Width 15.6 % (12.1-15.1); White Blood Count 26.67 10^3/uL (3.29-11.43)
[2024-02-26 16:26] LABS: Alanine Aminotransferase 23 U/L (0-33); Albumin Level 2.3 g/dL (3.5-5.2); Alkaline Phosphatase 83 U/L (35-105); Aspartate Amino Transferase 14 U/L (0-32); Blood Urea Nitrogen 18 mg/dL (8-23); Carbon Dioxide 23 mmol/L (22-29); Chloride 95 mmol/L (98-107); Creatinine Clr Calc Pharmacy 47.5598; Globulin 3.4 g/dL (1.3-4.6); Glucose 121 mg/dL (65-115); Lipase 119 U/L (13-60); Osmolality Calculated 271 mOsm/kg (285-295); Sodium 129 mmol/L (136-145); Total Bilirubin 0.4 mg/dL (0.15-1.2); Total Protein 5.7 g/dL (6.6-8.7)
[2024-02-26] MEDS: morphine 4 mg/mL SDV 1 mL IVP (16:26)
--- NOTE | 2024-02-26 16:26 | ECG_ITS ---
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 Measurements Intervals [place] Rate: 101 P: 0 MI: 0 QRS: 43 QRSD: 82 T: 99 QT: 293 QTc: 381 Interpretive Statements ATRIAL FIBRILLATION WITH RAPID VENTRICULAR RESPONSE WITH ABERRANT CONDUCTION OR VENTRICULAR PREMATURE COMPLEXES NONSPECIFIC ST & T-WAVE ABNORMALITY ABNORMAL RHYTHM ECG Compared to ECG 02/16/2024 15:30:38 No significant changes Electronically Signed On 02-26-2024 23:07:18 CDT by Don Mello M.D. [email or web address] CUPS [id number]
[2024-02-26 16:28] LABS: Lactic Sepsis W/Reflex 1.4 mmol/L (0.5-2.2)
[2024-02-26] MEDS: piperacillin-tazobactam 3.375 GM in sodium chloride 0.9% (plus) 50 ML IV (16:32)
[2024-02-26 16:37] LABS: Anion Gap 15.1 (5-19); Potassium 4.1 mmol/L (3.5-5.1)
--- NOTE | 2024-02-26 16:53 | ED_ITS ---
HPI - Abdominal Pain 2 General: Chief Complaint: Abdominal Pain Stated Complaint: abdomen pain Time Seen by Provider: 02/26/24 15:20 Source: patient Mode of arrival: ambulatory History of Present Illness: 83-year-old female presents emergency ro om with abdominal pain and distention. Patient was admitted about 2 weeks ago A-fib with RVR with lactic acidosis she was found to have a partial small bowel obstruction which was consistent treated conservatively during the hospitalization. Review of the chart imaging shows that she had a film on 429 that showed contrast that went through to the rectum and she reported having had bowel movements. It is also documented patient seem to have improved she was discharged to the custodial. She has a history of DVTs as well as having A-fib but she was discharged home on Eliquis. She did take a dose this morning. MD elicited complaint: abdominal pain Onset (ago): day(s) (12) Pain Consistency: constant Location: Diffuse Severity: severe Quality: cramping Radiation: none Exacerbating factors: nothing Relieving factors: nothing Associated Symptoms: Reports bloating, GI cramping, melena, nausea, poor appetite, vomiting and other; Denies anorexia, belching, change in bowel habits, change in stool character, chills, coffee ground emesis, constipation, diarrhea, dyspepsia, dysuria, excessive flatus, fever(s), heartburn, hematochezia, hematuria, hematemesis, fecal incontinence, loose stools and syncope Review of Systems 2 Const: Reports: fatigue and malaise; Denies: fever(s) or chills Card: Denies: chest pain or syncope GI: Reports: abdominal pain, nausea, vomiting, bloating, GI cramping, melena and other; Denies: hematemesis, coffee ground emesis, heartburn, diarrhea, constipation, belching, excessive flatus, fecal incontinence, change in bowel habits, change in stool character or hematochezia : Denies: dysuria, urinary frequency, urinary urgency or hematuria PFSH ED 2 PFSH: Medical History NSTEMI (non-ST elevated myocardial infarction) Diarrhea Obesity (BMI 30.0-34.9) Hyperglycemia JORDEN (obstructive sleep apnea) Bradycardia History of ganglion cyst Right Osteoarthritis of carpometacarpal joint of left thumb Osteopenia Seasonal allergies History of DVT (deep vein thrombosis) Recurrent Urinary incontinence Hypertension History of malignant melanoma On right forearm Surgical History Hx of colonoscopy with polypectomy [facility]- 10 yrs History of esophagogastroduodenoscopy (EGD) 10 yrs = [facility] Hx of dilation and curettage H/O tubal ligation Status post total left knee replacement using cement Family History Mother Cancer Breast Other CAD (coronary artery disease) Diabetes Social History Smoking and tobacco/nicotine status: former use of tobacco/nicotine Alcohol intake: current Alcohol intake frequency: holidays/special occasions only Substance/Drug Use: never Physical Exam 2 Const: GENERAL APPEARANCE: cooperative and comfortable O RIENTATION/CONSCIOUSNESS: Yes awake, Yes oriented to person, Yes oriented to place and Yes oriented to time HENMT: COMMON NORMALS: normocephalic, atraumatic and hearing grossly normal bilaterally HEAD & SCALP: normocephalic and atraumatic Resp: COMMON NORMALS: normal respiratory effort, No retractions, No use of accessory muscles and clear to auscultation bilaterally AUSCULTATION: clear to auscultation bilaterally Cardio: COMMON NORMALS: regular rate, regular rhythm and No murmurs present (Cardio) RATE: regular rate RHYTHM: regular rhythm GI: INSPECTION: Yes abdominal distension AUSCULTATION: Yes Absent bowel sounds PALPATION: Yes Tenderness to palpation present (GI) and Yes Guarding due to palpation present (GI) Extremity: COMMON NORMALS: normal to inspection, capillary refill normal, no clubbing, cyanosis or edema, no calf tenderness and no pedal edema Neuro: SENSORIUM/ORIENTATION: Yes oriented to person, Yes oriented to place and Yes oriented to time Skin: COMMON NORMALS: no rashes or lesions noted GENERAL SKIN EXAM: no rashes or lesions noted Course 2 Vital Signs: Vital signs: Vital Signs Pulse Rate 93 02/26/24 15:24 Respiratory Rate 15 02/26/24 16:26 Blood Pressure 133/91 02/26/24 15:24 Pulse Oximetry 98 02/26/24 16:26 MDM - Abdominal Pain Medical Decision Making Small bowel obstruction with perforation and free air in the abdomen. Patient is on Eliquis we confirmed off of her MAR that her last dose was this morning sometime between 7 and 10 AM. Patient was discharged yesterday she did have bowel movements prior to discharge and there was a imaging study done that showed contrast making it through to the rectum but still mentioned partial small bowel obstruction. She is perforated at this point. Discussed Dr. Van discharged yesterday SOB restart her on the micafungin Vanco and Zosyn we already given Zosyn for perforation. She had been seen by Dr. Bridges during hospitalization he was not available today Dr. Tilley is on-call and he is in the emergency room seeing patient at this time. Differential Diagnosis Likely abdominal pain and small bowel obstruction Medical Records I reviewed the patient's medical records. Lab Data I reviewed the patient's lab results. 02/26/24 16:00 02/26/24 16:00 Labs/Radiology: Radiology Impressions Abdomen/Pelvis CT 02/26/24 15:24 IMPRESSION: 1. Small bowel obstruction with evidence of bowel ischemia and perforation in the right lower quadrant. Urgent surgical evaluation is recommended. 2. Multiple indeterminate splenic hypodensities concerning for splenic infarcts. The findings were verbally communicated by telephone with Dr. ARCOS at 4:00 PM CDT on 02/26/2024. Laboratory Results WBC 26.67 10^3/uL (3.29-11.43) H 02/26/24 16:00 RBC 4.05 10^6/uL (3.85-5.65) 02/26/24 16:00 Hgb 10.80 g/dL (11.27-16.99) L 02/26/24 16:00 Hct 33.1 % (36-47) L 02/26/24 16:00 MCV 81.7 fl (85-98) L 02/26/24 16:00 MCH 26.7 pg (27-33) L 02/26/24 16:00 MCHC 32.6 g/dL (30-55) 02/26/24 16:00 RDW 15.6 % (12.1-15.1) H 02/26/24 16:00 Plt Count 440 10^3/cmm (157-399) H 02/26/24 16:00 MPV 9.6 fL (7.4-10.4) 02/26/24 16:00 Neut % (Auto) 87.4 % 02/26/24 16:00 Lymph % (Auto) 5.9 % 02/26/24 16:00 [place] % (Auto) 5.2 % 02/26/24 16:00 Eos % (Auto) 0.0 % 02/26/24 16:00 Baso % (Auto) 0.3 % 02/26/24 16:00 Neut # (Auto) 23.28 10^3/uL (1.8-7.7) H 02/26/24 16:00 Lymph # (Auto) 1.6 10^3/uL (0.8-4.8) 02/26/24 16:00 [place] # (Auto) 1.4 10^3/uL (0.2-0.9) H 02/26/24 16:00 Eos # (Auto) 0.0 10^3/uL (0.0-0.8) 02/26/24 16:00 Baso # (Auto) 0.1 10^3/uL (0.0-0.1) 02/26/24 16:00 Nucleated RBC % (auto) 0 % 02/26/24 16:00 Nucleated RBCs # 0.0 /100WBC 02/26/24 16:00 Sodium 129 mmol/L (136-145) L 02/26/24 16:00 Potassium 4.1 mmol/L (3.5-5.1) 02/26/24 16:00 Chloride 95 mmol/L (98-107) L 02/26/24 16:00 Carbon Dioxide 23 mmol/L (22-29) 02/26/24 16:00 Anion Gap 15.1 (5-19) 02/26/24 16:00 BUN 18 mg/dL (8-23) 02/26/24 16:00 Creatinine 1.0 mg/dL (0.5-0.9) H 02/26/24 16:00 GFR Calculation Not Reportable 02/26/24 16:00 Glucose 121 mg/dL (65-115) H 02/26/24 16:00 Calculated Osmolality 271 mOsm/kg (285-295) L 02/26/24 16:00 Lactic Acid 1.4 mmol/L (0.5-2.2) 02/26/24 16:00 Calcium 8.0 mg/dL (8.5-10.5) L 02/26/24 16:00 Total Bilirubin 0.4 mg/dL (0.15-1.2) 02/26/24 16:00 AST 14 U/L (0-32) 02/26/24 16:00 ALT 23 U/L (0-33) 02/26/24 16:00 Alkaline Phosphatase 83 U/L (35-105) 02/26/24 16:00 Total Protein 5.7 g/dL (6.6-8.7) L 02/26/24 16:00 Albumin 2.3 g/dL (3.5-5.2) L 02/26/24 16:00 Globulin 3.4 g/dL (1.3-4.6) 02/26/24 16:00 Lipase 119 U/L (13-60) H 02/26/24 16:00 All radiology interpretation(s) finalized by discharge Discharge Plan Discharge Patient Disposition: Admitted As Inpatient Clinical Impression: Small bowel perforation, Small bowel obstruction, Atrial fibrillation, Chronic anticoagulation, Small bowel ischemia Condition: Stable Prescriptions: No Action albuterol sulfate 90 mcg/actuation HFA aerosol inhaler 1 inh INHALATION Q4H PRN (Reason: Shortness Of Breath Or Wheezing) PreserVision AREDS [id number] capsule 1 cap PO BID alendronate 10 mg tablet 10 mg PO Q7D Rx Instructions: ON FRIDAY fluticasone propion-salmeterol [Advair Diskus] 250-50 mcg/dose blister with device 1 inh INHALATION DAILY pravastatin 80 mg tablet 80 mg PO DAILY trazodone 50 mg tablet 50 mg PO QPM gabapentin 300 mg capsule 300 mg PO BID 90 Days Qty: 180 0RF hydrocodone-acetaminophen 10-325 mg tablet 1 tab PO BID PRN (Reason: pain) 30 Days Qty: 60 0RF oxybutynin chloride 5 mg tablet 5 mg PO BID Qty: 180 3RF omeprazole 20 mg capsule,delayed release(DR/EC) 20 mg PO DAILY Qty: 90 3RF ondansetron HCl 4 mg tablet 4 mg PO Q8H PRN (Reason: nausea and vomiting) 4 Days Qty: 30 0RF fluticasone propionate [Flonase Allergy Relief] 50 mcg/actuation spray,suspension 2 spray INTRANASAL QDAY PRN (Reason: allergy symptoms) 90 Days Qty: 16 3RF (DME) Custom molded Orthotics See Rx Instructions .Route .MEDSUPPLY Qty: 1 0RF Rx Instructions: As directed by [facility] *Please work with patient with her needs* montelukast [Singulair] 10 mg tablet 10 mg PO DAILY Qty: 90 3RF azelastine 137 mcg (0.1 %) aerosol,spray 1 spray INTRANASAL DAILY Rx Instructions: administer into each nostril Zyrtec 10 mg capsule 10 mg PO DAILY PRN (Reason: Allergy Symptoms) sennosides-docusate sodium [Stool Softener-Laxative] 8.6-50 mg Tablet 1 tab PO DAILY Qty: 30 0RF polyethylene glycol 3350 [Miralax] 17 gram/dose powder 4 g PO DAILY Qty: 119 0RF diltiazem HCl [Cardizem LA] 240 mg tablet extended release 24 hr 240 mg PO DAILY Qty: 60 3RF Eliquis 5 mg tablet 5 mg PO BID Qty: 60 3RF Tuberculin 5 tub. unit /0.1 mL Solution 0.1 ml INTRADERMAL Q14D vancomycin 1,000 mg recon soln 995 mg IV DAILY Referrals: Oxana Lee DO [Primary Care Provider] - Coding Level of Care Code ED Tank Builder for Nidia López
--- NOTE | 2024-02-26 16:53 | XRR_ITS ---
PROCEDURE INFORMATION: Exam: XR Chest Exam date and time: 02/26/2024 5:27 PM Age: 83 years old Clinical indication: Cough and dyspnea; Additional info: Dyspnea/cough TECHNIQUE: Imaging protocol: Radiologic exam of the chest. Views: 1 view. COMPARISON: CR XR chest 1V portable [id number] 02/19/2024 12:03 PM FINDINGS: Lungs: No focal consolidation. Pleural spaces: No evidence of pneumothorax. No evidence of pleural effusion. Heart/Mediastinum: Cardiomediastinal silhouette is within normal limits. Right-sided PICC line in place with tip in the region of the distal SVC. Bones/joints: No evidence of acute osseous abnormality. XR/XR chest 1V portable [id number] IMPRESSION: 1. No acute cardiopulmonary abnormality. 2. Right-sided PICC line in place with tip in the region of the distal SVC.
--- NOTE | 2024-02-26 17:25 | P.CONIM_ITS ---
Providers/Reason For Consult 2 Consulting Physician/Specialty*: Dr. Lew Tilley, DO/General surgery Reason for Consult*: Ischemic bowel with perforation Primary Care Provider: Oxana Lee DO History of Present Illness History of Present Illness Vi Ruffin is a 83 year old female, who is on Eliquis for A-fib and last dose this morning, presents to the hospital with abdominal pain nausea vomiting and melena. She was recently in the hospital for a small bowel obstruction but was discharged in good condition. She developed acute pain this morning and return to the ER. She reports to be very nauseous with projectile vomiting and black stools. She has diffuse abdominal pain that is worst and the suprapubic region. Palpation makes pain worse. Nothing makes pain better. She denies any hematemesis. CT the abdomen pelvis shows small bowel ischemia with perforation. Review of Systems 2 General: Reports: 10 or more systems reviewed and unremarkable except in HPI and below Medications/Allergies Home Medications Medication Instructions Recorded Confirmed Last Taken Type albuterol sulfate 90 mcg/actuation 1 inh inhalation Q4H PRN Shortness 11/22/19 02/26/24 02/26/24 History aerosol inhaler Of Breath Or Wheezing alendronate 10 mg tablet 10 mg PO Q7D 11/22/19 02/26/24 02/22/24 History vitamins A,C,F-ipeg-pacsuh 4,296 1 cap PO BID 11/22/19 02/26/24 02/26/24 History mcg-226 mg-90 mg capsule (PreserVision AREDS) fluticasone 250 mcg-salmeterol 50 1 inh inhalation DAILY 05/17/20 02/26/24 02/26/24 History mcg/dose blistr powdr for inhalation (Advair Diskus) pravastatin 80 mg tablet 80 mg PO DAILY 03/21/22 02/26/24 02/26/24 History trazodone 50 mg tablet 50 mg PO QPM 03/21/22 02/26/24 Unknown History montelukast 10 mg tablet 10 mg PO DAILY #90 tabs 02/17/23 02/26/24 02/26/24 Rx (Singulair) ondansetron HCl 4 mg tablet 4 mg PO Q8H PRN nausea and 05/15/23 02/26/24 02/26/24 Rx vomiting 4 days #30 tabs fluticasone propionate 50 2 spray intranasal QDAY PRN 10/16/23 02/26/24 Unknown Rx mcg/actuation nasal allergy symptoms 90 days #16 grams spray,suspension (Flonase Allergy Relief) gabapentin 300 mg capsule 300 mg PO BID 90 days #180 caps 11/26/23 02/26/24 02/26/24 Rx hydrocodone 10 mg-acetaminophen 1 tab PO BID PRN pain 30 days #60 01/16/24 02/26/24 02/26/24 Rx 325 mg tablet tabs omeprazole 20 mg capsule,delayed 20 mg PO DAILY #90 caps 01/16/24 02/26/24 02/26/24 Rx release oxybutynin chloride 5 mg tablet 5 mg PO BID #180 tabs 01/16/24 02/26/24 02/26/24 Rx Custom molded Orthotics #1 ea 01/27/24 02/26/24 Unknown Rx azelastine 137 mcg (0.1 %) nasal 1 spray intranasal DAILY 02/16/24 02/26/24 02/26/24 History spray aerosol cetirizine 10 mg capsule (Zyrtec) 10 mg PO DAILY PRN Allergy Symptoms 02/16/24 02/26/24 Unknown History apixaban 5 mg tablet (Eliquis) 5 mg PO BID #60 tabs 02/25/24 02/26/24 02/26/24 Rx diltiazem HCl 240 mg 240 mg PO DAILY #60 tabs 02/25/24 02/26/24 02/26/24 Rx tablet,extended release 24 hr (Cardizem LA) polyethylene glycol 3350 17 4 g PO DAILY #119 grams 02/25/24 02/26/24 02/26/24 Rx gram/dose oral powder (Miralax) sennosides 8.6 mg-docusate sodium 1 tab PO DAILY #30 tabs 02/25/24 02/26/24 02/26/24 Rx 50 mg tablet (Stool Softener-Laxative) tuberculin PPD 5 tub. unit/0.1 mL 0.1 ml intradermal Q14D 02/26/24 02/26/24 Unknown History intradermal injection solution vancomycin 1,000 mg intravenous 995 mg IV DAILY 02/26/24 02/26/24 02/26/24 History injection Allergies Allergy/AdvReac Type Severity Reaction Status Date / Time dog dander Allergy cough Verified 01/27/24 15:44 house dust Allergy ALGY-Sneezi Verified 01/27/24 15:44 ng Mold Allergy ALGY-Sneezi Uncoded 01/27/24 15:44 ng PFSH Acute 2 PFSH: Medical History NSTEMI (non-ST elevated myocardial infarction) Diarrhea Obesity (BMI 30.0-34.9) Hyperglycemia JORDEN (obstructive sleep apnea) Bradycardia History of ganglion cyst Right Osteoarthritis of carpometacarpal joint of left thumb Osteopenia Seasonal allergies History of DVT (deep vein thrombosis) Recurrent Urinary incontinence Hypertension History of malignant melanoma On right forearm Surgical History Hx of colonoscopy with polypectomy [facility]- 10 yrs History of esophagogastroduodenoscopy (EGD) 10 yrs = [facility] Hx of dilation and curettage H/O tubal ligation Status post total left knee replacement using cement Family History Mother Cancer Breast Other CAD (coronary artery disease) Diabetes Social History Smoking and tobacco/nicotine status: former use of tobacco/nicotine Alcohol intake: current Alcohol intake frequency: holidays/special occasions only Substance/Drug Use: never Vitals/I&O/Wt Last Vital Signs Pulse 93 02/26/24 15:24 Resp 15 02/26/24 16:26 BP 133/91 02/26/24 15:24 Pulse Ox 98 02/26/24 16:26 02/26/24 02/26/24 02/26/24 06:59 14:59 22:59 Intake Total 50 / 50 Balance 50 / 50 Weight last 48 hrs Weight 200 lb Physical Exam 2 Narrative: General : Patient is well developed , no acute distress, oriented x3 Head : Normal cephalic, a-traumatic. Ears : Pinnae and external canal are normal. Hearing is normal. Eyes : PERRLA, Sclera and injection are normal. No conjunctival discharge. Nose : Mucous membranes are without erythema. Throat : buccal mucosa is normal, gums are without significant recession or hypertrophy. Lungs : Equal chest rise bilaterally, no use of accessory muscles, trachea is midline. Cor : Rate and rhythm are normal. Abdomen : Soft, distended, diffusely tender with rebound tenderness and guarding Extremities : No edema, no cyanosis or clubbing, dorsalis pedis pulses are present bilaterally, non-tender to palpation of calves. Upper extremities are normal bilaterally. Back : non-tender to palpation, no CVA tenderness. Neuro : CN II - XII intact, Upper and lower extremities have equal and full strength Data 02/26/24 16:00 02/26/24 16:00 A&P Assessment and plan (1) Small bowel ischemia: (2) Small bowel perforation: (3) Chronic anticoagulation: Plan To OR for exploratory laparotomy, possible bowel resection, possible ostomy The risk and benefits of the procedure, including but not limited to, bleeding, infection, scar, numbness, pain, damage to surrounding structures, possibility of having an open abdomen with need for repeat surgery, , were explained to the patient. She is understanding of the risks and wishes to proceed. I spoke with inpatient pharmacist and Andexxa will be dosed prior to surgery Patient is being admitted to the hospitalist and will go to the ICU after surgery Coding Level of Care Code 65441 Diagnoses Small bowel ischemia K55.9 Small bowel perforation K63.1 Chronic anticoagulation Z79.01
--- NOTE | 2024-02-26 17:40 | PC.NURSE ---
Patient transferred to OR Patient transferred to OR via stretcher by Suresh Bullock RN. [facility]. Patient tolerated well. Patient called her younger sibling prior to transfer. Visitors x2 at bedside and walked to Pre-op with OR nurse.
--- NOTE | 2024-02-26 17:51 | P.HP_ITS ---
Providers/Chief Complaint 2 Admitting Physician: Nico Van MD Primary Care Provider: Oxana Lee DO Chief Complaint: abdomen pain History of Present Illness Vi Ruffin is a 83 year old female who was recently discharged from the hospital after prolonged hospitalization she suffered from pneumonia, leukocytosis, UTI, encephalopathy and bowel obstruction, she was seen by general surgery and was cleared to go to detention once she is tolerated her diet and was having regular bowel movement on daily basis, presenting back with chief converts abdominal pain she has been diagnosed with bowel perforation with bowel ischemia. General surgery has been consulted and stat basis. Patient developed A-fib on last admission she was put on Eliquis along rate rate control medications. Patient is stating that she was trying chicken breast with vegetables at the detention and after that she started having abdominal pain which was getting worse all night, in the morning she started having projectile vomiting she did not notice any fever she had 3 episode of vomiting abdominal pain got worse that prompted her visit to the ER in the ER she has been diagnosed with bowel ischemia and perforation General surgery consulted she is waiting in PACU for expiratory laparotomy. She has a PICC line one of the port is not operational, Cathflo was being administered patient has received reversal for Eliquis,,Most likely her last dose of Eliquis was this morning Patient was hemodynamically stable at the time of evaluation She meets sepsis criteria with low-grade fever tachypnea tachycardia leukocytosis her lactic acid is normal Review of Systems 2 Const: Reports: chills and fatigue Eyes: Denies: eye discomfort ENMT: Denies: throat pain Card: Denies: chest pain Resp: Reports: dyspnea GI: Reports: abdominal pain, nausea and vomiting : Denies: flank pain Musc: Denies: neck pain Skin/Breast: Denies: rash Neuro: Denies: headache(s) Medications/Allergies Home Medications Medication Instructions Recorded Confirmed Last Taken Type albuterol sulfate 90 mcg/actuation 1 inh inhalation Q4H PRN Shortness 11/22/19 02/26/24 02/26/24 History aerosol inhaler Of Breath Or Wheezing alendronate 10 mg tablet 10 mg PO Q7D 11/22/19 02/26/24 02/22/24 History vitamins A,C,X-kucn-jqujwa 4,296 1 cap PO BID 11/22/19 02/26/24 02/26/24 History mcg-226 mg-90 mg capsule (PreserVision AREDS) fluticasone 250 mcg-salmeterol 50 1 inh inhalation DAILY 05/17/20 02/26/24 02/26/24 History mcg/dose blistr powdr for inhalation (Advair Diskus) pravastatin 80 mg tablet 80 mg PO DAILY 03/21/22 02/26/24 02/26/24 History trazodone 50 mg tablet 50 mg PO QPM 03/21/22 02/26/24 Unknown History montelukast 10 mg tablet 10 mg PO DAILY #90 tabs 02/17/23 02/26/24 02/26/24 Rx (Singulair) ondansetron HCl 4 mg tablet 4 mg PO Q8H PRN nausea and 05/15/23 02/26/24 02/26/24 Rx vomiting 4 days #30 tabs fluticasone propionate 50 2 spray intranasal QDAY PRN 10/16/23 02/26/24 Unknown Rx mcg/actuation nasal allergy symptoms 90 days #16 grams spray,suspension (Flonase Allergy Relief) gabapentin 300 mg capsule 300 mg PO BID 90 days #180 caps 11/26/23 02/26/24 02/26/24 Rx hydrocodone 10 mg-acetaminophen 1 tab PO BID PRN pain 30 days #60 01/16/24 02/26/24 02/26/24 Rx 325 mg tablet tabs omeprazole 20 mg capsule,delayed 20 mg PO DAILY #90 caps 01/16/24 02/26/24 02/26/24 Rx release oxybutynin chloride 5 mg tablet 5 mg PO BID #180 tabs 01/16/24 02/26/24 02/26/24 Rx Custom molded Orthotics #1 ea 01/27/24 02/26/24 Unknown Rx azelastine 137 mcg (0.1 %) nasal 1 spray intranasal DAILY 02/16/24 02/26/24 02/26/24 History spray aerosol cetirizine 10 mg capsule (Zyrtec) 10 mg PO DAILY PRN Allergy Symptoms 02/16/24 02/26/24 Unknown History apixaban 5 mg tablet (Eliquis) 5 mg PO BID #60 tabs 02/25/24 02/26/24 02/26/24 Rx diltiazem HCl 240 mg 240 mg PO DAILY #60 tabs 02/25/24 02/26/24 02/26/24 Rx tablet,extended release 24 hr (Cardizem LA) polyethylene glycol 3350 17 4 g PO DAILY #119 grams 02/25/24 02/26/24 02/26/24 Rx gram/dose oral powder (Miralax) sennosides 8.6 mg-docusate sodium 1 tab PO DAILY #30 tabs 02/25/24 02/26/24 02/26/24 Rx 50 mg tablet (Stool Softener-Laxative) tuberculin PPD 5 tub. unit/0.1 mL 0.1 ml intradermal Q14D 02/26/24 02/26/24 Unknown History intradermal injection solution vancomycin 1,000 mg intravenous 995 mg IV DAILY 02/26/24 02/26/24 02/26/24 History injection Allergies Allergy/AdvReac Type Severity Reaction Status Date / Time albumin colloid, human Allergy Severe ALGY-Difficulty Verified 02/26/24 17:55 Breathing dog dander Allergy cough Verified 01/27/24 15:44 house dust Allergy ALGY-Sneezi Verified 01/27/24 15:44 ng Mold Allergy ALGY-Sneezi Uncoded 01/27/24 15:44 ng PFSH Acute 2 PFSH: Medical History NSTEMI (non-ST elevated myocardial infarction) Diarrhea Obesity (BMI 30.0-34.9) Hyperglycemia JORDEN (obstructive sleep apnea) Bradycardia History of ganglion cyst Right Osteoarthritis of carpometacarpal joint of left thumb Osteopenia Seasonal allergies History of DVT (deep vein thrombosis) Recurrent Urinary incontinence Hypertension History of malignant melanoma On right forearm Surgical History Hx of colonoscopy with polypectomy [facility]- 10 yrs History of esophagogastroduodenoscopy (EGD) 10 yrs = [facility] Hx of dilation and curettage H/O tubal ligation Status post total left knee replacement using cement Family History Mother Cancer Breast Other CAD (coronary artery disease) Diabetes Social History Smoking and tobacco/nicotine status: former use of tobacco/nicotine Alcohol intake: current Alcohol intake frequency: holidays/special occasions only Substance/Drug Use: never Vitals/I&O/Wt Last Vital Signs Pulse 93 02/26/24 15:24 Resp 15 02/26/24 16:26 BP 133/91 02/26/24 15:24 Pulse Ox 98 02/26/24 16:26 02/26/24 02/26/24 02/26/24 06:59 14:59 22:59 Intake Total 50 / 50 Balance 50 / 50 Weight last 48 hrs Weight 90.718 kg Physical Exam 2 Narrative: Patient is laying supine Tender abdomen Signs of peritonitis GCS 15 Hemodynamic stable Nonfocal neuroexam In good spirits Right arm PICC line in place GCS 15 Currently on room air Data 02/26/24 16:00 02/26/24 16:00 A&P Assessment and plan (1) Atrial fibrillation: (2) Chronic anticoagulation: (3) Chronic GERD: (4) Small bowel obstruction: (5) Small bowel perforation: (6) Small bowel ischemia: (7) Leukocytosis: (8) Sepsis: (9) Hyponatremia: Plan Sepsis related to bowel obstruction and bowel ischemia Will give her septic bolus She was given antifungal antibiotics Continue IV fluids Blood cultures taken Lactic acid is normal Criteria met with low-grade fever tachypnea tachycardia leukocytosis. General surgery consulted going for exploratory laparotomy I have requested type and screen She is hemodynamically stable at the time of evaluation Acute on chronic hyponatremia Secondary to poor p.o. intake Continue normal saline She was given salt tablets on last admission nephro was consulted as well A-fib without RVR Hold Eliquis Last dose was the morning She has received resource allegiant before surgery Recent pneumonia Currently on room air No active shortness of breath Patient stating that she developed encephalopathy after getting propofol that she had to be given Narcan in the past N.p.o. Most likely will need dietary consultation to start TPN Full code DVT prophylaxis SCDs Attestations 2 Medical Necessity Statement*: More than 2 midnights anticipated Diagnoses Atrial fibrillation I48.91 Chronic anticoagulation Z79.01 Chronic GERD K21.9 Small bowel obstruction K56.609 Small bowel perforation K63.1 Small bowel ischemia K55.9 Leukocytosis D72.829 Sepsis A41.9 Hyponatremia E87.1
[2024-02-26] MEDS: sodium chloride 0.9% 1,000 ML 30 ML IV (18:16)
[2024-02-26] MEDS: factor xa, inactivated-zhzo 400 MG in empty flexible container 1 EACH, non-DEHP filter ... 180 MG IV (18:30)
[2024-02-26] MEDS: factor xa, inactivated-zhzo 480 MG in empty flexible container 1 EACH, non-DEHP filter ... 24 MG IV (18:38)
--- NOTE | 2024-02-26 18:55 | P.ANESASSM_ITS ---
Pre-Anesthetic Assessment Height/Weight: Height 1.7 m Weight 90.718 kg Temp Pulse Resp BP Pulse Ox O2 Del Method 100.0 F H 93 17 140/67 100 Room Air 02/26/24 17:58 02/26/24 17:58 02/26/24 17:58 02/26/24 17:58 02/26/24 17:58 02/26/24 17:58 Operation Date: 02/26/24 18:00 Proposed Procedures p Colon Resection(Not Applicable) - Lew Tilley, DO Was Beta Joaquina taken within 24 hours: N/A Was Clonidine taken within 24 hours: N/A Social No alcohol and No tobacco Exam alert, oriented x 3 and clear to auscultation bilaterally Irreg rate/rhythm Airway Submandibular: within normal limits Cervical ROM: within normal limits Mallampati: Class II Pulmonary Asthma CV/HEM Atrial Fibrillation, Coronary Artery Disease and Congestive Heart Failure GI Gastroesophageal Reflux Disease acute bowel obstruction, ? ischemia Metabolic acute hyponatremia with sepsis Anesthetic Plan ASA status: 4E Anesthesia: General Other: A-line and large bore IV access Medications/Allergies Home Medications Medication Instructions Recorded Confirmed Last Taken Type albuterol sulfate 90 mcg/actuation 1 inh inhalation Q4H PRN Shortness 11/22/19 02/26/24 02/26/24 History aerosol inhaler Of Breath Or Wheezing alendronate 10 mg tablet 10 mg PO Q7D 11/22/19 02/26/24 02/22/24 History vitamins A,C,Z-lsoy-roowlk 4,296 1 cap PO BID 11/22/19 02/26/24 02/26/24 History mcg-226 mg-90 mg capsule (PreserVision AREDS) fluticasone 250 mcg-salmeterol 50 1 inh inhalation DAILY 05/17/20 02/26/24 02/26/24 History mcg/dose blistr powdr for inhalation (Advair Diskus) pravastatin 80 mg tablet 80 mg PO DAILY 03/21/22 02/26/24 02/26/24 History trazodone 50 mg tablet 50 mg PO QPM 03/21/22 02/26/24 Unknown History montelukast 10 mg tablet 10 mg PO DAILY #90 tabs 02/17/23 02/26/24 02/26/24 Rx (Singulair) ondansetron HCl 4 mg tablet 4 mg PO Q8H PRN nausea and 05/15/23 02/26/24 02/26/24 Rx vomiting 4 days #30 tabs fluticasone propionate 50 2 spray intranasal QDAY PRN 10/16/23 02/26/24 Unknown Rx mcg/actuation nasal allergy symptoms 90 days #16 grams spray,suspension (Flonase Allergy Relief) gabapentin 300 mg capsule 300 mg PO BID 90 days #180 caps 11/26/23 02/26/24 02/26/24 Rx hydrocodone 10 mg-acetaminophen 1 tab PO BID PRN pain 30 days #60 01/16/24 02/26/24 02/26/24 Rx 325 mg tablet tabs omeprazole 20 mg capsule,delayed 20 mg PO DAILY #90 caps 01/16/24 02/26/24 02/26/24 Rx release oxybutynin chloride 5 mg tablet 5 mg PO BID #180 tabs 01/16/24 02/26/24 02/26/24 Rx Custom molded Orthotics #1 ea 01/27/24 02/26/24 Unknown Rx azelastine 137 mcg (0.1 %) nasal 1 spray intranasal DAILY 02/16/24 02/26/24 02/26/24 History spray aerosol cetirizine 10 mg capsule (Zyrtec) 10 mg PO DAILY PRN Allergy Symptoms 02/16/24 02/26/24 Unknown History apixaban 5 mg tablet (Eliquis) 5 mg PO BID #60 tabs 02/25/24 02/26/24 02/26/24 Rx diltiazem HCl 240 mg 240 mg PO DAILY #60 tabs 02/25/24 02/26/24 02/26/24 Rx tablet,extended release 24 hr (Cardizem LA) polyethylene glycol 3350 17 4 g PO DAILY #119 grams 02/25/24 02/26/24 02/26/24 Rx gram/dose oral powder (Miralax) sennosides 8.6 mg-docusate sodium 1 tab PO DAILY #30 tabs 02/25/24 02/26/24 02/26/24 Rx 50 mg tablet (Stool Softener-Laxative) tuberculin PPD 5 tub. unit/0.1 mL 0.1 ml intradermal Q14D 02/26/24 02/26/24 Unknown History intradermal injection solution vancomycin 1,000 mg intravenous 995 mg IV DAILY 02/26/24 02/26/24 02/26/24 History injection Allergies Allergy/AdvReac Type Severity Reaction Status Date / Time albumin colloid, human Allergy Severe ALGY-Difficulty Verified 02/26/24 17:55 Breathing dog dander Allergy cough Verified 01/27/24 15:44 house dust Allergy ALGY-Sneezi Verified 01/27/24 15:44 ng Mold Allergy ALGY-Sneezi Uncoded 01/27/24 15:44 ng Current Medications Generic Name Dose Route Start Last Admin Trade Name Freq PRN Reason Stop Dose Admin Factor Xa(Recombinant) Inactiv 48 mls @ 24 mls/hr 02/26/24 17:30 02/26/24 18:38 -zhzo 480 mg/ N/A/ IV IV 02/26/24 19:29 24 mls/hr Miscellaneous Supplies .Q2H ONE Administration Sodium Chloride 1,000 mls @ 30 mls/hr 02/26/24 18:00 02/26/24 18:16 Sodium Chloride 0.9% IV 30 mls/hr .Q24H GERALDO Administration PFSH Anesthesia Medical History NSTEMI (non-ST elevated myocardial infarction) Diarrhea Obesity (BMI 30.0-34.9) Hyperglycemia JORDEN (obstructive sleep apnea) Bradycardia History of ganglion cyst Right Osteoarthritis of carpometacarpal joint of left thumb Osteopenia Seasonal allergies History of DVT (deep vein thrombosis) Recurrent Urinary incontinence Hypertension History of malignant melanoma On right forearm Surgical History Hx of colonoscopy with polypectomy [facility]- 10 yrs History of esophagogastroduodenoscopy (EGD) 10 yrs = [facility] Hx of dilation and curettage H/O tubal ligation Status post total left knee replacement using cement Family History Mother Cancer Breast Other CAD (coronary artery disease) Diabetes Social History Smoking and tobacco/nicotine status: former use of tobacco/nicotine Alcohol intake: current Alcohol intake frequency: holidays/special occasions only Substance/Drug Use: never Data Anesthesia 02/26/24 16:00 02/26/24 16:00 Short CBC 02/26/24 Range/Units 16:00 WBC 26.67 H (3.29-11.43) 10^3/uL Hgb 10.80 L (11.27-16.99) g/dL Hct 33.1 L (36-47) % MCV 81.7 L (85-98) fl Plt Count 440 H (157-399) 10^3/cmm Neut % (Auto) 87.4 % Neut # (Auto) 23.28 H (1.8-7.7) 10^3/uL BMP 02/26/24 16:00 Sodium 129 L Potassium 4.1 Chloride 95 L Carbon Dioxide 23 BUN 18 Creatinine 1.0 H Glucose 121 H Calcium 8.0 L Liver Function 02/26/24 Range/Units 16:00 Total Bilirubin 0.4 (0.15-1.2) mg/dL AST 14 (0-32) U/L ALT 23 (0-33) U/L Alkaline Phosphatase 83 (35-105) U/L Albumin 2.3 L (3.5-5.2) g/dL Cardiac Studies: 2 Echocardiogram 02/16/24 Echocardiogram Ultrasound 01/18/21 Cardiac Event Monitor 05/06/22
[2024-02-26] MEDS: micafungin 100 MG in sodium chloride 0.9% (plus) 100 ML IV (19:14)
--- NOTE | 2024-02-26 19:27 | SUR.PREOP ---
Patient had a picc line in right upper arm, 2 lumens (red and white) do not work. Patient currently has infusion running in patent picc lumen of factor xa. PAtient also has new 18g IV in left AC
--- NOTE | 2024-02-26 19:30 | SUR.PREOP ---
NG tube placed by Analisa LCPC
[2024-02-26] MEDS: vancomycin 1,000 MG in sodium chloride 0.9% 250 ML 250 MG IV (20:30)
--- NOTE | 2024-02-26 21:41 | PM.OP ---
Operative Report Date of procedure: February 26, 2024 Pre-op diagnosis: Ischemic bowel Peritonitis Post-op diagnosis: same Procedure done: Exploratory laparotomy with small bowel resection Implants: ABThera Specimens removed/disposition: 185 cm of ischemic and perforated small bowel Surgeon: Lew Tilley DO Anesthesia: General Estimated blood loss (mL): 50 Complications: None apparent Brief History: This is a very pleasant 83-year-old female presented to the hospital with peritonitis. CT showed small bowel ischemia with perforation. Exploratory laparotomy, possible bowel resection, possible ostomy was indicated. The risk and benefits were explained and documented. Procedure: Patient was wheeled operative room placed on the OR table in supine position. General endotracheal intubation was achieved by department anesthesia. A timeout was performed. All present were in agreement. A 10 blade scalpel was used to make a midline laparotomy incision. Bovie cautery was used to dissect down to the fascia. The fascia was opened with electrocautery and then extended over my finger with electrocautery cephalad and caudad. The peritoneum was grasped with hemostats x 2 and incised with Metzenbaum scissors. This was extended cephalad and caudad with electrocautery over my finger. Immediately copious amounts of succus was identified and suctioned. There was obvious necrotic and ischemic small bowel. Loculations were finger fractured. The entire small bowel was mobilized. Approximately half of the small bowel distal to the ligament of Treitz was nonviable. 15 cm of small bowel proximal to the ileocecal valve appeared viable. A TEMI stapler with 100 mm blue load was used to transect the small bowel at this location. Approximately 185 cm of small bowel proximal to this was ischemic and nonviable. The proximal portion was transected with a TEMI stapler in a similar fashion. The mesentery was transected with LigaSure. Approximately 185 cm of small bowel was removed and passed off to go to pathology. The abdomen was inspected and no further pathology was identified. 6 L of warm saline was used to irrigate suction and clean the abdomen. Decision was made to leave the bowel in discontinuity to come back in 24 to 48 hours for a second look to determine if the remaining bowel is still viable in the hopes of anastomosing. An ABThera was placed. Patient tolerated procedure well.
[2024-02-26] MEDS: propofol 1,000 MG/100 ML INJ 2.7200000000000002 MG IV (22:35)
[2024-02-26] MEDS: fentaNYL 1,000 MCG/100 ML BAG 2.5 MCG IV (22:49)
[2024-02-27] VITALS (38 sets, daily range): BP systolic 72–126; BP diastolic 43–73; PULSE 88–121; RESP 14–18; TEMP 36.8–37.7; O2SAT 96–100
[2024-02-27] MEDS: pantoprazole 40 mg SDV IVP ×3 (00:09→18:48)
[2024-02-27] MEDS: piperacillin-tazobactam 3.375 GM in sodium chloride 0.9% (plus) 50 ML IV ×4 (00:10→23:58)
[2024-02-27] MEDS: metoprolol tartrate 1 mg/1 mL SDV 5 mL 2.5 MG IVP (00:13)
[2024-02-27] MEDS: sodium chloride 0.9% 500 ML 999 ML IV (01:00)
--- NOTE | 2024-02-27 01:27 | PC.NURSE ---
Patient's Mary Ann matson, called ICU. Update provided.
[2024-02-27] MEDS: dextrose 5%-sod chloride 0.9% 1,000 ML 100 ML IV ×2 (01:34→21:24)
--- NOTE | 2024-02-27 02:43 | PC.NURSE ---
Call placed to Dr. Thapa regarding patient decreased BP, no urine output. Order received for saline bolus.
[2024-02-27] MEDS: sodium chloride 0.9% 1,000 ML 500 ML IV (02:57)
[2024-02-27 04:01] LABS: Hematocrit 31.3 % (36-47); Mean Corpuscular HGB Conc 32.6 g/dL (30-55); Mean Corpuscular Hemoglobin 27.1 pg (27-33); Mean Corpuscular Volume 83.2 fl (85-98); Mean Platelet Volume 9.7 fL (7.4-10.4); Platelet Count 293 10^3/cmm (157-399); Red Blood Count 3.76 10^6/uL (3.85-5.65); Red Cell Distribution Width 15.8 % (12.1-15.1)
[2024-02-27 04:11] LABS: ABG PCO2 35.6 mmHg (35-45); ABG PH Result 7.33 (7.35-7.45); Alveolar-Arterial Oxygen Gradi 18.6 mmHg (5-10); Arterial Blood Gas Hematocrit 31.8 % (37-47); Base Excess ABG -6.6 mmol/L (-2.0-2.0); Blood Gas Allen Test Pos; Blood Gas Sample Site ARTLINE; Blood Gas Sample Type Arterial; Blood Gas Tidal Volume 0.45; Carboxyhemoglobin 1.2 %THgb (0.4-20.1); HCO3 ABG 18.7 mmol/L (22-26); HGB O2 Sat 96.3 % (95-100); Methemoglobin 0.7 % (0.4-1.5); Oxygen Device VENT; Oxygen Saturation ABG 98.2; PO2 ABG 95.2 mmHg (80.0-100.0); PO2 FiO2 Ratio Arterial Blood 0; Potassium Level - ABG 3.8 mmol/L (3.5-5.0); Total Hemoglobin 10.4 g/dL (12-16)
[2024-02-27 04:14] LABS: INR 1.63 (0.8-1.2)
[2024-02-27 04:15] LABS: Partial Thromboplastin Time 35.1 SECONDS (23.9-36.7)
[2024-02-27] MEDS: norepinephrine 4 MG/250 ML BAG 7.5 MG IV (04:20)
[2024-02-27 04:23] LABS: Alanine Aminotransferase 23 U/L (0-33); Albumin Level 1.5 g/dL (3.5-5.2); Alkaline Phosphatase 58 U/L (35-105); Anion Gap 15.1 (5-19); Aspartate Amino Transferase 23 U/L (0-32); Blood Urea Nitrogen 22 mg/dL (8-23); Calcium 6.2 mg/dL (8.5-10.5); Carbon Dioxide 18 mmol/L (22-29); Chloride 105 mmol/L (98-107); Creatinine Clr Calc Pharmacy 34.2995; Globulin 2.4 g/dL (1.3-4.6); Glucose 147 mg/dL (65-115); Magnesium 1.4 mg/dL (1.7-2.3); Osmolality Calculated 284 mOsm/kg (285-295); Phosphorus 4.7 mg/dL (2.5-4.5); Potassium 4.1 mmol/L (3.5-5.1); Sodium 134 mmol/L (136-145); Total Bilirubin 0.5 mg/dL (0.15-1.2); Total Protein 3.9 g/dL (6.6-8.7)
[2024-02-27 04:26] LABS: Absolute Neutrophil 28.4 10^3/cmm (1.4-6.5); Absolute Segmented Neutrophil 19.6 10/cmm (1.6-7.1); Band Neutrophils Absolute 8.8 10^3/cmm (0.0-1.2); Eosinophils 0 %; Lymphocytes 3 %; Monocytes Absolute 0.9 10^3/cmm (0.1-0.6); Platelet Estimate Normal (Normal); Segmented Neutrophils 65 %; Slide Review Slide Review Perform; Total Cells Counted 100 (0-100); Toxic Vacuolation 1+
[2024-02-27 04:30] LABS: White Blood Count 30.18 10^3/uL (3.29-11.43)
[2024-02-27] MEDS: magnesium sulfate premix 2 GM/50 ML PIGGYBACK IV (06:03)
[2024-02-27 06:39] LABS: Lactate (Lactic Acid level) 1.5 mmol/L (0.5-2.2)
--- NOTE | 2024-02-27 08:25 | P.PN_ITS ---
Subjective 2 Subjective: Patient seen and examined. She remains intubated. ABThera wound VAC in place Vitals/I&O/Wt Last Vital Signs Temp 100 F H 02/27/24 03:00 Pulse 101 H 02/27/24 09:04 Resp 18 02/27/24 18:33 BP 108/45 02/27/24 03:00 Pulse Ox 98 02/27/24 18:33 O2 Del Method Mechanical Ventilation 02/27/24 09:04 O2 Flow Rate 50 02/26/24 21:50 FiO2 30 02/27/24 18:33 02/27/24 02/27/24 02/27/24 06:59 14:59 22:59 Intake Total 72.371 / 1512.371 205.25 / 205.25 1699.25 / 1904.50 Output Total 475 / 575 550 / 550 100 / 650 Balance -402.629 / 937.371 -344.75 / -344.75 1599.25 / 1254.50 Weight last 48 hrs Weight 203 lb Weight 203 lb 14.4 oz Weight 200 lb Physical Exam 2 Narrative: General: Intubated/sedated Abdomen: Soft, nondistended, no guarding, ABThera in place without leak Urinary Catheter Management: Alcantara: Cath Placed During This Visit: yes Reason for Continuing Indwelling Catheter: Accurate Measurement of Urinary Output in Critically Ill Patients Urinary Catheter Date of Insertion: 02/26/24 Urinary Catheter Time of Insertion: 21:14 Data 02/27/24 03:45 02/27/24 17:06 Micro: Microbiology 02/26/24 19:42 Blood Culture - Preliminary Blood SPECIMEN COLLECTED 02/26/24 19:38 Blood Culture - Preliminary Blood SPECIMEN COLLECTED A&P Assessment and plan (1) Small bowel ischemia: (2) Small bowel perforation: Plan Status post exploratory laparotomy with resection of approximately half the small bowel distal to the ligament of Treitz (about 185 cm). Abdomen was left in discontinuity with plans to take her back in 24 to 48 hours to definitively see if the remaining bowel is viable and likely reanastomose. Patient is requiring vasopressor support. Plan to take her back tomorrow Medical management per hospitalist Attestations 2 Medical Necessity Statement*: Per primary Coding Level of Care Code Acute Code for [facility] Diagnoses Small bowel ischemia K55.9 Small bowel perforation K63.1
--- NOTE | 2024-02-27 09:01 | XR_ITS ---
WS: [id number] XR chest 1V portable 30026 REASON FOR EXAM: ET tube placement FINDINGS: Endotracheal tube in position at the level of the aortic arch. Nasogastric tube at the level of the f undus of the stomach. Right arm PICC line in position with the tip in the distal SVC. No pneumothorax or significant atelectasis. No acute pulmonary parenchymal or pleural abnormality. The chest appears relatively stable compared to 02/26/2024. XR/XR chest 1V portable 11150 IMPRESSION: Stable chest with nasogastric tube and ET tube placement as above.
[2024-02-27] MEDS: sodium bicarbonate 150 MEQ in dextrose 5% 1,000 ML 100 MEQ IV ×2 (10:16→21:27)
[2024-02-27] MEDS: fentaNYL 1,000 MCG/100 ML BAG 10 MCG IV (10:50)
--- NOTE | 2024-02-27 13:02 | P.PN_ITS ---
Subjective 2 Subjective: Postoperative intubation ELLA Patient will start TPN today Dietary consultation placed Leukocytosis 30,000 Afebrile this morning FiO2 30% PEEP 5 Endotracheal tube was advanced Vitals/I&O/Wt Last Vital Signs Temp 100 F H 02/27/24 03:00 Pulse 101 H 02/27/24 09:04 Resp 15 02/27/24 12:51 BP 108/45 02/27/24 03:00 Pulse Ox 99 02/27/24 12:51 O2 Del Method Mechanical Ventilation 02/27/24 09:04 O2 Flow Rate 50 02/26/24 21:50 FiO2 30 02/27/24 12:51 02/26/24 02/27/24 02/27/24 22:59 06:59 14:59 Intake Total 1340 / 1340 72.371 / 1412.371 Output Total 100 / 100 475 / 575 550 / 550 Balance 1240 / 1240 -402.629 / 837.371 -550 / -550 Weight last 48 hrs Weight 92.079 kg Weight 92.487 kg Weight 90.718 kg Physical Exam 2 Narrative: Euvolemic Intubated and sedated FiO2 30% PEEP 5 Hemodynamically stable Atrial flutter heart rate below [address] Hemovac in place as well Neuroexam is limited Assisted bilateral breath sounds Adequate urine output Urinary Catheter Management: Alcantara: Cath Placed During This Visit: yes Reason for Continuing Indwelling Catheter: Accurate Measurement of Urinary Output in Critically Ill Patients Urinary Catheter Date of Insertion: 02/26/24 Urinary Catheter Time of Insertion: 21:14 Data 02/27/24 03:45 02/27/24 03:45 Micro: Microbiology 02/26/24 19:42 Blood Culture - Preliminary Blood SPECIMEN COLLECTED 02/26/24 19:38 Blood Culture - Preliminary Blood SPECIMEN COLLECTED A&P Assessment and plan (1) Atrial fibrillation: (2) Hypertension: Qualifiers: Hypertension type: primary hypertension Qualified Code(s): I10 - Essential (primary) hypertension (3) Chronic anticoagulation: (4) Hyponatremia: (5) Sepsis: (6) Leukocytosis: (7) Small bowel perforation: (8) Small bowel obstruction: (9) Small bowel ischemia: Plan Sepsis related to GI source Bowel ischemia Status post respiratory nephrotomy 02/25 Going for revision with Dr. Tilley again Continue antifungal and antibiotics Perioperative intubation Patient will need to stay intubated and sedated as she is going for revision Worsening leukocytosis noted No fever this morning Continue antimicrobials Blood cultures results are pending Malnourishment: Start TPN Metabolic acidosis start bicarb drip Repeat BMP around 5 PM Respiratory failure postoperative ABG is unremarkable Endotracheal tube was advanced Full code N.p.o. Alcantara catheter in place Hemovac in place Patient has an old right-sided PICC line Patient was getting vancomycin for her persistent leukocytosis and the hardware Cultures negative to date Attestations 2 Medical Necessity Statement*: Continue ICU management Coding Level of Care Code Critical Care >/= 30 minutes Critical care time (in minutes): 30 The high probability of a clinically significant, sudden or life threatening deterioration, as referenced in this documentation, required my full and direct attention, intervention and personal management. The critical care time shown is in addition to time spent performing any reported separately billable procedures and includes the following: [x] Data and vital sign review and interpretation [x ] Patient assessment, examination and intervention [x] Medication orders and management [x] Patient/Family updates as able [x] Care Coordination and Documentation. Diagnoses Atrial fibrillation I48.91 Primary hypertension I10 Hypertension type: primary hypertension Chronic anticoagulation Z79.01 Hyponatremia E87.1 Sepsis A41.9 Leukocytosis D72.829 Small bowel perforation K63.1 Small bowel obstruction K56.609 Small bowel ischemia K55.9
[2024-02-27] MEDS: norepinephrine 4 MG/250 ML BAG 22.5 MG IV (14:54)
[2024-02-27] MEDS: AA-Dex 5%-20% w/Lytes 1,000 ML with multivitamin inj 10 ML 22 ML IV (14:55)
[2024-02-27 17:42] LABS: Anion Gap 15.4 (5-19); Blood Urea Nitrogen 27 mg/dL (8-23); Carbon Dioxide 19 mmol/L (22-29); Chloride 102 mmol/L (98-107); Creatinine Clr Calc Pharmacy 23.9566; Glucose 286 mg/dL (65-115); Osmolality Calculated 290 mOsm/kg (285-295); Potassium 4.4 mmol/L (3.5-5.1); Sodium 132 mmol/L (136-145)
[2024-02-27 17:45] LABS: Calcium 5.7 mg/dL (8.5-10.5)
[2024-02-27] MEDS: micafungin 100 MG in sodium chloride 0.9% (plus) 100 ML IV (18:47)
[2024-02-27] MEDS: lanolin oint 7 gm 1 APPLIC TOPICAL (18:50)
--- NOTE | 2024-02-27 19:37 | PC.NURSE ---
LAb reported critical calcium Dr. peter gave order for 2gm of calcium, this nurse reported urine output of 100 ml no n.o.
[2024-02-27] MEDS: fentaNYL 1,000 MCG/100 ML BAG 12.5 MCG IV (20:06)
[2024-02-27] MEDS: vancomycin 1,250 MG/250 ML PIGGYBACK 250 MG IV (21:09)
[2024-02-27] MEDS: morphine 4 mg/mL SDV 1 mL IVP (21:09)
[2024-02-27] MEDS: calcium gluconate 0.9% NaCL 1 GM/50 ML PREMIX IV ×2 (21:10→21:50)
[2024-02-27 21:18] LABS: Glucose Point of Care 280 mg/dL (70-110)
[2024-02-27] MEDS: norepinephrine 4 MG/250 ML BAG 63.75 MG IV (22:15)
[2024-02-28] VITALS (69 sets, daily range): BP systolic 80–143; BP diastolic 44–74; PULSE 89–135; RESP 14–26; TEMP 36.8–37.3; O2SAT 78–100; BMI 37.3
[2024-02-28] MEDS: fentaNYL 1,000 MCG/100 ML BAG 15 MCG IV (02:01)
[2024-02-28] MEDS: norepinephrine 4 MG/250 ML BAG 45 MG IV (02:24)
[2024-02-28 05:03] LABS: ABG PCO2 39.3 mmHg (35-45); ABG PH Result 7.35 (7.35-7.45); Alveolar-Arterial Oxygen Gradi 8.5 mmHg (5-10); Base Excess ABG -3.8 mmol/L (-2.0-2.0); Blood Gas Allen Test Pos; Blood Gas Sample Site ARTLINE; Blood Gas Sample Type Arterial; Blood Gas Tidal Volume 0.45; Carboxyhemoglobin 1.2 %THgb (0.4-20.1); HCO3 ABG 21.6 mmol/L (22-26); HGB O2 Sat 96.8 % (95-100); Ionized Calcium Level - ABG 0.9 mmol/L (1.1-1.4); Methemoglobin 0.8 % (0.4-1.5); Oxygen Device VENT; Oxygen Saturation ABG 98.7; PO2 ABG 98.2 mmHg (80.0-100.0); PO2 FiO2 Ratio Arterial Blood 0; Potassium Level - ABG 3.3 mmol/L (3.5-5.0); Total Hemoglobin 10.1 g/dL (12-16)
[2024-02-28] MEDS: morphine 4 mg/mL SDV 1 mL IVP (05:36)
[2024-02-28 05:49] LABS: Basophils # 0.1 10^3/uL (0.0-0.1); Basophils % 0.2 %; Lymphocytes # 0.7 10^3/uL (0.8-4.8); Lymphocytes % 2.8 %; Mean Corpuscular HGB Conc 32.7 g/dL (30-55); Mean Corpuscular Hemoglobin 27.5 pg (27-33); Mean Platelet Volume 10.8 fL (7.4-10.4); Monocytes # 0.7 10^3/uL (0.2-0.9); Monocytes % 2.7 %; Neutrophils % 93.1 %; Nucleated Red Blood Cells % 0 %; Platelet Count 283 10^3/cmm (157-399); Red Blood Count 2.62 10^6/uL (3.85-5.65); Red Cell Distribution Width 16.2 % (12.1-15.1); White Blood Count 24.93 10^3/uL (3.29-11.43)
[2024-02-28] MEDS: propofol 1,000 MG/100 ML INJ 4.08000000000000007 MG IV (05:50)
[2024-02-28] MEDS: dextrose 5%-sod chloride 0.9% 1,000 ML 100 ML IV (06:06)
[2024-02-28 06:11] LABS: Anion Gap 13.2 (5-19); Blood Urea Nitrogen 28 mg/dL (8-23); Carbon Dioxide 26 mmol/L (22-29); Chloride 94 mmol/L (98-107); Creatinine Clr Calc Pharmacy 24.7794; Potassium 3.2 mmol/L (3.5-5.1); Sodium 130 mmol/L (136-145)
[2024-02-28 06:21] LABS: Osmolality Calculated 321 mOsm/kg (285-295)
[2024-02-28 06:25] LABS: Calcium 4.7 mg/dL (8.5-10.5); Glucose 924 mg/dL (65-115)
[2024-02-28 07:17] LABS: Glucose Point of Care 324 mg/dL (70-110)
[2024-02-28 07:18] LABS: Anion Gap 15.6 (5-19); Blood Urea Nitrogen 34 mg/dL (8-23); Carbon Dioxide 21 mmol/L (22-29); Chloride 94 mmol/L (98-107); Glucose 319 mg/dL (65-115); Osmolality Calculated 284 mOsm/kg (285-295); Potassium 3.6 mmol/L (3.5-5.1); Sodium 127 mmol/L (136-145)
[2024-02-28] MEDS: insulin lispro 100 unit/1 mL 10 UNIT SUBCUT (08:39)
[2024-02-28] MEDS: FUROsemide 10 mg/mL SDV 4mL 40 MG IVP ×2 (08:41→20:07)
--- NOTE | 2024-02-28 08:41 | P.PN_ITS ---
Vitals/I&O/Wt Last Vital Signs Temp 98.2 F 02/28/24 03:04 Pulse 100 02/28/24 06:32 Resp 15 02/28/24 04:00 BP 120/66 02/28/24 06:00 Pulse Ox 99 02/28/24 05:30 O2 Del Method Mechanical Ventilation 02/27/24 09:04 O2 Flow Rate 50 02/26/24 21:50 FiO2 30 02/28/24 04:00 02/27/24 02/28/24 02/28/24 22:59 06:59 14:59 Intake Total 3614.427 / 4907.635 1600.993 / 6508.628 Output Total 100 / 650 275 / 925 Balance 3514.427 / 4257.635 1325.993 / 5583.628 Weight last 48 hrs Weight 238 lb Weight 203 lb Weight 203 lb 14.4 oz Weight 200 lb Physical Exam 2 Urinary Catheter Management: Alcantara: Cath Placed During This Visit: yes Reason for Continuing Indwelling Catheter: Accurate Measurement of Urinary Output in Critically Ill Patients Urinary Catheter Date of Insertion: 02/26/24 Urinary Catheter Time of Insertion: 21:14 Data 02/28/24 04:54 02/28/24 06:53 Micro: Microbiology 02/26/24 19:38 Blood Culture - Preliminary Blood NEGATIVE TO DATE 02/26/24 19:42 Blood Culture - Preliminary Blood NEGATIVE TO DATE A&P Assessment and plan (1) Small bowel ischemia: (2) Small bowel perforation: (3) Small bowel obstruction: Plan Take back to operating room for Exploratory Laparotomy, Possible Bowel Resection, Possible Ostomy The risk and benefits of the procedure, including but not limited to, bleeding, infection, scar, numbness, pain, damage to surrounding structures, possibility of having an open abdomen with need for repeat surgery, , were explained to the patient. She is understanding of the risks and wishes to proceed. Attestations 2 Medical Necessity Statement*: Per primary Coding Level of Care Code Acute Code for g Fwd Diagnoses Small bowel ischemia K55.9 Small bowel perforation K63.1 Small bowel obstruction K56.609
[2024-02-28] MEDS: potassium chloride premix 100 ML 25 MEQ IV (08:44)
[2024-02-28] MEDS: pantoprazole 40 mg SDV IVP ×2 (08:50→17:27)
[2024-02-28] MEDS: piperacillin-tazobactam 3.375 GM in sodium chloride 0.9% (plus) 50 ML IV ×2 (08:53→17:37)
[2024-02-28] MEDS: norepinephrine 4 MG/250 ML BAG 37.5 MG IV (09:00)
[2024-02-28 09:09] LABS: Hematocrit 26.1 % (36-47)
[2024-02-28] MEDS: HYDROmorphone 1 mg/mL INJ 1 mL 0.5 MG IVP (09:11)
[2024-02-28] MEDS: heparin 5,000 unit/mL INJ 1 mL 5000 UNIT SUBCUT (09:14)
[2024-02-28] MEDS: FUROsemide 10 mg/mL SDV 10mL 80 MG IVP (09:29)
[2024-02-28 11:43] LABS: Glucose Point of Care 228 mg/dL (70-110)
--- NOTE | 2024-02-28 12:40 | P.ANESASSM_ITS ---
Pre-Anesthetic Assessment Height/Weight: Height 1.7 m Weight 107.955 kg Temp Pulse Resp BP Pulse Ox O2 Del Method O2 Flow Rate 98.2 F 105 H 15 120/66 100 Mechanical Ventilation 50 02/28/24 03:04 02/28/24 08:47 02/28/24 09:11 02/28/24 06:00 02/28/24 09:11 02/28/24 08:47 02/26/24 21:50 FiO2 30 02/28/24 08:47 Operation Date: 02/26/24 18:00 Proposed Procedures p Colon Resection(Not Applicable) - Lew Tilley DO Operation Date: 02/28/24 09:05 Proposed Procedures p Exploratory Laparotomy(Not Applicable) - Lew Tilley DO Was Beta Joaquina taken within 24 hours: N/A Social No alcohol and No tobacco Airway Comments: Comments: Intubated and ventilated CV/HEM A-fibb with RVR GI Necrotic small bowel Anesthetic Plan ASA status: 4E Anesthesia: General Medications/Allergies Home Medications Medication Instructions Recorded Confirmed Last Taken Type albuterol sulfate 90 mcg/actuation 1 inh inhalation Q4H PRN Shortness 11/22/19 02/26/24 02/26/24 History aerosol inhaler Of Breath Or Wheezing alendronate 10 mg tablet 10 mg PO Q7D 11/22/19 02/26/24 02/22/24 History vitamins A,C,G-lamz-miuxcb 4,296 1 cap PO BID 11/22/19 02/26/24 02/26/24 History mcg-226 mg-90 mg capsule (PreserVision AREDS) fluticasone 250 mcg-salmeterol 50 1 inh inhalation DAILY 05/17/20 02/26/24 02/26/24 History mcg/dose blistr powdr for inhalation (Advair Diskus) pravastatin 80 mg tablet 80 mg PO DAILY 03/21/22 02/26/24 02/26/24 History trazodone 50 mg tablet 50 mg PO QPM 03/21/22 02/26/24 Unknown History montelukast 10 mg tablet 10 mg PO DAILY #90 tabs 02/17/23 02/26/24 02/26/24 Rx (Singulair) ondansetron HCl 4 mg tablet 4 mg PO Q8H PRN nausea and 05/15/23 02/26/24 02/26/24 Rx vomiting 4 days #30 tabs fluticasone propionate 50 2 spray intranasal QDAY PRN 10/16/23 02/26/24 Unknown Rx mcg/actuation nasal allergy symptoms 90 days #16 grams spray,suspension (Flonase Allergy Relief) gabapentin 300 mg capsule 300 mg PO BID 90 days #180 caps 11/26/23 02/26/24 02/26/24 Rx hydrocodone 10 mg-acetaminophen 1 tab PO BID PRN pain 30 days #60 01/16/24 02/26/24 02/26/24 Rx 325 mg tablet tabs omeprazole 20 mg capsule,delayed 20 mg PO DAILY #90 caps 01/16/24 02/26/24 02/26/24 Rx release oxybutynin chloride 5 mg tablet 5 mg PO BID #180 tabs 01/16/24 02/26/24 02/26/24 Rx Custom molded Orthotics #1 ea 01/27/24 02/26/24 Unknown Rx azelastine 137 mcg (0.1 %) nasal 1 spray intranasal DAILY 02/16/24 02/26/24 02/26/24 History spray aerosol cetirizine 10 mg capsule (Zyrtec) 10 mg PO DAILY PRN Allergy Symptoms 02/16/24 02/26/24 Unknown History apixaban 5 mg tablet (Eliquis) 5 mg PO BID #60 tabs 02/25/24 02/26/24 02/26/24 Rx diltiazem HCl 240 mg 240 mg PO DAILY #60 tabs 02/25/24 02/26/24 02/26/24 Rx tablet,extended release 24 hr (Cardizem LA) polyethylene glycol 3350 17 4 g PO DAILY #119 grams 02/25/24 02/26/24 02/26/24 Rx gram/dose oral powder (Miralax) sennosides 8.6 mg-docusate sodium 1 tab PO DAILY #30 tabs 02/25/24 02/26/24 02/26/24 Rx 50 mg tablet (Stool Softener-Laxative) tuberculin PPD 5 tub. unit/0.1 mL 0.1 ml intradermal Q14D 02/26/24 02/26/24 Unknown History intradermal injection solution vancomycin 1,000 mg intravenous 995 mg IV DAILY 02/26/24 02/26/24 02/26/24 History injection Allergies Allergy/AdvReac Type Severity Reaction Status Date / Time albumin colloid, human Allergy Severe ALGY-Difficulty Verified 02/26/24 17:55 Breathing dog dander Allergy cough Verified 01/27/24 15:44 house dust Allergy ALGY-Sneezi Verified 01/27/24 15:44 ng Mold Allergy ALGY-Sneezi Uncoded 01/27/24 15:44 ng Current Medications Generic Name Dose Route Start Last Admin Trade Name Freq PRN Reason Stop Dose Admin Furosemide 40 mg 02/28/24 08:15 02/28/24 08:41 Furosemide 10 Mg/Ml Sdv 4ml IVP 40 mg Q12H GERALDO Administration Micafungin Sodium 100 mg/ 100 mls @ 100 mls/hr 02/26/24 17:00 02/27/24 20:27 Sodium Chloride IV Infused Q24H GERALDO Infusion Dextrose/Sodium Chloride 1,000 mls @ 100 mls/hr 02/26/24 18:50 02/28/24 06:06 Dextrose 5%-Sod Chloride 0.9% IV 100 mls/hr .Q10H GERALDO Administration Piperacillin Sod/Tazobactam 50 mls @ 12.5 mls/hr 02/27/24 00:30 02/28/24 08:53 Sod 3.375 gm/ Sodium Chloride IV 12.5 mls/hr Q8H GERALDO Administration Vancomycin/PEG/NADA/Lysine/Water 1,250 mg in 250 mls @ 250 mls/hr 02/26/24 20:30 02/27/24 22:09 Vancocin IV Infused Q24H GERALDO Infusion Propofol 1,000 mg in 100 mls @ 0 mls/hr 02/26/24 22:15 02/28/24 05:50 Diprivan IV 7.5 mcg/kg/min .Q0M GERALDO 4.08 mls/hr Administration Protocol Per Protocol Fentanyl 1,000 mcg in 100 mls @ 0 mls/hr 02/26/24 22:15 02/28/24 04:38 Sublimaze IV 125 mcg/hr .Q0M GERALDO 12.5 mls/hr Titration Protocol Per Protocol norepinephrine 4 mg in 250 mls @ 0 mls/hr 02/27/24 04:15 02/28/24 09:00 Levophed IV 10 mcg/min .Q0M GERALDO 37.5 mls/hr Administration Protocol Per Protocol Sodium Bicarbonate 150 meq/ 1,150 mls @ 100 mls/hr 02/27/24 09:15 02/27/24 21:27 Dextrose IV 100 mls/hr .[id number] GERALDO Administration Multivitamins 10 ml/ Amino 1,010 mls @ 42 mls/hr 02/27/24 15:00 02/27/24 23:00 Acids/Electrolytes IV 42 mls/hr .Q24H GERALDO Infusion Protocol Lanolin 1 applic 02/27/24 08:40 02/27/24 18:50 Lanolin Oint 7 Gm TOPICAL 1 applic PRN PRN Administration DRYNESS Morphine Sulfate 4 mg 02/26/24 18:50 02/28/24 05:36 Morphine 4 Mg/Ml Sdv 1 Ml IVP 4 mg Q4H PRN Administration SEVERE PAIN Pantoprazole Sodium 40 mg 02/26/24 18:50 02/28/24 08:50 Pantoprazole 40 Mg Sdv IVP 40 mg BID GERALDO Administration PFSH Anesthesia Medical History NSTEMI (non-ST elevated myocardial infarction) Diarrhea Obesity (BMI 30.0-34.9) Hyperglycemia JORDEN (obstructive sleep apnea) Bradycardia History of ganglion cyst Right Osteoarthritis of carpometacarpal joint of left thumb Osteopenia Seasonal allergies History of DVT (deep vein thrombosis) Recurrent Urinary incontinence Hypertension History of malignant melanoma On right forearm Surgical History Hx of colonoscopy with polypectomy [facility]- 10 yrs History of esophagogastroduodenoscopy (EGD) 10 yrs = [facility] Hx of dilation and curettage H/O tubal ligation Status post total left knee replacement using cement Family History Mother Cancer Breast Other CAD (coronary artery disease) Diabetes Social History Smoking and tobacco/nicotine status: former use of tobacco/nicotine Alcohol intake: current Alcohol intake frequency: holidays/special occasions only Substance/Drug Use: never Data Anesthesia 02/28/24 09:00 02/28/24 06:53 Short CBC 02/26/24 02/27/24 02/28/24 Range/Units 16:00 03:45 04:54 WBC 26.67 H 30.18 H* 24.93 H (3.29-11.43) 10^3/uL Hgb 10.80 L 10.20 L 7.20 L (11.27-16.99) g/dL Hct 33.1 L 31.3 L 22.0 L (36-47) % MCV 81.7 L 83.2 L 84.0 L (85-98) fl Plt Count 440 H 293 D 283 (157-399) 10^3/cmm Neut % (Auto) 87.4 93.1 % Neut # (Auto) 23.28 H 23.20 H (1.8-7.7) 10^3/uL 02/28/24 Range/Units 09:00 WBC (3.29-11.43) 10^3/uL Hgb 8.60 L (11.27-16.99) g/dL Hct 26.1 L (36-47) % MCV (85-98) fl Plt Count (157-399) 10^3/cmm Neut % (Auto) % Neut # (Auto) (1.8-7.7) 10^3/uL BMP 02/26/24 02/27/24 02/27/24 16:00 03:45 17:06 Sodium 129 L 134 L 132 L Potassium 4.1 4.1 4.4 Chloride 95 L 105 102 Carbon Dioxide 23 18 L 19 L BUN 18 22 27 H Creatinine 1.0 H 1.4 H 2.0 H Glucose 121 H 147 H 286 H Calcium 8.0 L 6.2 L 5.7 L* 02/28/24 02/28/24 04:54 06:53 Sodium 130 L 127 L Potassium 3.2 L 3.6 Chloride 94 L 94 L Carbon Dioxide 26 21 L BUN 28 H 34 H Creatinine 2.1 H 2.2 H Glucose 924 H* 319 H Calcium 4.7 L* D 6.0 L Liver Function 02/26/24 02/27/24 Range/Units 16:00 03:45 Total Bilirubin 0.4 0.5 (0.15-1.2) mg/dL AST 14 23 (0-32) U/L ALT 23 23 (0-33) U/L Alkaline Phosphatase 83 58 (35-105) U/L Albumin 2.3 L 1.5 L (3.5-5.2) g/dL Blood Bank 02/26/24 18:50 Blood Type B Positive Rho(D) Type Rh positive Antibody Screen Negative Coags 02/27/24 03:45 PT 19.90 H INR 1.63 H APTT 35.1 C-Reactive Protein 220.0 H ABG 02/27/24 02/28/24 04:05 04:55 Specimen Type Arterial Arterial Sample Site Artline Artline ABG pH 7.33 L 7.35 ABG pCO2 35.6 39.3 ABG pO2 95.2 98.2 ABG PO2/FiO2 Ratio 0 0 ABG HCO3 18.7 L 21.6 L ABG O2 Saturation 98.2 98.7 ABG Base Excess -6.6 L -3.8 L A-a O2 Gradient 18.6 H 8.5 O2 Delivery Device Vent Vent FiO2 40.0 30.0 Tidal Volume 0.45 0.45 PEEP 5.0 Microbiology 02/26/24 19:38 Blood Culture - Preliminary Blood NEGATIVE TO DATE 02/26/24 19:42 Blood Culture - Preliminary Blood NEGATIVE TO DATE Cardiac Studies: 2 Echocardiogram 02/16/24 Echocardiogram Ultrasound 01/18/21 Cardiac Event Monitor 05/06/22
--- NOTE | 2024-02-28 13:00 | P.PN_ITS ---
Subjective 2 Subjective: Patient went for elective revision with Dr. Tilley today She went into A-fib RVR required amiodarone during surgery She was given calcium and magnesium during surgery She was requiring Levophed at 8 mics TPN was discontinued during surgery She is on 3 L positive balance She has received hefty dose of IV Lasix 100 mL of urine was noted in the bag bef ore surgery, TPN and IV fluids discontinued She was hyperglycemic, D5 discontinued as well along bicarb she is not acidotic anymore She still has low potassium magnesium and calcium Vitals/I&O/Wt Last Vital Signs Temp 98.2 F 02/28/24 03:04 Pulse 105 H 02/28/24 08:47 Resp 15 02/28/24 09:11 BP 120/66 02/28/24 06:00 Pulse Ox 100 02/28/24 09:11 O2 Del Method Mechanical Ventilation 02/28/24 08:47 O2 Flow Rate 50 02/26/24 21:50 FiO2 30 02/28/24 08:47 02/27/24 02/28/24 02/28/24 22:59 06:59 14:59 Intake Total 3614.427 / 4907.635 1600.993 / 6508.628 154.688 / 154.688 Output Total 100 / 650 275 / 925 Balance 3514.427 / 4257.635 1325.993 / 5583.628 154.688 / 154.688 Weight last 48 hrs Weight 107.955 kg Weight 92.079 kg Weight 92.487 kg Weight 90.718 kg Physical Exam 2 Narrative: Signs of fluid overload present PICC line in place right arm Patient is intubated and sedated A-fib RVR Abdomen slightly distended Alcantara catheter with about 150 mill urine Neuroexam is limited Intubated and sedated Urinary Catheter Management: Alcantara: Cath Placed During This Visit: yes Reason for Continuing Indwelling Catheter: Accurate Measurement of Urinary Output in Critically Ill Patients Urinary Catheter Date of Insertion: 02/26/24 Urinary Catheter Time of Insertion: 21:14 Data 02/28/24 09:00 02/28/24 06:53 Micro: Microbiology 02/26/24 19:38 Blood Culture - Preliminary Blood NEGATIVE TO DATE 02/26/24 19:42 Blood Culture - Preliminary Blood NEGATIVE TO DATE A&P Assessment and plan (1) Atrial fibrillation: (2) Chronic anticoagulation: (3) Hyponatremia: (4) Small bowel perforation: (5) Small bowel obstruction: (6) Small bowel ischemia: (7) History of iron deficiency anemia: (8) Leukocytosis: (9) Sepsis: (10) Hypocalcemia: (11) Hypokalemia: (12) ELLA (acute kidney injury): (13) Hypomagnesemia: Plan Sepsis related to bowel ischemia Continue antibiotics and antifungals Positive fluid balance +3 L She has been given IV Lasix Patient seems to have some kind of anaphylactic reaction to albumin I would avoid however she does have pretty low albumin Septic shock Requiring Levophed Currently at 8 mics Replenish calcium as well acidosis has improved Metabolic acidosis improved, discontinue bicarb Hypervolemic hyponatremia It is secondary to use of D5 IV fluids and TPN discontinued this morning We are holding off for at least next 24 hrs Bowel ischemia Will start anticoagulation 12 hours after surgery She does have low hemoglobin today Monitor CBC and BMP around 5 PM tonight A-fib with RVR Currently on amiodarone She will need anticoagulation 12 hours after surgery Hypocalcemia hypomagnesemia: Replenish calcium and magnesium Malnourishment TPN on hold secondary to fluid overload Respiratory failure perioperatively Intubated and sedated Not ready to be weaned off after her revision today Full code N.p.o. Holding IV fluids Old right-sided PICC line in place Follow-up cultures: Negative to date Patient was evaluated in the OR when she went to A-fib RVR at that time I requested SAND DRIER to give magnesium replenish calcium and start amiodarone after 150 mg slow push over 10 minutes Attestations 2 Medical Necessity Statement*: Continue ICU management Coding Level of Care Code Critical Care >/= 30 minutes Critical care time (in minutes): 30 The high probability of a clinically significant, sudden or life threatening deterioration, as referenced in this documentation, required my full and direct attention, intervention and personal management. The critical care time shown is in addition to time spent performing any reported separately billable procedures and includes the following: [x] Data and vital sign review and interpretation [x ] Patient assessment, examination and intervention [x] Medication orders and management [x] Patient/Family updates as able [x] Care Coordination and Documentation. Diagnoses Atrial fibrillation I48.91 Chronic anticoagulation Z79.01 Hyponatremia E87.1 Small bowel perforation K63.1 Small bowel obstruction K56.609 Small bowel ischemia K55.9 History of iron deficiency anemia Z86.2 Leukocytosis D72.829 Sepsis A41.9 Hypocalcemia E83.51 Hypokalemia E87.6 ELLA (acute kidney injury) N17.9 Hypomagnesemia E83.42
--- NOTE | 2024-02-28 13:01 | XRR_ITS ---
PROCEDURE INFORMATION: Exam: XR Chest Exam date and time: 02/29/2024 7:43 AM Age: 83 years old Clinical indication: Dyspnea; Additional info: Fluid overload TECHNIQUE: Imaging protocol: Radiologic exam of the chest. Views: 1 view. COMPARISON: CR XR chest 1V portable [id number] 02/27/2024 9:09 AM FINDINGS: Tubes, catheters and devices: ET tube is satisfactory position, 3.6 cm above the vaughn. The feeding tube tip is in the stomach. Right sided PICC tip is in the superior cavoatrial junction. Lungs: Atelectatic changes in both lung bases. No focal consolidation. Pleural spaces: Unremarkable. No pleural effusion. No pneumothorax. Heart/Mediastinum: Small hiatal hernia. Vasculature: Unfolding of the thoracic aorta. Bones/joints: Unremarkable. XR/XR chest 1V portable [id number] IMPRESSION: No acute cardiopulmonary process.
[2024-02-28] MEDS: fentaNYL 1,000 MCG/100 ML BAG 12.5 MCG IV (13:07)
--- NOTE | 2024-02-28 13:12 | PM.OP ---
Operative Report Date of procedure: February 28, 2024 Pre-op diagnosis: Ischemic bowel Peritonitis Post-op diagnosis: same Procedure done: Exploratory laparotomy Small bowel resection Ileocecectomy Implants: 19 [place] Arnaldo drain Specimens removed/disposition: Resection of the small bowel anastomosis Ileocecectomy specimen Surgeon: Lew Tilley DO Anesthesia: General and Local Estimated blood loss (mL): 20 Complications: none apparent Brief History: This very pleasant 83-year-old female who is currently in the ICU after undergoing exploratory laparotomy with resection of a half of her small bowel distal to the ligament of Treitz. She was left in discontinuity with an ABThera in place with plan to come back in 24 to 48 hours for a second look, possible bowel resection, possible ostomy and hopes for closure of the abdomen. The risks and benefits of the procedure were explained to the patient's daughter. She is understand the risks and wished to proceed Procedure: Patient was wheeled operative room and placed on the OR table in the supine position. Patient was already intubated from the ICU and general anesthesia was achieved by department of anesthesia. The ABThera was taken down and the abdomen was inspected prepped and draped in usual sterile fashion. A timeout was performed. All present were in agreement. I then began to explore the abdomen through the laparotomy incision. There were adhesions between loops of bowel that I broke with finger fracturing. Remaining bowel looked very healthy all except for the remaining terminal ileum attached to the colon. There was approximately 15 cm here but the proximal 2 to 3 cm appeared ischemic. I performed a [id number], functional end-to-end anastomosis between the terminal ileum and the distal jejunum, removing the 3 cm of proximalmost ileum that appeared ischemic. This was done with the TEMI 100 mm blue load stapler and 1 refill. Mesentery was transected with LigaSure. Small bowel was sent to pathology there is very little room for air here as there was not much to length and the terminal ileum remaining. Immediately the anastomosis showed significant venous congestion. I wrapped the anastomosis and warm wet laparotomy pads and placed it into the abdomen for 10 minutes to assess whether or not it would recover. It was obvious after the 10 minutes that the bowel was not improving. I then pivoted to an ileocecectomy. I would have like to keep her ileocecal valve as approximately half of her small bowel distal to the ligament of Treitz was removed. She still had approximately 185 cm of small bowel distal to the ligament of Treitz however. The right white line of Toldt was taken down with electrocautery and blunt dissection. A [address]'s band was transected with LigaSure. A [id number] functional end-to-end anastomosis was then made between jejunum and right colon. This was done with the TEMI 100 mm blue load stapler and 1 refill. Mesentery was transected with LigaSure. The anastomosis looked very good. I then passed off the ileocecectomy specimen to go to pathology and permanent formalin. I then irrigated the abdomen with 3 L of warm normal saline. Hemostasis was noted. This approximately 20 cc of blood loss during the procedure. A 19 [place] Arnaldo drain was then placed along the right paracolic gutter and into the pelvis coming out of the left lower quadrant and sewn into place with 3-0 silk. The laparotomy incision was then closed at the fascia with running looped PDS x 2. Skin was closed with sierra. Sterile dressings were applied. Patient tolerated procedure well.
[2024-02-28 13:19] LABS: ABG PCO2 47.4 mmHg (35-45); ABG PH Result 7.26 (7.35-7.45); Arterial Blood Gas Hematocrit 32.1 % (37-47); Base Excess ABG -5.7 mmol/L (-2.0-2.0); Blood Gas Operator Identificat GD; Blood Gas Sample Site Not specified; Blood Gas Sample Type Arterial; Blood Gas Tidal Volume 0.43; HCO3 ABG 21.3 mmol/L (22-26); Oxygen Device VENT; PO2 ABG 73.9 mmHg (80.0-100.0); PO2 FiO2 Ratio Arterial Blood 0
[2024-02-28 13:51] LABS: Glucose Point of Care 141 mg/dL (70-110)
[2024-02-28] MEDS: calcium gluconate 0.1 gm/mL 10% SDV 10mL 1 GM IVP (15:00)
[2024-02-28] MEDS: magnesium sulfate premix 2 GM/50 ML PIGGYBACK IV (15:00)
[2024-02-28 15:54] LABS: ABG PCO2 44.3 mmHg (35-45); ABG PH Result 7.28 (7.35-7.45); Arterial Blood Gas Hematocrit 32.1 % (37-47); Base Excess ABG -5.7 mmol/L (-2.0-2.0); Blood Gas Operator Identificat GD; Blood Gas Sample Site Not specified; Blood Gas Sample Type Arterial; Blood Gas Tidal Volume 0.43; HCO3 ABG 20.8 mmol/L (22-26); Oxygen Device VENT; PO2 ABG 87.7 mmHg (80.0-100.0); PO2 FiO2 Ratio Arterial Blood 0
--- NOTE | 2024-02-28 16:27 | PC.NURSE ---
received patient back from surgery staff at approximately 1245. HR: 115/afib, BP: 92/62, SPO2: 98%, Temp: 98.1. HAMZAH drain to medial abdomen, 100mL serousanguinous drainage emptied upon arrival. Abdominal dressing is boaz and intact.
[2024-02-28 16:30] LABS: Glucose Point of Care 119 mg/dL (70-110)
[2024-02-28 17:26] LABS: Basophils # 0.1 10^3/uL (0.0-0.1); Basophils % 0.1 %; Hematocrit 32.3 % (36-47); Lymphocytes # 0.8 10^3/uL (0.8-4.8); Lymphocytes % 1.5 %; Mean Corpuscular HGB Conc 32.8 g/dL (30-55); Mean Corpuscular Hemoglobin 27.6 pg (27-33); Mean Corpuscular Volume 84.1 fl (85-98); Mean Platelet Volume 10.3 fL (7.4-10.4); Monocytes # 1.3 10^3/uL (0.2-0.9); Monocytes % 2.7 %; Neutrophils # 47.14 10^3/uL (1.8-7.7); Neutrophils % 94.2 %; Nucleated Red Blood Cells % 0 %; Platelet Count 420 10^3/cmm (157-399); Red Blood Count 3.84 10^6/uL (3.85-5.65); Red Cell Distribution Width 15.9 % (12.1-15.1)
[2024-02-28] MEDS: micafungin 100 MG in sodium chloride 0.9% (plus) 100 ML IV (17:30)
[2024-02-28 17:43] LABS: White Blood Count 50.08 10^3/uL (3.29-11.43)
[2024-02-28 17:59] LABS: Blood Urea Nitrogen 35 mg/dL (8-23); Calcium 7.3 mg/dL (8.5-10.5); Carbon Dioxide 19 mmol/L (22-29); Chloride 99 mmol/L (98-107); Glucose 134 mg/dL (65-115); Magnesium 2.3 mg/dL (1.7-2.3); Osmolality Calculated 278 mOsm/kg (285-295); Sodium 129 mmol/L (136-145)
[2024-02-28 18:00] LABS: Creatinine Clr Calc Pharmacy 19.2728
[2024-02-28] MEDS: norepinephrine 4 MG/250 ML BAG 52.5 MG IV (18:25)
[2024-02-28 18:41] LABS: Glucose Point of Care 127 mg/dL (70-110)
--- NOTE | 2024-02-28 18:42 | PC.NURSE ---
Shift SUmmary: Went to surgery in the AM for abdominal closure and additional bowel resection. TPN, d5, and bicard stopped today due to fluid overload concerns. Went into afib during surgery and is on an amiodarone drip. Total urine output has been 325mL, but 300 of the was during the first half of shift, output rate has declined. Physician is aware. BUN and Creatnine have increased. Total output from medial abdominal drain has been 275mL of serosanguinous drainage, Has been becoming increasingly clear througout the day.
[2024-02-28] MEDS: vancomycin 1,250 MG/250 ML PIGGYBACK 250 MG IV (20:07)
[2024-02-28] MEDS: norepinephrine 4 MG/250 ML BAG 60 MG IV (21:19)
[2024-02-28 22:02] LABS: Glucose Point of Care 145 mg/dL (70-110)
[2024-02-29] VITALS (102 sets, daily range): BP systolic 76–138; BP diastolic 38–81; PULSE 76–122; RESP 14–16; TEMP 36.5–37.4; O2SAT 86–100
[2024-02-29] MEDS: piperacillin-tazobactam 3.375 GM in sodium chloride 0.9% (plus) 50 ML IV ×3 (00:11→20:01)
[2024-02-29] MEDS: norepinephrine 4 MG/250 ML BAG 60 MG IV (00:58)
[2024-02-29] MEDS: fentaNYL 2,500 MCG/250 ML BAG 12 MCG IV (01:12)
[2024-02-29] MEDS: propofol 1,000 MG/100 ML INJ 5.44000000000000039 MG IV (04:50)
[2024-02-29] MEDS: norepinephrine 4 MG/250 ML BAG 52.5 MG IV ×4 (05:33→20:00)
[2024-02-29] MEDS: propofol 1,000 MG/100 ML INJ 8.16999999999999993 MG IV (05:36)
[2024-02-29 05:48] LABS: ABG PCO2 44.8 mmHg (35-45); ABG PH Result 7.26 (7.35-7.45); Arterial Blood Gas Hematocrit 31.2 % (37-47); Base Excess ABG -6.8 mmol/L (-2.0-2.0); Blood Gas Allen Test Pos; Blood Gas Operator Identificat glc; Blood Gas Sample Site Radial, left; Blood Gas Sample Type Arterial; Oxygen Device VENT; PO2 FiO2 Ratio Arterial Blood 0
[2024-02-29 05:49] LABS: Blood Gas Tidal Volume 0.43
--- NOTE | 2024-02-29 07:09 | P.PN_ITS ---
Subjective 2 Subjective: Patient is still in positive fluid balance Extremities are showing signs of fluid overload Morning labs are pending at the time of my evaluation I am giving her bicarb IV push Blood pressure dropped with propofol Currently on Levophed at 14 which has been weaned down from 20 last night Will request chest x-ray Her art line is nonfunctional will ask anesthesia if they could place another art line IV fluids and TPN on hold Blood glucose within normal range, magnesium 2.3, potassium was 5 yesterday Calcium improved Vitals/I&O/Wt Last Vital Signs Temp 99.4 F 02/29/24 00:00 Pulse 105 H 02/29/24 06:30 Resp 14 02/29/24 04:00 BP 76/55 02/29/24 06:30 Pulse Ox 96 02/29/24 06:00 O2 Del Method Mechanical Ventilation 02/28/24 18:00 O2 Flow Rate 50 02/26/24 21:50 FiO2 30 02/29/24 04:00 02/28/24 02/29/24 02/29/24 22:59 06:59 14:59 Intake Total 454.114 / 1490.794 813.113 / 2303.907 Output Total 360 / 660 230 / 890 Balance 94.114 / 830.794 583.113 / 1413.907 Weight last 48 hrs Weight 107.955 kg Physical Exam 2 Narrative: Signs of fluid overload Intubated and sedated Drain has about 120 mL Low blood pressure Bilateral assisted breath sounds Lower extremity showing signs of fluid overload FiO2 30% PEEP 5 Urinary Catheter Management: Alcantara: Cath Placed During This Visit: yes Reason for Continuing Indwelling Catheter: Accurate Measurement of Urinary Output in Critically Ill Patients Urinary Catheter Date of Insertion: 02/26/24 Urinary Catheter Time of Insertion: 21:14 Data 03/01/24 09:45 03/01/24 07:43 A&P Assessment and plan (1) Atrial fibrillation: (2) Chronic anticoagulation: (3) Hyponatremia: (4) Small bowel perforation: (5) Small bowel obstruction: (6) Small bowel ischemia: (7) ELLA (acute kidney injury): (8) Hypocalcemia: (9) Hypokalemia: (10) Hypomagnesemia: (11) Urinary incontinence: (12) History of iron deficiency anemia: (13) Sepsis: Plan Septic shock related to bowel ischemia Continue antibiotics and antifungals With propofol blood pressure drops, we have tried to go up on fentanyl and use less propofol Levophed has been weaned off to 14 from 20 last night Fluid overload Positive fluid balance Urine output has not been adequate despite using Lasix Will consult nephro Continue diuresis A-fib without RVR continue amiodarone IV she is not able to take p.o. ATN likely sepsis related Will consult nephro For metabolic acidosis patient received bicarb drip which was discontinued yesterday Hypervolemic hyponatremia Anticipating improvement with more diuresis Hypomagnesemia hypocalcemia: Replenish Will start TPN by Friday if fluid balance improves Respiratory failure requiring mechanical ventilation Minimal vent settings Currently on propofol and fentanyl Full code N.p.o. Attestations 2 Medical Necessity Statement*: Continue ICU management Coding Level of Care Code Critical Care >/= 30 minutes Critical care time (in minutes): 30 The high probability of a clinically significant, sudden or life threatening deterioration, as referenced in this documentation, required my full and direct attention, intervention and personal management. The critical care time shown is in addition to time spent performing any reported separately billable procedures and includes the following: [x] Data and vital sign review and interpretation [x ] Patient assessment, examination and intervention [x] Medication orders and management [x] Patient/Family updates as able [x] Care Coordination and Documentation. Diagnoses Atrial fibrillation I48.91 Chronic anticoagulation Z79.01 Hyponatremia E87.1 Small bowel perforation K63.1 Small bowel obstruction K56.609 Small bowel ischemia K55.9 ELLA (acute kidney injury) N17.9 Hypocalcemia E83.51 Hypokalemia E87.6 Hypomagnesemia E83.42 Urinary incontinence R32 History of iron deficiency anemia Z86.2 Sepsis A41.9
[2024-02-29] MEDS: FUROsemide 10 mg/mL SDV 4mL 40 MG IVP ×2 (07:25→20:01)
[2024-02-29] MEDS: enoxaparin 120 mg/0.8 mL Syringe 110 MG SUBCUT ×2 (07:25→17:21)
[2024-02-29] MEDS: sodium bicarbonate 8.4% 1 mEq/mL 50mL Syr 100 MEQ IVP (07:27)
[2024-02-29 07:47] LABS: Basophils # 0.2 10^3/uL (0.0-0.1); Basophils % 0.3 %; Hematocrit 29.1 % (36-47); Lymphocytes % 2.3 %; Mean Corpuscular HGB Conc 32.3 g/dL (30-55); Mean Corpuscular Hemoglobin 26.9 pg (27-33); Mean Corpuscular Volume 83.4 fl (85-98); Mean Platelet Volume 10.3 fL (7.4-10.4); Monocytes # 1.3 10^3/uL (0.2-0.9); Monocytes % 2.9 %; Neutrophils # 41.52 10^3/uL (1.8-7.7); Nucleated Red Blood Cells % 0 %; Platelet Count 484 10^3/cmm (157-399); Red Blood Count 3.49 10^6/uL (3.85-5.65); Red Cell Distribution Width 16.1 % (12.1-15.1)
[2024-02-29 07:53] LABS: White Blood Count 44.63 10^3/uL (3.29-11.43)
[2024-02-29 08:05] LABS: Magnesium 2.1 mg/dL (1.7-2.3); Phosphorus 6.5 mg/dL (2.5-4.5)
[2024-02-29 08:06] LABS: Anion Gap 20.6 (5-19); Blood Urea Nitrogen 42 mg/dL (8-23); Calcium 7.1 mg/dL (8.5-10.5); Carbon Dioxide 19 mmol/L (22-29); Chloride 93 mmol/L (98-107); Glucose 158 mg/dL (65-115); Osmolality Calculated 278 mOsm/kg (285-295); Potassium 5.6 mmol/L (3.5-5.1); Sodium 127 mmol/L (136-145)
[2024-02-29 08:20] LABS: Creatinine Clr Calc Pharmacy 16.2615
--- NOTE | 2024-02-29 09:59 | P.CONIM_ITS ---
Providers/Reason For Consult 2 Consulting Physician/Specialty*: andrea Reason for Consult*: ELLA Attending Physician: Nico Van MD Primary Care Provider: Oxana Lee DO History of Present Illness History of Present Illness Vi Ruffin is a 83 year old female patient is a 83-year-old female with past medical history of hypertension, osteoporosis coronary artery disease who was recently admitted here due to pneumonia UTI and bowel obstruction and was discharged home on 02/24/2024. While at the assisted patient started having abdominal pain that gotten worse along with nausea vomiting and was sent back to the emergency department. General surgery was called and she underwent ex lap earlier today laparotomy and bowel resection . Patient currently intubated, sedated, on Levophed. Patient currently intubated, sedated on Levophed. Also has worsening ELLA with creatinine of 3.2, has metabolic acidosis with a bicarb of 19 and potassium was 5.6. Review of Systems 2 Narrative: cannot obtain Medications/Allergies Home Medications Medication Instructions Recorded Confirmed Last Taken Type albuterol sulfate 90 mcg/actuation 1 inh inhalation Q4H PRN Shortness 11/22/19 02/26/24 02/26/24 History aerosol inhaler Of Breath Or Wheezing alendronate 10 mg tablet 10 mg PO Q7D 11/22/19 02/26/24 02/22/24 History vitamins A,C,X-yqpe-dhkskq 4,296 1 cap PO BID 11/22/19 02/26/24 02/26/24 History mcg-226 mg-90 mg capsule (PreserVision AREDS) fluticasone 250 mcg-salmeterol 50 1 inh inhalation DAILY 05/17/20 02/26/24 02/26/24 History mcg/dose blistr powdr for inhalation (Advair Diskus) pravastatin 80 mg tablet 80 mg PO DAILY 03/21/22 02/26/24 02/26/24 History trazodone 50 mg tablet 50 mg PO QPM 03/21/22 02/26/24 Unknown History montelukast 10 mg tablet 10 mg PO DAILY #90 tabs 02/17/23 02/26/24 02/26/24 Rx (Singulair) ondansetron HCl 4 mg tablet 4 mg PO Q8H PRN nausea and 05/15/23 02/26/24 02/26/24 Rx vomiting 4 days #30 tabs fluticasone propionate 50 2 spray intranasal QDAY PRN 10/16/23 02/26/24 Unknown Rx mcg/actuation nasal allergy symptoms 90 days #16 grams spray,suspension (Flonase Allergy Relief) gabapentin 300 mg capsule 300 mg PO BID 90 days #180 caps 11/26/23 02/26/24 02/26/24 Rx hydrocodone 10 mg-acetaminophen 1 tab PO BID PRN pain 30 days #60 01/16/24 02/26/24 02/26/24 Rx 325 mg tablet tabs omeprazole 20 mg capsule,delayed 20 mg PO DAILY #90 caps 01/16/24 02/26/24 02/26/24 Rx release oxybutynin chloride 5 mg tablet 5 mg PO BID #180 tabs 01/16/24 02/26/24 02/26/24 Rx Custom molded Orthotics #1 ea 01/27/24 02/26/24 Unknown Rx azelastine 137 mcg (0.1 %) nasal 1 spray intranasal DAILY 02/16/24 02/26/24 02/26/24 History spray aerosol cetirizine 10 mg capsule (Zyrtec) 10 mg PO DAILY PRN Allergy Symptoms 02/16/24 02/26/24 Unknown History apixaban 5 mg tablet (Eliquis) 5 mg PO BID #60 tabs 02/25/24 02/26/24 02/26/24 Rx diltiazem HCl 240 mg 240 mg PO DAILY #60 tabs 02/25/24 02/26/24 02/26/24 Rx tablet,extended release 24 hr (Cardizem LA) polyethylene glycol 3350 17 4 g PO DAILY #119 grams 02/25/24 02/26/24 02/26/24 Rx gram/dose oral powder (Miralax) sennosides 8.6 mg-docusate sodium 1 tab PO DAILY #30 tabs 02/25/24 02/26/24 02/26/24 Rx 50 mg tablet (Stool Softener-Laxative) tuberculin PPD 5 tub. unit/0.1 mL 0.1 ml intradermal Q14D 02/26/24 02/26/24 Unknown History intradermal injection solution vancomycin 1,000 mg intravenous 995 mg IV DAILY 02/26/24 02/26/24 02/26/24 History injection Allergies Allergy/AdvReac Type Severity Reaction Status Date / Time albumin colloid, human Allergy Severe ALGY-Difficulty Verified 02/26/24 17:55 Breathing dog dander Allergy cough Verified 01/27/24 15:44 house dust Allergy ALGY-Sneezi Verified 01/27/24 15:44 ng Mold Allergy ALGY-Sneezi Uncoded 01/27/24 15:44 ng Current Medications Generic Name Dose Route Start Last Admin Trade Name Freq PRN Reason Stop Dose Admin Enoxaparin Sodium 110 mg 02/29/24 06:15 02/29/24 07:25 Enoxaparin 120 Mg/0.8 Ml Syringe SUBCUT 110 mg Q12H GERALDO Administration Furosemide 40 mg 02/28/24 08:15 02/29/24 07:25 Furosemide 10 Mg/Ml Sdv 4ml IVP 40 mg Q12H GERALDO Administration Micafungin Sodium 100 mg/ 100 mls @ 100 mls/hr 02/26/24 17:00 02/28/24 17:30 Sodium Chloride IV 100 mls/hr Q24H GERALDO Administration Vancomycin/PEG/NADA/Lysine/Water 1,250 mg in 250 mls @ 250 mls/hr 02/26/24 20:30 02/28/24 20:07 Vancocin IV 250 mls/hr Q24H GERALDO Administration Propofol 1,000 mg in 100 mls @ 0 mls/hr 02/26/24 22:15 02/29/24 06:41 Diprivan IV 10 mcg/kg/min .Q0M GERALDO 5.44 mls/hr Titration Protocol Per Protocol norepinephrine 4 mg in 250 mls @ 0 mls/hr 02/27/24 04:15 02/29/24 05:33 Levophed IV 14 mcg/min .Q0M GERALDO 52.5 mls/hr Administration Protocol Per Protocol Multivitamins 10 ml/ Amino 1,010 mls @ 42 mls/hr 02/27/24 15:00 02/28/24 13:46 Acids/Electrolytes IV 0 mls/hr .Q24H GERALDO Infusion Protocol Amiodarone HCl/Dextrose 360 mg in 200 mls @ 0 mls/hr 02/28/24 17:15 02/29/24 04:49 Nexterone IV 0.5 mg/min .Q0M GERALDO 16.67 mls/hr Administration Protocol Per Protocol Fentanyl 2,500 mcg in 250 mls @ 0 mls/hr 02/28/24 17:45 02/29/24 01:12 Sublimaze IV 120 mcg/hr .Q0M GERALDO 12 mls/hr Administration Protocol Per Protocol Lanolin 1 applic 02/27/24 08:40 02/27/24 18:50 Lanolin Oint 7 Gm TOPICAL 1 applic PRN PRN Administration DRYNESS Morphine Sulfate 4 mg 02/26/24 18:50 02/28/24 05:36 Morphine 4 Mg/Ml Sdv 1 Ml IVP 4 mg Q4H PRN Administration SEVERE PAIN Pantoprazole Sodium 40 mg 02/26/24 18:50 02/28/24 17:27 Pantoprazole 40 Mg Sdv IVP 40 mg BID GERALDO Administration PFSH Acute 2 PFSH: Medical History NSTEMI (non-ST elevated myocardial infarction) Diarrhea Obesity (BMI 30.0-34.9) Hyperglycemia JORDEN (obstructive sleep apnea) Bradycardia History of ganglion cyst Right Osteoarthritis of carpometacarpal joint of left thumb Osteopenia Seasonal allergies History of DVT (deep vein thrombosis) Recurrent Urinary incontinence Hypertension History of malignant melanoma On right forearm Surgical History Hx of colonoscopy with polypectomy [facility]- 10 yrs History of esophagogastroduodenoscopy (EGD) 10 yrs = [facility] Hx of dilation and curettage H/O tubal ligation Status post total left knee replacement using cement Family History Mother Cancer Breast Other CAD (coronary artery disease) Diabetes Social History Smoking and tobacco/nicotine status: former use of tobacco/nicotine Alcohol intake: current Alcohol intake frequency: holidays/special occasions only Substance/Drug Use: never Vitals/I&O/Wt Last Vital Signs Temp 99.4 F 02/29/24 00:00 Pulse 97 02/29/24 09:07 Resp 16 02/29/24 09:42 BP 76/55 02/29/24 06:30 Pulse Ox 98 02/29/24 09:42 O2 Del Method Mechanical Ventilation 02/29/24 09:07 O2 Flow Rate 50 02/26/24 21:50 FiO2 30 02/29/24 09:42 02/28/24 02/29/24 02/29/24 22:59 06:59 14:59 Intake Total 454.114 / 1490.794 863.113 / 2353.907 Output Total 360 / 660 230 / 890 Balance 94.114 / 830.794 633.113 / 1463.907 Weight last 48 hrs Weight 107.955 kg Physical Exam 2 Narrative: intubated , sedated Urinary Catheter Management: Alcantara: Cath Placed During This Visit: yes Reason for Continuing Indwelling Catheter: Accurate Measurement of Urinary Output in Critically Ill Patients Urinary Catheter Date of Insertion: 02/26/24 Urinary Catheter Time of Insertion: 21:14 Data 02/29/24 07:32 02/29/24 07:32 A&P Assessment and plan (1) ELLA (acute kidney injury): Plan 1. Acute on chronic kidney disease: Baseline baseline creatinine is in the mid 1 range now has severe ELLA along with metabolic acidosis and hyperkalemia in the setting of bowel ischemia/sepsis-probable ATN. -Discussed with family in detail regarding possibility of dialysis in the next 24 to 48 hours. -Will medically treat hyperkalemia for now, will give IV bicarb pushes, - avoid contrast studies -Give 1 L bag of bicarbonate drip at 75 cc an hour 2. Hyperkalemia: Management as above 3. Bowel obstruction, perforation and status post ex lap 4. Sepsis in the setting of bowel ischemia, on pressors 5. Respiratory failure on vent Discussed with patient's family at bedside. Time spent 40 minutes Patient evaluated using audiovisual cart Consult Attestations 2 Medical Necessity Statement: per medicine tem Coding Level of Care Code Acute Code for [facility] Fwd Diagnoses ELLA (acute kidney injury) N17.9
[2024-02-29] MEDS: pantoprazole 40 mg SDV IVP ×2 (10:10→17:13)
[2024-02-29 10:45] LABS: ABG PCO2 35.4 mmHg (35-45); Arterial Blood Gas Hematocrit 30.3 % (37-47); Base Excess ABG -2.7 mmol/L (-2.0-2.0); Blood Gas Allen Test Pos; Blood Gas Operator Identificat GD; Blood Gas Sample Site Radial, left; Blood Gas Sample Type Arterial; Blood Gas Tidal Volume 0.43; HCO3 ABG 21.8 mmol/L (22-26); Oxygen Device VENT; PO2 ABG 96.8 mmHg (80.0-100.0); PO2 FiO2 Ratio Arterial Blood 0
--- NOTE | 2024-02-29 12:26 | P.ANES_ITS ---
Anesthesia Procedures Procedure/Date: 02/29/24 Arterial Line: Time Out Performed: No Consent: requested by attending/covering physician, risks and benefits reviewed and emergency procedure Size (Gauge): 20 Technique Used: guide wire technique Post- Procedure: dry sterile dressing placed Patient Tolerated Procedure: well and no complications Complications: none Site: left and radial Additional Comments: Ultrasound guided
--- NOTE | 2024-02-29 13:48 | P.PN_ITS ---
Subjective 2 Subjective: Patient seen and examined. She is intubated and sedated still but follows commands. Vitals/I&O/Wt Last Vital Signs Temp 97.7 F 02/29/24 08:00 Pulse 103 H 02/29/24 10:30 Resp 16 02/29/24 11:35 BP 81/59 02/29/24 10:30 Pulse Ox 100 02/29/24 11:35 O2 Del Method Mechanical Ventilation 02/29/24 09:07 O2 Flow Rate 50 02/26/24 21:50 FiO2 30 02/29/24 11:35 02/28/24 02/29/24 02/29/24 22:59 06:59 14:59 Intake Total 454.114 / 1490.794 863.113 / 2353.907 1683.183 / 1683.183 Output Total 360 / 660 230 / 890 125 / 125 Balance 94.114 / 830.794 633.113 / 9580.433 5026.183 / 1558.183 Weight last 48 hrs Weight 245 lb Weight 238 lb Physical Exam 2 Narrative: General: No acute distress, intubated/sedated but follows commands Abdomen: Soft, nondistended, appropriately tender to palpation, dressings clean dry and intact Urinary Catheter Management: Alcantara: Cath Placed During This Visit: yes Reason for Continuing Indwelling Catheter: Accurate Measurement of Urinary Output in Critically Ill Patients Urinary Catheter Date of Insertion: 02/26/24 Urinary Catheter Time of Insertion: 21:14 Data 02/29/24 07:32 02/29/24 07:32 A&P Assessment and plan (1) Small bowel ischemia: (2) Small bowel perforation: (3) Small bowel obstruction: (4) Multiorgan failure: Plan Postoperative day #3 status post exploratory laparotomy with resection of approximately half of her small bowel distal to the ligament of Treitz due to ischemia, necrosis and perforation. Bowel was left in discontinuity for a planned takeback to assess for bowel viability Postoperative day #1 status post take back to operating room for Exploratory Laparotomy small bowel resection, ileocecectomy and reanastomosis Continue antibiotics Continue therapeutic anticoagulation. Ischemia is likely due to a thromboembolic event as there was a very significant amount of affected small bowel Nephrology consulted and is considering possible hemodialysis Medical management per hospitalist No planned additional surgical intervention at this time Attestations 2 Medical Necessity Statement*: Per primary Procedures Arterial Line Size (Gauge): 20 Coding Level of Care Code 01895 Diagnoses Small bowel ischemia K55.9 Small bowel perforation K63.1 Small bowel obstruction K56.609 Multiorgan failure
[2024-02-29 14:00] LABS: Anion Gap 20.8 (5-19); Blood Urea Nitrogen 44 mg/dL (8-23); Calcium 7.1 mg/dL (8.5-10.5); Carbon Dioxide 19 mmol/L (22-29); Chloride 93 mmol/L (98-107); Glucose 153 mg/dL (65-115); Osmolality Calculated 280 mOsm/kg (285-295); Potassium 4.8 mmol/L (3.5-5.1); Sodium 128 mmol/L (136-145)
[2024-02-29 14:02] LABS: Creatinine Clr Calc Pharmacy 17.6204
[2024-02-29] MEDS: calcium gluconate 0.1 gm/mL 10% SDV 10mL 1 GM IVP (14:52)
[2024-02-29 15:20] LABS: Glucose Point of Care 129 mg/dL (70-110)
[2024-02-29 15:32] LABS: Bilirubin Urine Neg (Negative); Glucose Urine UA Norm (Normal); Ketones Urine Negative (Negative); Nitrate Urine Negative (Negative); Protein Urine Neg (Negative); Urine Appearance Clear (CLEAR); Urine Color Straw (Yellow); pH Urine 5 (5-7)
[2024-02-29 15:33] LABS: Add Urine Culture? Yes; Add Urine Microscopic? YES; Bacteria Urine 1+ /hpf; Blood Urine 2+ (Negative); Leukocyte Esterase Urine Negative (Negative); Squamous Epithelial Cell Urine 0-4 /hpf (0-5); Urobilinogen Urine Norm (Negative); WBC Urine 0-4 /hpf (0-5)
[2024-02-29] MEDS: micafungin 100 MG in sodium chloride 0.9% (plus) 100 ML IV (17:19)
[2024-02-29] MEDS: fentaNYL 2,500 MCG/250 ML BAG 15 MCG IV (17:21)
--- NOTE | 2024-02-29 18:56 | PC.NURSE ---
Shift Summary: Remains on levohed at 14mcg. Nurse attempted to reduce levophed but was unable to come down. Art line in right wrist no longer function, removed and a new art line was placed in the left wrist. Patient will answer yes/no questions with nodding of head and will follow commands. HAMZAH drainage has been 175mL, clear serous with an occasional blood clot. Urine output increased compared to yesterday. Urine output for day shift 02/29/2024: 605mL
[2024-02-29 19:59] LABS: Glucose Point of Care 143 mg/dL (70-110)
[2024-02-29 21:37] LABS: Vancomycin Trough 36.9 ug/mL (10-15)
[2024-02-29] MEDS: propofol 1,000 MG/100 ML INJ 8.71000000000000085 MG IV (22:56)
[2024-03-01] VITALS (115 sets, daily range): BP systolic 80–160; BP diastolic 43–104; PULSE 70–111; RESP 12–18; TEMP 36.3–37.1; O2SAT 83–100; BMI 38.4
[2024-03-01 01:14] LABS: Glucose Point of Care 150 mg/dL (70-110)
[2024-03-01 01:14] LABS: Glucose Point of Care 144 mg/dL (70-110)
[2024-03-01 01:14] LABS: Glucose Point of Care 136 mg/dL (70-110)
[2024-03-01] MEDS: norepinephrine 4 MG/250 ML BAG 41.25 MG IV (01:32)
[2024-03-01 05:06] LABS: ABG PH Result 7.42 (7.35-7.45); Arterial Blood Gas Hematocrit 23.2 % (37-47); Base Excess ABG -4.8 mmol/L (-2.0-2.0); Blood Gas Sample Site Not specified; Blood Gas Sample Type Arterial; Blood Gas Tidal Volume 0.43; PO2 FiO2 Ratio Arterial Blood 0
[2024-03-01 05:32] LABS: Oxygen Device VENT
[2024-03-01] MEDS: enoxaparin 120 mg/0.8 mL Syringe 110 MG SUBCUT (05:45)
[2024-03-01 06:17] LABS: Glucose Point of Care 127 mg/dL (70-110)
[2024-03-01] MEDS: norepinephrine 4 MG/250 ML BAG 37.5 MG IV (07:17)
[2024-03-01 07:49] LABS: Glucose Point of Care 119 mg/dL (70-110)
[2024-03-01 07:57] LABS: Basophils # 0.1 10^3/uL (0.0-0.1); Basophils % 0.2 %; Eosinophils % 0.1 %; Lymphocytes # 1.1 10^3/uL (0.8-4.8); Lymphocytes % 3.9 %; Mean Corpuscular HGB Conc 34.9 g/dL (30-55); Mean Corpuscular Hemoglobin 27.3 pg (27-33); Mean Corpuscular Volume 78.2 fl (85-98); Mean Platelet Volume 10.2 fL (7.4-10.4); Monocytes % 3.6 %; Neutrophils # 25.73 10^3/uL (1.8-7.7); Neutrophils % 91.1 %; Nucleated Red Blood Cells % 0.1 %; Platelet Count 531 10^3/cmm (157-399); Red Blood Count 2.16 10^6/uL (3.85-5.65); Red Cell Distribution Width 15.7 % (12.1-15.1); White Blood Count 28.27 10^3/uL (3.29-11.43)
[2024-03-01 08:10] LABS: Anion Gap 20.3 (5-19); Blood Urea Nitrogen 48 mg/dL (8-23); Carbon Dioxide 20 mmol/L (22-29); Chloride 91 mmol/L (98-107); Creatinine Clr Calc Pharmacy 16.5302; Glucose 122 mg/dL (65-115); Osmolality Calculated 278 mOsm/kg (285-295); Potassium 4.3 mmol/L (3.5-5.1); Sodium 127 mmol/L (136-145)
[2024-03-01 08:54] LABS: Magnesium 1.9 mg/dL (1.7-2.3)
[2024-03-01 09:06] LABS: Hematocrit 16.9 % (36-47)
[2024-03-01] MEDS: morphine 4 mg/mL SDV 1 mL 2 MG IVP ×2 (09:19→17:17)
[2024-03-01] MEDS: calcium gluconate 0.1 gm/mL 10% SDV 10mL 1 GM IVP (09:22)
[2024-03-01] MEDS: pantoprazole 40 mg SDV IVP ×2 (09:25→17:24)
[2024-03-01] MEDS: piperacillin-tazobactam 3.375 GM in sodium chloride 0.9% (plus) 50 ML IV ×2 (09:25→19:37)
--- NOTE | 2024-03-01 09:32 | P.PN_ITS ---
Subjective 2 Subjective: UOP picked up , pressor requirement down Medications: Reviewed: Yes Vitals/I&O/Wt Last Vital Signs Temp 97.6 F 03/01/24 06:17 Pulse 88 03/01/24 09:14 Resp 14 03/01/24 09:19 BP 98/55 03/01/24 06:00 Pulse Ox 100 03/01/24 09:19 O2 Del Method Mechanical Ventilation 03/01/24 09:14 O2 Flow Rate 50 02/26/24 21:50 FiO2 24 03/01/24 09:14 02/29/24 03/01/24 03/01/24 22:59 06:59 14:59 Intake Total 1029.899 / 2963.082 712.216 / 3675.298 85.625 / 85.625 Output Total 550 / 1005 805 / 1810 Balance 479.899 / 1958.082 -92.784 / 1865.298 85.625 / 85.625 Weight last 48 hrs Weight 111.266 kg Weight 111.13 kg Physical Exam 2 Narrative: intubated , sedated no distress Urinary Catheter Management: Alcantara: Cath Placed During This Visit: yes Reason for Continuing Indwelling Catheter: Accurate Measurement of Urinary Output in Critically Ill Patients Urinary Catheter Date of Insertion: 02/26/24 Urinary Catheter Time of Insertion: 21:14 Data 03/01/24 07:43 03/01/24 07:43 A&P Assessment and plan (1) ELLA (acute kidney injury): Plan 1. Acute on chronic kidney disease: Baseline baseline creatinine is in the mid 1 range now has severe ELLA along with metabolic acidosis and hyperkalemia in the setting of bowel ischemia/sepsis-probable ATN. - Renal fxn stable and UOP picked up , monitor , no acute indication for HD today - avoid contrast studies 2. Hyperkalemia: improved 3. Bowel obstruction, perforation and status post ex lap 4. Sepsis in the setting of bowel ischemia, on pressors 5. Respiratory failure on vent 6. Anemia : Hb dropped to 5.9 , plan for transfusion Discussed with patient's family at bedside. Time spent 40 minutes Patient evaluated using audiovisual cart Attestations 2 Medical Necessity Statement*: per [facility] Procedures Arterial Line Size (Gauge): 20 Coding Level of Care Code Acute Code for [facility] Fwd Diagnoses ELLA (acute kidney injury) N17.9
[2024-03-01 10:11] LABS: Hematocrit 21.6 % (36-47)
[2024-03-01] MEDS: sodium chloride 0.9% 500 ML IV (10:40)
[2024-03-01 11:40] LABS: Glucose Point of Care 99 mg/dL (70-110)
[2024-03-01] MEDS: sodium chloride 0.9% 100 mL Bag 50 ML IV (13:03)
--- NOTE | 2024-03-01 13:29 | PM.PN ---
Subjective Subjective: Requested unit of blood to keep her hemoglobin above 8 Did not grow more than a liter Sign of acidosis improving Patient is waking up on fentanyl and propofol Asked ICU nurse to do sedation vacation and weaning trial later in the day Will request renal PRBC Repeat H&H showed hemoglobin of 7.6 Calcium is still low Potassium of 4 Afebrile Leukocytosis improving Positive fluid balance No need of dialysis as of now Spoke with her daughter who was at the bedside this morning, Vitals/I&O/Wt Last Vital Signs Temp 98.1 F 03/01/24 13:10 Pulse 93 03/01/24 13:10 Resp 14 03/01/24 13:19 BP 124/58 03/01/24 13:10 Pulse Ox 100 03/01/24 13:19 O2 Del Method Mechanical Ventilation 03/01/24 09:14 O2 Flow Rate 50 02/26/24 21:50 FiO2 24 03/01/24 13:19 02/29/24 03/01/24 03/01/24 22:59 06:59 14:59 Intake Total 1029.899 / 2963.082 712.216 / 3675.298 256.008 / 256.008 Output Total 550 / 1005 805 / 1810 550 / 550 Balance 479.899 / 1958.082 -92.784 / 1865.298 -293.992 / -293.992 Weight last 48 hrs Weight 111.266 kg Weight 111.13 kg Physical Exam Narrative: Patient is able to follow commands, she is able to write on the board A few apneic spells were noted during weaning trial Bilateral breath sounds No adventitious rhonchi crackles or wheezing Levophed is being weaned off currently at 6 Hemodynamically stable Artline is still nonfunctional Abdomen covered with dressing Lower extremity edema is improving however present Alcantara catheter with concentrated urine Urinary Catheter Management: Alcantara: Cath Placed During This Visit: yes Reason for Continuing Indwelling Catheter: Accurate Measurement of Urinary Output in Critically Ill Patients Urinary Catheter Date of Insertion: 02/26/24 Urinary Catheter Time of Insertion: 21:14 Data 03/01/24 09:45 03/01/24 07:43 Micro: Microbiology 02/29/24 15:00 Urine Culture - Preliminary Urine,Clean Catch Yeast species A&P Assessment and plan (1) Multiorgan failure: (2) Atrial fibrillation: (3) Chronic anticoagulation: (4) Hyponatremia: (5) Small bowel perforation: (6) Small bowel obstruction: (7) Small bowel ischemia: (8) ELLA (acute kidney injury): (9) Hypocalcemia: (10) Hypokalemia: (11) Hypomagnesemia: (12) Leukocytosis: (13) Sepsis: (14) Septic shock: Plan Septic shock present since admission Related to bowel ischemia Continue antifungal antibiotic treatment Will finish 7 days on antimicrobials then will de-escalate Her leukocytosis improving Afebrile Cultures negative Status post laparotomy Dressing changed by general surgery Septic shock: Improving Levophed is being weaned off Later in the day we were able to wean off Levophed completely Respiratory failure perioperatively Plan to do weaning trial today and extubate her ATN related to septic shock Urine output more than a liter Acidosis improved Spoke with nephrology no Active indication for dialysis Hypervolemia hyponatremia Anticipate improvement with diuresis Urine culture showing yeast species, patient currently is getting antifungal treatment in the IV form Postop anemia Will keep her hemoglobin above 8, will give her 1 unit PRBC No active signs of bleeding noted Hypocalcemia: Replenished Holding off on TPN, If patient achieves good volume status will start TPN in next 48 hours Diastolic CHF exacerbation Related to fluid overload from septic shock Improving on daily basis Continue diuresis Full code Family meeting conducted, daughter was at the bedside this morning Patient was evaluated multiple times today A-fib without RVR Discontinue amiodarone drip in next 24 hours Would use IV metoprolol on as-needed basis if heart rate goes above 110 Long-term goal: residential placement Will lead to long-term rehab Artline not functional, most likely will discontinue Attestations Medical Necessity Statement*: Continue ICU management Procedures Arterial Line Size (Gauge): 20 Coding Level of Care Code Critical Care >/= 30 minutes Critical care time (in minutes): 60 The high probability of a clinically significant, sudden or life threatening deterioration, as referenced in this documentation, required my full and direct attention, intervention and personal management. The critical care time shown is in addition to time spent performing any reported separately billable procedures and includes the following: [x] Data and vital sign review and interpretation [x] Patient assessment, examination and intervention [x] Medication orders and management [x] Patient/Family updates as able [x] Care Coordination and Documentation. Diagnoses Multiorgan failure Atrial fibrillation I48.91 Chronic anticoagulation Z79.01 Hyponatremia E87.1 Small bowel perforation K63.1 Small bowel obstruction K56.609 Small bowel ischemia K55.9 ELLA (acute kidney injury) N17.9 Hypocalcemia E83.51 Hypokalemia E87.6 Hypomagnesemia E83.42 Leukocytosis D72.829 Sepsis A41.9 Septic shock A41.9; R65.21
[2024-03-01] MEDS: FUROsemide 10 mg/mL SDV 4mL 40 MG IVP ×2 (14:45→19:37)
--- NOTE | 2024-03-01 14:46 | PC.NURSE ---
Delay administering lasix, Dr mendez wanted to wait until blood was given.
[2024-03-01] MEDS: magnesium sulfate premix 1 GM/100 ML PIGGYBACK IV (14:50)
[2024-03-01 17:12] LABS: Glucose Point of Care 105 mg/dL (70-110)
[2024-03-01] MEDS: micafungin 100 MG in sodium chloride 0.9% (plus) 100 ML IV (17:20)
--- NOTE | 2024-03-01 18:33 | PC.NURSE ---
Shift SUmmary: Extubated at 1515 to 1 LNC. extubation uneventful. Continues to be in afib, but rate is controlled. 1 Unit of blood given. Incision not visualized as Dr Tilley requested nursing staff leave dressing in place unless it is needing reinforcement or changing. It is dry and intact. Total urine output today has been 1200mL
--- NOTE | 2024-03-01 18:56 | XRR_ITS ---
PROCEDURE INFORMATION: Exam: XR Chest Exam date and time: 03/01/2024 7:11 PM Age: 83 years old Clinical indication: Device placement; Ng tube; Additional info: Nasogastric tube insertion TECHNIQUE: Imaging protocol: Radiologic exam of the chest. Views: 1 view. COMPARISON: CR XR chest 1V portable [id number] 02/29/2024 7:43 AM FINDINGS: Tubes, catheters and devices: Nasogastric tube has been adjusted or replaced since the previous day's study, the tip overlies the gastric fundus, the side hole is at or just beyond the GE junction. Further advancement may be considered. Right-sided PICC catheter in stable positioning. Lungs: Mild patchy left basilar atelectasis with or without trace effusion again demonstrated. Mild diffuse pulmonary vascular congestion. Pleural spaces: Unremarkable. No pleural effusion. No pneumothorax. Heart/Mediastinum: Unremarkable. No cardiomegaly. Bones/joints: Unremarkable. Gastrointestinal tract: Moderate gas distension of the stomach. XR/XR chest 1V portable [id number] IMPRESSION: NG tube tip overlies the gastric fundus. The side hole is at or just beyond the GE junction. Further advancement suggested. [id number] gas distension of the stomach.
--- NOTE | 2024-03-01 18:58 | PC.NURSE ---
Near end of shift, NG tube came out. Nurse reinserted, ordered chest xray.
[2024-03-01 19:54] LABS: Glucose Point of Care 85 mg/dL (70-110)
[2024-03-01] MEDS: HYDROmorphone 1 mg/mL INJ 1 mL IVP (20:11)
--- NOTE | 2024-03-01 21:00 | PC.NURSE ---
Dilaudid order: Patient was complaining of pain 10/05, Dr. Plascencia was contacted and gave telephone orders to discontinue the 2mg morphine order and replace it with 1mg Dilaudid IVP Q4H PRN.
--- NOTE | 2024-03-01 22:00 | PC.NURSE ---
Dr. Tilley assessed the patient at bedside and gave verbal orders to start physical therapy tomorrow (03/02), up to chair TID, and begin using incentive spirometer.
[2024-03-01 22:39] LABS: Glucose Point of Care 79 mg/dL (70-110)
--- NOTE | 2024-03-01 23:00 | PC.NURSE ---
Hypoglycemia protocol: Patient's blood sugar had steadily decreased after stopping TPN. Lowest blood sugar was 73 but patient was not symptomatic. Dr. Plascencia was contacted and gave telephone orders for a hypoglycemia protocol and to continue to monitor blood sugar levels.
[2024-03-02] VITALS (105 sets, daily range): BP systolic 77–152; BP diastolic 47–88; PULSE 79–110; RESP 9–27; TEMP 36.3–36.8; O2SAT 76–100; BMI 36.0
[2024-03-02 00:01] LABS: Glucose Point of Care 73 mg/dL (70-110)
[2024-03-02] MEDS: HYDROmorphone 1 mg/mL INJ 1 mL IVP ×4 (00:54→19:33)
[2024-03-02 01:13] LABS: Glucose Point of Care 75 mg/dL (70-110)
[2024-03-02 04:00] LABS: Glucose Point of Care 73 mg/dL (70-110)
[2024-03-02] MEDS: enoxaparin 120 mg/0.8 mL Syringe 110 MG SUBCUT (05:04)
[2024-03-02 05:37] LABS: Basophils % 0.2 %; Eosinophils % 0.2 %; Hematocrit 24.6 % (36-47); Lymphocytes # 0.8 10^3/uL (0.8-4.8); Lymphocytes % 5.1 %; Mean Corpuscular HGB Conc 34.1 g/dL (30-55); Mean Corpuscular Hemoglobin 25.1 pg (27-33); Mean Corpuscular Volume 73.7 fl (85-98); Mean Platelet Volume 9.7 fL (7.4-10.4); Monocytes # 0.8 10^3/uL (0.2-0.9); Monocytes % 5.2 %; Neutrophils # 13.35 10^3/uL (1.8-7.7); Neutrophils % 88.3 %; Nucleated Red Blood Cells % 0 %; Platelet Count 406 10^3/cmm (157-399); Red Blood Count 3.34 10^6/uL (3.85-5.65); Red Cell Distribution Width 17.5 % (12.1-15.1); White Blood Count 15.11 10^3/uL (3.29-11.43)
[2024-03-02 06:02] LABS: Alanine Aminotransferase 12 U/L (0-33); Albumin Level 1.4 g/dL (3.5-5.2); Alkaline Phosphatase 167 U/L (35-105); Anion Gap 21.6 (5-19); Aspartate Amino Transferase 12 U/L (0-32); Blood Urea Nitrogen 50 mg/dL (8-23); Calcium 7.5 mg/dL (8.5-10.5); Carbon Dioxide 22 mmol/L (22-29); Chloride 91 mmol/L (98-107); Creatinine Clr Calc Pharmacy 15.4898; Globulin 3.2 g/dL (1.3-4.6); Glucose 76 mg/dL (65-115); Osmolality Calculated 284 mOsm/kg (285-295); Potassium 3.6 mmol/L (3.5-5.1); Sodium 131 mmol/L (136-145); Total Bilirubin 0.6 mg/dL (0.15-1.2); Total Protein 4.6 g/dL (6.6-8.7)
[2024-03-02] MEDS: piperacillin-tazobactam 3.375 GM in sodium chloride 0.9% (plus) 50 ML IV ×2 (07:45→19:33)
[2024-03-02] MEDS: FUROsemide 10 mg/mL SDV 4mL 40 MG IVP ×2 (07:46→13:19)
[2024-03-02] MEDS: pantoprazole 40 mg SDV IVP ×2 (07:48→17:38)
[2024-03-02 08:11] LABS: Glucose Point of Care 66 mg/dL (70-110)
--- NOTE | 2024-03-02 09:09 | P.PN_ITS ---
Subjective 2 Subjective: pt extubated , off pressors Medications: Reviewed: Yes Vitals/I&O/Wt Last Vital Signs Temp 97.9 F 03/02/24 08:25 Pulse 104 H 03/02/24 08:40 Resp 18 03/02/24 08:40 BP 131/82 03/02/24 06:15 Pulse Ox 99 03/02/24 08:40 O2 Del Method Nasal Cannula 03/02/24 08:40 O2 Flow Rate 1 03/02/24 08:40 FiO2 24 03/01/24 22:20 03/01/24 03/02/24 03/02/24 22:59 06:59 14:59 Intake Total 200 / 506.008 350.000 / 856.008 100 / 100 Output Total 500 / 1200 1625 / 2825 Balance -300 / -693.992 -1275.000 / -1968.992 100 / 100 Weight last 48 hrs Weight 104.411 kg Weight 111.266 kg Physical Exam 2 Narrative: awake ,a lert no distress Urinary Catheter Management: Alcantara: Cath Placed During This Visit: yes Reason for Continuing Indwelling Catheter: Accurate Measurement of Urinary Output in Critically Ill Patients Urinary Catheter Date of Insertion: 02/26/24 Urinary Catheter Time of Insertion: 21:14 Data 03/02/24 05:24 03/02/24 05:24 Micro: Microbiology 02/29/24 15:00 Urine Culture - Preliminary Urine,Clean Catch Yeast species A&P Assessment and plan (1) ELLA (acute kidney injury): Plan 1. Acute on chronic kidney disease: Baseline baseline creatinine is in the mid 1 range now has severe ELLA along with metabolic acidosis and hyperkalemia in the setting of bowel ischemia/sepsis-probable ATN. - Renal fxn stable and UOP picked up , monitor - avoid contrast studies 2. Hyperkalemia: improved 3. Bowel obstruction, perforation and status post ex lap 4. Sepsis in the setting of bowel ischemia, on pressors 5. Respiratory failure - extubated 6. Anemia : s/p transfusions Discussed with patient's family at bedside. Time spent 20 minutes Patient evaluated using audiovisual cart Attestations 2 Medical Necessity Statement*: Continue ICU management Procedures Arterial Line Size (Gauge): 20 Coding Level of Care Code Acute Code for Chg Fwd Diagnoses ELLA (acute kidney injury) N17.9
[2024-03-02] MEDS: AA-Dex 5%-20% w/Lytes 1,000 ML with multivitamin inj 10 ML 25 ML IV (10:28)
[2024-03-02 11:13] LABS: Glucose Point of Care 88 mg/dL (70-110)
--- NOTE | 2024-03-02 12:54 | P.PN_ITS ---
Subjective 2 Subjective: Urine output has picked up Patient endorsing passage of flatus, endorsing a lot of bloating More than 2 L Acidosis improved Hemoglobin stable White count improved to 15,000 Patient is able to make her needs known Complaining of abdominal pain Patient stating that she is very weak not able to lift her Off amiodarone this morning Heart rate is stable Hemodynamic stable Creatinine 3.3 Sodium 131 Albumin 1.4 Calcium 7.5, Potassium 3.6, check mag level Asked dietitian to start TPN at 20 mill per hour Vitals/I&O/Wt Last Vital Signs Temp 97.7 F 03/02/24 12:35 Pulse 110 H 03/02/24 10:00 Resp 18 03/02/24 08:40 BP 124/64 03/02/24 10:00 Pulse Ox 99 03/02/24 09:45 O2 Del Method Nasal Cannula 03/02/24 08:40 O2 Flow Rate 1 03/02/24 08:40 FiO2 24 03/01/24 22:20 03/01/24 03/02/24 03/02/24 22:59 06:59 14:59 Intake Total 200 / 506.008 350.000 / 856.008 150 / 150 Output Total 500 / 1200 1625 / 2825 900 / 900 Balance -300 / -693.992 -1275.000 / -1968.992 -750 / -750 Weight last 48 hrs Weight 104.411 kg Weight 111.266 kg Physical Exam 2 Narrative: Patient is awake and alert No active sign of focal deficit She has myopathy Able to lift her hands against gravity to some extent Able to follow commands Able to make her needs known Abdomen covered with dressing Alcantara catheter with concentrated urine Sign of fluid load present but improving Patient able to follow commands S1, S2 A-fib without RVR Currently on 1 to 2 L Urinary Catheter Management: Alcantara: Cath Placed During This Visit: yes Reason for Continuing Indwelling Catheter: Accurate Measurement of Urinary Output in Critically Ill Patients Urinary Catheter Date of Insertion: 02/26/24 Urinary Catheter Time of Insertion: 21:14 Data 03/02/24 05:24 03/02/24 05:24 Micro: Microbiology 02/29/24 15:00 Urine Culture - Preliminary Urine,Clean Catch Yeast species A&P Assessment and plan (1) Multiorgan failure: (2) Atrial fibrillation: (3) Chronic anticoagulation: (4) Hyponatremia: (5) Small bowel perforation: (6) Small bowel obstruction: (7) Small bowel ischemia: (8) ELLA (acute kidney injury): (9) Hypocalcemia: (10) Hypokalemia: (11) Hypomagnesemia: (12) Urinary incontinence: (13) History of iron deficiency anemia: (14) Leukocytosis: (15) Sepsis: (16) Septic shock: (17) ATN (acute tubular necrosis): (18) Hypocalcemia: (19) Hypokalemia: (20) Malnourished: Plan Perioperative respiratory failure requiring mechanical ventilation Patient extubated successfully to nasal cannula 6 Currently doing well on 2 L nasal cannula X-ray is clear Septic shock: Resolved Bowel ischemia with perforation status post exploratory laparotomy with elective ileocecectomy and reanastomosis Patient endorsing passage of flatus today Endorsing a lot of bloating Leukocytosis improving continue antibiotics and antifungals Blood cultures are negative ATN secondary to septic shock Patient is making good urine Acidosis improved Creatinine stable No plan for dialysis Critical care related myopathy Requested OT and PT Can get out of bed to chair Hypoglycemia: Start TPN at lowest possible weight to avoid fluid overload continue at 20 cc/h for now Diastolic CHF: Fluid overload Continue diuresis Protein calorie malnourishment: Albumin is extremely low we will give her 1 bag of albumin today as well A-fib without RVR Holding off on amiodarone Can use IV metoprolol on as-needed basis if heart rate above 110 Bowel ischemia: A-fib, Continuing therapeutic Lovenox at this point Postop anemia: Status post 1 unit PRBC, hemoglobin stable Continue Protonix Hypocalcemia: Replenish aggressively Check magnesium and phosphorus, Full code Continue ICU management Attestations 2 Medical Necessity Statement*: Continue ICU management Procedures Arterial Line Size (Gauge): 20 Diagnoses Multiorgan failure Atrial fibrillation I48.91 Chronic anticoagulation Z79.01 Hyponatremia E87.1 Small bowel perforation K63.1 Small bowel obstruction K56.609 Small bowel ischemia K55.9 ELLA (acute kidney injury) N17.9 Hypocalcemia E83.51 Hypokalemia E87.6 Hypomagnesemia E83.42 Urinary incontinence R32 History of iron deficiency anemia Z86.2 Leukocytosis D72.829 Sepsis A41.9 Septic shock A41.9; R65.21 ATN (acute tubular necrosis) N17.0 Malnourished E46
[2024-03-02] MEDS: lidocaine 1% 5 ML in potassium chloride premix 100 ML 26.25 ML IV (13:19)
[2024-03-02 16:54] LABS: Glucose Point of Care 99 mg/dL (70-110)
[2024-03-02] MEDS: micafungin 100 MG in sodium chloride 0.9% (plus) 100 ML IV (17:35)
[2024-03-02 19:01] LABS: Glucose Point of Care 120 mg/dL (70-110)
--- NOTE | 2024-03-02 20:09 | P.PN_ITS ---
Subjective 2 Subjective: Patient seen and examined. She is doing quite well. She is now awake and alert. Pain is controlled Vitals/I&O/Wt Last Vital Signs Temp 97.4 F L 03/02/24 19:46 Pulse 94 03/02/24 18:30 Resp 15 03/02/24 19:33 BP 128/71 03/02/24 18:30 Pulse Ox 99 03/02/24 19:33 O2 Del Method Nasal Cannula 03/02/24 08:40 O2 Flow Rate 1 03/02/24 08:40 FiO2 24 03/01/24 22:20 03/02/24 03/02/24 03/02/24 06:59 14:59 22:59 Intake Total 350.000 / 856.008 150 / 150 205 / 355 Output Total 1625 / 2825 900 / 900 1375 / 2275 Balance -1275.000 / -1968.992 -750 / -750 -1170 / -1920 Weight last 48 hrs Weight 230 lb 3 oz Weight 245 lb 4.8 oz Physical Exam 2 Narrative: General: No acute distress, awake alert and oriented x 3 Abdomen: Soft, nondistended, appropriately tender Incision intact with erythema or exudate Urinary Catheter Management: Alcantara: Cath Placed During This Visit: yes Reason for Continuing Indwelling Catheter: Accurate Measurement of Urinary Output in Critically Ill Patients Urinary Catheter Date of Insertion: 02/26/24 Urinary Catheter Time of Insertion: 21:14 Data 03/05/24 04:16 03/05/24 04:16 Micro: Microbiology 02/26/24 19:38 Blood Culture - Final Blood NO GROWTH AFTER 5 DAYS 02/26/24 19:42 Blood Culture - Final Blood NO GROWTH AFTER 5 DAYS A&P Assessment and plan (1) Small bowel ischemia: (2) Small bowel perforation: Plan Status post exploratory laparotomy with excision of approximately half of her small bowel distal to the ligament of Treitz. Abdomen was left open in discontinuity for planned takeback Status post exploratory laparotomy with ileocecectomy and small bowel resection with reanastomosis Patient is doing as well as could be expected Await return of bowel function Medical management per primary Attestations 2 Medical Necessity Statement*: Per primary Procedures Arterial Line Size (Gauge): 20 Coding Level of Care Code Acute Code for [facility] Diagnoses Small bowel ischemia K55.9 Small bowel perforation K63.1
--- NOTE | 2024-03-02 21:29 | PC.NURSE ---
Wound Dressing Change order: Dr. Tilley visited patient at bedside and gave verbal orders to change abdominal dressing once daily.
[2024-03-03] VITALS (66 sets, daily range): BP systolic 82–154; BP diastolic 48–100; PULSE 79–109; RESP 9–34; TEMP 36.3–36.7; O2SAT 88–100; BMI 35.4
[2024-03-03] MEDS: FUROsemide 10 mg/mL SDV 4mL 40 MG IVP ×2 (00:27→12:30)
[2024-03-03] MEDS: HYDROmorphone 1 mg/mL INJ 1 mL IVP ×2 (00:27→05:02)
[2024-03-03 04:50] LABS: Glucose Point of Care 154 mg/dL (70-110)
[2024-03-03 04:50] LABS: Glucose Point of Care 148 mg/dL (70-110)
--- NOTE | 2024-03-03 07:42 | PM.PN ---
Subjective Subjective: Patient seen and examined. She reports that she is passing flatus and pain is controlled Vitals/I&O/Wt Last Vital Signs Temp 98.0 F 03/05/24 00:05 Pulse 95 03/05/24 06:23 Resp 17 03/05/24 04:04 BP 109/58 03/05/24 06:23 Pulse Ox 98 03/05/24 06:23 O2 Del Method Room Air 03/04/24 10:00 O2 Flow Rate 1 03/02/24 08:40 FiO2 24 03/01/24 22:20 03/04/24 03/05/24 03/05/24 22:59 06:59 14:59 Intake Total 990 / 1830 2210 / 4040 Output Total 2009 280 / 2350 Balance -1020 / -240 1930 / 1690 Weight last 48 hrs Weight 217 lb 7 oz Weight 221 lb Physical Exam Narrative: General: No acute distress, awake alert and oriented x 3 Abdomen: Soft, nondistended, appropriately tender Incision intact with erythema or exudate Urinary Catheter Management: Alcantara: Cath Placed During This Visit: yes Reason for Continuing Indwelling Catheter: Accurate Measurement of Urinary Output in Critically Ill Patients Urinary Catheter Date of Insertion: 02/26/24 Urinary Catheter Time of Insertion: 21:14 Data 03/05/24 04:16 03/05/24 04:16 A&P Assessment and plan (1) Small bowel ischemia: (2) Small bowel perforation: Plan Status post exploratory laparotomy with excision of approximately half of her small bowel distal to the ligament of Treitz. Abdomen was left open in discontinuity for planned takeback Status post exploratory laparotomy with ileocecectomy and small bowel resection with reanastomosis Patient is doing as well as could be expected Clear liquid diet Medical management per primary Attestations Medical Necessity Statement*: Per primary Procedures Arterial Line Size (Gauge): 20 Coding Level of Care Code Acute Code for [facility] Diagnoses Small bowel ischemia K55.9 Small bowel perforation K63.1
[2024-03-03 07:43] LABS: Glucose Point of Care 189 mg/dL (70-110)
[2024-03-03] MEDS: piperacillin-tazobactam 3.375 GM in sodium chloride 0.9% (plus) 50 ML IV ×2 (08:41→20:38)
[2024-03-03] MEDS: pantoprazole 40 mg SDV IVP ×2 (08:46→17:26)
--- NOTE | 2024-03-03 09:02 | P.PN_ITS ---
Subjective 2 Subjective: doing better Medications: Reviewed: Yes Vitals/I&O/Wt Last Vital Signs Temp 98.1 F 03/03/24 08:00 Pulse 88 03/03/24 08:06 Resp 16 03/03/24 08:06 BP 114/75 03/03/24 06:00 Pulse Ox 98 03/03/24 08:06 O2 Del Method Room Air 03/03/24 08:06 O2 Flow Rate 1 03/02/24 08:40 FiO2 24 03/01/24 22:20 03/02/24 03/03/24 03/03/24 22:59 06:59 14:59 Intake Total 205 / 355 474.167 / 829.167 Output Total 1375 / 2275 1425 / 3700 Balance -1170 / -1920 -950.833 / -2870.833 Weight last 48 hrs Weight 102.71 kg Weight 104.411 kg Physical Exam 2 Narrative: awake ,a lert no distress Urinary Catheter Management: Alcantara: Cath Placed During This Visit: yes Reason for Continuing Indwelling Catheter: Accurate Measurement of Urinary Output in Critically Ill Patients Urinary Catheter Date of Insertion: 02/26/24 Urinary Catheter Time of Insertion: 21:14 Data 03/03/24 11:03 03/03/24 10:00 Micro: Microbiology 02/26/24 19:38 Blood Culture - Final Blood NO GROWTH AFTER 5 DAYS 02/26/24 19:42 Blood Culture - Final Blood NO GROWTH AFTER 5 DAYS A&P Assessment and plan (1) ELLA (acute kidney injury): Plan 1. Acute on chronic kidney disease: Baseline baseline creatinine is in the mid 1 range now has severe ELLA along with metabolic acidosis and hyperkalemia in the setting of bowel ischemia/sepsis-probable ATN. - Renal fxn stable and UOP picked up , monitor - avoid contrast studies 2. Hyperkalemia: improved 3. Bowel obstruction, perforation and status post ex lap 4. Sepsis in the setting of bowel ischemia, on pressors 5. Respiratory failure - extubated 6. Anemia : s/p transfusions Discussed with patient's family at bedside. Time spent 20 minutes Patient evaluated using audiovisual cart Attestations 2 Medical Necessity Statement*: per medicine team Procedures Arterial Line Size (Gauge): 20 Coding Level of Care Code Acute Code for [facility] Fwd Diagnoses ELLA (acute kidney injury) N17.9
[2024-03-03 10:30] LABS: Alanine Aminotransferase 11 U/L (0-33); Albumin Level 1.8 g/dL (3.5-5.2); Alkaline Phosphatase 206 U/L (35-105); Anion Gap 20.9 (5-19); Aspartate Amino Transferase 9 U/L (0-32); Blood Urea Nitrogen 54 mg/dL (8-23); Calcium 7.7 mg/dL (8.5-10.5); Carbon Dioxide 23 mmol/L (22-29); Chloride 92 mmol/L (98-107); Creatine Phosphokinase 33 U/L (26-192); Globulin 3.9 g/dL (1.3-4.6); Glucose 192 mg/dL (65-115); Magnesium 2.1 mg/dL (1.7-2.3); Osmolality Calculated 294 mOsm/kg (285-295); Phosphorus 6.5 mg/dL (2.5-4.5); Potassium 3.9 mmol/L (3.5-5.1); Sodium 132 mmol/L (136-145); Total Bilirubin 0.4 mg/dL (0.15-1.2); Total Protein 5.7 g/dL (6.6-8.7)
[2024-03-03 10:31] LABS: Creatinine Clr Calc Pharmacy 16.3466
[2024-03-03 11:13] LABS: Basophils % 0.2 %; Eosinophils % 0.4 %; Hematocrit 27.3 % (36-47); Lymphocytes # 0.5 10^3/uL (0.8-4.8); Lymphocytes % 5.3 %; Mean Corpuscular HGB Conc 34.4 g/dL (30-55); Mean Corpuscular Hemoglobin 25.4 pg (27-33); Mean Corpuscular Volume 73.8 fl (85-98); Mean Platelet Volume 9.8 fL (7.4-10.4); Monocytes # 0.4 10^3/uL (0.2-0.9); Monocytes % 4.1 %; Neutrophils # 9.05 10^3/uL (1.8-7.7); Neutrophils % 88.7 %; Nucleated Red Blood Cells % 0.3 %; Platelet Count 484 10^3/cmm (157-399); Red Cell Distribution Width 17.7 % (12.1-15.1)
--- NOTE | 2024-03-03 11:38 | P.PN_ITS ---
Subjective 2 Subjective: Remarkable improvement Leukocytosis improved Afebrile Currently on room air Getting out of bed to chair with help Able to communicate Daughter at the bedside Creatinine improving 3.1 Adequate urine output Polyuria noted Monitor for electrolytes Potassium 3.9, magnesium 2.1, phosphorus 6.5 TPN running at 25 mill per hour Blood sugar 189 Added low intensity sliding scale NG tube has been clamped Patient is endorsing passage of flatus Diet will be dictated by the general surgery Vitals/I&O/Wt Last Vital Signs Temp 98.1 F 03/03/24 08:00 Pulse 98 03/03/24 10:00 Resp 14 03/03/24 10:00 BP 154/81 03/03/24 10:00 Pulse Ox 91 03/03/24 10:00 O2 Del Method Room Air 03/03/24 08:06 O2 Flow Rate 1 03/02/24 08:40 FiO2 24 03/01/24 22:20 03/02/24 03/03/24 03/03/24 22:59 06:59 14:59 Intake Total 205 / 355 474.167 / 829.167 0 / 0 Output Total 1375 / 2275 1425 / 3700 Balance -1170 / -1920 -950.833 / -2870.833 0 / 0 Weight last 48 hrs Weight 102.71 kg Weight 104.411 kg Physical Exam 2 Narrative: Patient is getting out of bed to chair Awake and alert Signs of muscle weakness improving Clean dressing on her abdomen Drain has minimal output Lower extremity 1+ edema Upper extremity edema has improved Appetite has been removed Alcantara catheter in place Patient is on room air Able to follow commands Nonfocal neuroexam She got out of bed with the help of 2 nurses and sat in a chair Family at the bedside S1, S2 A-fib without RVR Urinary Catheter Management: Alcantara: Cath Placed During This Visit: yes Reason for Continuing Indwelling Catheter: Accurate Measurement of Urinary Output in Critically Ill Patients Urinary Catheter Date of Insertion: 02/26/24 Urinary Catheter Time of Insertion: 21:14 Data 03/03/24 11:03 03/03/24 10:00 Micro: Microbiology 02/26/24 19:38 Blood Culture - Final Blood NO GROWTH AFTER 5 DAYS 02/26/24 19:42 Blood Culture - Final Blood NO GROWTH AFTER 5 DAYS A&P Assessment and plan (1) Multiorgan failure: (2) Atrial fibrillation: (3) Chronic anticoagulation: (4) Malnourished: (5) Small bowel perforation: (6) Small bowel obstruction: (7) Small bowel ischemia: (8) ATN (acute tubular necrosis): (9) Hypocalcemia: (10) Hypokalemia: (11) Hypomagnesemia: (12) Hypocalcemia: (13) Hypokalemia: (14) History of iron deficiency anemia: (15) Sepsis: (16) Septic shock: Plan Bowel ischemia status post elective ileocecectomy and reanastomosis NG tube discontinued 03/03 Patient extubated 03/01 TPN started 03/02 Getting out of bed started 03/02 Start clear liquid diet monitor closely Diet added 03/03 clear liquid diet only Septic shock: Resolved Discontinue vancomycin and antifungals Continue Zosyn only for now Cultures negative to date ATN: Urine output improving currently she is in polyuric phase Monitor electrolytes Magnesium phosphorus does not need replenishment Will give her potassium supplementation More than 3 L urine output Malnourishment: Continue TPN 25 mill per hour for now PT/OT: Getting out of bed to chair Acute hypoxia postoperative: Currently on room air Postextubation patient did remarkably well A-fib without RVR Will add amiodarone Continue therapeutic Lovenox as well Postoperative anemia required 1 unit PRBC start therapeutic Lovenox today No active signs of GI bleed Diastolic CHF: Fluid overload: Improving Continue Lasix however I will cut the dose to once daily regimen instead of twice a day Critical care related myopathy Patient doing well with PT continue OT Disposition: long term placement Full code Will get her out of ICU to CSU Hyperglycemia: Improved will keep low-dose intensity sliding scale she is not diabetic she is running high blood sugar with TPN Monitor closely Attestations 2 Medical Necessity Statement*: Transfer out of ICU Procedures Arterial Line Size (Gauge): 20 Diagnoses Multiorgan failure Atrial fibrillation I48.91 Chronic anticoagulation Z79.01 Malnourished E46 Small bowel perforation K63.1 Small bowel obstruction K56.609 Small bowel ischemia K55.9 ATN (acute tubular necrosis) N17.0 Hypocalcemia E83.51 Hypokalemia E87.6 Hypomagnesemia E83.42 History of iron deficiency anemia Z86.2 Sepsis A41.9 Septic shock A41.9; R65.21
[2024-03-03 11:59] LABS: Glucose Point of Care 184 mg/dL (70-110)
[2024-03-03] MEDS: AA-Dex 5%-20% w/Lytes 1,000 ML with multivitamin inj 10 ML 25 ML IV (12:26)
[2024-03-03] MEDS: lidocaine 1% 5 ML in potassium chloride premix 100 ML 26.25 ML IV (12:30)
--- NOTE | 2024-03-03 15:48 | PC.NURSE ---
Patient transferred to CSU from ICU at 1520 via a bed. She currently has TPN and Potassium running through her PICC line.
[2024-03-03 17:16] LABS: Glucose Point of Care 156 mg/dL (70-110)
--- NOTE | 2024-03-03 18:18 | PC.NURSE ---
Dr. Tilley visited with patient and told her if she had a bowel movement that she could advance to a normal diet. Order is entered per Dr. Tilley.
[2024-03-03] MEDS: morphine 4 mg/mL SDV 1 mL 2 MG IVP (20:38)
[2024-03-03 20:49] LABS: Glucose Point of Care 152 mg/dL (70-110)
[2024-03-04] VITALS (12 sets, daily range): BP systolic 105–138; BP diastolic 55–80; PULSE 81–99; RESP 14–19; TEMP 36.3–36.7; O2SAT 97–100
[2024-03-04 05:12] LABS: Eosinophils # 0.1 10^3/uL (0.0-0.8); Eosinophils % 1.1 %; Hematocrit 23.8 % (36-47); Lymphocytes # 0.8 10^3/uL (0.8-4.8); Lymphocytes % 10.1 %; Mean Corpuscular HGB Conc 34.5 g/dL (30-55); Mean Corpuscular Hemoglobin 25.5 pg (27-33); Mean Corpuscular Volume 74.1 fl (85-98); Monocytes # 0.4 10^3/uL (0.2-0.9); Monocytes % 4.7 %; Neutrophils # 6.14 10^3/uL (1.8-7.7); Neutrophils % 82.9 %; Nucleated Red Blood Cells % 0 %; Platelet Count 416 10^3/cmm (157-399); Red Blood Count 3.21 10^6/uL (3.85-5.65); Red Cell Distribution Width 17.4 % (12.1-15.1); White Blood Count 7.41 10^3/uL (3.29-11.43)
[2024-03-04 05:40] LABS: Anion Gap 15.6 (5-19); Blood Urea Nitrogen 54 mg/dL (8-23); Calcium 7.8 mg/dL (8.5-10.5); Carbon Dioxide 27 mmol/L (22-29); Chloride 92 mmol/L (98-107); Glucose 139 mg/dL (65-115); Osmolality Calculated 289 mOsm/kg (285-295); Potassium 3.6 mmol/L (3.5-5.1); Sodium 131 mmol/L (136-145)
[2024-03-04 06:25] LABS: Glucose Point of Care 167 mg/dL (70-110)
[2024-03-04] MEDS: enoxaparin 120 mg/0.8 mL Syringe 110 MG SUBCUT (06:35)
--- NOTE | 2024-03-04 07:44 | P.PN_ITS ---
Subjective 2 Subjective: Patient seen and examined. She had a large bowel movement last night and was advanced to a regular diet. This morning she had another bowel movement and I was told that her incision was soaked with stool. Pain is controlled Vitals/I&O/Wt Last Vital Signs Temp 98.0 F 03/05/24 00:05 Pulse 95 03/05/24 06:23 Resp 20 H 03/05/24 07:39 BP 109/58 03/05/24 06:23 Pulse Ox 98 03/05/24 06:23 O2 Del Method Room Air 03/04/24 10:00 O2 Flow Rate 1 03/02/24 08:40 FiO2 24 03/01/24 22:20 03/04/24 03/05/24 03/05/24 22:59 06:59 14:59 Intake Total 990 / 1830 2210 / 4040 Output Total 2009 280 / 2350 Balance -1020 / -240 1930 / 1690 Weight last 48 hrs Weight 217 lb 7 oz Weight 221 lb Physical Exam 2 Narrative: General: No acute distress, awake alert and oriented x 3 Abdomen: Soft, nondistended, appropriately tender Incision intact with erythema or exudate Urinary Catheter Management: Alcantara: Cath Placed During This Visit: yes Reason for Continuing Indwelling Catheter: Accurate Measurement of Urinary Output in Critically Ill Patients Urinary Catheter Date of Insertion: 02/26/24 Urinary Catheter Time of Insertion: 21:14 Data 03/05/24 04:16 03/05/24 04:16 A&P Assessment and plan (1) Small bowel ischemia: (2) Small bowel perforation: Plan Status post exploratory laparotomy with excision of approximately half of her small bowel distal to the ligament of Treitz. Abdomen was left open in discontinuity for planned takeback Status post exploratory laparotomy with ileocecectomy and small bowel resection with reanastomosis Patient is doing as well as could be expected Regular diet Continue antibiotics Plan for discharge to SNF Medical management per primary Attestations 2 Medical Necessity Statement*: Per primary Procedures Arterial Line Size (Gauge): 20 Coding Level of Care Code Acute Code for [facility] Diagnoses Small bowel ischemia K55.9 Small bowel perforation K63.1
--- NOTE | 2024-03-04 07:45 | P.PN_ITS ---
Subjective 2 Subjective: Hemoglobin is 8.2 Patient is hemodynamically stable Patient is tolerating diet Stating that she had 1 small bowel movement last night Endorsing tolerating clear liquid diet for now Patient is stating that she is feeling lousy White count is normal Afebrile Potassium is 3.6, creatinine stable More than 2 L urine output Sodium 131 Blood glucose is normal Patient is working with PT, outpatient therapist will see her today Albumin 1.8 Urine culture showing Mary Patient has finished 7 days of IV antifungal already Blood cultures negative to date Pathology report: Consistent with ischemic bowel ischemic enteritis no sign of malignancy Vitals/I&O/Wt Last Vital Signs Temp 97.9 F 03/04/24 07:41 Pulse 90 03/04/24 07:41 Resp 15 03/04/24 07:41 BP 105/58 03/04/24 07:41 Pulse Ox 100 03/04/24 07:41 O2 Del Method Nasal Cannula 03/03/24 16:00 O2 Flow Rate 1 03/02/24 08:40 FiO2 24 03/01/24 22:20 03/03/24 03/04/24 03/04/24 22:59 06:59 14:59 Intake Total 480 / 1195 150 / 1345 Output Total 2270 / 2270 350 / 2620 Balance -1790 / -1075 -200 / -1275 Weight last 48 hrs Weight 100.244 kg Weight 102.71 kg Physical Exam 2 Narrative: Clinically patient is doing much better Signs of dehydration improving Able to make her needs known Abdomen covered with dressing clean dressing Lower extremities swelling improving Currently on room air Hemodynamically stable Pleasant and cooperative Nonfocal neuroexam Muscle weakness improving gradually S1, S2 Alcantara catheter in place draining concentrated urine Urinary Catheter Management: Alcantara: Cath Placed During This Visit: yes Reason for Continuing Indwelling Catheter: Other Urinary Catheter Date of Insertion: 02/26/24 Urinary Catheter Time of Insertion: 21:14 Data 03/04/24 05:05 03/04/24 05:05 Micro: Microbiology 02/29/24 15:00 Urine Culture - Final Urine,Clean Catch Mary parapsilosis A&P Assessment and plan (1) Multiorgan failure: (2) Atrial fibrillation: (3) Chronic anticoagulation: (4) Small bowel perforation: (5) Small bowel obstruction: (6) Small bowel ischemia: (7) Hyponatremia: (8) Malnourished: (9) ATN (acute tubular necrosis): (10) Hypocalcemia: (11) Hypokalemia: (12) Hypomagnesemia: (13) Hypocalcemia: (14) Sepsis: (15) Septic shock: (16) Postoperative anemia: (17) Low serum albumin: Plan Bowel ischemia Bowel perforation status post intervention by Dr. Tilley Pathology sample not consistent with malignancy Sign of peritonitis and scheming bowel present on biopsy NG tube discontinued 03/03 Patient extubated 03/01 TPN started 03/02 Getting out of bed started 03/02 Start clear liquid diet 03/03 Diet advanced to regular on recommendation of Dr. Tilley 03/04 Patient is endorsing passage of gas, had 2 bowel movements 03/03, liquid stool Septic shock: Resolved Leukocytosis: Resolved Hypernatremia: Resolved Hypocalcemia: Improving Hypomagnesemia: Replenished Hypokalemia: Replenish ATN: Improving polyuric phase, Replenish potassium Acidosis improved No indication for dialysis Continue PT and OT Critical care related myopathy Protein calorie malnutrition with low albumin patient has anaphylactic reaction to albumin I would avoid for now we will try to replenish by adding regular diet A-fib without RVR, add p.o. amiodarone 400 mg twice daily Continue therapeutic Lovenox Postop anemia: Drop in hemoglobin noted today Hemodynamically stable Diastolic CHF: Improving day by day Continue low-dose Lasix It has been changed from twice a day to once daily group home placement Full code Spoke with Dr. Tilley regarding diet plan Attestations 2 Medical Necessity Statement*: Likely will need prison placement by Procedures Arterial Line Size (Gauge): 20 Diagnoses Multiorgan failure Atrial fibrillation I48.91 Chronic anticoagulation Z79.01 Small bowel perforation K63.1 Small bowel obstruction K56.609 Small bowel ischemia K55.9 Hyponatremia E87.1 Malnourished E46 ATN (acute tubular necrosis) N17.0 Hypocalcemia E83.51 Hypokalemia E87.6 Hypomagnesemia E83.42 Sepsis A41.9 Septic shock A41.9; R65.21 Postoperative anemia D64.9 Low serum albumin R77.0
[2024-03-04] MEDS: insulin lispro 100 unit/1 mL SUBCUT ×2 (08:03→13:28)
[2024-03-04] MEDS: piperacillin-tazobactam 3.375 GM in sodium chloride 0.9% (plus) 50 ML IV ×2 (08:04→21:28)
[2024-03-04] MEDS: pantoprazole 40 mg SDV IVP ×2 (08:04→17:35)
--- NOTE | 2024-03-04 08:15 | P.PN_ITS ---
Subjective 2 Subjective: doing well Medications: Reviewed: Yes Vitals/I&O/Wt Last Vital Signs Temp 97.9 F 03/04/24 07:41 Pulse 90 03/04/24 07:41 Resp 15 03/04/24 07:41 BP 105/58 03/04/24 07:41 Pulse Ox 100 03/04/24 07:41 O2 Del Method Nasal Cannula 03/03/24 16:00 O2 Flow Rate 1 03/02/24 08:40 FiO2 24 03/01/24 22:20 03/03/24 03/04/24 03/04/24 22:59 06:59 14:59 Intake Total 480 / 1195 150 / 1345 Output Total 2270 / 2270 350 / 2620 Balance -1790 / -1075 -200 / -1275 Weight last 48 hrs Weight 100.244 kg Weight 102.71 kg Physical Exam 2 Narrative: awake ,a lert no distress no edema Urinary Catheter Management: Alcantara: Cath Placed During This Visit: yes Reason for Continuing Indwelling Catheter: Other Urinary Catheter Date of Insertion: 02/26/24 Urinary Catheter Time of Insertion: 21:14 Data 03/04/24 05:05 03/04/24 05:05 Micro: Microbiology 02/29/24 15:00 Urine Culture - Final Urine,Clean Catch Mary parapsilosis A&P Assessment and plan (1) ELLA (acute kidney injury): Plan 1. Acute on chronic kidney disease: Baseline baseline creatinine is in the mid 1 range now has severe ELLA along with metabolic acidosis and hyperkalemia in the setting of bowel ischemia/sepsis-probable ATN. - Renal fxn stable and UOP picked up , monitor, PRN lasix - avoid contrast studies 2. Hyperkalemia: improved 3. Bowel obstruction, perforation and status post ex lap 4. Sepsis in the setting of bowel ischemia, 5. Respiratory failure - extubated 6. Anemia : s/p transfusions Discussed with patient's family at bedside. Time spent 20 minutes Patient evaluated using audiovisual cart Attestations 2 Medical Necessity Statement*: per mediicne team Procedures Arterial Line Size (Gauge): 20 Coding Level of Care Code Acute Code for [facility] Diagnoses ELLA (acute kidney injury) N17.9
[2024-03-04] MEDS: lidocaine 1% 5 ML in potassium chloride premix 100 ML 26.25 ML IV (08:21)
[2024-03-04] MEDS: amiodarone 200 mg Tablet 400 MG PO ×2 (08:22→17:35)
[2024-03-04] MEDS: morphine 4 mg/mL SDV 1 mL 2 MG IVP ×2 (08:22→21:43)
[2024-03-04 11:43] LABS: Glucose Point of Care 144 mg/dL (70-110)
[2024-03-04] MEDS: vancomycin 750 MG in sodium chloride 0.9% 250 ML 250 MG IV (13:17)
[2024-03-04] MEDS: FUROsemide 10 mg/mL SDV 4mL 40 MG IVP (13:17)
[2024-03-04 17:00] LABS: Glucose Point of Care 121 mg/dL (70-110)
[2024-03-04 19:51] LABS: Glucose Point of Care 135 mg/dL (70-110)
[2024-03-05] VITALS (16 sets, daily range): BP systolic 104–133; BP diastolic 51–86; PULSE 86–109; RESP 14–22; TEMP 36.2–36.8; O2SAT 97–100; BMI 34.0
[2024-03-05 04:39] LABS: Basophils % 0.3 %; Eosinophils # 0.1 10^3/uL (0.0-0.8); Eosinophils % 1.4 %; Hematocrit 26.1 % (36-47); Lymphocytes % 13.9 %; Mean Corpuscular HGB Conc 33.7 g/dL (30-55); Mean Corpuscular Hemoglobin 25.5 pg (27-33); Mean Corpuscular Volume 75.7 fl (85-98); Mean Platelet Volume 9.5 fL (7.4-10.4); Monocytes # 0.5 10^3/uL (0.2-0.9); Monocytes % 7.5 %; Neutrophils # 5.35 10^3/uL (1.8-7.7); Neutrophils % 75.4 %; Nucleated Red Blood Cells % 0.3 %; Platelet Count 468 10^3/cmm (157-399); Red Blood Count 3.45 10^6/uL (3.85-5.65); Red Cell Distribution Width 17.6 % (12.1-15.1)
[2024-03-05 05:00] LABS: Alanine Aminotransferase 10 U/L (0-33); Albumin Level 1.8 g/dL (3.5-5.2); Alkaline Phosphatase 195 U/L (35-105); Anion Gap 16.8 (5-19); Aspartate Amino Transferase 10 U/L (0-32); Blood Urea Nitrogen 50 mg/dL (8-23); Carbon Dioxide 25 mmol/L (22-29); Chloride 94 mmol/L (98-107); Creatine Phosphokinase 22 U/L (26-192); Creatinine Clr Calc Pharmacy 17.7194; Globulin 3.4 g/dL (1.3-4.6); Glucose 106 mg/dL (65-115); Osmolality Calculated 288 mOsm/kg (285-295); Potassium 3.8 mmol/L (3.5-5.1); Sodium 132 mmol/L (136-145); Total Bilirubin 0.3 mg/dL (0.15-1.2); Total Protein 5.2 g/dL (6.6-8.7)
[2024-03-05] MEDS: enoxaparin 120 mg/0.8 mL Syringe 110 MG SUBCUT (06:17)
[2024-03-05 06:27] LABS: Glucose Point of Care 111 mg/dL (70-110)
[2024-03-05] MEDS: morphine 4 mg/mL SDV 1 mL 2 MG IVP ×2 (07:39→12:52)
[2024-03-05] MEDS: pantoprazole 40 mg SDV IVP ×2 (07:42→18:01)
[2024-03-05] MEDS: piperacillin-tazobactam 3.375 GM in sodium chloride 0.9% (plus) 50 ML IV ×2 (07:42→20:30)
[2024-03-05] MEDS: amiodarone 200 mg Tablet 400 MG PO ×2 (07:42→18:01)
--- NOTE | 2024-03-05 07:52 | PC.NURSE ---
Rounding with Dr Van. Discussed plan to discharge on Friday back to SNF.
--- NOTE | 2024-03-05 09:03 | P.PN_ITS ---
Subjective 2 Subjective: Yesterday patient had 1 bowel movement, slight variance in Added vancomycin to her Zosyn Afebrile No active leukocytosis Patient is not complain of any active pain, tolerating diet Adequate urine output Creatinine improving hemoglobin stable Hemodynamic stable Albumin 1.8 calcium low, corrected calcium normal Currently on room air A-fib without RVR Hemodynamically stable Vitals/I&O/Wt Last Vital Signs Temp 97.3 F L 03/05/24 08:00 Pulse 95 03/05/24 08:41 Resp 18 03/05/24 08:41 BP 131/72 03/05/24 08:00 Pulse Ox 99 03/05/24 08:41 O2 Del Method Room Air 03/05/24 08:41 O2 Flow Rate 1 03/02/24 08:40 FiO2 24 03/01/24 22:20 03/04/24 03/05/24 03/05/24 22:59 06:59 14:59 Intake Total 990 / 1830 2210 / 4040 Output Total 2009 280 / 2350 Balance -1020 / -240 1930 / 1690 Weight last 48 hrs Weight 98.628 kg Weight 100.244 kg Physical Exam 2 Narrative: Currently on room air Hemodynamic stable Pleasant Lower extremity swelling present not worsening at this point Alcantara catheter in place Doing well on room air Abdomen covered with dressing, Nonfocal neuroexam Drain with minimal output Variable S1-S2 no signs of RVR with A-fib Urinary Catheter Management: Alcantara: Cath Placed During This Visit: yes Reason for Continuing Indwelling Catheter: Accurate Measurement of Urinary Output in Critically Ill Patients Urinary Catheter Date of Insertion: 02/26/24 Urinary Catheter Time of Insertion: 21:14 Data 03/05/24 04:16 03/05/24 04:16 A&P Assessment and plan (1) Multiorgan failure: (2) Atrial fibrillation: (3) Chronic anticoagulation: (4) Malnourished: (5) Hyponatremia: (6) Chronic GERD: (7) Small bowel perforation: (8) Small bowel obstruction: (9) Small bowel ischemia: (10) ATN (acute tubular necrosis): (11) Hypocalcemia: (12) Hypokalemia: (13) Hypomagnesemia: (14) Hypocalcemia: (15) Hypokalemia: (16) Postoperative anemia: (17) Septic shock: Plan Postoperative anemia: Stable Septic shock: Resolved Bowel ischemia status post intervention Bowel movement with swallowing or dressing Incisional area needs to be cleaned packed to avoid infection Betadine has been applied Currently on vancomycin and Zosyn No fever Cultures negative No active sign of infection Patient is getting regular bowel movement ATN: Creatinine improving with adequate urine output Diastolic CHF: Improving continue low-dose Lasix A-fib without RVR continue anticoagulating agent and amiodarone Pathology report reviewed consistent with bowel ischemia Full code Regular diet Continue PT and OT Patient is showing remarkable recovery, I am planning to keep her here over the weekend continue physical therapy monitor her incisions due to recent swelling with fecal matter Most likely she will be able to go back to [facility] by Friday Potassium 3.8, calcium is low corrected calcium to albumin still low we will give her 1 g calcium gluconate Attestations 2 Medical Necessity Statement*: Continue medical management Procedures Arterial Line Size (Gauge): 20 Diagnoses Multiorgan failure Atrial fibrillation I48.91 Chronic anticoagulation Z79.01 Malnourished E46 Hyponatremia E87.1 Chronic GERD K21.9 Small bowel perforation K63.1 Small bowel obstruction K56.609 Small bowel ischemia K55.9 ATN (acute tubular necrosis) N17.0 Hypocalcemia E83.51 Hypokalemia E87.6 Hypomagnesemia E83.42 Postoperative anemia D64.9 Septic shock A41.9; R65.21
--- NOTE | 2024-03-05 09:14 | P.PN_ITS ---
Subjective 2 Subjective: doing better Medications: Reviewed: Yes Vitals/I&O/Wt Last Vital Signs Temp 97.3 F L 03/05/24 08:00 Pulse 95 03/05/24 08:41 Resp 18 03/05/24 08:41 BP 131/72 03/05/24 08:00 Pulse Ox 99 03/05/24 08:41 O2 Del Method Room Air 03/05/24 08:41 O2 Flow Rate 1 03/02/24 08:40 FiO2 24 03/01/24 22:20 03/04/24 03/05/24 03/05/24 22:59 06:59 14:59 Intake Total 990 / 1830 2210 / 4040 Output Total 2009 280 / 2350 Balance -1020 / -240 1930 / 1690 Weight last 48 hrs Weight 98.628 kg Weight 100.244 kg Physical Exam 2 Narrative: awake ,a lert no distress no edema Urinary Catheter Management: Alcantara: Cath Placed During This Visit: yes Reason for Continuing Indwelling Catheter: Accurate Measurement of Urinary Output in Critically Ill Patients Urinary Catheter Date of Insertion: 02/26/24 Urinary Catheter Time of Insertion: 21:14 Data 03/05/24 04:16 03/05/24 04:16 A&P Assessment and plan (1) ELLA (acute kidney injury): Plan 1. Acute on chronic kidney disease: Baseline baseline creatinine is in the mid 1 range now has severe ELLA along with metabolic acidosis and hyperkalemia in the setting of bowel ischemia/sepsis-probable ATN. - Renal fxn stable and UOP picked up , monitor, PRN lasix - avoid contrast studies 2. Hyperkalemia: improved 3. Bowel obstruction, perforation and status post ex lap 4. Sepsis in the setting of bowel ischemia, 5. Respiratory failure - extubated 6. Anemia : s/p transfusions Discussed with patient's family at bedside. Time spent 20 minutes Patient evaluated using audiovisual cart Attestations 2 Medical Necessity Statement*: per medicine Procedures Arterial Line Size (Gauge): 20 Coding Level of Care Code Acute Code for Chg Fwd Diagnoses ELLA (acute kidney injury) N17.9
--- NOTE | 2024-03-05 09:20 | PC.NURSE ---
Dr Flaherty in to see patient. Will change diet after lunch to GI soft.
--- NOTE | 2024-03-05 09:56 | P.PN_ITS ---
Subjective 2 Subjective: 83-year-old female who is postoperative day 7 status post exploratory laparotomy and small bowel resection for acute mesenteric ischemia with necrosis and perforation, she is also postoperative day 5 status post ileocecectomy anastomosis and abdominal closure. Patient has been doing okay, abdominal pain about 4/10, she started on regular diet yesterday and has been tolerating well. Has been having liquid bowel movements. Denies fever chills nausea or vomit. Still feels very weak, she was able to get out of the bed with PT yesterday but is unable to walk. Vitals/I&O/Wt Last Vital Signs Temp 97.3 F L 03/05/24 08:00 Pulse 95 03/05/24 08:41 Resp 18 03/05/24 08:41 BP 131/72 03/05/24 08:00 Pulse Ox 99 03/05/24 08:41 O2 Del Method Room Air 03/05/24 08:41 O2 Flow Rate 1 03/02/24 08:40 FiO2 24 03/01/24 22:20 03/04/24 03/05/24 03/05/24 22:59 06:59 14:59 Intake Total 990 / 1830 2210 / 4040 480 / 480 Output Total 2009 280 / 2350 Balance -1020 / -240 1930 / 1690 480 / 480 Weight last 48 hrs Weight 217 lb 7 oz Weight 221 lb Physical Exam 2 Narrative: Alert and oriented x 3, appears weak GI: OTHER: Abdominal exam is benign, abdomen is soft, appropriately tender to palpation, surgical incision is healing well with minimal redness on the edges. Patient has 1 surgical drain that is putting out serosanguineous output. Urinary Catheter Management: Alcantara: Cath Placed During This Visit: yes Reason for Continuing Indwelling Catheter: Accurate Measurement of Urinary Output in Critically Ill Patients Urinary Catheter Date of Insertion: 02/26/24 Urinary Catheter Time of Insertion: 21:14 Data 03/05/24 04:16 03/05/24 04:16 A&P Assessment and plan (1) Small bowel ischemia: (2) Multiorgan failure: (3) Atrial fibrillation: Plan After complete history physical examination and review of all available clinical data the following is my assessment. This is a [age]-year-old female that is known to me for previous admission during which she presented with sepsis and developed a clinical picture consistent with a small bowel obstruction, she tolerated and passed a Gastrografin trial and was consistently improving and therefore was discharged to a nursing facility in good condition. She will return to the hospital in the next 48 hours complaining of sudden worsening of abdominal pain, CT scan of the abdomen at the time show evidence of a possible perforation of the level of the right lower quadrant. Patient was taken for exploratory laparotomy with findings of acute mesenteric ischemia with about 140 cm of small bowel noted to be either ischemic or necrotic. Most likely etiology is a blood clot due to recent development of atrial fibrillation with RVR versus a low flow state due to sepsis. she was left in discontinuity after resection and she was taken back to the OR 2 days later for ileocecectomy reassessed anastomosis and closure of the abdomen. Since then she has been doing okay, she is tolerating diet, she is having bowel movements. Vital signs are stable white count is normal. She appears to be progressing fine. Patient Being noted to have acute kidney injury which appears to be improving creatinine is 2.8 from 3.1 today. I have discussed with the patient that due to amount of intestine that needed to be removed she may have significant diarrhea until her body adjusts to having a shorter small bowel. Think about these I will change her diet to a GI soft diet to help with digestion. I have encouraged the patient to work with physical therapy to get out of bed and ambulate is much as possible. I have explained to the patient that the plan is for her to go back to the nursing facility by Friday. We will continue to monitor her on the daily basis, HAMZAH drain will stay until the last day of hospital stay to allow us to monitor any changes in the intra-abdominal fluid. Patient shows understanding agrees with the plans. -GI soft diet -Ambulate and out of bed to chair with physical therapy -Patient is cleared from the general surgery standpoint to return to the [facility]. HAMZAH drain will be removed the day of discharge. Attestations 2 Medical Necessity Statement*: Per medical team Procedures Arterial Line Size (Gauge): 20 Coding Level of Care Code Acute Code for Chg Fwd Diagnoses Small bowel ischemia K55.9 Multiorgan failure Atrial fibrillation I48.91
[2024-03-05] MEDS: lidocaine 1% 5 ML in potassium chloride premix 100 ML 25 ML IV (10:31)
[2024-03-05] MEDS: calcium gluconate 0.1 gm/mL 10% SDV 10mL 1 GM IVP (10:33)
[2024-03-05 10:45] LABS: Glucose Point of Care 139 mg/dL (70-110)
--- NOTE | 2024-03-05 11:05 | PC.NURSE ---
Informed Dr Van of patient's frequent loose stools. Received instruction to change Senna order from scheduled to PRN for constipation.
--- NOTE | 2024-03-05 16:34 | PC.NURSE ---
Patient transferred to [facility] room 278-1. Report called to TONY Chacon. Informe patient's daughter Mary Ann prior to moving.
[2024-03-05 17:22] LABS: Glucose Point of Care 120 mg/dL (70-110)
[2024-03-05] MEDS: oxyCODONE 5 mg IR Tab/Cap PO (18:01)
[2024-03-05 20:48] LABS: Glucose Point of Care 124 mg/dL (70-110)
[2024-03-06] VITALS (12 sets, daily range): BP systolic 106–121; BP diastolic 59–68; PULSE 64–119; RESP 16–20; TEMP 36.3–36.7; O2SAT 96–100
[2024-03-06] MEDS: enoxaparin 120 mg/0.8 mL Syringe 110 MG SUBCUT (05:26)
[2024-03-06 06:52] LABS: Glucose Point of Care 107 mg/dL (70-110)
[2024-03-06 06:55] LABS: Basophils % 0.4 %; Eosinophils # 0.1 10^3/uL (0.0-0.8); Eosinophils % 1.4 %; Hematocrit 24.7 % (36-47); Lymphocytes # 0.9 10^3/uL (0.8-4.8); Lymphocytes % 12.4 %; Mean Corpuscular HGB Conc 32.4 g/dL (30-55); Mean Corpuscular Hemoglobin 25.5 pg (27-33); Mean Corpuscular Volume 78.7 fl (85-98); Mean Platelet Volume 9.6 fL (7.4-10.4); Monocytes # 0.6 10^3/uL (0.2-0.9); Monocytes % 8.5 %; Neutrophils # 5.34 10^3/uL (1.8-7.7); Neutrophils % 75.5 %; Nucleated Red Blood Cells % 0 %; Platelet Count 436 10^3/cmm (157-399); Red Blood Count 3.14 10^6/uL (3.85-5.65); Red Cell Distribution Width 17.9 % (12.1-15.1); White Blood Count 7.08 10^3/uL (3.29-11.43)
[2024-03-06 07:18] LABS: Anion Gap 15.9 (5-19); Blood Urea Nitrogen 46 mg/dL (8-23); Calcium 7.3 mg/dL (8.5-10.5); Carbon Dioxide 23 mmol/L (22-29); Chloride 98 mmol/L (98-107); Glucose 101 mg/dL (65-115); Magnesium 1.7 mg/dL (1.7-2.3); Osmolality Calculated 286 mOsm/kg (285-295); Potassium 4.9 mmol/L (3.5-5.1); Sodium 132 mmol/L (136-145)
[2024-03-06 07:19] LABS: Creatinine Clr Calc Pharmacy 19.2166
[2024-03-06] MEDS: amiodarone 200 mg Tablet 400 MG PO ×2 (08:00→17:39)
[2024-03-06] MEDS: oxyCODONE 5 mg IR Tab/Cap PO ×3 (08:00→20:12)
[2024-03-06] MEDS: FUROsemide 40 mg Tablet PO ×2 (08:00→17:39)
--- NOTE | 2024-03-06 08:00 | P.PN_ITS ---
Subjective 2 Subjective: no new c/o Medications: Reviewed: Yes Vitals/I&O/Wt Last Vital Signs Temp 97.8 F 03/06/24 07:12 Pulse 88 03/06/24 07:12 Resp 16 03/06/24 07:12 BP 117/63 03/06/24 07:12 Pulse Ox 98 03/06/24 07:12 O2 Del Method Room Air 03/06/24 07:12 O2 Flow Rate 1 03/02/24 08:40 FiO2 24 03/01/24 22:20 03/05/24 03/06/24 03/06/24 22:59 06:59 14:59 Intake Total 810 / 1925 250 / 2175 Output Total 860 / 890 345 / 1235 Balance -50 / 1035 -95 / 940 Weight last 48 hrs Weight 99.972 kg Weight 98.628 kg Physical Exam 2 Narrative: awake ,a lert no distress no edema Urinary Catheter Management: Alcantara: Cath Placed During This Visit: yes Reason for Continuing Indwelling Catheter: Required Immobilization for Trauma or Surgery or Anesthesia Urinary Catheter Date of Insertion: 02/26/24 Urinary Catheter Time of Insertion: 21:14 Data 03/06/24 06:32 03/06/24 06:32 A&P Assessment and plan (1) ELLA (acute kidney injury): Plan 1. Acute on chronic kidney disease: Baseline baseline creatinine is in the mid 1 range now has severe ELLA along with metabolic acidosis and hyperkalemia in the setting of bowel ischemia/sepsis-probable ATN. - Renal fxn improving and UOP picked up , monitor, PRN lasix - avoid contrast studies 2. Hyperkalemia: improved 3. Bowel obstruction, perforation and status post ex lap 4. Sepsis in the setting of bowel ischemia, 5. Respiratory failure - extubated 6. Anemia : s/p transfusions Discussed with patient's family at bedside. Time spent 20 minutes Patient evaluated using audiovisual cart Attestations 2 Medical Necessity Statement*: per medicine Procedures Arterial Line Size (Gauge): 20 Coding Level of Care Code Acute Code for Chg Fwd Diagnoses ELLA (acute kidney injury) N17.9
[2024-03-06] MEDS: piperacillin-tazobactam 3.375 GM in sodium chloride 0.9% (plus) 50 ML IV (08:03)
[2024-03-06] MEDS: pantoprazole 40 mg SDV IVP ×2 (09:25→18:07)
[2024-03-06 11:41] LABS: Glucose Point of Care 132 mg/dL (70-110)
[2024-03-06] MEDS: vancomycin 750 MG in sodium chloride 0.9% 250 ML 250 MG IV (11:58)
--- NOTE | 2024-03-06 16:39 | PC.NURSE ---
This nurse gave an update to patients daughter, Mary Ann, via phone.
[2024-03-06 16:57] LABS: Glucose Point of Care 126 mg/dL (70-110)
--- NOTE | 2024-03-06 18:08 | PM.PN ---
Subjective Subjective: Patient is still endorsing bowel movement Check C. difficile panel Loose stools Awake and alert Nonfocal neuroexam Hemoglobin 8 Creatinine trending down Adequate urine output Continue antibiotics Spoke with her daughter Patient is showing signs of excellent recovery Vitals/I&O/Wt Last Vital Signs Temp 97.9 F 03/06/24 16:00 Pulse 101 H 03/06/24 16:00 Resp 16 03/06/24 16:00 BP 106/68 03/06/24 16:00 Pulse Ox 100 03/06/24 16:00 O2 Del Method Room Air 03/06/24 16:00 O2 Flow Rate 1 03/02/24 08:40 FiO2 24 03/01/24 22:20 03/06/24 03/06/24 03/06/24 06:59 14:59 22:59 Intake Total 250 / 2175 1020 / 1020 Output Total 345 / 1235 525 / 525 500 / 1025 Balance -95 / 940 495 / 495 -500 / -5 Weight last 48 hrs Weight 99.972 kg Weight 98.628 kg Physical Exam Narrative: Awake and alert Signs of fluid overload present Currently on room air Hemodynamically stable A-fib with RVR Blood pressure slightly on softer side Pleasant cough Nonfocal neuroexam Urinary Catheter Management: Alcantara: Cath Placed During This Visit: yes Reason for Continuing Indwelling Catheter: Required Immobilization for Trauma or Surgery or Anesthesia Urinary Catheter Date of Insertion: 02/26/24 Urinary Catheter Time of Insertion: 21:14 Data 03/06/24 06:32 03/06/24 06:32 A&P Assessment and plan (1) ELLA (acute kidney injury): (2) Multiorgan failure: (3) Atrial fibrillation: (4) Chronic anticoagulation: (5) Malnourished: (6) Hyponatremia: (7) Chronic GERD: (8) Small bowel perforation: (9) Small bowel obstruction: (10) Small bowel ischemia: (11) ATN (acute tubular necrosis): (12) Hypocalcemia: (13) Hypokalemia: (14) Hypomagnesemia: (15) Hypocalcemia: (16) Hypokalemia: (17) Postoperative anemia: (18) Septic shock: Plan Postoperative anemia: Stable, hold Lovenox for tonight Septic shock: Resolved Bowel ischemia status post intervention Diet changed to GI soft Rule out C. difficile Diarrhea: Rule out C. difficile Discontinue vancomycin ATN: Creatinine improving on daily basis, I will cut back on Lasix will do once a day Diastolic CHF: Improving continue low-dose Lasix A-fib withRVR continue amiodarone Pathology report reviewed consistent with bowel ischemia Full code Regular diet Continue PT and OT Patient is showing remarkable recovery, I am planning to keep her here over the weekend continue physical therapy monitor her incisions due to recent swelling with fecal matter Most likely she will be able to go back to skilled nursing by Friday Potassium 3.8, calcium is low corrected calcium to albumin still low we will give her 1 g calcium gluconate TPN discontinued Monday 03/05 Attestations Medical Necessity Statement*: Continue medical management Procedures Arterial Line Size (Gauge): 20 Diagnoses ELLA (acute kidney injury) N17.9 Multiorgan failure Atrial fibrillation I48.91 Chronic anticoagulation Z79.01 Malnourished E46 Hyponatremia E87.1 Chronic GERD K21.9 Small bowel perforation K63.1 Small bowel obstruction K56.609 Small bowel ischemia K55.9 ATN (acute tubular necrosis) N17.0 Hypocalcemia E83.51 Hypokalemia E87.6 Hypomagnesemia E83.42 Postoperative anemia D64.9 Septic shock A41.9; R65.21
[2024-03-06] MEDS: amoxicillin-clav 500-125 mg Tablet 1 TAB PO (18:54)
[2024-03-06 20:35] LABS: Glucose Point of Care 149 mg/dL (70-110)
[2024-03-07] VITALS (12 sets, daily range): BP systolic 107–119; BP diastolic 51–75; PULSE 81–103; RESP 16–18; TEMP 36.4–37; O2SAT 95–100
[2024-03-07 06:51] LABS: Glucose Point of Care 100 mg/dL (70-110)
[2024-03-07] MEDS: oxyCODONE 5 mg IR Tab/Cap PO ×3 (06:58→17:28)
[2024-03-07 07:56] LABS: Basophils % 0.5 %; Eosinophils # 0.1 10^3/uL (0.0-0.8); Eosinophils % 1.1 %; Hematocrit 28.7 % (36-47); Lymphocytes # 1.2 10^3/uL (0.8-4.8); Lymphocytes % 14.7 %; Mean Corpuscular HGB Conc 31.7 g/dL (30-55); Mean Corpuscular Hemoglobin 25.6 pg (27-33); Mean Corpuscular Volume 80.6 fl (85-98); Mean Platelet Volume 9.3 fL (7.4-10.4); Monocytes # 0.8 10^3/uL (0.2-0.9); Monocytes % 9.7 %; Neutrophils # 5.77 10^3/uL (1.8-7.7); Neutrophils % 70.6 %; Nucleated Red Blood Cells % 0 %; Platelet Count 466 10^3/cmm (157-399); Red Blood Count 3.56 10^6/uL (3.85-5.65); White Blood Count 8.17 10^3/uL (3.29-11.43)
[2024-03-07 08:19] LABS: Blood Urea Nitrogen 41 mg/dL (8-23); Calcium 7.9 mg/dL (8.5-10.5); Carbon Dioxide 21 mmol/L (22-29); Chloride 99 mmol/L (98-107); Creatinine Clr Calc Pharmacy 19.0824; Glucose 98 mg/dL (65-115); Osmolality Calculated 282 mOsm/kg (285-295); Phosphorus 5.8 mg/dL (2.5-4.5); Sodium 131 mmol/L (136-145)
[2024-03-07 08:30] LABS: Anion Gap 15.6 (5-19); Potassium 4.6 mmol/L (3.5-5.1)
--- NOTE | 2024-03-07 09:09 | P.PN_ITS ---
Subjective 2 Subjective: 83-year-old female who is postoperative day 9 status post exploratory laparotomy and small bowel resection for acute mesenteric ischemia with necrosis and perforation, she is also postoperative day 7 status post ileocecectomy anastomosis and abdominal closure. Patient has been doing okay, abdominal pain about 4/10, she has been tolerating diet which changed her to GI soft 2 days ago to facilitate digestion. Has continued to have multiple liquid bowel movements. Denies fever chills nausea or vomit. Still feels very weak, she was able to get out of the bed with PT but is unable to walk. Vitals/I&O/Wt Last Vital Signs Temp 97.7 F 03/07/24 08:41 Pulse 81 03/07/24 08:41 Resp 18 03/07/24 08:41 BP 108/51 03/07/24 08:41 Pulse Ox 100 03/07/24 08:41 O2 Del Method Room Air 03/07/24 08:41 O2 Flow Rate 1 03/02/24 08:40 FiO2 24 03/01/24 22:20 03/06/24 03/07/24 03/07/24 22:59 06:59 14:59 Output Total 550 / 1075 950 / 2025 Balance -550 / -55 -950 / -1005 Weight last 48 hrs Weight 217 lb 7 oz Weight 220 lb 6.4 oz Physical Exam 2 GI: OTHER: Abdominal exam is benign, abdomen is soft, nontender, nondistended, surgical incision is healing well there is minimal redness in the lower third of the incision but no evidence of abscess or discharge. HAMZAH drain with serous output was removed today anticipation for discharge tomorrow. Urinary Catheter Management: Alcantara: Cath Placed During This Visit: yes Reason for Continuing Indwelling Catheter: Other Urinary Catheter Date of Insertion: 02/26/24 Urinary Catheter Time of Insertion: 21:14 Data 03/07/24 07:40 03/07/24 07:40 A&P Assessment and plan (1) Small bowel ischemia: (2) Multiorgan failure: (3) Atrial fibrillation: Plan After complete history physical examination and review of all available clinical data the following is my assessment. This is a [age]-year-old female that is known to me for previous admission during which she presented with sepsis and developed a clinical picture consistent with a small bowel obstruction, she tolerated and passed a Gastrografin trial and was consistently improving and therefore was discharged to a nursing facility in good condition. She will return to the hospital in the next 48 hours complaining of sudden worsening of abdominal pain, CT scan of the abdomen at the time show evidence of a possible perforation of the level of the right lower quadrant. Patient was taken for exploratory laparotomy with findings of acute mesenteric ischemia with about 140 cm of small bowel noted to be either ischemic or necrotic. Most likely etiology is a blood clot due to recent development of atrial fibrillation with RVR versus a low flow state due to sepsis. she was left in discontinuity after resection and she was taken back to the OR 2 days later for ileocecectomy reassessed anastomosis and closure of the abdomen. Since then she has been doing okay, she is tolerating diet, she is having bowel movements. Vital signs are stable white count is normal. Her creatinine is improving and is continuing close observation by nephrology. She does continue to have several liquid to semiliquid bowel movements daily, currently getting workup for the possibility of infectious nature by medical team. If this workup is negative we might consider starting a antimotility agent as this may help patient's symptoms due to the fact that she had a large portion of her small bowel resected due to ischemia. HAMZAH drain was removed this morning in anticipation for discharge tomorrow. I have talked to the patient and recommended that she continues ambulation with assistance, I have discussed the plan in detail with her. -GI soft diet -Ambulate and out of bed to chair with physical therapy -Patient is cleared from the general surgery standpoint to return to the long-term. -May consider antimotility agent if persistent diarrhea. Attestations 2 Medical Necessity Statement*: Per medical team Procedures Arterial Line Size (Gauge): 20 Coding Level of Care Code Acute Code for Chg Fwd Diagnoses Small bowel ischemia K55.9 Multiorgan failure Atrial fibrillation I48.91
[2024-03-07] MEDS: amoxicillin-clav 500-125 mg Tablet 1 TAB PO ×2 (09:22→17:28)
[2024-03-07] MEDS: amiodarone 200 mg Tablet 400 MG PO ×2 (09:22→17:28)
[2024-03-07] MEDS: FUROsemide 40 mg Tablet PO (09:22)
[2024-03-07] MEDS: pantoprazole 40 mg SDV IVP ×2 (10:11→17:35)
[2024-03-07 11:27] LABS: C.Diff PCR (Lab) NEGATIVE (Negative)
[2024-03-07 11:29] LABS: Glucose Point of Care 116 mg/dL (70-110)
--- NOTE | 2024-03-07 11:36 | P.PN_ITS ---
Subjective 2 Subjective: Pleasant and cooperative Had a bowel movement today, she is panel will be sent today Hemoglobin stable restart Lovenox Hemodynamic stable IV antibiotics changed to p.o. regimen Vitals/I&O/Wt Last Vital Signs Temp 97.7 F 03/07/24 08:41 Pulse 81 03/07/24 08:41 Resp 18 03/07/24 08:41 BP 108/51 03/07/24 08:41 Pulse Ox 100 03/07/24 08:41 O2 Del Method Room Air 03/07/24 08:41 O2 Flow Rate 1 03/02/24 08:40 FiO2 24 03/01/24 22:20 03/06/24 03/07/24 03/07/24 22:59 06:59 14:59 Intake Total 240 / 240 Output Total 550 / 1075 950 / 2024 Balance -550 / -55 -950 / -1005 240 / 240 Weight last 48 hrs Weight 98.628 kg Weight 99.972 kg Physical Exam 2 Narrative: Awake and alert Tolerating diet Nonfocal neuroexam Had a BM today S1, S2 A-fib without RVR Hemodynamic stable Abdomen soft Positive bowel sounds No active crackles or wheezing Urinary Catheter Management: Alcantara: Cath Placed During This Visit: yes Reason for Continuing Indwelling Catheter: Other Urinary Catheter Date of Insertion: 02/26/24 Urinary Catheter Time of Insertion: 21:14 Data 03/07/24 07:40 03/07/24 07:40 A&P Assessment and plan (1) Multiorgan failure: (2) Atrial fibrillation: (3) Chronic anticoagulation: (4) Malnourished: (5) Hyponatremia: (6) Small bowel perforation: (7) Small bowel ischemia: (8) ATN (acute tubular necrosis): (9) Hypocalcemia: (10) Hypokalemia: (11) Hypocalcemia: (12) Hypomagnesemia: (13) Hypokalemia: (14) Postoperative anemia: (15) Sepsis: Plan C. difficile panel to be sent today Continue GI soft diet /General surgery IV antibiotics have been transitioned to p.o. regimen Afebrile Hemoglobin stable Continue therapeutic Lovenox A-fib without RVR Change IV Lasix to p.o. Lasix only once a day now Continue opioids Rule out C. difficile Plan to send her To custodial on Friday Full code Doing well with PT Attestations 2 Medical Necessity Statement*: Discharge likely on Friday Procedures Arterial Line Size (Gauge): 20 Diagnoses Multiorgan failure Atrial fibrillation I48.91 Chronic anticoagulation Z79.01 Malnourished E46 Hyponatremia E87.1 Small bowel perforation K63.1 Small bowel ischemia K55.9 ATN (acute tubular necrosis) N17.0 Hypocalcemia E83.51 Hypokalemia E87.6 Hypomagnesemia E83.42 Postoperative anemia D64.9 Sepsis A41.9
[2024-03-07 16:21] LABS: Glucose Point of Care 142 mg/dL (70-110)
[2024-03-07] MEDS: insulin lispro 100 unit/1 mL SUBCUT (17:28)
--- NOTE | 2024-03-07 17:29 | P.PN_ITS ---
Subjective 2 Subjective: c/o nausea Medications: Reviewed: Yes Vitals/I&O/Wt Last Vital Signs Temp 97.7 F 03/07/24 13:54 Pulse 90 03/07/24 14:00 Resp 18 03/07/24 17:28 BP 119/75 03/07/24 13:54 Pulse Ox 98 03/07/24 17:28 O2 Del Method Room Air 03/07/24 13:54 O2 Flow Rate 1 03/02/24 08:40 FiO2 24 03/01/24 22:20 03/07/24 03/07/24 03/07/24 06:59 14:59 22:59 Intake Total 480 / 480 Output Total 950 / 2025 Balance -950 / -1005 480 / 480 Weight last 48 hrs Weight 98.628 kg Weight 99.972 kg Physical Exam 2 Narrative: awake ,a lert no distress no edema Urinary Catheter Management: Alcantara: Cath Placed During This Visit: yes Reason for Continuing Indwelling Catheter: Other Urinary Catheter Date of Insertion: 02/26/24 Urinary Catheter Time of Insertion: 21:14 Data 03/07/24 07:40 03/07/24 07:40 A&P Assessment and plan (1) ELLA (acute kidney injury): Plan 1. Acute on chronic kidney disease: Baseline baseline creatinine is in the mid 1 range now has severe ELLA along with metabolic acidosis and hyperkalemia in the setting of bowel ischemia/sepsis-probable ATN. - Renal fxn improving and UOP picked up , monitor, PRN lasix - avoid contrast studies 2. Hyperkalemia: improved 3. Bowel obstruction, perforation and status post ex lap 4. Sepsis in the setting of bowel ischemia, 5. Respiratory failure - extubated 6. Anemia : s/p transfusions Discussed with patient's family at bedside. Time spent 20 minutes Patient evaluated using audiovisual cart Attestations 2 Medical Necessity Statement*: per medicine Procedures Arterial Line Size (Gauge): 20 Coding Level of Care Code Acute Code for Chg Fwd Diagnoses ELLA (acute kidney injury) N17.9
[2024-03-07 21:00] LABS: Glucose Point of Care 101 mg/dL (70-110)
[2024-03-08] VITALS (9 sets, daily range): BP systolic 108–132; BP diastolic 65–80; PULSE 94–108; RESP 16–18; TEMP 36.6–37; O2SAT 96–99
[2024-03-08 03:22] LABS: Basophils % 0.3 %; Eosinophils # 0.1 10^3/uL (0.0-0.8); Eosinophils % 0.5 %; Hematocrit 24.9 % (36-47); Lymphocytes # 0.9 10^3/uL (0.8-4.8); Lymphocytes % 8.8 %; Mean Corpuscular HGB Conc 32.9 g/dL (30-55); Mean Corpuscular Hemoglobin 25.1 pg (27-33); Mean Corpuscular Volume 76.1 fl (85-98); Mean Platelet Volume 9.4 fL (7.4-10.4); Monocytes # 1.1 10^3/uL (0.2-0.9); Monocytes % 10.5 %; Neutrophils # 8.09 10^3/uL (1.8-7.7); Neutrophils % 76.7 %; Nucleated Red Blood Cells % 0 %; Platelet Count 474 10^3/cmm (157-399); Red Blood Count 3.27 10^6/uL (3.85-5.65); Red Cell Distribution Width 17.6 % (12.1-15.1); White Blood Count 10.55 10^3/uL (3.29-11.43)
[2024-03-08] MEDS: morphine 4 mg/mL SDV 1 mL 2 MG IVP (03:24)
[2024-03-08 03:45] LABS: Anion Gap 17.1 (5-19); Blood Urea Nitrogen 42 mg/dL (8-23); Calcium 7.5 mg/dL (8.5-10.5); Carbon Dioxide 23 mmol/L (22-29); Chloride 98 mmol/L (98-107); Creatinine Clr Calc Pharmacy 20.6726; Glucose 107 mg/dL (65-115); Osmolality Calculated 289 mOsm/kg (285-295); Potassium 4.1 mmol/L (3.5-5.1); Sodium 134 mmol/L (136-145)
[2024-03-08] MEDS: enoxaparin 120 mg/0.8 mL Syringe 110 MG SUBCUT (05:56)
[2024-03-08 06:32] LABS: Glucose Point of Care 105 mg/dL (70-110)
[2024-03-08] MEDS: oxyCODONE 5 mg IR Tab/Cap PO ×2 (08:27→14:19)
[2024-03-08] MEDS: FUROsemide 40 mg Tablet PO (08:27)
[2024-03-08] MEDS: amoxicillin-clav 500-125 mg Tablet 1 TAB PO ×2 (08:27→17:12)
[2024-03-08] MEDS: amiodarone 200 mg Tablet 400 MG PO (08:27)
[2024-03-08] MEDS: pantoprazole 40 mg SDV IVP ×2 (08:57→16:48)
--- NOTE | 2024-03-08 09:28 | P.PN_ITS ---
Subjective 2 Subjective: Patient still experiencing minimum 3 loose stools a day, no fever Creatinine improving Adequate urine output She does not want Alcantara catheter provide Cultures negative Cdiff panel is pending . She is asking for compression stockin gs versus SCDs Vitals/I&O/Wt Last Vital Signs Temp 97.8 F 03/08/24 07:49 Pulse 94 03/08/24 07:49 Resp 18 03/08/24 08:27 BP 121/68 03/08/24 07:49 Pulse Ox 98 03/08/24 08:27 O2 Del Method Room Air 03/08/24 07:49 O2 Flow Rate 1 03/02/24 08:40 FiO2 24 03/01/24 22:20 03/07/24 03/08/24 03/08/24 22:59 06:59 14:59 Intake Total 960 / 1440 120 / 1560 480 / 480 Output Total 1000 / 1000 650 / 1650 Balance -40 / 440 -530 / -90 480 / 480 Weight last 48 hrs Weight 94.801 kg Weight 98.628 kg Physical Exam 2 Narrative: Clinically signs of fluid overload improving Currently on room air Hemodynamic stable Abdomen nontender Bowel sound present S1, S2 Currently awake and alert Nonfocal neuroexam Lower extremity swelling improving Urinary Catheter Management: Alcantara: Cath Placed During This Visit: yes Reason for Continuing Indwelling Catheter: Other Urinary Catheter Date of Insertion: 02/26/24 Urinary Catheter Time of Insertion: 21:14 Data 03/08/24 02:54 03/08/24 02:54 A&P Assessment and plan (1) Multiorgan failure: (2) Atrial fibrillation: (3) Chronic anticoagulation: (4) Malnourished: (5) Hyponatremia: (6) Small bowel perforation: (7) Small bowel ischemia: (8) ATN (acute tubular necrosis): (9) Hypocalcemia: (10) Hypokalemia: (11) Hypocalcemia: (12) Hypomagnesemia: (13) Hypokalemia: (14) Postoperative anemia: (15) Sepsis: Plan I will have to delay her discharge by 1 more day She is experiencing at least 3 loose stools a day Short bowel syndrome? C. difficile panel sent, on it was negative I am reluctant to add Lomotil Will discuss with general surgery Currently she is on soft diet Hemodynamically stable No signs of A-fib with RVR ATN: Creatinine improving adequate urine output She does not want Alcantara cath removal at this point Doing well with PT IV antibiotics changed to Augmentin Full code Spoke with her daughter over the weekend Patient is stating that she still has pain 8/10 around her surgical scar Diastolic CHF: Improving continue low-dose Lasix 40 mg daily Attestations 2 Medical Necessity Statement*: Discharge once diarrhea improved Procedures Arterial Line Size (Gauge): 20 Diagnoses Multiorgan failure Atrial fibrillation I48.91 Chronic anticoagulation Z79.01 Malnourished E46 Hyponatremia E87.1 Small bowel perforation K63.1 Small bowel ischemia K55.9 ATN (acute tubular necrosis) N17.0 Hypocalcemia E83.51 Hypokalemia E87.6 Hypomagnesemia E83.42 Postoperative anemia D64.9 Sepsis A41.9
[2024-03-08 09:38] LABS: SARS Covid-2 Antigen negative (Negative)
[2024-03-08 10:09] LABS: Magnesium 1.5 mg/dL (1.7-2.3)
[2024-03-08 11:32] LABS: Glucose Point of Care 109 mg/dL (70-110)
--- NOTE | 2024-03-08 14:26 | PC.SOCIAL ---
IMM Updated Updated pt on IMM. No questions voiced. Provided pt a copy. Initialed, dated, & timed copy in chart.
--- NOTE | 2024-03-08 14:48 | P.PN_ITS ---
Subjective 2 Subjective: c/o abdominal discomfort Medications: Reviewed: Yes Vitals/I&O/Wt Last Vital Signs Temp 98.2 F 03/08/24 12:00 Pulse 100 03/08/24 12:00 Resp 18 03/08/24 14:19 BP 123/74 03/08/24 12:00 Pulse Ox 98 03/08/24 14:19 O2 Del Method Room Air 03/08/24 12:00 O2 Flow Rate 1 03/02/24 08:40 FiO2 24 03/01/24 22:20 03/07/24 03/08/24 03/08/24 22:59 06:59 14:59 Intake Total 960 / 1440 120 / 1560 960 / 960 Output Total 1000 / 1000 650 / 1650 750 / 750 Balance -40 / 440 -530 / -90 210 / 210 Weight last 48 hrs Weight 94.801 kg Weight 98.628 kg Physical Exam 2 Narrative: awake ,a lert no distress no edema Urinary Catheter Management: Alcantara: Cath Placed During This Visit: yes Reason for Continuing Indwelling Catheter: Other Urinary Catheter Date of Insertion: 02/26/24 Urinary Catheter Time of Insertion: 21:14 Data 03/08/24 02:54 03/08/24 02:54 A&P Assessment and plan (1) ELLA (acute kidney injury): Plan 1. Acute on chronic kidney disease: Baseline baseline creatinine is in the mid 1 range now has severe ELLA along with metabolic acidosis and hyperkalemia in the setting of bowel ischemia/sepsis-probable ATN. - Renal fxn improving and UOP picked up , monitor, PRN lasix - avoid contrast studies 2. Hyperkalemia: improved 3. Bowel obstruction, perforation and status post ex lap 4. Sepsis in the setting of bowel ischemia, 5. Respiratory failure - extubated 6. Anemia : s/p transfusions Discussed with patient's family at bedside. Time spent 20 minutes Patient evaluated using audiovisual cart Attestations 2 Medical Necessity Statement*: per [facility] Procedures Arterial Line Size (Gauge): 20 Coding Level of Care Code Acute Code for Chg Fwd Diagnoses ELLA (acute kidney injury) N17.9
[2024-03-08 16:00] LABS: Glucose Point of Care 130 mg/dL (70-110)
[2024-03-08 21:08] LABS: Glucose Point of Care 144 mg/dL (70-110)
[2024-03-09] VITALS (11 sets, daily range): BP systolic 100–131; BP diastolic 62–73; PULSE 85–118; RESP 16–18; TEMP 36.4–37.2; O2SAT 98–100
[2024-03-09] MEDS: morphine 4 mg/mL SDV 1 mL 2 MG IVP (02:00)
[2024-03-09] MEDS: enoxaparin 120 mg/0.8 mL Syringe 110 MG SUBCUT (06:20)
[2024-03-09 06:28] LABS: Basophils % 0.4 %; Eosinophils # 0.1 10^3/uL (0.0-0.8); Eosinophils % 0.8 %; Hematocrit 24.7 % (36-47); Lymphocytes # 1.2 10^3/uL (0.8-4.8); Lymphocytes % 11.4 %; Mean Corpuscular HGB Conc 32.4 g/dL (30-55); Mean Corpuscular Hemoglobin 25.1 pg (27-33); Mean Corpuscular Volume 77.4 fl (85-98); Mean Platelet Volume 9.6 fL (7.4-10.4); Monocytes # 1.2 10^3/uL (0.2-0.9); Monocytes % 11.2 %; Neutrophils % 72.5 %; Nucleated Red Blood Cells % 0 %; Platelet Count 538 10^3/cmm (157-399); Red Blood Count 3.19 10^6/uL (3.85-5.65); Red Cell Distribution Width 17.7 % (12.1-15.1); White Blood Count 10.34 10^3/uL (3.29-11.43)
[2024-03-09 06:48] LABS: Blood Urea Nitrogen 42 mg/dL (8-23); Calcium 7.8 mg/dL (8.5-10.5); Carbon Dioxide 22 mmol/L (22-29); Chloride 97 mmol/L (98-107); Creatinine Clr Calc Pharmacy 21.2724; Glucose 106 mg/dL (65-115); Osmolality Calculated 287 mOsm/kg (285-295); Sodium 133 mmol/L (136-145)
[2024-03-09] MEDS: amoxicillin-clav 500-125 mg Tablet 1 TAB PO ×2 (08:40→17:34)
[2024-03-09] MEDS: FUROsemide 40 mg Tablet PO (08:40)
[2024-03-09] MEDS: insulin lispro 100 unit/1 mL SUBCUT ×2 (08:42→17:34)
[2024-03-09] MEDS: pantoprazole 40 mg SDV IVP (09:48)
--- NOTE | 2024-03-09 10:59 | PM.DCS ---
Discharge Providers Date of Admission: 02/26/24 16:45 Date of Discharge: March 09, 2024 Attending Provider at Admission: Nico Van MD Attending Provider at Discharge: Nico Van MD Primary Care Provider: Oxana Lee DO Diagnoses at Discharge Discharge Diagnosis (1) ELLA (acute kidney injury): Status: Acute Reason for Visit Reason for Visit: abdomen pain Physical Exam Urinary Catheter Management: Alcantara: Cath Placed During This Visit: yes Reason for Continuing Indwelling Catheter: Other Urinary Catheter Date of Insertion: 02/26/24 Urinary Catheter Time of Insertion: 21:14 Discharge Data Studies Completed and Pending Completed Studies During Hospitalization Category Date Time Status CT abdomen pelvis wo con [id number] Stat Cat Scan 02/26/24 15:24 Completed CXRP [XR chest 1V portable [id number]] Routine Exams 02/27/24 09:01 Completed XR chest 1V portable [id number] Routine Exams 02/28/24 13:01 Completed XR chest 1V portable [id number] Routine Exams 03/01/24 18:56 Completed XR chest 1V portable [id number] Stat Exams 02/26/24 16:53 Completed Pathology: Surgical [PTH] Routine Pth 02/26/24 22:59 Completed Pathology: Surgical [PTH] Routine Pth 02/28/24 12:11 Completed Radiology Impressions Abdomen/Pelvis CT 02/26/24 15:24 IMPRESSION: 1. Small bowel obstruction with evidence of bowel ischemia and perforation in the right lower quadrant. Urgent surgical evaluation is recommended. 2. Multiple indeterminate splenic hypodensities concerning for splenic infarcts. The findings were verbally communicated by telephone with Dr. HYDE at 4:00 PM CDT on 02/26/2024. Chest X-Ray 03/01/24 18:56 IMPRESSION: NG tube tip overlies the gastric fundus. The side hole is at or just beyond the GE junction. Further advancement suggested. [id number] gas distension of the stomach. Laboratory Results WBC 10.34 10^3/uL (3.29-11.43) 03/09/24 05:40 Corrected WBC Cancelled 03/03/24 10:00 RBC 3.19 10^6/uL (3.85-5.65) L 03/09/24 05:40 Hgb 8.00 g/dL (11.27-16.99) L 03/09/24 05:40 Hct 24.7 % (36-47) L 03/09/24 05:40 MCV 77.4 fl (85-98) L 03/09/24 05:40 MCH 25.1 pg (27-33) L 03/09/24 05:40 MCHC 32.4 g/dL (30-55) 03/09/24 05:40 RDW 17.7 % (12.1-15.1) H 03/09/24 05:40 Plt Count 538 10^3/cmm (157-399) H 03/09/24 05:40 MPV 9.6 fL (7.4-10.4) 03/09/24 05:40 Gran % Cancelled 03/03/24 10:00 Neut % (Auto) 72.5 % 03/09/24 05:40 Lymph % (Auto) 11.4 % 03/09/24 05:40 Dyer % (Auto) 11.2 % 03/09/24 05:40 Eos % (Auto) 0.8 % 03/09/24 05:40 Baso % (Auto) 0.4 % 03/09/24 05:40 Neut # (Auto) 7.50 10^3/uL (1.8-7.7) 03/09/24 05:40 Lymph # (Auto) 1.2 10^3/uL (0.8-4.8) 03/09/24 05:40 [place]yer # (Auto) 1.2 10^3/uL (0.2-0.9) H 03/09/24 05:40 Eos # (Auto) 0.1 10^3/uL (0.0-0.8) 03/09/24 05:40 Baso # (Auto) 0.0 10^3/uL (0.0-0.1) 03/09/24 05:40 Absolute Gran (auto) Cancelled 03/03/24 10:00 Nucleated RBC % (auto) 0 % 03/09/24 05:40 Total Counted 100 (0-100) 02/27/24 03:45 Atypical Lymphs % Not Reportable 02/27/24 03:45 Absolute Neutrophils 28.4 10^3/cmm (1.4-6.5) H 02/27/24 03:45 Segmented Neutrophils 65 % 02/27/24 03:45 Abs Segm Neuts (Man) 19.6 10/cmm (1.6-7.1) H 02/27/24 03:45 Band Neutrophils 29.0 % 02/27/24 03:45 Abs Band Neuts (Man) 8.8 10^3/cmm (0.0-1.2) H 02/27/24 03:45 Lymphocytes (Manual) 3 % 02/27/24 03:45 Monocytes (Manual) 3.0 % 02/27/24 03:45 Absolute Monocytes 0.9 10^3/cmm (0.1-0.6) H 02/27/24 03:45 Eosinophils (Manual) 0 % 02/27/24 03:45 Absolute Eosinophils 0.0 10^3/cmm (0.0-0.7) 02/27/24 03:45 Basophils (Manual) 0.0 % 02/27/24 03:45 Absolute Basophils 0.0 10^3/cmm (0.0-0.2) 02/27/24 03:45 Nucleated RBCs # 0.0 /100WBC 03/09/24 05:40 Toxic Vacuolation 1+ H 02/27/24 03:45 Platelet Estimate Normal (Normal) 02/27/24 03:45 PT 19.90 SECONDS (12.1-14.9) H 02/27/24 03:45 INR 1.63 (0.8-1.2) H 02/27/24 03:45 APTT 35.1 SECONDS (23.9-36.7) 02/27/24 03:45 Specimen Type Arterial 03/01/24 04:50 Sample Site Not specified 03/01/24 04:50 ABG pH 7.42 (7.35-7.45) 03/01/24 04:50 ABG pCO2 29.0 mmHg (35-45) L 03/01/24 04:50 ABG pO2 110.0 mmHg (80.0-100.0) H 03/01/24 04:50 ABG PO2/FiO2 Ratio 0 03/01/24 04:50 ABG HCO3 19.0 mmol/L (22-26) L 03/01/24 04:50 ABG O2 Saturation 98.7 02/28/24 04:55 ABG Base Excess -4.8 mmol/L (-2.0-2.0) L 03/01/24 04:50 Sacha Test N/a 03/01/24 04:50 A-a O2 Gradient 8.5 mmHg (5-10) 02/28/24 04:55 Hematocrit 23.2 % (37-47) L 03/01/24 04:50 Hgb O2 Saturation 96.8 % (95-100) 02/28/24 04:55 Carboxyhemoglobin 1.2 %THgb (0.4-20.1) 02/28/24 04:55 Methemoglobin 0.8 % (0.4-1.5) 02/28/24 04:55 Total Hemoglobin 10.1 g/dL (12-16) L 02/28/24 04:55 Sodium 129.0 mmol/L (131-143) L 02/28/24 04:55 Potassium 3.3 mmol/L (3.5-5.0) L 02/28/24 04:55 Glucose 295.0 mg/dL (70-115) H 02/28/24 04:55 Ionized Calcium 0.9 mmol/L (1.1-1.4) L 02/28/24 04:55 O2 Delivery Device Vent 03/01/24 04:50 FiO2 30.0 % 03/01/24 04:50 Tidal Volume 0.43 03/01/24 04:50 PEEP 5.0 cmH20 03/01/24 04:50 [employer] ID yorna 03/01/24 04:50 Blood Gas Notified Time 0600 02/29/24 05:40 Sodium 133 mmol/L (136-145) L 03/09/24 05:40 Potassium 4.0 mmol/L (3.5-5.1) 03/09/24 05:40 Chloride 97 mmol/L (98-107) L 03/09/24 05:40 Carbon Dioxide 22 mmol/L (22-29) 03/09/24 05:40 Anion Gap 18.0 (5-19) 03/09/24 05:40 BUN 42 mg/dL (8-23) H 03/09/24 05:40 Creatinine 2.3 mg/dL (0.5-0.9) H 03/09/24 05:40 GFR Calculation Not Reportable 03/09/24 05:40 Glucose 106 mg/dL (65-115) 03/09/24 05:40 POC Glucose 144 mg/dL (70-110) H 03/08/24 21:02 Calculated Osmolality 287 mOsm/kg (285-295) 03/09/24 05:40 Lactic Acid 1.4 mmol/L (0.5-2.2) 02/26/24 16:00 Lactate 1.5 mmol/L (0.5-2.2) 02/27/24 06:06 Calcium 7.8 mg/dL (8.5-10.5) L 03/09/24 05:40 Phosphorus 5.8 mg/dL (2.5-4.5) H 03/07/24 07:40 Magnesium 1.5 mg/dL (1.7-2.3) L 03/08/24 02:54 Total Bilirubin 0.3 mg/dL (0.15-1.2) 03/05/24 04:16 AST 10 U/L (0-32) 03/05/24 04:16 ALT 10 U/L (0-33) 03/05/24 04:16 Alkaline Phosphatase 195 U/L (35-105) H 03/05/24 04:16 Creatine Kinase 22 U/L (26-192) L 03/05/24 04:16 C-Reactive Protein 220.0 mg/L (0.0-4.9) H 02/27/24 03:45 Total Protein 5.2 g/dL (6.6-8.7) L 03/05/24 04:16 Albumin 1.8 g/dL (3.5-5.2) L 03/05/24 04:16 Globulin 3.4 g/dL (1.3-4.6) 03/05/24 04:16 Lipase 119 U/L (13-60) H 02/26/24 16:00 Urine Color Straw (Yellow) 02/29/24 15:00 Urine Appearance Clear (CLEAR) 02/29/24 15:00 Urine pH 5 (5-7) 02/29/24 15:00 Ur Specific [place] 1.010 (1.005-1.030) 02/29/24 15:00 Urine Protein Neg (Negative) 02/29/24 15:00 Urine Glucose (UA) Norm (Normal) 02/29/24 15:00 Urine Ketones Negative (Negative) 02/29/24 15:00 Urine Blood 2+ (Negative) H 02/29/24 15:00 Urine Nitrate Negative (Negative) 02/29/24 15:00 Urine Bilirubin Neg (Negative) 02/29/24 15:00 Urine Urobilinogen Norm mg/dL (Negative) 02/29/24 15:00 Ur Leukocyte Esterase Negative (Negative) 02/29/24 15:00 Urine RBC 5-10 /hpf (0-2) H 02/29/24 15:00 Urine WBC 0-4 /hpf (0-5) H 02/29/24 15:00 Ur Squamous Epith Cells 0-4 /hpf (0-5) H 02/29/24 15:00 Amorphous Sediment Not Reportable 02/29/24 15:00 Urine Bacteria 1+ /hpf (NONE) H 02/29/24 15:00 Urine Yeast 3+ /hpf H 02/29/24 15:00 Vancomycin Trough 36.9 ug/mL (10-15) H* 02/29/24 19:56 C. difficile (PCR) Negative (Negative) 03/06/24 10:31 SARS-CoV-2 Ag (Rapid) negative (Negative) 03/08/24 08:42 Blood Type B Positive 03/01/24 09:45 Rho(D) Type Rh positive 03/01/24 09:45 Antibody Screen Negative 03/01/24 09:45 Crossmatch See Detail 03/01/24 09:45 Vitals Last Vital Signs Temp 97.8 F 03/09/24 07:24 Pulse 95 03/09/24 08:19 Resp 16 03/09/24 08:19 BP 101/67 03/09/24 07:24 Pulse Ox 98 03/09/24 08:19 O2 Del Method Room Air 03/09/24 08:19 O2 Flow Rate 1 03/02/24 08:40 FiO2 24 03/01/24 22:20 Discharge Plan Discharge Patient Disposition: Home Condition: Stable Prescriptions: New amiodarone [Pacerone] 200 mg Tablet 400 mg PO DAILY Qty: 60 3RF mirtazapine 7.5 mg tablet 7.5 mg PO BEDTIME 30 Days Qty: 30 0RF Continued albuterol sulfate 90 mcg/actuation HFA aerosol inhaler 1 inh INHALATION Q4H PRN (Reason: Shortness Of Breath Or Wheezing) PreserVision AREDS [id number] capsule 1 cap PO BID alendronate 10 mg tablet 10 mg PO Q7D Rx Instructions: ON FRIDAY fluticasone propion-salmeterol [Advair Diskus] 250-50 mcg/dose blister with device 1 inh INHALATION DAILY trazodone 50 mg tablet 50 mg PO QPM gabapentin 300 mg capsule 300 mg PO BID 90 Days Qty: 180 0RF hydrocodone-acetaminophen 10-325 mg tablet 1 tab PO BID PRN (Reason: pain) 30 Days Qty: 60 0RF oxybutynin chloride 5 mg tablet 5 mg PO BID Qty: 180 3RF omeprazole 20 mg capsule,delayed release(DR/EC) 20 mg PO DAILY Qty: 90 3RF ondansetron HCl 4 mg tablet 4 mg PO Q8H PRN (Reason: nausea and vomiting) 4 Days Qty: 30 0RF fluticasone propionate [Flonase Allergy Relief] 50 mcg/actuation spray,suspension 2 spray INTRANASAL QDAY PRN (Reason: allergy symptoms) 90 Days Qty: 16 3RF (DME) Custom molded Orthotics See Rx Instructions .Route .MEDSUPPLY Qty: 1 0RF Rx Instructions: As directed by [facility] *Please work with patient with her needs* montelukast [Singulair] 10 mg tablet 10 mg PO DAILY Qty: 90 3RF azelastine 137 mcg (0.1 %) aerosol,spray 1 spray INTRANASAL DAILY Rx Instructions: administer into each nostril Zyrtec 10 mg capsule 10 mg PO DAILY PRN (Reason: Allergy Symptoms) sennosides-docusate sodium [Stool Softener-Laxative] 8.6-50 mg Tablet 1 tab PO DAILY Qty: 30 0RF polyethylene glycol 3350 [Miralax] 17 gram/dose powder 4 g PO DAILY Qty: 119 0RF Eliquis 5 mg tablet 5 mg PO BID Qty: 60 3RF Tuberculin 5 tub. unit /0.1 mL Solution 0.1 ml INTRADERMAL Q14D Discontinued pravastatin 80 mg tablet 80 mg PO DAILY diltiazem HCl [Cardizem LA] 240 mg tablet extended release 24 hr 240 mg PO DAILY Qty: 60 3RF vancomycin 1,000 mg recon soln 995 mg IV DAILY Discharge Orders: Discharge Order (Routine); Ordered 03/09/24 Ordered By: Nico Van Referrals: Oxana Lee DO [Primary Care Provider] - Lew Tilley DO [Physician] - 7-10 days Discharge Diet: GI Soft Patient Instructions: Opioid Safety Activity Restrictions/Additional Instructions: Patient to stay on GI soft. Advance gradually in the next 4 to 5 days We are expecting that she will still get loose stools because of short-bowel syndrome Please avoid giving Lomotil For depression and lack of appetite I have added mirtazapine which has side effect of sedation please only take at bedtime Discharge Attestations Time Spent in Discharge Care*: greater than 30 min Quality Metrics Clinical Quality Measures [ No reported AMI, CVA or VTE this stay] Coding Level of Care Code Acute Code for Chg Fwd Diagnoses ELLA (acute kidney injury) N17.9
[2024-03-09] MEDS: oxyCODONE 5 mg IR Tab/Cap PO (11:01)
[2024-03-09] MEDS: amiodarone 200 mg Tablet 400 MG PO (11:02)
--- NOTE | 2024-03-09 11:23 | P.DS_ITS ---
Discharge Providers Date of Admission: 02/26/24 16:45 Date of Discharge: March 09, 2024 Attending Provider at Admission: Nico Van MD Attending Provider at Discharge: Nico Van MD Primary Care Provider: Oxana Lee DO Diagnoses at Discharge Discharge Diagnosis (1) ELLA (acute kidney injury): Status: Acute Reason for Visit Reason for Visit: abdomen pain Hospital Course Hospital Course 83-year female who was recently discharged from the hospital after management of bowel obstruction which was managed conservatively, her white count was high she had extensive workup for the source of white count WBC scan did not show any sign of bowel ischemia, she was tolerating her diet surgery discharged on GI soft diet, patient was discharged to shelter, within 24 hours she return with worsening abdominal pain nausea vomiting and sepsis related to bowel ischemia with perforation, she went to the OR right away status post exploratory laparotomy 02/25, small bowel resection, approximately half of her small bowel has been excised distal to ligament of Treitz, 02/27 patient went for anastomosis, patient was kept intubated perioperatively, she was extubated to nasal cannula and then was weaned to room air, patient developed ATN, septic shock, which was managed conservatively, nephrology was consulted as well, she was kept on antifungal and vancomycin and Zosyn which was gradually weaned off and total she received total 12 to 13 days of antibiotics, she did not show any signs of C. difficile, she is experiencing loose stools with GI soft diet secondary to short-bowel syndrome, her stools are pasty semisolid they are not completely liquidy to warrant extensive C. difficile workup however it was negative on 03/06 I have decided not to discharge her on any antibiotics, her leukocytosis has improved, creatinine improving with conservative management with use of Lasix, urine output improving electrolytes replenish, creatinine peaked at 3.3, at the time of discharge it is 2.3 I will continue Lasix low-dose along potassium supplementation, she may get opioids, we would not recommend use of Lomotil Patient will be discharged back to shelter, patient is planning to travel with her daughter to [place] once she is done with her rehab. She is full code, Patient is stating that she has no motivation to get out of bed she thinks she is depressed no active suicidal ideation will add mirtazapine which will help her with appetite and depression. Please note postoperatively patient required 1 unit PRBC we were not able to give her albumin despite her low protein and albumin level she has some anaphylactic reaction in the past to albumin For A-fib she will resume her amiodarone along Eliquis Patient wants to keep the Alcantara catheter until she arrives at the nursing Physical Exam Narrative: Awake and alert Sign of fluid load improving Pleasant cooperative Abdomen soft Currently on room air S1, S2 variable Urinary Catheter Management: Alcantara: Cath Placed During This Visit: yes Reason for Continuing Indwelling Catheter: Other Urinary Catheter Date of Insertion: 02/26/24 Urinary Catheter Time of Insertion: 21:14 Discharge Data Studies Completed and Pending Completed Studies During Hospitalization Category Date Time Status CT abdomen pelvis wo con [id number] Stat Cat Scan 02/26/24 15:24 Completed CXRP [XR chest 1V portable [id number]] Routine Exams 02/27/24 09:01 Completed XR chest 1V portable [id number] Routine Exams 02/28/24 13:01 Completed XR chest 1V portable [id number] Routine Exams 03/01/24 18:56 Completed XR chest 1V portable [id number] Stat Exams 02/26/24 16:53 Completed Pathology: Surgical [PTH] Routine Pth 02/26/24 22:59 Completed Pathology: Surgical [PTH] Routine Pth 02/28/24 12:11 Completed Radiology Impressions Abdomen/Pelvis CT 02/26/24 15:24 IMPRESSION: 1. Small bowel obstruction with evidence of bowel ischemia and perforation in the right lower quadrant. Urgent surgical evaluation is recommended. 2. Multiple indeterminate splenic hypodensities concerning for splenic infarcts. The findings were verbally communicated by telephone with Dr. HYDE at 4:00 PM CDT on 02/26/2024. Chest X-Ray 03/01/24 18:56 IMPRESSION: NG tube tip overlies the gastric fundus. The side hole is at or just beyond the GE junction. Further advancement suggested. Kgey-ak-vgounlva gas distension of the stomach. Laboratory Results WBC 10.34 10^3/uL (3.29-11.43) 03/09/24 05:40 Corrected WBC Cancelled 03/03/24 10:00 RBC 3.19 10^6/uL (3.85-5.65) L 03/09/24 05:40 Hgb 8.00 g/dL (11.27-16.99) L 03/09/24 05:40 Hct 24.7 % (36-47) L 03/09/24 05:40 MCV 77.4 fl (85-98) L 03/09/24 05:40 MCH 25.1 pg (27-33) L 03/09/24 05:40 MCHC 32.4 g/dL (30-55) 03/09/24 05:40 RDW 17.7 % (12.1-15.1) H 03/09/24 05:40 Plt Count 538 10^3/cmm (157-399) H 03/09/24 05:40 MPV 9.6 fL (7.4-10.4) 03/09/24 05:40 Gran % Cancelled 03/03/24 10:00 Neut % (Auto) 72.5 % 03/09/24 05:40 Lymph % (Auto) 11.4 % 03/09/24 05:40 Cocke % (Auto) 11.2 % 03/09/24 05:40 Eos % (Auto) 0.8 % 03/09/24 05:40 Baso % (Auto) 0.4 % 03/09/24 05:40 Neut # (Auto) 7.50 10^3/uL (1.8-7.7) 03/09/24 05:40 Lymph # (Auto) 1.2 10^3/uL (0.8-4.8) 03/09/24 05:40 Cocke # (Auto) 1.2 10^3/uL (0.2-0.9) H 03/09/24 05:40 Eos # (Auto) 0.1 10^3/uL (0.0-0.8) 03/09/24 05:40 Baso # (Auto) 0.0 10^3/uL (0.0-0.1) 03/09/24 05:40 Absolute Gran (auto) Cancelled 03/03/24 10:00 Nucleated RBC % (auto) 0 % 03/09/24 05:40 Total Counted 100 (0-100) 02/27/24 03:45 Atypical Lymphs % Not Reportable 02/27/24 03:45 Absolute Neutrophils 28.4 10^3/cmm (1.4-6.5) H 02/27/24 03:45 Segmented Neutrophils 65 % 02/27/24 03:45 Abs Segm Neuts (Man) 19.6 10/cmm (1.6-7.1) H 02/27/24 03:45 Band Neutrophils 29.0 % 02/27/24 03:45 Abs Band Neuts (Man) 8.8 10^3/cmm (0.0-1.2) H 02/27/24 03:45 Lymphocytes (Manual) 3 % 02/27/24 03:45 Monocytes (Manual) 3.0 % 02/27/24 03:45 Absolute Monocytes 0.9 10^3/cmm (0.1-0.6) H 02/27/24 03:45 Eosinophils (Manual) 0 % 02/27/24 03:45 Absolute Eosinophils 0.0 10^3/cmm (0.0-0.7) 02/27/24 03:45 Basophils (Manual) 0.0 % 02/27/24 03:45 Absolute Basophils 0.0 10^3/cmm (0.0-0.2) 02/27/24 03:45 Nucleated RBCs # 0.0 /100WBC 03/09/24 05:40 Toxic Vacuolation 1+ H 02/27/24 03:45 Platelet Estimate Normal (Normal) 02/27/24 03:45 PT 19.90 SECONDS (12.1-14.9) H 02/27/24 03:45 INR 1.63 (0.8-1.2) H 02/27/24 03:45 APTT 35.1 SECONDS (23.9-36.7) 02/27/24 03:45 Specimen Type Arterial 03/01/24 04:50 Sample Site Not specified 03/01/24 04:50 ABG pH 7.42 (7.35-7.45) 03/01/24 04:50 ABG pCO2 29.0 mmHg (35-45) L 03/01/24 04:50 ABG pO2 110.0 mmHg (80.0-100.0) H 03/01/24 04:50 ABG PO2/FiO2 Ratio 0 03/01/24 04:50 ABG HCO3 19.0 mmol/L (22-26) L 03/01/24 04:50 ABG O2 Saturation 98.7 02/28/24 04:55 ABG Base Excess -4.8 mmol/L (-2.0-2.0) L 03/01/24 04:50 Sacha Test N/a 03/01/24 04:50 A-a O2 Gradient 8.5 mmHg (5-10) 02/28/24 04:55 Hematocrit 23.2 % (37-47) L 03/01/24 04:50 Hgb O2 Saturation 96.8 % (95-100) 02/28/24 04:55 Carboxyhemoglobin 1.2 %THgb (0.4-20.1) 02/28/24 04:55 Methemoglobin 0.8 % (0.4-1.5) 02/28/24 04:55 Total Hemoglobin 10.1 g/dL (12-16) L 02/28/24 04:55 Sodium 129.0 mmol/L (131-143) L 02/28/24 04:55 Potassium 3.3 mmol/L (3.5-5.0) L 02/28/24 04:55 Glucose 295.0 mg/dL (70-115) H 02/28/24 04:55 Ionized Calcium 0.9 mmol/L (1.1-1.4) L 02/28/24 04:55 O2 Delivery Device Vent 03/01/24 04:50 FiO2 30.0 % 03/01/24 04:50 Tidal Volume 0.43 03/01/24 04:50 PEEP 5.0 cmH20 03/01/24 04:50 Branch Office Manager ID [email or web address] 03/01/24 04:50 Blood Gas Notified Time 0600 02/29/24 05:40 Sodium 133 mmol/L (136-145) L 03/09/24 05:40 Potassium 4.0 mmol/L (3.5-5.1) 03/09/24 05:40 Chloride 97 mmol/L (98-107) L 03/09/24 05:40 Carbon Dioxide 22 mmol/L (22-29) 03/09/24 05:40 Anion Gap 18.0 (5-19) 03/09/24 05:40 BUN 42 mg/dL (8-23) H 03/09/24 05:40 Creatinine 2.3 mg/dL (0.5-0.9) H 03/09/24 05:40 GFR Calculation Not Reportable 03/09/24 05:40 Glucose 106 mg/dL (65-115) 03/09/24 05:40 POC Glucose 144 mg/dL (70-110) H 03/08/24 21:02 Calculated Osmolality 287 mOsm/kg (285-295) 03/09/24 05:40 Lactic Acid 1.4 mmol/L (0.5-2.2) 02/26/24 16:00 Lactate 1.5 mmol/L (0.5-2.2) 02/27/24 06:06 Calcium 7.8 mg/dL (8.5-10.5) L 03/09/24 05:40 Phosphorus 5.8 mg/dL (2.5-4.5) H 03/07/24 07:40 Magnesium 1.5 mg/dL (1.7-2.3) L 03/08/24 02:54 Total Bilirubin 0.3 mg/dL (0.15-1.2) 03/05/24 04:16 AST 10 U/L (0-32) 03/05/24 04:16 ALT 10 U/L (0-33) 03/05/24 04:16 Alkaline Phosphatase 195 U/L (35-105) H 03/05/24 04:16 Creatine Kinase 22 U/L (26-192) L 03/05/24 04:16 C-Reactive Protein 220.0 mg/L (0.0-4.9) H 02/27/24 03:45 Total Protein 5.2 g/dL (6.6-8.7) L 03/05/24 04:16 Albumin 1.8 g/dL (3.5-5.2) L 03/05/24 04:16 Globulin 3.4 g/dL (1.3-4.6) 03/05/24 04:16 Lipase 119 U/L (13-60) H 02/26/24 16:00 Urine Color Straw (Yellow) 02/29/24 15:00 Urine Appearance Clear (CLEAR) 02/29/24 15:00 Urine pH 5 (5-7) 02/29/24 15:00 Ur Specific [place] 1.010 (1.005-1.030) 02/29/24 15:00 Urine Protein Neg (Negative) 02/29/24 15:00 Urine Glucose (UA) Norm (Normal) 02/29/24 15:00 Urine Ketones Negative (Negative) 02/29/24 15:00 Urine Blood 2+ (Negative) H 02/29/24 15:00 Urine Nitrate Negative (Negative) 02/29/24 15:00 Urine Bilirubin Neg (Negative) 02/29/24 15:00 Urine Urobilinogen Norm mg/dL (Negative) 02/29/24 15:00 Ur Leukocyte Esterase Negative (Negative) 02/29/24 15:00 Urine RBC 5-10 /hpf (0-2) H 02/29/24 15:00 Urine WBC 0-4 /hpf (0-5) H 02/29/24 15:00 Ur Squamous Epith Cells 0-4 /hpf (0-5) H 02/29/24 15:00 Amorphous Sediment Not Reportable 02/29/24 15:00 Urine Bacteria 1+ /hpf (NONE) H 02/29/24 15:00 Urine Yeast 3+ /hpf H 02/29/24 15:00 Vancomycin Trough 36.9 ug/mL (10-15) H* 02/29/24 19:56 C. difficile (PCR) Negative (Negative) 03/06/24 10:31 SARS-CoV-2 Ag (Rapid) negative (Negative) 03/08/24 08:42 Blood Type B Positive 03/01/24 09:45 Rho(D) Type Rh positive 03/01/24 09:45 Antibody Screen Negative 03/01/24 09:45 Crossmatch See Detail 03/01/24 09:45 Vitals Last Vital Signs Temp 97.6 F 03/09/24 11:02 Pulse 100 03/09/24 11:02 Resp 18 03/09/24 11:02 BP 109/69 03/09/24 11:02 Pulse Ox 99 03/09/24 11:02 O2 Del Method Room Air 03/09/24 11:02 O2 Flow Rate 1 03/02/24 08:40 FiO2 24 03/01/24 22:20 Discharge Plan Discharge Patient Disposition: Xfer SNF Condition: Stable Prescriptions: New Pacerone 200 mg Tablet 400 mg PO DAILY Qty: 60 3RF mirtazapine 7.5 mg tablet 7.5 mg PO BEDTIME 30 Days Qty: 30 0RF oxycodone 5 mg Tablet 5 mg PO Q6H PRN (Reason: Moderate Pain) Qty: 20 0RF Continued albuterol sulfate 90 mcg/actuation HFA aerosol inhaler 1 inh INHALATION Q4H PRN (Reason: Shortness Of Breath Or Wheezing) PreserVision AREDS [id number]-[id number] capsule 1 cap PO BID alendronate 10 mg tablet 10 mg PO Q7D Rx Instructions: ON FRIDAY fluticasone propion-salmeterol [Advair Diskus] 250-50 mcg/dose blister with device 1 inh INHALATION DAILY trazodone 50 mg tablet 50 mg PO QPM gabapentin 300 mg capsule 300 mg PO BID 90 Days Qty: 180 0RF hydrocodone-acetaminophen 10-325 mg tablet 1 tab PO BID PRN (Reason: pain) 30 Days Qty: 60 0RF oxybutynin chloride 5 mg tablet 5 mg PO BID Qty: 180 3RF omeprazole 20 mg capsule,delayed release(DR/EC) 20 mg PO DAILY Qty: 90 3RF ondansetron HCl 4 mg tablet 4 mg PO Q8H PRN (Reason: nausea and vomiting) 4 Days Qty: 30 0RF fluticasone propionate [Flonase Allergy Relief] 50 mcg/actuation spray,suspension 2 spray INTRANASAL QDAY PRN (Reason: allergy symptoms) 90 Days Qty: 16 3RF (DME) Custom molded Orthotics See Rx Instructions .Route .MEDSUPPLY Qty: 1 0RF Rx Instructions: As directed by [facility] *Please work with patient with her needs* montelukast [Singulair] 10 mg tablet 10 mg PO DAILY Qty: 90 3RF azelastine 137 mcg (0.1 %) aerosol,spray 1 spray INTRANASAL DAILY Rx Instructions: administer into each nostril Zyrtec 10 mg capsule 10 mg PO DAILY PRN (Reason: Allergy Symptoms) sennosides-docusate sodium [Stool Softener-Laxative] 8.6-50 mg Tablet 1 tab PO DAILY Qty: 30 0RF polyethylene glycol 3350 [Miralax] 17 gram/dose powder 4 g PO DAILY Qty: 119 0RF Eliquis 5 mg tablet 5 mg PO BID Qty: 60 3RF tuberculin PPD 5 tub. unit /0.1 mL Solution 0.1 ml INTRADERMAL Q14D Discontinued pravastatin 80 mg tablet 80 mg PO DAILY diltiazem HCl [Cardizem LA] 240 mg tablet extended release 24 hr 240 mg PO DAILY Qty: 60 3RF vancomycin 1,000 mg recon soln 995 mg IV DAILY Discharge Orders: Discharge Order (Routine); Ordered 03/09/24 Ordered By: Nico Van Referrals: [facility] [Outside] Lew Tilely DO [Physician] - 03/26/24 10:15 am (We have notified [facility] of the need for a follow-up appointment to be scheduled. If you have not heard from them within the next 2 business days, please call them directly. ) Discharge Diet: GI Soft Patient Instructions: Opioid Safety Activity Restrictions/Additional Instructions: Patient to stay on GI soft. Advance gradually in the next 4 to 5 days if she is tolerating GI soft which would be absence of nausea vomiting and profuse diarrhea We are expecting that she will still get loose stools because of short-bowel syndrome Please avoid giving Lomotil For depression and lack of appetite I have added mirtazapine which has side effect of sedation please only take at bedtime Discharge Attestations Time Spent in Discharge Care*: greater than 30 min Quality Metrics Clinical Quality Measures [ No reported AMI, CVA or VTE this stay] Coding Level of Care Code Acute Code for Chg Fwd Diagnoses ELLA (acute kidney injury) N17.9
--- NOTE | 2024-03-09 14:35 | PM.PN ---
Subjective Subjective: feels better Medications: Reviewed: Yes Vitals/I&O/Wt Last Vital Signs Temp 97.5 F L 03/09/24 20:00 Pulse 94 03/09/24 20:00 Resp 17 03/09/24 20:00 BP 129/73 03/09/24 20:00 Pulse Ox 100 03/09/24 20:00 O2 Del Method Room Air 03/09/24 16:55 O2 Flow Rate 1 03/02/24 08:40 FiO2 24 03/01/24 22:20 03/09/24 03/09/24 03/09/24 06:59 14:59 22:59 Intake Total 120 / 1780 720 / 720 120 / 840 Output Total 300 / 1800 325 / 325 Balance -180 / -20 395 / 395 120 / 515 Weight last 48 hrs Weight 95.98 kg Weight 94.801 kg Physical Exam Narrative: awake ,a lert no distress no edema Urinary Catheter Management: Alcantara: Cath Placed During This Visit: yes Reason for Continuing Indwelling Catheter: Other Urinary Catheter Date of Insertion: 02/26/24 Urinary Catheter Time of Insertion: 21:14 Data 03/09/24 05:40 03/09/24 05:40 A&P Assessment and plan (1) ELLA (acute kidney injury): Plan 1. Acute on chronic kidney disease: Baseline baseline creatinine is in the mid 1 range now has severe ELLA along with metabolic acidosis and hyperkalemia in the setting of bowel ischemia/sepsis-probable ATN. - Renal fxn improving and UOP picked up , monitor, PRN lasix - avoid contrast studies 2. Hyperkalemia: improved 3. Bowel obstruction, perforation and status post ex lap 4. Sepsis in the setting of bowel ischemia, 5. Respiratory failure - extubated 6. Anemia : s/p transfusions Discussed with patient's family at bedside. Time spent 20 minutes Patient evaluated using audiovisual cart Attestations Medical Necessity Statement*: per [facility] Procedures Arterial Line Size (Gauge): 20 Coding Level of Care Code Acute Code for Chg Fwd Diagnoses ELLA (acute kidney injury) N17.9
--- NOTE | 2024-03-09 17:49 | PC.NURSE ---
Called and spoke with Dominik at [facility] for ETA on patient transfer back to [facility]. He stated approximately 2 hours
[2024-03-10 03:47] LABS: Glucose Point of Care 112 mg/dL (70-110)
[2024-03-10 03:47] LABS: Glucose Point of Care 149 mg/dL (70-110)
[2024-03-10 03:47] LABS: Glucose Point of Care 111 mg/dL (70-110)
[2024-03-10 03:47] LABS: Glucose Point of Care 122 mg/dL (70-110)
[2024-03-10 03:47] LABS: Glucose Point of Care 116 mg/dL (70-110)
[2024-03-10 03:47] LABS: Glucose Point of Care 104 mg/dL (70-110)
== END 2024-03-09 21:25 | disposition skilled nursing facility (03) | DRG 853 ==
LOC: ER 17:26 → ICU 17:45 → CSU 03-03 15:17 → MEDSURG 03-05 16:07
PROVIDERS: Anesthesiology; Hospitalist; Internal Medicine; Surgery; Admitting Provider Internal Medicine; Emergency Provider Family Medicine; PCP Family Medicine; Visit Provider Internal Medicine
PROC: 0DT80ZZ Resection of Small Intestine, Open Approach (ICD-10-PCS; CPT 44140; principal; 2024-02-26 18:00)
PROC: 0DT80ZZ Resection of Small Intestine, Open Approach (ICD-10-PCS; CPT 44120; 2024-02-26 18:00)
PROC: 0DTH0ZZ Resection of Cecum, Open Approach (ICD-10-PCS; CPT 49000; principal; 2024-02-28 08:55)
PROC: 0DTH0ZZ Resection of Cecum, Open Approach (ICD-10-PCS; CPT 44120; 2024-02-28 08:55)
DX: A41.9 Sepsis, unspecified organism (principal); I50.31 Acute diastolic (congestive) heart failure; K63.1 Perforation of intestine (nontraumatic); R65.21 Severe sepsis with septic shock; K65.8 Other peritonitis; J95.821 Acute postprocedural respiratory failure; N17.0 Acute kidney failure with tubular necrosis; D62 Acute posthemorrhagic anemia; E87.20 Acidosis, unspecified; E87.1 Hypo-osmolality and hyponatremia; E46 Unspecified protein-calorie malnutrition; I48.91 Unspecified atrial fibrillation; G47.33 Obstructive sleep apnea (adult) (pediatric); I11.0 Hypertensive heart disease with heart failure; R19.7 Diarrhea, unspecified; D50.9 Iron deficiency anemia, unspecified; E83.42 Hypomagnesemia; E83.51 Hypocalcemia; E87.6 Hypokalemia; R73.9 Hyperglycemia, unspecified; K21.9 Gastro-esophageal reflux disease without esophagitis; I25.2 Old myocardial infarction; Z68.33 Body mass index [BMI] 33.0-33.9, adult; Z79.01 Long term (current) use of anticoagulants; Z11.52 Encounter for screening for COVID-19; Z86.718 Personal history of other venous thrombosis and embolism; Z85.820 Personal history of malignant melanoma of skin; Z86.010 Personal history of colon polyps; Z87.891 Personal history of nicotine dependence; Z87.01 Personal history of pneumonia (recurrent); Z87.440 Personal history of urinary (tract) infections; Z95.828 Presence of other vascular implants and grafts
CPT/HCPCS: 36415; 36416; 36430; 36573; 36592; 36600; 51702; 71045; 74176; 80048; 80051; 80053; 80202; 81001; 82330; 82550; 82803; 82805; 82962; 83605; 83690; 83735; 84100; 85007; 85014; 85018; 85025; 85610; 85730; 86140; 86850; 86900; 86920; 87040; 87086; 87106; 87426; 87493; 88307; 88309; 93005; 94002; 94003; 94799; 96365; 96372; 96374; 96375; 96376; 97110; 97163; 97167; 97530; 97535; 99285; A4222; A4570; C9113; J0283; J0330; J0612; J1100; J1170; J1644; J1650; J1815; J1940; J2248; J2250; J2270; J2371; J2405; J2543; J2704; J3010; J3370; J3475; J3480; J3490; J7030; J7040; J7042; J7050; J7070; J7169; P9016; Q3014

== ENCOUNTER 2024-03-14 10:21 | Emergency (ER) | payer MEDICARE, OTHER, SELFPAY ==
[2024-03-14] VITALS (12 sets, daily range): BP systolic 96–118; BP diastolic 48–86; PULSE 63–91; RESP 14–16; TEMP 36.4–37.7; O2SAT 94–99; BMI 29.0
--- NOTE | 2024-03-14 10:25 | XRR_ITS ---
PROCEDURE INFORMATION: Exam: XR Chest Exam date and time: 03/14/2024 10:29 AM Age: 83 years old Clinical indication: Fever; Additional info: Weakness TECHNIQUE: Imaging protocol: Radiologic exam of the chest. Views: 1 view. COMPARISON: CR (CHEST, ) 03/01/2024 7:11 PM FINDINGS: Tubes, catheters and devices: Interval removal of right sided PICC line and nasogastric tube. Lungs: Interval improved aeration of the lungs. No acute pulmonary pathology. Pleural spaces: No pleural effusion. Heart/Mediastinum: Cardiomediastinal contours accentuated by low lung volumes and AP technique. Bones/joints: No significant pathology. XR/XR chest 1V portable [id number] IMPRESSION: No acute pathology given technique. Interval improvement in pulmonary expansion and removal of support lines.
--- NOTE | 2024-03-14 10:33 | W.ED.FEVER ---
HPI - Fever General: Chief Complaint: Abdominal Pain Stated Complaint: FEVER S/P SURGERY Time Seen by Provider: 03/14/24 10:25 History of Present Illness: Patient recently had surgery for small bowel obstruction and then went to [facility] for [facility]hab. She is developed fever and visit was up to 101.2. She says her only symptom is that she just feels very weak. No focal weakness. No abdominal pain. No chest pain. No cough. No shortness of breath. She says she think she was supposed to be put on antibiotics but does not think she has been receiving any. However from her discharge summary following I have decided not to discharge her on any antibiotics, her leukocytosis has improved, creatinine improving with conservative management with use of Lasix, urine output improving electrolytes replenish, creatinine peaked at 3.3, at the time of discharge it is 2.3 Review of Systems Narrative: Constitutional symptoms: Negative except as documented in HPI. Skin symptoms: Negative except as documented in HPI. Eye symptoms: Negative except as documented in HPI. ENMT symptoms: Negative except as documented in HPI. Respiratory symptoms: Negative except as documented in HPI. Cardiovascular symptoms: Negative except as documented in HPI. Gastrointestinal symptoms: Negative except as documented in HPI. Genitourinary symptoms: Negative except as documented in HPI. Musculoskeletal symptoms: Negative except as documented in HPI. Neurologic symptoms: Negative except as documented in HPI. Psychiatric symptoms: Negative except as documented in HPI. Endocrine symptoms: Negative except as documented in HPI. [facility] PFSH: Medical History NSTEMI (non-ST elevated myocardial infarction) Diarrhea Obesity (BMI 30.0-34.9) Hyperglycemia JORDEN (obstructive sleep apnea) Bradycardia History of ganglion cyst Right Osteoarthritis of carpometacarpal joint of left thumb Osteopenia Seasonal allergies History of DVT (deep vein thrombosis) Recurrent Urinary incontinence Hypertension History of malignant melanoma On right forearm Surgical History Hx of colonoscopy with polypectomy [facility]- 10 yrs History of esophagogastroduodenoscopy (EGD) 10 yrs = [facility] Hx of dilation and curettage H/O tubal ligation Status post total left knee replacement using cement Family History Mother Cancer Breast Other CAD (coronary artery disease) Diabetes Social History Smoking and tobacco/nicotine status: former use of tobacco/nicotine Alcohol intake: current Alcohol intake frequency: holidays/special occasions only Substance/Drug Use: never Physical Exam Narrative: EXAM NARRATIVE: General: Alert, no acute distress. Skin: Warm, dry. Head: Normocephalic, atraumatic. Neck: Supple, trachea midline. Eye: Extraocular movements are intact. Ears, nose, mouth and throat: mucosa moist. Cardiovascular: Regular, Normal peripheral perfusion. Respiratory: Lungs are clear to auscultation, respirations are non-labored, breath sounds are equal, Symmetrical chest wall expansion. Gastrointestinal: Soft, Nontender, Non distended, Normal bowel sounds. Patient has a [place]ant[place] catheter in place Musculoskeletal: Normal ROM, no deformity. Neurological: Alert and oriented, No focal neurological deficit observed. Psychiatric: Cooperative, appropriate mood & affect. Course Vital Signs: Vital signs: Vital Signs Temperature 99.8 F H 03/14/24 10:30 Pulse Rate 91 03/14/24 10:30 Respiratory Rate 16 03/14/24 10:30 Blood Pressure 114/72 03/14/24 10:30 Pulse Oximetry 97 03/14/24 10:30 Oxygen Delivery Me thod Room Air 03/14/24 10:30 MDM - Fever Medical Decision Making Medical decision making: Differential diagnosis for patient presenting with generalized weakness including but not limited to and based on the above HPI, review of systems and physical exam: Sepsis. Dehydration. Renal failure. Electrolyte abnormalities. Anemia. Congestive heart failure. Hypotension. Coronary syndrome. Hepatitis. Cirrhosis. Infections such as pneumonia, urinary tract infection, [place]ne illness, Cellulitis, Viral infections including influenza and Covid-19. Workup: labwork and lab/exam driven imaging ordered to evaluate, rule in and rule out above pathologies. Chest x-ray: Small left lateral effusion. No acute process. No infiltrate. No pneumothorax. No cardiomegaly. This was reviewed and interpreted by myself the ER physician. Lab Review: Laboratory results were reviewed and interpreted by myself the emergency room physician. Patient has mild leukocytosis with white count of 12.4. BUN/creatinine are 30 and 2.2 which is improved from her hospitalization numbers. She had some acute renal failure while she was here. Urinalysis shows infection. She is being treated for this. Will go home on antibiotics. I reviewed the patient's medical record. Reexamination: Patient remained stable. No increased work of breathing. No altered mental status. No focal motor deficits. No abdominal pain. No distention. Assessment and plan: Urinary tract infection Dehydration - Discharged home - Discussed findings and plan with patient. Answered any questions. - All laboratory values were reviewed and interpreted personally by myself, the ER physician - All imaging was reviewed and interpreted personally by myself, the ER physician. - Evaluation and treatment of this problem were appropriate in the emergency setting Lab Data 03/14/24 10:51 03/14/24 10:51 Radiology Impressions Chest X-Ray 03/14/24 10:25 IMPRESSION: No acute pathology given technique. Interval improvement in pulmonary expansion and removal of support lines. Laboratory Results WBC 12.38 10^3/uL (3.29-11.43) H 03/14/24 10:51 RBC 2.82 10^6/uL (3.85-5.65) L 03/14/24 10:51 Hgb 7.20 g/dL (11.27-16.99) L 03/14/24 10:51 Hct 22.4 % (36-47) L 03/14/24 10:51 MCV 79.4 fl (85-98) L 03/14/24 10:51 MCH 25.5 pg (27-33) L 03/14/24 10:51 MCHC 32.1 g/dL (30-55) 03/14/24 10:51 RDW 17.6 % (12.1-15.1) H 03/14/24 10:51 Plt Count 593 10^3/cmm (157-399) H 03/14/24 10:51 MPV 10.1 fL (7.4-10.4) 03/14/24 10:51 Neut % (Auto) 75.5 % 03/14/24 10:51 Lymph % (Auto) 13.1 % 03/14/24 10:51 Grand % (Auto) 10.0 % 03/14/24 10:51 Eos % (Auto) 0.4 % 03/14/24 10:51 Baso % (Auto) 0.4 % 03/14/24 10:51 Neut # (Auto) 9.35 10^3/uL (1.8-7.7) H 03/14/24 10:51 Lymph # (Auto) 1.6 10^3/uL (0.8-4.8) 03/14/24 10:51 Grand # (Auto) 1.2 10^3/uL (0.2-0.9) H 03/14/24 10:51 Eos # (Auto) 0.1 10^3/uL (0.0-0.8) 03/14/24 10:51 Baso # (Auto) 0.1 10^3/uL (0.0-0.1) 03/14/24 10:51 Nucleated RBC % (auto) 0 % 03/14/24 10:51 Nucleated RBCs # 0.0 /100WBC 03/14/24 10:51 Sodium 133 mmol/L (136-145) L 03/14/24 10:51 Potassium 4.4 mmol/L (3.5-5.1) 03/14/24 10:51 Chloride 102 mmol/L (98-107) 03/14/24 10:51 Carbon Dioxide 19 mmol/L (22-29) L 03/14/24 10:51 Anion Gap 16.4 (5-19) 03/14/24 10:51 BUN 30 mg/dL (8-23) H 03/14/24 10:51 Creatinine 2.2 mg/dL (0.5-0.9) H 03/14/24 10:51 GFR Calculation Not Reportable 03/14/24 10:51 Glucose 121 mg/dL (65-115) H 03/14/24 10:51 Calculated Osmolality 283 mOsm/kg (285-295) L 03/14/24 10:51 Lactic Acid 1.6 mmol/L (0.5-2.2) 03/14/24 10:51 Calcium 7.4 mg/dL (8.5-10.5) L 03/14/24 10:51 Total Bilirubin 0.3 mg/dL (0.15-1.2) 03/14/24 10:51 AST 30 U/L (0-32) 03/14/24 10:51 ALT 50 U/L (0-33) H 03/14/24 10:51 Alkaline Phosphatase 139 U/L (35-105) H 03/14/24 10:51 C-Reactive Protein 195.2 mg/L (0.0-4.9) H 03/14/24 10:51 Total Protein 5.7 g/dL (6.6-8.7) L 03/14/24 10:51 Albumin 2.0 g/dL (3.5-5.2) L 03/14/24 10:51 Globulin 3.7 g/dL (1.3-4.6) 03/14/24 10:51 Urine Color Yellow (Yellow) 03/14/24 11:08 Urine Appearance Hazy (CLEAR) A 03/14/24 11:08 Urine pH 5 (5-7) 03/14/24 11:08 Ur Specific [place] 1.015 (1.005-1.030) 03/14/24 11:08 Urine Protein Trace (Negative) 03/14/24 11:08 Urine Glucose (UA) Norm (Normal) 03/14/24 11:08 Urine Ketones Negative (Negative) 03/14/24 11:08 Urine Blood 2+ (Negative) H 03/14/24 11:08 Urine Nitrate Negative (Negative) 03/14/24 11:08 Urine Bilirubin Neg (Negative) 03/14/24 11:08 Urine Urobilinogen Norm mg/dL (Negative) 03/14/24 11:08 Ur Leukocyte Esterase 2+ (Negative) H 03/14/24 11:08 Urine RBC 5-10 /hpf (0-2) H 03/14/24 11:08 Urine WBC 15-25 /hpf (0-5) H 03/14/24 11:08 Ur Squamous Epith Cells 0-4 /hpf (0-5) H 03/14/24 11:08 Amorphous Sediment Not Reportable 03/14/24 11:08 Urine Bacteria 1+ /hpf (NONE) H 03/14/24 11:08 Urine Yeast 2+ /hpf H 03/14/24 11:08 All radiology interpretation(s) finalized by discharge Discharge Plan Discharge Patient Disposition: Home Clinical Impression: Urinary tract infection Condition: Stable Prescriptions: New cefdinir 300 mg capsule 300 mg PO BID 10 Days Qty: 20 0RF No Action PreserVision AREDS [id number] capsule 1 cap PO BID alendronate 10 mg tablet 10 mg PO Q7D Rx Instructions: ON FRIDAY fluticasone propion-salmeterol [Advair Diskus] 250-50 mcg/dose blister with device 1 inh INHALATION DAILY trazodone 50 mg tablet 50 mg PO QPM gabapentin 300 mg capsule 300 mg PO BID 90 Days Qty: 180 0RF hydrocodone-acetaminophen 10-325 mg tablet 1 tab PO BID PRN (Reason: pain) 30 Days Qty: 60 0RF oxybutynin chloride 5 mg tablet 5 mg PO BID Qty: 180 3RF omeprazole 20 mg capsule,delayed release(DR/EC) 20 mg PO DAILY Qty: 90 3RF ondansetron HCl 4 mg tablet 4 mg PO Q8H PRN (Reason: nausea and vomiting) 4 Days Qty: 30 0RF fluticasone propionate [Flonase Allergy Relief] 50 mcg/actuation spray,suspension 2 spray INTRANASAL QDAY PRN (Reason: allergy symptoms) 90 Days Qty: 16 3RF (DME) Custom molded Orthotics See Rx Instructions .Route .MEDSUPPLY Qty: 1 0RF Rx Instructions: As directed by [facility] *Please work with patient with her needs* montelukast [Singulair] 10 mg tablet 10 mg PO DAILY Qty: 90 3RF azelastine 137 mcg (0.1 %) aerosol,spray 1 spray INTRANASAL DAILY Rx Instructions: administer into each nostril Zyrtec 10 mg capsule 10 mg PO DAILY PRN (Reason: Allergy Symptoms) sennosides-docusate sodium [Stool Softener-Laxative] 8.6-50 mg Tablet 1 tab PO DAILY Qty: 30 0RF polyethylene glycol 3350 [Miralax] 17 gram/dose powder 4 g PO DAILY Qty: 119 0RF Eliquis 5 mg tablet 5 mg PO BID Qty: 60 3RF tuberculin PPD 5 tub. unit /0.1 mL Solution 0.1 ml INTRADERMAL Q14D amiodarone [Pacerone] 200 mg Tablet 400 mg PO DAILY Qty: 60 3RF oxycodone 5 mg Tablet 5 mg PO Q6H PRN (Reason: Moderate Pain) Qty: 20 0RF albuterol sulfate 2.5 mg /3 mL (0.083 %) Solution For Nebulization 2.5 mg INHALATION Q4H PRN (Reason: Shortness Of Breath Or Wheezing) mirtazapine 7.5 mg tablet 7.5 mg PO DAILY Discharge Orders: Discharge ED (Routine); Ordered 03/14/24 Ordered By: Dana Simms Referrals: Oxana Lee DO [Primary Care Provider] - Discharge Diet: Usual diet Discharge Activity: Increase activity as tolerated Patient Instructions: Urinary Tract Infection in Older Adults (ED) Activity Restrictions/Additional Instructions: Thank you for choosing [facility] for your healthcare needs today. Please realize this is an emergency room and that we are providing you with a medical screening exam and this may not be complete and all inclusive of all the testing and or work up that you may need to determine your ailment or severity of your illness. You have been screened and evaluated and felt safe for discharge. Health conditions do change or evolve sometimes and as such it is important that you follow up with your Primary Doctor to be re checked, 3-5 days is a general good time frame for follow up. You are always welcome to return to the ED for re assessment if your symptoms are worsening or you have new concerns Coding Level of Care Code ED Body Cleaner for Nidia López
[2024-03-14 11:18] LABS: Basophils # 0.1 10^3/uL (0.0-0.1); Basophils % 0.4 %; Eosinophils # 0.1 10^3/uL (0.0-0.8); Eosinophils % 0.4 %; Hematocrit 22.4 % (36-47); Lymphocytes # 1.6 10^3/uL (0.8-4.8); Lymphocytes % 13.1 %; Mean Corpuscular HGB Conc 32.1 g/dL (30-55); Mean Corpuscular Hemoglobin 25.5 pg (27-33); Mean Corpuscular Volume 79.4 fl (85-98); Mean Platelet Volume 10.1 fL (7.4-10.4); Monocytes # 1.2 10^3/uL (0.2-0.9); Neutrophils # 9.35 10^3/uL (1.8-7.7); Neutrophils % 75.5 %; Nucleated Red Blood Cells % 0 %; Platelet Count 593 10^3/cmm (157-399); Red Blood Count 2.82 10^6/uL (3.85-5.65); Red Cell Distribution Width 17.6 % (12.1-15.1); White Blood Count 12.38 10^3/uL (3.29-11.43)
[2024-03-14 11:35] LABS: Add Urine Culture? Yes; Bacteria Urine 1+ /hpf; Bilirubin Urine Neg (Negative); Blood Urine 2+ (Negative); Glucose Urine UA Norm (Normal); Ketones Urine Negative (Negative); Leukocyte Esterase Urine 2+ (Negative); Nitrate Urine Negative (Negative); Protein Urine Trace (Negative); Specific Gravity, Urine 1.015 (1.005-1.030); Squamous Epithelial Cell Urine 0-4 /hpf (0-5); Urine Appearance Hazy (CLEAR); Urine Color Yellow (Yellow); Urobilinogen Urine Norm (Negative); WBC Urine 15-25 /hpf (0-5); pH Urine 5 (5-7)
[2024-03-14 11:42] LABS: Alanine Aminotransferase 50 U/L (0-33); Alkaline Phosphatase 139 U/L (35-105); Anion Gap 16.4 (5-19); Aspartate Amino Transferase 30 U/L (0-32); Blood Urea Nitrogen 30 mg/dL (8-23); C Reactive Protein 195.2 mg/L (0.0-4.9); Calcium 7.4 mg/dL (8.5-10.5); Carbon Dioxide 19 mmol/L (22-29); Chloride 102 mmol/L (98-107); Globulin 3.7 g/dL (1.3-4.6); Glucose 121 mg/dL (65-115); Osmolality Calculated 283 mOsm/kg (285-295); Potassium 4.4 mmol/L (3.5-5.1); Sodium 133 mmol/L (136-145); Total Bilirubin 0.3 mg/dL (0.15-1.2); Total Protein 5.7 g/dL (6.6-8.7)
[2024-03-14 11:43] LABS: Lactic Sepsis W/Reflex 1.6 mmol/L (0.5-2.2)
[2024-03-14] MEDS: cefTRIAXone 1,000 MG in sodium chloride 0.9% (plus) 50 ML 100 MG IV (11:54)
[2024-03-14] MEDS: sodium chloride 0.9% 1,000 ML 999 ML IV (11:55)
[2024-03-14] MEDS: sodium chloride 0.9% 500 ML 999 ML IV (12:00)
--- NOTE | 2024-03-14 12:47 | PC.NURSE ---
discharge delayed due to needing a blood transfusion.
[2024-03-14] MEDS: sodium chloride 0.9% 100 mL Bag 50 ML IV (16:06)
--- NOTE | 2024-03-14 22:39 | PC.NURSE ---
discharge further delayed due to needing a ride back [facility].
== END 2024-03-15 01:00 | disposition home or self-care (01) ==
PROVIDERS: Emergency Provider Emergency Medicine; PCP Family Medicine
DX: N39.0 Urinary tract infection, site not specified (principal); Z79.01 Long term (current) use of anticoagulants; Z87.891 Personal history of nicotine dependence; I25.2 Old myocardial infarction; I10 Essential (primary) hypertension
CPT/HCPCS: 36415; 36430; 71045; 80053; 81001; 83605; 85025; 86140; 86850; 86900; 86920; 87040; 87086; 87106; 96365; 99284; 99291; J0696; J7030; J7040; P9040

== ENCOUNTER → 2024-03-26 09:59 | Outpatient (BNVA) | payer MEDICARE, OTHER, SELFPAY | PROVIDERS: PCP Family Medicine; Visit Provider Surgery | DX: Z98.890 Other specified postprocedural states (principal); K55.029 Acute infarction of small intestine, extent unspecified; R60.0 Localized edema; E46 Unspecified protein-calorie malnutrition | CPT/HCPCS: 99024 ==

== ENCOUNTER 2024-06-06 17:24 | Emergency (ER) | payer MEDICARE, OTHER, MEDICAID, SELFPAY ==
[2024-06-06 17:40] VITALS: BP 129/68; PULSE 93; RESP 16; TEMP 36.7; O2SAT 99
[2024-06-06 18:07] VITALS: BP 103/82; PULSE 103; O2SAT 100
--- NOTE | 2024-06-06 18:07 | XRR_ITS ---
PROCEDURE INFORMATION: Exam: XR Abdomen Exam date and time: 06/06/2024 6:25 PM Age: 83 years old Clinical indication: Nausea and other: Diarrhea; Prior surgery; Surgery date: 6+ months; Surgery type: Small bowel resection. Bladder stimulator. Patient HX: C/O nausea with diarrhea. History of ischemic sbo. ; Additional info: Diarrhea, HX of obstruction TECHNIQUE: Imaging protocol: Radiologic exam of the abdomen. Views: Frontal supine view of the abdomen. 1 View. COMPARISON: CT abdomen pelvis wo con [id number] 02/26/2024 3:36 PM FINDINGS: Tubes, catheters and devices: Stimulator device overlies the right lower quadrant with lead projecting over the expected region of the bladder. Gastrointestinal tract: Nonobstructive bowel gas pattern. Intraperitoneal space: No large volume pneumoperitoneum. Bones/joints: Unremarkable. XR/XR KUB [id number] IMPRESSION: Nonobstructive bowel gas pattern. No large volume pneumoperitoneum.
--- NOTE | 2024-06-06 18:08 | ED_ITS ---
HPI - Nausea/Vomiting/Diarrhea 2 General: Chief complaint: Nausea/Vomiting/Diarrhea Stated complaint: Diarhea Time Seen by Provider: 06/06/24 17:42 History of Present Illness: 83-year-old female comes in today for co mplaints of diarrhea stools x 2 days. Patient has a history of bowel resection and always has loose stools but states at this time she is having watery stools. Patient is concerned for dehydration. Patient also has a history of atrial fibs, seasonal allergies, iron deficiency anemia, osteoporosis, neuropathy, dependent edema. Patient appears nontoxic. Patient appears in no pain. Related Data Home Medications Medication Instructions Recorded Confirmed alendronate 10 mg tablet 10 mg PO Q7D 11/22/19 03/26/24 vitamins A,C,B-efwy-lswiiq 4,296 1 cap PO BID 11/22/19 03/26/24 mcg-226 mg-90 mg capsule (PreserVision AREDS) fluticasone 250 mcg-salmeterol 50 1 inh inhalation DAILY 05/17/20 03/26/24 mcg/dose blistr powdr for inhalation (Advair Diskus) trazodone 50 mg tablet 50 mg PO QPM 03/21/22 03/26/24 azelastine 137 mcg (0.1 %) nasal 1 spray intranasal DAILY 02/16/24 03/26/24 spray cetirizine 10 mg capsule (Zyrtec) 10 mg PO DAILY PRN Allergy Symptoms 02/16/24 03/26/24 tuberculin PPD 5 tub. unit/0.1 mL 0.1 ml intradermal Q14D 02/26/24 03/26/24 intradermal injection solution albuterol sulfate 2.5 mg/3 mL 2.5 mg inhalation Q4H PRN 03/14/24 03/26/24 (0.083 %) solution for nebulization Shortness Of Breath Or Wheezing mirtazapine 7.5 mg tablet 7.5 mg PO DAILY 03/14/24 03/26/24 Previous Rx's Medication Instructions Recorded montelukast 10 mg tablet 10 mg PO DAILY #90 tabs 02/17/23 (Singulair) ondansetron HCl 4 mg tablet 4 mg PO Q8H PRN nausea and 05/15/23 vomiting 4 days #30 tabs fluticasone propionate 50 2 spray intranasal QDAY PRN 10/16/23 mcg/actuation nasal allergy symptoms 90 days #16 grams spray,suspension (Flonase Allergy Relief) gabapentin 300 mg capsule 300 mg PO BID 90 days #180 caps 11/26/23 hydrocodone 10 mg-acetaminophen 1 tab PO BID PRN pain 30 days #60 01/16/24 325 mg tablet tabs omeprazole 20 mg capsule,delayed 20 mg PO DAILY #90 caps 01/16/24 release oxybutynin chloride 5 mg tablet 5 mg PO BID #180 tabs 01/16/24 Custom molded Orthotics #1 ea 01/27/24 apixaban 5 mg tablet (Eliquis) 5 mg PO BID #60 tabs 02/25/24 polyethylene glycol 3350 17 4 g PO DAILY #119 grams 02/25/24 gram/dose oral powder (Miralax) sennosides 8.6 mg-docusate sodium 1 tab PO DAILY #30 tabs 02/25/24 50 mg tablet (Stool Softener-Laxative) amiodarone 200 mg tablet (Pacerone) 400 mg (2 x 200 mg) PO DAILY #60 03/09/24 tabs oxycodone 5 mg tablet 5 mg PO Q6H PRN Moderate Pain #20 03/09/24 tabs Allergies Allergy/AdvReac Type Severity Reaction Status Date / Time albumin colloid, human Allergy Severe ALGY-Difficulty Verified 06/06/24 17:43 Breathing dog dander Allergy cough Verified 06/06/24 17:43 house dust Allergy ALGY-Sneezi Verified 06/06/24 17:43 ng Mold Allergy ALGY-Sneezi Uncoded 06/06/24 17:43 ng Review of Systems 2 General: Reports: 10 or more systems reviewed and unremarkable except in HPI and below GI: Reports: diarrhea PFSH ED 2 PFSH: Medical History (Updated 06/06/24 @ 18:53 by AC Gallagher) Ischemic necrosis of small bowel Low serum albumin Postoperative anemia Malnourished Hypokalemia Hypocalcemia ATN (acute tubular necrosis) Septic shock Multiorgan failure Hypomagnesemia ELLA (acute kidney injury) Hypokalemia Hypocalcemia Hyponatremia Sepsis Small bowel ischemia Chronic anticoagulation Atrial fibrillation Small bowel obstruction Small bowel perforation History of ganglion cyst Right NSTEMI (non-ST elevated myocardial infarction) Diarrhea Leukocytosis Obesity (BMI 30.0-34.9) Hyperglycemia Chronic GERD History of iron deficiency anemia Osteoarthritis of carpometacarpal joint of left thumb JORDEN (obstructive sleep apnea) Bradycardia Osteopenia Seasonal allergies History of DVT (deep vein thrombosis) Recurrent Urinary incontinence Hypertension History of malignant melanoma On right forearm Surgical History (Updated 06/06/24 @ 18:53 by AC Gallagher) Hx of exploratory laparotomy and small bowel resection 02/28/24 Dr Tilley Hx of colonoscopy with polypectomy [facility]- 10 yrs History of esophagogastroduodenoscopy (EGD) 10 yrs = [facility] Hx of dilation and curettage H/O tubal ligation Status post total left knee replacement using cement Family History Mother Cancer Breast Other CAD (coronary artery disease) Diabetes Social History Smoking and tobacco/nicotine status: former use of tobacco/nicotine Alcohol intake: current Alcohol intake frequency: holidays/special occasions only Substance/Drug Use: never Physical Exam 2 Const: COMMON NORMALS: alert HENMT: COMMON NORMALS: normocephalic HEAD & SCALP: normocephalic Neck/C-Spine: COMMON NORMALS: full ROM Resp: COMMON NORMALS: normal respiratory effort and clear to auscultation bilaterally AUSCULTATION: clear to auscultation bilaterally Cardio: COMMON NORMALS: regular rate RATE: regular rate GI: COMMON NORMALS: Soft to palpation and non-tender PALPATION: Yes Soft to palpation Back/Pelvis: COMMON NORMALS: thoracic and lumbar spine normal to inspection Extremity: NARRATIVE EXTREMITY EXAM: Bilateral +2 pitting edema Neuro: SENSORIUM/ORIENTATION: Yes alert Skin: COMMON NORMALS: turgor normal GENERAL SKIN EXAM: turgor normal Course 2 Vital Signs: Vital signs: Vital Signs Temperature 98.1 F 06/06/24 17:40 Pulse Rate 82 06/06/24 18:50 Respiratory Rate 16 06/06/24 17:40 Blood Pressure 103/82 06/06/24 18:50 Pulse Oximetry 96 06/06/24 18:50 MDM - Nausea/Vomiting/Diarrhea Medical Decision Making 83-year-old female comes in today for concerns of dehydration secondary to diarrhea. Patient has a history of bowel resection and often has loose stools but has had watery stools for the last 2 days. Patient appears nontoxic. Patient is concerned for dehydration. Patient denies blood in the stool. Vital signs are normal. Differential diagnosis includes but not limited to gastroenteritis, dehydration, electrolyte imbalance, infectious diarrhea. CBC noted some mild leukocytosis at 12,000 which was similar to last blood draw. Hemoglobin was 10 which was improved over last blood draw. Creatinine was 1.1 which was improved over last blood draw at 2.2. Sodium and potassium were normal. Patient had no diarrhea stools in the ER. Patient was given 1 L of lactated Ringer's and discharged home with recommendation to add more fiber to the diet and to consult with primary care for other instructions. Patient was agreeable to this and will follow-up. Lab Data 06/06/24 18:18 06/06/24 18:18 Laboratory Results WBC 12.28 10^3/uL (3.29-11.43) H 06/06/24 18:18 RBC 3.59 10^6/uL (3.85-5.65) L 06/06/24 18:18 Hgb 10.00 g/dL (11.27-16.99) L 06/06/24 18:18 Hct 30.7 % (36-47) L 06/06/24 18:18 MCV 85.5 fl (85-98) 06/06/24 18:18 MCH 27.9 pg (27-33) 06/06/24 18:18 MCHC 32.6 g/dL (30-55) 06/06/24 18:18 RDW 17.8 % (12.1-15.1) H 06/06/24 18:18 Plt Count 347 10^3/cmm (157-399) 06/06/24 18:18 MPV 9.7 fL (7.4-10.4) 06/06/24 18:18 Neut % (Auto) 62.2 % 06/06/24 18:18 Lymph % (Auto) 29.0 % 06/06/24 18:18 Avery % (Auto) 6.4 % 06/06/24 18:18 Eos % (Auto) 1.6 % 06/06/24 18:18 Baso % (Auto) 0.4 % 06/06/24 18:18 Neut # (Auto) 7.63 10^3/uL (1.8-7.7) 06/06/24 18:18 Lymph # (Auto) 3.6 10^3/uL (0.8-4.8) 06/06/24 18:18 Avery # (Auto) 0.8 10^3/uL (0.2-0.9) 06/06/24 18:18 Eos # (Auto) 0.2 10^3/uL (0.0-0.8) 06/06/24 18:18 Baso # (Auto) 0.1 10^3/uL (0.0-0.1) 06/06/24 18:18 Nucleated RBC % (auto) 0 % 06/06/24 18:18 Nucleated RBCs # 0.0 /100WBC 06/06/24 18:18 Sodium 141 mmol/L (136-145) 06/06/24 18:18 Potassium 3.5 mmol/L (3.5-5.1) 06/06/24 18:18 Chloride 104 mmol/L (98-107) 06/06/24 18:18 Carbon Dioxide 22 mmol/L (22-29) 06/06/24 18:18 Anion Gap 18.5 (5-19) 06/06/24 18:18 BUN 13 mg/dL (8-23) 06/06/24 18:18 Creatinine 1.1 mg/dL (0.5-0.9) H 06/06/24 18:18 GFR Calculation Not Reportable 06/06/24 18:18 Glucose 100 mg/dL (65-115) 06/06/24 18:18 Calculated Osmolality 292 mOsm/kg (285-295) 06/06/24 18:18 Calcium 7.6 mg/dL (8.5-10.5) L 06/06/24 18:18 Total Bilirubin 0.2 mg/dL (0.15-1.2) 06/06/24 18:18 AST 14 U/L (0-32) 06/06/24 18:18 ALT 13 U/L (0-33) 06/06/24 18:18 Alkaline Phosphatase 89 U/L (35-105) 06/06/24 18:18 Total Protein 6.3 g/dL (6.6-8.7) L 06/06/24 18:18 Albumin 3.0 g/dL (3.5-5.2) L 06/06/24 18:18 Globulin 3.3 g/dL (1.3-4.6) 06/06/24 18:18 Lipase 18 U/L (13-60) 06/06/24 18:18 All radiology interpretation(s) finalized by discharge Discharge Plan Discharge Patient Disposition: Home Clinical Impression: Diarrhea in adult patient, History of resection of small bowel Condition: Stable Prescriptions: No Action PreserVision AREDS [id number] uvic-vp-gyct capsule 1 cap PO BID alendronate 10 mg tablet 10 mg PO Q7D Rx Instructions: ON FRIDAY fluticasone propion-salmeterol [Advair Diskus] 250-50 mcg/dose blister with device 1 inh INHALATION DAILY trazodone 50 mg tablet 50 mg PO QPM gabapentin 300 mg capsule 300 mg PO BID 90 Days Qty: 180 0RF hydrocodone-acetaminophen 10-325 mg tablet 1 tab PO BID PRN (Reason: pain) 30 Days Qty: 60 0RF oxybutynin chloride 5 mg tablet 5 mg PO BID Qty: 180 3RF omeprazole 20 mg capsule,delayed release(DR/EC) 20 mg PO DAILY Qty: 90 3RF ondansetron HCl 4 mg tablet 4 mg PO Q8H PRN (Reason: nausea and vomiting) 4 Days Qty: 30 0RF fluticasone propionate [Flonase Allergy Relief] 50 mcg/actuation spray,suspension 2 spray INTRANASAL QDAY PRN (Reason: allergy symptoms) 90 Days Qty: 16 3RF (DME) Custom molded Orthotics See Rx Instructions .Route .MEDSUPPLY Qty: 1 0RF Rx Instructions: As directed by [facility] *Please work with patient with her needs* montelukast [Singulair] 10 mg tablet 10 mg PO DAILY Qty: 90 3RF azelastine 137 mcg (0.1 %) aerosol,spray 1 spray INTRANASAL DAILY Rx Instructions: administer into each nostril Zyrtec 10 mg capsule 10 mg PO DAILY PRN (Reason: Allergy Symptoms) sennosides-docusate sodium [Stool Softener-Laxative] 8.6-50 mg Tablet 1 tab PO DAILY Qty: 30 0RF polyethylene glycol 3350 [Miralax] 17 gram/dose powder 4 g PO DAILY Qty: 119 0RF Eliquis 5 mg tablet 5 mg PO BID Qty: 60 3RF tuberculin PPD 5 tub. unit /0.1 mL Solution 0.1 ml INTRADERMAL Q14D amiodarone [Pacerone] 200 mg Tablet 400 mg PO DAILY Qty: 60 3RF oxycodone 5 mg Tablet 5 mg PO Q6H PRN (Reason: Moderate Pain) Qty: 20 0RF albuterol sulfate 2.5 mg /3 mL (0.083 %) Solution For Nebulization 2.5 mg INHALATION Q4H PRN (Reason: Shortness Of Breath Or Wheezing) mirtazapine 7.5 mg tablet 7.5 mg PO DAILY Discharge Orders: Discharge ED (Routine); Ordered 06/06/24 Ordered By: Nitin Dais Discharge Diet: Usual diet Discharge Activity: Increase activity as tolerated Patient Instructions: Chronic Diarrhea (ED) Activity Restrictions/Additional Instructions: You may try adding fibrous foods to your diet that may help with forming stools with more consistency. Continue with loperamide. Follow-up with primary care. Return to ED for worsening symptoms such as fever greater than 100.4, blood in vomit or stool, or new concerns. Coding Level of Care Code ED Harness Maker for Nidia López
[2024-06-06] MEDS: lactated ringers 1,000 ML 999 ML IV (18:15)
[2024-06-06 18:23] LABS: Basophils # 0.1 10^3/uL (0.0-0.1); Basophils % 0.4 %; Eosinophils # 0.2 10^3/uL (0.0-0.8); Eosinophils % 1.6 %; Hematocrit 30.7 % (36-47); Lymphocytes # 3.6 10^3/uL (0.8-4.8); Mean Corpuscular HGB Conc 32.6 g/dL (30-55); Mean Corpuscular Hemoglobin 27.9 pg (27-33); Mean Corpuscular Volume 85.5 fl (85-98); Mean Platelet Volume 9.7 fL (7.4-10.4); Monocytes # 0.8 10^3/uL (0.2-0.9); Monocytes % 6.4 %; Neutrophils # 7.63 10^3/uL (1.8-7.7); Neutrophils % 62.2 %; Nucleated Red Blood Cells % 0 %; Platelet Count 347 10^3/cmm (157-399); Red Blood Count 3.59 10^6/uL (3.85-5.65); Red Cell Distribution Width 17.8 % (12.1-15.1); White Blood Count 12.28 10^3/uL (3.29-11.43)
--- NOTE | 2024-06-06 18:33 | ECG_ITS ---
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 Measurements Intervals Eros Rate: 82 P: 0 WY: 0 QRS: 66 QRSD: 88 T: 26 QT: 349 QTc: 409 Interpretive Statements ATRIAL FIBRILLATION NONSPECIFIC ST & T-WAVE ABNORMALITY Compared to ECG 02/26/2024 16:38:03 Aberrant conduction of supraventricular beat(s) no longer present Ventricular premature complex(es) no longer present T-wave abnormality still present Electronically Signed On 06-06-2024 19:41:01 CDT by Peter Gutierrez M.D. [id number]
[2024-06-06 18:41] LABS: Alanine Aminotransferase 13 U/L (0-33); Alkaline Phosphatase 89 U/L (35-105); Anion Gap 18.5 (5-19); Aspartate Amino Transferase 14 U/L (0-32); Blood Urea Nitrogen 13 mg/dL (8-23); Calcium 7.6 mg/dL (8.5-10.5); Carbon Dioxide 22 mmol/L (22-29); Chloride 104 mmol/L (98-107); Creatinine Clr Calc Pharmacy 40.5589; Globulin 3.3 g/dL (1.3-4.6); Glucose 100 mg/dL (65-115); Lipase 18 U/L (13-60); Osmolality Calculated 292 mOsm/kg (285-295); Potassium 3.5 mmol/L (3.5-5.1); Sodium 141 mmol/L (136-145); Total Bilirubin 0.2 mg/dL (0.15-1.2); Total Protein 6.3 g/dL (6.6-8.7)
[2024-06-06 18:50] VITALS: BP 103/82; PULSE 82; O2SAT 96
[2024-06-06 19:32] VITALS: BP 130/85; PULSE 95; O2SAT 98
== END 2024-06-06 19:33 | disposition home or self-care (01) ==
PROVIDERS: Emergency Medicine; Emergency Provider Nurse Practitioner Family
DX: R19.7 Diarrhea, unspecified (principal); Z90.49 Acquired absence of other specified parts of digestive tract; Z87.891 Personal history of nicotine dependence; I25.2 Old myocardial infarction; I10 Essential (primary) hypertension; Z79.01 Long term (current) use of anticoagulants
CPT/HCPCS: 74018; 80053; 83690; 85025; 93005; 99285; J7120

== ENCOUNTER 2024-06-18 10:00 | Oncology outpatient (recurring) (ONCR) | payer MEDICARE, OTHER, SELFPAY ==
--- OUTSIDE RECORDS SUMMARY | 2024-06-04 09:35 | XMS_ITS | Patient Health Record ---
Author Name Unknown Organization [facility] Address [address] [place] [address] Care Team Providers Care Lead Technical Architect Name Role Phone Pb Nam Primary Care Provider [phone] Allergies Allergen (clinical drug ingredient) Drug/Non Drug Allergy documented on EMR Reaction Allergy Type Onset Date Status lisinopril Lisinopril Unknown Drug Allergy Activ e Reason For Referral No Information Medications Medication SIG (Take, Route, Frequency, Duration) Notes Start Date End Date Status Pravastatin Sodium 80 MG 1 tablet Orally Once a day for 90 days Active metroNIDAZOLE 0.75 % 1 application Exter tim Twice a day for 30 days Active Xarelto 10 MG 1 tablet with food O rally Once a day for 90 days 12/28/2020 Active Fiber - 1 tablet Orally daily Active Alendronate Sodium 70 MG 1 tablet 30 min utes before the first food, beverage or medicine of the day with plain water Orally Once a week for 90 days Active Lac-Hydrin 12 % 1 application Range Conservationist ally Twice a day Active Nitroglycerin 0.4 MG as directed Subling ual Once a day for 30 day(s) 11/02/2020 Active Irbesartan 300 MG 1 tablet Orally Once a day for 90 days Active Restasis 0.05 % 1 drop into affected eye Ophthalmic Twice a day Active Azelastine HCl 0.15 % 2 sprays in each n ostril Nasally Once a day for 90 days Active Calcium Citrate + D 250-200 MG-UNIT 1 tablet Orally Twice a day Active Cetirizine HCl 10 MG 1 tablet Orally Onc e a day for 90 days Active Gabapentin 300 MG 1 capsule Orally TID for 90 days Active Acetaminophen 325 MG 2 tablets Orally ev jose armando 6 hours prn for 90 days Active Fluticasone Furoate 27.5 MCG/SPRAY 1 spray in each nostril Nasally Once a day for 90 days Active ProAir HFA 108 (90 Base) MCG/ACT 1- 2 puffs Inhalation every 4 hrs for 90 days Active Metoprolol Succinate 100 MG 1 capsule Or ally Once a day for 30 day(s) 08/23/2021 Active Norvasc 10 MG 1 tablet Orally Once a day for 30 days Active PreserVision AREDS - as directed Orally Active traZODone HCl 50 MG 1 tablet at bedtime as needed Orally Once a day for 90 days Active Omeprazole 20 MG 1 capsule 30 minutes before morning meal Oral Once a day for 90 days 09/10/2012 Active Immunizations Vaccine Route Administration Date Status Comme nts COVID-19 Vaccine ([employer]) Dose #1 IM Intramuscular 11/24/2020 Administered COVID-19 Vaccine ([employer]) Dose #2 IM Intramuscular 12/22/2020 Administered COVID-19 Vaccine ([employer]) Dose #3 Unknown 08/07/2021 Administered Flu vaccine no Preserv 3 and > Unknown 07/15/2013 Administered FLUAD IM Intramuscular 07/31/2021 Administered Social History Tobacco Use: Social History Observation Description Date Details (start date - stop date) Former Smoker NA - NA Household Question Answer Notes Marital status: Level of education: not finished college xTobacco Use/Smoking Question Answer Notes Are you a former smoker How long has it been since you last smoked? > 10 years Alcohol Screen (Audit-C) Question Answer Notes Did you have a drink contain ing alcohol in the past year? Yes How often did you have a dri nk containing alcohol in the past year? Monthly or less (1 point) How many drinks did you have on a typical day when you were drinking in the past year? 1 or 2 drinks (0 point) How often did you have 6 or more drinks on one occasion in the past year? Never (0 point) Points 1 Interpretation Negative PHQ-9 Question Answer Notes Little interest or pleasure in doing things Not at all Feeling down, depressed, or hopeless Several day s Trouble falling or staying asleep, or sleeping t oo much Not at all Feeling tired or having little energy Nearly marina ry day Poor appetite or overeating Not at all Feeling bad about yourself, or that you are a failure, or have let yourself or your family down Not at all Trouble concentrating on thi ngs, such as reading the newspaper or watching television Not at all Moving or speaking so slowly that other people could have noticed. Or the opposite ? being so fidgety or restless that you have been moving around a lot more than usual Not at all Thoughts that you would be b gabby off , or of hurting yourself in some way Not at all Total Score 4 Interpretation Minimal Depression Problems Problem Type SNOMED Code ICD Code Onset Dates Problem Status W/U Status Risk Notes Problem 04480264 Other chronic pa in (G89.29) Active confirmed Problem Essential hypertension (31801336) Essential (primary) hypertension (I10) Active confirmed Problem Localized, primary osteoarthritis of the ankle and/or foot (452441164) Primary osteoarthritis, right ankle and foot (M19.071) Active confirmed Problem 359421518 Lumbago with sci atica, left side (M54.42) Active confirmed Problem 32326658 Essential hypert ension (I10) Active confirmed Problem 634376485 Neuropathy (G62.9) Active confirmed Problem 35086580 LVH (left ventri cular hypertrophy) (I51.7) Active confirmed Problem 733825398 Pure hypercholesterolemia (E78.00) Active confirmed Problem 740071109 Hypertensive lef t ventricular hypertrophy, without heart failure (I11.9) Active confirmed Problem 3294634 Diastolic dysfun ction (I51.89) Active confirmed Problem 55025077 Obstructive slee p apnea syndrome (G47.33) Active confirmed Problem 55009451 Stress incontine nce of urine (N39.3) Active confirmed Problem 855971043 Iron deficiency anemia secondary to inadequate dietary iron intake (D50.8) Active confirmed Problem 638033250 Dry eye (H04.129) Active confirmed Problem Localized, primary osteoarthritis of the ankle and/or foot (059872350) Osteoarthritis involving ankle (715.17) 2015 Active confirmed [id number]- Problem Anemia (969002234) Unspecified a nemia (285.9) 2013 Problem resolved confirmed [id number]-[id number]- Problem Acute maxillary sinusitis (12929907) Acute maxillary sinusitis (461.0) 2012 Problem resolved confirmed [id number]-[id number]- Problem Acute sinusitis (24512593) Acute sinusitis, unspecified (461.9) 2015 Problem resolved confirmed [id number]-[id number]- Problem Actinic keratosis (983728044) Actinic keratosis (702.0) 2012 Problem resolved confirmed [id number]-[id number]- Problem Epistaxis (186340115) Epistaxis (784.7) 2013 Problem resolved confirmed [id number]-[id number]- Problem Cough (07034058) Cough (786.2) 2014 Problem resolved confirmed [id number]-[id number]- Problem Diarrhea (27012983) Diarrhea (787.91) 2013 Problem resolved confirmed [id number]-[id number]- Problem 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) Acute gouty arthropathy (274.01) 2014 Problem resolved confirmed [id number]-[id number]- Problem Rash (097230668) Rash (782.1) 2018 Problem resolved confirmed [id number]-[id number]- Problem Dizziness (457047337) Dizziness (780.4) 2017 Problem resolved confirmed Alli-[id number]- Problem Low back pain (039740323) Low back pain (724.2) 2018 Problem resolved confirmed Alli-[id number]- Problem Fatigue (41471341) Fatigue (780.79) 02/16 Problem resolved confirmed [facility]i-98 [id number]- Problem Headache (47924656) Headache (307.81) 2012 Problem resolved confirmed [id number]-[id number]- Problem Osteoarthritis of knee (890433794) Osteoarthritis of knee (715.16) 2015 Problem resolved confirmed [id number]-98 [id number]- Problem Screening for breast cancer (875651498) Screening for breast cancer (V76.10) 2011 Problem resolved confirmed Alli-98 [id number]- Problem Acute sinusitis (79040280) Acute sinusitis (461.9) 2013 Problem resolved confirmed [id number]-98 [id number]- Problem Allergic rhinitis due to allergen (52196126) Allergic rhinitis, other allergen-induced (477.8) 2012 Problem resolved confirmed [id number]-[id number]- Problem 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) Other abnormal findings on blood examination (790.99) 2011 Problem resolved confirmed Alli-98 [id number]- Problem Sore throat (964312881) Sore Throat (462) 2016 Problem resolved confirmed Alli-98 [id number]- Problem Acute exacerbation of chronic obstructive airways disease (594786085) Acute exacerbation of chronic obstructive pulmonary disease (COPD) (491.21) 2015 Problem resolved confirmed [id number]-98 [id number]- Problem Depressive disorder (98036201) Depressive disorder not elsewhere classified (311) 2017 Problem resolved confirmed Alli-98 [id number]- Problem Influenza (4738395) Influenza, with other respiratory manifestation (487.1) 2012 Problem resolved confirmed [facility]i-98 [id number]- Problem Thrombophlebitis of the femoral vein (766911445) Femoral vein DVT (451.11) 2017 Problem resolved confirmed [facility]i-98 [id number]- Problem Hypertension (90504001) Hypertension (401.1) 2015 Problem resolved confirmed [facility]i-98 [id number]- Problem Hyponatremia (61323429) Hyponatremia (276.1) 2018 Problem resolved confirmed [facility]i-98 [id number]- Problem Influenza immunization (58003195) Influenza immunization (V04.81) 2018 Problem resolved confirmed Alli-98 [id number]- Problem Insomnia (298981113) Insomnia (307.41) 2012 Problem resolved confirmed Alli-98 [id number]- Problem Precordial pain (70036593) Precordial chest pain (786.51) 2013 Problem resolved confirmed Alli-98 [id number]- Problem Screening for malignant neoplasm of colon (667166477) Screening for colorectal cancer (V76.49) 2013 Problem resolved confirmed Alli-98 [id number]- Problem Continuous opioid dependence (433342972) Opioid dependence, continuous (304.01) 2018 Problem resolved confirmed Alli-98 [id number]- Problem Iron deficiency anemia (74968881) Other specified iron deficiency anemia (280.8) 2013 Problem resolved confirmed Alli-98 [id number]- Problem Postmenopausal osteoporosis (777155238) Postmenopausal osteoporosis (733.01) 2014 Problem resolved confirmed Alli-98 [id number]- Problem Anxiety state (988913516) Situational stress with anxiety (300.09) 2016 Problem resolved confirmed Alli-98 5911- Problem Needs influenza immunization (088730855) Vaccination against other viral diseases, Influenza (V04.81) 2016 Problem resolved confirmed Alli-98 [id number]- Problem Acute upper respiratory infection (43248167) Acute upper respiratory infection (465.8) 2016 Problem resolved confirmed [facility]i-98 [id number]- Problem Obstructive sleep apnea (64773710) Obstructive sleep apnea (780.57) 2015 Problem resolved confirmed [facility]i-98 5911- Problem Iron deficiency anemia (31828755) Other specified iron deficiency anemia, NEC (280.8) 2013 Problem resolved confirmed Alli-98 [id number]- Problem Neoplasm of uncertain behavior of skin (53191697) Atypical skin lesion (238.2) 2013 Problem resolved confirmed Alli-98 5911- Problem Thyroid function tests abnormal (266599060) Abnormal thyroid findings (794.5) 2018 Problem resolved confirmed Alli-98 5911- Problem Eye pain (45152283) Eye pain (379.91) 2012 Problem resolved confirmed [facility]i-98 5911- Problem Hypersomnia (36899595) Hypersomnia with snoring (780.54) 2014 Problem resolved confirmed Alli-98 5911- Problem Knee pain (9633285074) Knee pain (719.46) 2014 Problem resolved confirmed [facility]i-98 5911- Problem Ankle pain (937854849) Ankle pain (719.47) 2012 Problem resolved confirmed Alli-98 5911- Problem 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) Central obesity (278.1) 2016 Problem resolved confirmed [facility]i-98 5911- Problem Cervical spinal stenosis (78253010) Cervical spinal stenosis (723.0) 2011 Problem resolved confirmed Alli-98 [id number]- Problem Gastroesophageal reflux disease (707544611) Acid reflux disease (530.81) 2011 Problem resolved confirmed [facility]i-98 5911- Problem Wrist pain (04029291) Wrist pain (719.43) 2015 Problem resolved confirmed Alli-98 5911- Problem Acute upper respiratory infection (64972778) Upper respiratory illness (465.8) 2018 Problem resolved confirmed Alli-98 5911- Problem Cramp in lower limb (759118005) Leg cramps (729.82) 2016 Problem resolved confirmed Alli-98 5911- Problem Moderate major depression, single episode (18623423) Major depression, single episode, moderate (296.22) 2015 Problem resolved confirmed Alli-98 5911- Problem Seborrheic keratosis (722728434) Seborrheic keratosis (702.19) 2012 Problem resolved confirmed Alli-98 5911- Problem 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) 2013 Problem resolved confirmed Alli-98 5911- Problem Essential hypertension (06943566) Essential hypertension (401.1) 2011 Problem resolved confirmed Alli-98 5911- Problem Left ventricular hypertrophy (70422841) Left ventricular hypertrophy (429.3) 2018 Problem resolved confirmed Alli-98 5911- Problem Nausea (188178348) Nausea (787.02) 2014 Problem resolved confirmed Alli-98 5911- Problem Pedal edema (782087135) Pedal edema (782.3) 2014 Problem resolved confirmed Alli-98 5911- Problem Neoplasm of uncertain behavior of connective and other soft tissues (33811530) Unspecified skin lesion (239.2) 2018 Problem resolved confirmed Alli-98 5911- Problem Osteoporosis (73225412) Ankle demineralization (733.00) 2017 Problem resolved confirmed Alli-98 5911- Problem Closed fracture of radius (811953119) Closed radial fracture (813.81) 2014 Problem resolved confirmed Alli-98 5911- Problem Deep venous thrombosis (098512399) Deep venous thrombosis (451.1) 2013 Problem resolved confirmed Alli-98 5911- Problem Dermatitis (516898195) Dermatitis (692.9) 2018 Problem resolved confirmed Alli-98 5911- Problem Screening mammography (52795493) Screening mammogram - other (V76.12) 2015 Problem resolved confirmed Alli-98 5911- Problem Seborrheic keratosis (053835814) Seborrheic keratosis, other (702.19) 2017 Problem resolved confirmed Alli-98 [id number]- Plan Of Treatment No Information Insurance Providers Payer Name Payer Address Payer Phone Subscriber Number Group Number Insured Name Patient Relationship to Insured Coverage Start Date Coverage End Date [place] [address] [address] [place] [address] [id number] Vi Ruffin Self - patient is the insured for Life Secondary to Medicare [address] [place] [phone] [id number] Vi Sanabria Self - patient is the insured 2 Medications Administered Medication Instructions Date of Administration Dosage Notes Depo-Medrol/Methylpred nisolone per 80mg 04/20/2020 80 mg Right ankle injection Depo-Medrol/Methylpred nisolone per 80mg 11/30/2020 80 mg Medical (General) History Medical History History ICD Code Controlled medication consent: 07/15/2019 Drug screen: (+) 07/15/2019 Hypertension LVH COPD Sleep apnea; uses CPAP GERD Osteoarthritis Peripheral neuropathy Osteoarthritis Depression Allergies Acne rosacea Surgical History Surgery Date(Month/Year) Dilation and Curettage Fracture repair; left Hernia repair Tubal ligation Hospitalization History Reason Date(Month/Year)
[2024-06-04 10:19] VITALS: BP 105/64; PULSE 67; RESP 16; TEMP 36.5; O2SAT 99
[2024-06-04] MEDS: ferric carboxy (IVPB) 750 MG in sodium chloride 0.9% (100 ml) 100 ML 345 MG IV (10:39)
[2024-06-04 11:21] VITALS: BP 106/60; PULSE 60; RESP 16; TEMP 36.5
--- NOTE | 2024-06-08 14:57 | PC.NURSE ---
called and spoke to patient regarding bruising to forearm mentioned in review. Patient said it is still purple on the forearm and hand, and she noticed it the day after her last infusion. no pain, swelling or fever to site. Informed patient to use warm compress to help bruising resolve. patient mentioned she is on blood thinners and she may not have left pressure dressing on long enough. Asked patient to inform nurses of that at next infusion and we would add extra pressure to dressing in the future. Patient denied any other complaints or concerns.
[2024-06-18] MEDS: ferric carboxy (PYXIS) 750 MG in sodium chloride 0.9% (100 ml) 100 ML 345 MG IV (10:18)
[2024-06-18 11:02] VITALS: BP 125/78; PULSE 79; RESP 16; TEMP 36.9; O2SAT 98
== END 2024-06-26 23:55 | disposition home or self-care (01) ==
PROVIDERS: PCP Family Medicine; Visit Provider Family Medicine
DX: Z53.9 Procedure and treatment not carried out, unspecified reason (principal); D50.9 Iron deficiency anemia, unspecified; Z79.899 Other long term (current) drug therapy
CPT/HCPCS: 96365; J1439

== ENCOUNTER → 2024-06-29 13:14 | Outpatient (BNVA) | payer MEDICARE, OTHER, MEDICAID, SELFPAY | PROVIDERS: Visit Provider Podiatrist Foot & Ankle Surgery | DX: M19.171 Post-traumatic osteoarthritis, right ankle and foot (principal); M20.41 Other hammer toe(s) (acquired), right foot; M20.42 Other hammer toe(s) (acquired), left foot | CPT/HCPCS: 20605; J1100; J3301; J3490 ==